=== PATIENT | male | born 1935 | race Caucasian/White ===

== ENCOUNTER → 2023-04-15 | Outpatient (CLI) | payer MEDICARE, SELFPAY ==
--- NOTE | 2023-04-15 12:30 | RAD_ITS ---
INDICATION: Other intervertebral disc degeneration, lumbar region EXAMINATION/TECHNIQUE: X-RAY - XR Spine Lumbar 2 or 3 Views COMPARISON: None. FINDINGS: Vertebral body heights are maintained. No acute fracture or subluxation. Grade 1 retrolisthesis of L2 and L3 and L3 on L4. Grade 1 anterolisthesis of L4 and L5. Grade 1 retrolisthesis of L5 on S1. No traumatic malalignment. Mild to moderate multilevel degenerative disc disease with endplate osteophytic spurring and disc space narrowing most prominent at the L2-L3 and L5-S1 level. Moderate to severe facet arthropathy most prominent at the L5-S1 level. Cholecystectomy clips noted in the right upper quadrant. No acute findings in the visualized abdomen or soft tissues. RAD/Lumbar Spine 2 or 3 Views IMPRESSION: 1. No acute findings. 2. [id number] multilevel degenerative disc disease was prominent at the L2-L3 and L5-S1 level. 3. Moderate to severe facet arthropathy most prominent at the L5-S1 level. Electronically Signed: Neo Coles MD at 13:00 EDT ,
== END | disposition home or self-care (01) ==
PROVIDERS: PCP Family Medicine; Referring Provider Anesthesiology Pain Medicine; Visit Provider Anesthesiology Pain Medicine
DX: M51.36 Other intervertebral disc degeneration, lumbar region (principal)
CPT/HCPCS: 72100

== ENCOUNTER → 2024-07-08 | Outpatient (CLI) | payer MEDICARE, SELFPAY ==
--- NOTE | 2024-07-08 16:20 | RAD_ITS ---
STUDY: X-RAY - RIGHT KNEE REASON FOR EXAM: Male, 89 years old. PAIN TECHNIQUE: 4 view(s) of the knee. COMPARISON: None. FINDINGS: There is demineralization of the visualized distal femur. There is demineralization of the tibia and fibula. Normal proximal tibiofibular articulation. There is no demonstrated fracture. There is moderate degenerative arthrosis of the medial femorotibial compartment with moderate joint space narrowing. Normal lateral femorotibial compartment. There is mild degenerative arthrosis of the patellofemoral articulation. There are atherosclerotic calcifications. RAD/Knee 4 or More Views IMPRESSION: Degenerative arthrosis. Electronically Signed: Peter Mandel MD at 9:01 EDT ,
== END | disposition home or self-care (01) ==
LOC: RAD 16:19
PROVIDERS: PCP Family Medicine; Referring Provider Anesthesiology Pain Medicine; Visit Provider Anesthesiology Pain Medicine
DX: M25.561 Pain in right knee (principal)
CPT/HCPCS: 73564

== ENCOUNTER → 2025-04-05 | Outpatient (CLI) | payer MEDICARE, SELFPAY ==
--- NOTE | 2025-04-05 07:51 | MRI_ITS ---
PROCEDURE: LOWER EXT JOINT ONLY (ROUTINE) 04/05/2025 REASON FOR EXAM: RT KNEE OA TECHNIQUE: MRI of the right lower Extremity. T1, T2, PD multiplanar and multisequence images were obtained without IV contrast administration. COMPARISON: COMPARISON : None FINDINGS: Bone Marrow: There is a 0.9 x 1.3 cm developing osteochondral defect in the central portion of the lateral femoral condyle with no free fragment. 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 Subcortical cyst formation is noted in the medial tibial plateau. A fissure is noted in the central portion of the lateral patellar facet. Effusion: There is a moderate joint effusion. 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 There is a 0.4 and 0.3 cm corticated osteochondral fragment within a moderately distended popliteus tendon sheath. Menisci: There is a bucket-handle tear of the medial meniscus with a component interposed in the intercondylar region anterior to the PCL, with radial component 1 cm from the root, and extrusion of the anterior body. There is a radial tear in the posterior horn of the lateral meniscus, 0.7 cm from the root, coronal image 24/34. There is extrusion of the body of the lateral meniscus. Collateral ligaments. The lateral collateral ligament complex appears intact. The medial collateral ligament appears intact. Cruciate ligaments: There is a edema and attenuation throughout the anterior cruciate ligament with lax components, grade 2-3 sprain. The posterior cruciate appears intact. Extensor mechanism: There is mild distal quadriceps tendinopathy with longitudinal increased T2 signal. The patellar tendon appears intact. MRI/Lower Ext Joint Only (Routine) IMPRESSION: There is a 0.9 x 1.3 cm developing osteochondral defect in the central portion of the lateral femoral condyle with no free fragment. 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 Subcortical cyst formation is noted in the medial tibial plateau. A fissure is noted in the central portion of the lateral patellar facet. There is a moderate joint effusion. 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 There is a 0.4 and 0.3 cm corticated osteochondral fragment within a moderately distended popliteus tendon sheath. There is a bucket-handle tear of the medial meniscus with a component interpose d in the intercondylar region anterior to the PCL, with radial component 1 cm from the root, and extrusion of the anterior body. There is a radial tear in the posterior horn of the lateral meniscus, 0.7 cm fr om the root, coronal image 34. There is extrusion of the body of the lateral meniscus. There is a edema and attenuation throughout the anterior cruciate ligament with lax components, grade 2-3 sprain. There is mild distal quadriceps tendinopathy with longitudinal increased T2 sig nal. Reading Location: [facility]
== END | disposition home or self-care (01) ==
PROVIDERS: PCP Family Medicine; Referring Provider Anesthesiology Pain Medicine; Visit Provider Anesthesiology Pain Medicine
DX: M17.11 Unilateral primary osteoarthritis, right knee (principal)
CPT/HCPCS: 73721

== ENCOUNTER 2025-07-31 12:26 | Emergency (ER) | payer MEDICARE, SELFPAY ==
[2025-07-31 12:27] VITALS: BP 160/82; PULSE 81; RESP 16; TEMP 36.7; O2SAT 99; BMI 22.1
--- NOTE | 2025-07-31 12:48 | RAD_ITS ---
EXAM: XR Right Ankle Complete, 3 or More Views CLINICAL INDICATION: PAIN, INJURY TECHNIQUE: Frontal, lateral and oblique views of the right ankle. COMPARISON: No relevant prior studies available. FINDINGS: BONES/JOINTS: See below. SOFT TISSUES: Soft tissue swelling without acute fracture. VASCULATURE: Vascular calcification. RAD/Ankle min 3 Views IMPRESSION: 1. Soft tissue swelling without acute fracture. 2. If symptoms persist, further evaluation with CT is recommended. Reading Location: [id number]
--- NOTE | 2025-07-31 13:00 | RAD_ITS ---
EXAM: XR Right Foot Complete, 3 or More Views CLINICAL INDICATION: PAIN INJURY KICKED MOWER TECHNIQUE: Frontal, lateral and oblique views of the right foot. COMPARISON: No relevant prior studies available. FINDINGS: BONES/JOINTS: Severe degenerative change of the 1st metatarsophalangeal joint. No acute fracture. No dislocation. SOFT TISSUES: Soft tissue swelling. RAD/Foot min 3 Views IMPRESSION: 1. Soft tissue swelling. 2. 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 Reading Location: [id number]
--- OUTSIDE RECORDS SUMMARY | 2025-07-31 13:23 | XMS RPT_ITS | CCD ---
Author Organization [facility] Care Team Providers Care Poultry Hatchery Man Name Role Phone Jennifer Hauser Unavailable Mickey Fortune Unavailable Unavailable Mickey Fortune Unavailable Unavailable Jennifer Hauser Primary Care Provider [phone] Dante Gayle Primary Care Provider Dante Gayle CNP Primary Care Provider [phone] Unavailable Unavailable Dante Gayle CNP Primary Care Provider Dante Gayle CNP Primary Care Provider Jennifer Hauser Primary Care Unavailable Norris Ortiz Referring Unavailable Norris Ortiz Attending Unavailable Norris Ortiz Attending Unavailable Jennifer Hauser Primary Care Unavailable Norris Ortiz Referring Unavailable Dante Gayle CNP Primary Care Provider Dante Gayle CNP Primary Care Provider Светлана Gayle CNP Primary Care Provider Jennifer Peterson Primary Care Provider Dante Gayle CNP Primary Care Provider [phone] Jennifer Hauser DO Primary Care Provider [phone] Deuce Mendez MD Primary Care Pro vider Deuce Mendez MD Primary Care Pro vider Unavailable Primary Care Provider Unavailabl NORRIS Bright Attending Unavailable NORRIS ORTIZ Referring Unavailable JENNIFER HAUSER Primary Care Unavailable NORRIS ORTIZ Attending Unavailable JENNIFER HAUSER Primary Care Unavailable NORRIS ORTIZ Attending Unavailable ANDREA , DEUCE Primary Care Provider [phone] Tanner GILES, Dr. Bower Attending Provider Tanner GILES, Dr. Bower Referring Provider Tanner, Cheli Attending Unavailable ANDREA, DEUCE Primary Care Unavailable Basali, Cheli Referring Unavailable ANDREA, DEUCE Primary Care Unavailable Basali, Cheli Referring Unavailable Basali, Cheli Attending Unavailable ANDREA, DEUCE Primary Care Unavailable Basali, Cheli Referring Unavailable Basali, Cheli Attending Unavailable DAY, STEPHANIE CA Attending Unavailable DAY, STEPHANIE CA Referring Unavailable ANDREA, DEUCE DAKOTA MOUNIR Primary Care Ping vailable ANDREA, DEUCE DAKOTA MOUNIR Primary Care Ping vailable ROBY NORRIS Referring Unavaila ble TONG, MICKEY RAY Admitting Unavailable TONG, MICKEY RAY Attending Unavailable ANDREA, DEUCE DAKOTA MOUNIR Primary Care Ping vailable DAY, STEPHANIEKENDALL CA Referring Unavailable DAY, STEPHANIE CA Attending Unavailable ANDREA, DEUCE DAKOTA MOUNIR Primary Care Ping vailable DAY, STEPHANIE CA Attending Unavailable DAY, STEPHANIEKENDALL CA Referring Unavailable ANDREA, DEUCE DAKOTA MOUNIR Primary Care Ping vailable DAY, STEPHANIE CA Attending Unavailable DAY, STEPHANIEKENDALL CA Referring Unavailable ANDREA, DEUCE DAKOTA MOUNIR Primary Care Ping vailable SYSTEM, PROVIDER NOT IN Referring Unavaila ble SYSTEM, PROVIDER NOT IN Attending Unavaila ble ANDREA, DEUCE DAKOTA MOUNIR Primary Care Ping vailable SYSTEM, PROVIDER NOT IN Attending Unavaila ble ANDREA, DEUCE DAKOTA MOUNIR Primary Care Ping vailable SYSTEM, PROVIDER NOT IN Referring Unavaila ble SYSTEM, PROVIDER NOT IN Attending Unavaila ble ANDREA, DEUCE DAKOTA MOUNIR Primary Care Ping vailable SYSTEM, PROVIDER NOT IN Referring Unavaila ble SOHEILA DIAZ Referring Unavailable JENNIFER HAUSER Primary Care Unavailable JUSTO PETERSON Attending Unavailable SOHEILA DIAZ Referring Unavailable SOHEILA DIAZ Referring Unavailable SOHEILA DIAZ Referring Unavailable TAMAYOANILA WARD Referring Unavailable SHAHBAZ MARRERO II H Attending Unavailabl e ANDREA, DEUCE DAKOTA MOUNIR Primary Care Ping vailable HOLLAND MOLINA Attending Unavailable ANDREA, DEUCE DAKOTA MOUNIR Primary Care Ping vailable HOLLAND MOLINA Attending Unavailable HOLLAND MOLINA Referring Unavailable ANDREA, DEUCE DAKOTA MOUNIR Primary Care Ping vailable HOLLAND MOLINA Attending Unavailable ANDREA, DEUCE DAKOTA MOUNIR Primary Care Ping vailable ANILA TAMAYO K Attending Unavailable TAMAYOANILA WARD K Referring Unavailable ANDREA, DEUCE DAKOTA MOUNIR Primary Care Ping vailable ANDREA, DEUCE DAKOTA MOUNIR Attending Ping vailable ANDREA, DEUCE DAKOTA MOUNIR Primary Care Ping vailable ANDREA, DEUCE DAKOTA MOUNIR Primary Care Ping vailable ANDREA, DEUCE DAKOTA MOUNIR Referring Ping vailable ANDREA, DEUCE DAKOTA MOUNIR Admitting Ping vailable ROBY NORRIS Attending Unavaila ble ANDREA, DEUCE DAKOTA MOUNIR Attending Ping vailable ANDREA, DEUCE DAKOTA MOUNIR Primary Care Ping vailable ANDREA, DEUCE DAKOTA MOUNIR Primary Care Ping vailable ANDREA, DEUCE DAKOTA MOUNIR Attending Ping vailable ANDREA, DEUCE DAKOTA MOUNIR Attending Ping vailable ANDREA, DEUCE DAKOTA MOUNIR Primary Care Ping vailable ANDREA, DEUCE DAKOTA MOUNIR Primary Care Ping vailable ANDREA, DEUCE DAKOTA MOUNIR Attending Ping vailable ANDREA, DEUCE DAKOTA MOUNIR Primary Care Ping vailable MARY COPPOLA Attending Unavailabl e ANDREA, DEUCE DAKOTA MOUNIR Primary Care Ping vailable STEPHANIE SIMPSON Attending Unavailable ANDREA, DEUCE DAKOTA MOUNIR Attending Ping vailable ANDREA, DEUCE DAKOTA MOUNIR Primary Care Ping vailable ANDREA, DEUCE DAKOTA MOUNIR Primary Care Ping vailable ANDREA, DEUCE DAKOTA MOUNIR Attending Ping vailable ANDREA, DEUCE DAKOTA MOUNIR Primary Care Ping vailable MANUEL FORTUNEWOOD RAY Attending Unavailable DEUCE MENDEZ Primary Care Ping SOHEILA Hernandez Attending Unavailable Allergies Allergy Classification Reported Allergen(s) Allergy Type Date of Onset Reaction(s) Facility Macrolides (antibiotic) (1 source) Erythromycin Drug Allergy 10-20-2014 [facility] (20 sources) Erythromycin; Translations: [ILOSONE] Drug Allergy 10-20-2014 [facility] Medications Current Medications Medication Drug Class(es) Dates Sig (Normalized) Sig (Original) acyclovir 0.05 mg/mg topical ointment (14 sources) Herpesvirus Nucleoside Analog DNA Polymerase Inhibitor, Herpes Simplex Virus Nucleoside Analog DNA Polymerase Inhibitor, Herpes Zoster Virus Nucleoside Analog DNA Polymerase Inhibitor Start: 04-09-2025 End: 04-09-2026 acyclovir (ZOVIRAX) 5 % ointment Apply topically 5 (five) times a day . 15 g 1 04/09/2025 04/09/2026 Active amLODIPine 10 mg oral tablet (20 sources) Dihydropyridine Calcium Channel Kemal Start: 03-16-2008 End: 01-06-2025 take 1 tablet by mouth at dinner amLODIPine (NORVASC) 10 MG tablet Indications: Primary hypertension Take 1 (one) tablet (10 mg total) by mouth with evening meal . 100 tablet 3 01/06/2025 Active amLODIPine Besyl ate 10 MG Oral Tablet Quantity: 0 Refills: 0 Ordered: 10-Oct-2019 DO Active Comment on above: Take one(1) tablet d aily. aspirin 81 mg delayed release oral tablet (20 sources) Nonsteroidal Anti-inflammatory Drug Start: 03-16-2008 aspirin(HALFPRIN 81 MG TAB) Take one(1) tablet daily. 0 03/16/2008 Active Aspirin 81 MG TA BS Quantity: 0 Refills: 0 Ordered: 10-Oct-2019 DO Active Comment on above: Take one(1) tablet d aily. b complex vitamins capsule (20 sources) take 1 capsule by mouth once daily b complex vitamins capsule Take 1 (one) capsule by mouth daily . Active take 1 capsule by mouth once milla ly b complex vitamins capsule Take 1 (one) capsule by mouth daily . 0 Active Bee pollen (2 sources) take 2 capsules by m outh once daily BEE POLLEN ORAL Take 2 capsules by mouth daily . 0 Active BEE POLLEN ORAL (20 sources) take 2 capsules by m outh once daily BEE POLLEN ORAL Take 2 capsules by mouth daily . Active take 2 capsules by mouth once da christine BEE POLLEN ORAL Take 2 capsules by mouth daily . 0 Active benoxinate hydrochloride 4 mg/ml / fluorescein sodium 3 mg/ml ophthalmic solution (5 sources) Diagnostic Dye Start: 06-24-2025 End: 06-24-2025 fluorescein-benoxinate 0.3-0.4 % 1 drop (FLURESS) Start: 08-06-2024 End: 08-06-2024 fluorescein-benoxinate 0.3-0 .4 % 1 Drop (FLURESS) Start: 08-06-2024 End: 08-06-2024 1 Drop, BOTH EYES, DIRECT ED, Starting on Ting 08/06/24 at 1100, Until Ting 08/06/24 at 2259, Administer for applanation tonometry. In the event of a Fluress shortage, administer [place]-Fluor 1 drop into both eyes as directed for applanation tonometry Start: 10-16-2022 End: 10-16-2022 fluorescein-benoxinate 0.25- 0.4 % 1 Drop (FLURESS) Start: 10-11-2022 End: 10-11-2022 fluorescein-benoxinate 0.25- 0.4 % 1 Drop (FLURESS) Calcium Carbonate (20 sources) calcium carbonat e (TUMS ORAL) Take by mouth . Active cloNIDine hydrochloride 0.1 mg oral tablet (20 sources) Central alpha-2 Adrenergic Agonist End: 2 take 1 tablet by mouth twice daily in the morning cloNIDine 0.1 mg ORAL tablet Take 0.1 mg by mouth two times a day. Take one(1) tablet in morning. Active take 1 tablet by triston th twice daily at bedtime cloNIDine 0.2 mg tablet Take 0.2 mg by mouth two times a day. Take one tablet in afternoon and bedtime. Active cloNIDine HCl - 0.2 MG Oral Tablet Quantity: 0 Refills: 0 Ordered: 10-Oct-2019 DO Active take 1 tablet by triston th once daily in the evening, then take 1 tablet by mouth once daily in the morning cloNIDine HCl (CATAPRES) 0.1 MG tablet Take 0.1 mg by mouth 0.1 mg QAM 0.2 MG QPM 0.2 MG QHS 0 Active Comment on above: Take 0.1 mg by mouth twice daily. Take one(1) tablet in morning. Take 0.2 mg by mouth twice daily. Take one tablet in afternoon and bedtime. cycloSPORINE (Restasis) 0.05 % ophthalmic emulsion (3 sources) Start: 01-24-2023 cycloSPORINE (Restasis) 0.05 % ophthalmic emulsion 01/24/2023 Active Start: 01-24-2023 cycloSPORINE ( Restasis) 0.05 % ophthalmic emulsion dexamethasone 0.001 mg/mg / neomycin 0.0035 mg/mg / polymyxin b 10 unt/mg ophthalmic ointment (3 sources) Aminoglycoside Antibacterial, Polymyxin-class Antibacterial, Corticosteroid Start: 10-15-2023 neomycin-polymyxin B-dexameth (Polydex) 3.5 mg/g-10,000 unit/g-0.1 % ointment ophthalmic ointment 10/15/2023 Active docusate sodium 250 mg oral capsule (20 sources) take 1 capsule by mouth once daily docusate sodium (COLACE) 250 MG capsule Take 1 (one) capsule (250 mg total) by mouth daily . Active docusate calcium (SURFAK) 240 mg capsule Take one capsule at bedtime. Active Comment on above: Take one capsule at bedtime. DORZOLAMIDE HCL/TIMOLOL MALEAT (COSOPT OPHT) (20 sources) DORZOLAMIDE HCL/ TIMOLOL MALEAT (COSOPT OPHT) Apply to eye 2 (two) times a day Right eye . Active DORZOLAMIDE HCL/ TIMOLOL MALEAT (COSOPT OPHT) Apply to eye 2 (two) times a day Right eye 0 Active DORZOLAMIDE HCL/ TIMOLOL MALEAT (COSOPT OPHT) Apply to eye 2 (two) times a day Right eye Active famotidine 20 mg oral tablet (20 sources) Histamine-2 Receptor Antagonist Start: 12-28-2016 End: 06-07-2025 take 1 tablet by mouth twice daily famotidine (PEPCID) 20 MG tablet Take 1 (one) tablet (20 mg total) by mouth 2 (two) times a day . 180 tablet 06/07/2025 Active Pepcid 20 MG Ora l Tablet Quantity: 0 Refills: 0 Ordered: 10-Oct-2019 DO Active take 1 tablet by mouth once emre y famotidine (PEPCID) 20 MG tablet Take 20 mg by mouth daily . 0 Active ferrous sulfate 325 mg oral tablet (20 sources) take 1 tablet by triston th once daily at breakfast ferrous sulfate 325 (65 FE) MG tablet Take 1 (one) tablet (325 mg total) by mouth daily with breakfast . Active Ferrous Sulfate 325 MG CAPS Quantity: 0 Refills: 0 Ordered: 10-Oct-2019 DO Active finasteride 5 mg oral tablet (20 sources) 5-alpha Reductase Inhibitor Start: 03-16-2008 End: 05-14-2025 take 1 tablet by mouth once daily finasteride (PROSCAR) 5 mg tablet Take 1 (one) tablet (5 mg total) by mouth daily . 90 tablet 1 05/14/2025 Active Proscar 5 MG Ora l Tablet Quantity: 0 Refills: 0 Ordered: 10-Oct-2019 DO Active Comment on above: Take one(1) tablet d aily. fluconazole 200 mg oral tabl et (20 sources) Azole Antifungal Start: 05-19-2024 fluconazole (DIFLUCAN) 200 MG tablet Take 1 (one) tablet (200 mg total) by mouth once a week Takes 2 on Saturday . 05/19/2024 Active fluorouracil 50 mg/ml topica l cream (3 sources) Nucleoside Metabolic Inhibitor Start: 09-02-2023 fluorouracil (Efudex) 5 % cream 09/02/2023 Active hydroCHLOROthiazide 25 mg / losartan potassium 100 mg oral tablet (20 sources) Thiazide Diuretic, Angiotensin 2 Receptor Kemal Start: 09-28-2023 End: 11-04-2024 losartan-hydrochloroth iazide (Hyzaar) 100-12.5 mg tablet 09/28/2023 11/04/2024 Discontinued (Med List Cleanup) Start: 03-16-2008 End: 07-19-2025 take 1 tablet by mouth once daily at lunch losartan-hydrochlorothiazide (HYZAAR) 10 0-25 mg per tablet Indications: Primary hypertension Take 1 (one) tablet by mouth daily with lunch . 100 tablet 3 07/19/2025 Active Losartan Taylori um-HCTZ 100-25 MG Oral Tablet Quantity: 0 Refills: 0 Ordered: 10-Oct-2019 DO Active Comment on above: Take one(1) tablet d aily. labetalol hydrochloride 100 mg oral tablet (20 sources) beta-Adrenergic Kemal Start: End: take 1 tablet by mouth twice daily labetaloL (NORMODYNE) 100 MG tablet Indications: Primary hypertension Take 1 (one) tablet (100 mg total) by mouth 2 (two) times a day . 180 tablet 02/19/2025 07/09/2025 Discontinued Start: 10-09-2024 take 1 tablet by triston th every twelve hours labetalol (Normodyne) 100 mg tablet Take 1 tablet (100 mg) by mouth every 12 hours. 10/09/2024 Active Start: 07-02-2024 End: 10-09-2024 take 0.5 tablet by mouth twice daily labetaloL (NORMODYNE) 200 MG tablet Take 0.5 (one-half) tablet (100 mg total) by mouth 2 (two) times a day . 90 tablet 07/02/2024 10/09/2024 Discontinued End: 11-04-2024 labetalol 200 mg ORAL tablet Take one tablet morning and one in evening. Active Labetalol HCl - 100 MG Oral Tablet Quantity: 0 Refills: 0 Ordered: 12-Oct-2022 DO Active Labetalol HCl - 200 MG Oral Tablet Quantity: 0 Refills: 0 Ordered: 10-Oct-2019 DO Active labetalol (NORMO DYNE) 200 MG tablet Take 100 mg by mouth 2 (two) times a day . 0 Active Comment on above: Take one tablet morn ing and one in evening. latanoprost 0.05 mg/ml ophthalmic solution (20 sources) Prostaglandin Analog Start: take 1 drop(s) into the eye(s) once daily at bedtime latanoprost (XALATAN) 0.005 % ophthalmic solution Use 1 drop in both eyes daily at bedtime. 7.5 mL 2 07/19/2025 Active Start: 07-14-2025 End: 07-16-2025 take 1 drop(s) into the eye(s) once daily at bedtime latanoprost (XALATAN) 0.005 % ophthalmic solution Use 1 drop in both eyes daily at bedtime. 7.5 mL 2 07/14/2025 07/16/2025 Discontinued Start: 10-29-2023 End: 08-18-2025 take 1 drop(s) into the eye(s) once daily latanoprost (XALATAN) 0.005 % ophthalmic solution Administer 1 (one) drop to both eyes nightly . 10/01/2024 Active Start: 06-14-2023 latanoprost (X alatan) 0.005 % ophthalmic solution Administer 1 drop into affected eye(s). 06/14/2023 Active Start: 05-01-2023 take 1 drop(s) into the eye(s) once daily at bedtime latanoprost (XALATAN) 0.005 % ophthalmic solution Use 1 Drop in both eyes daily at bedtime. 2.5 mL 2 05/01/2023 Active Comment on above: Use 1 Drop in both e yes daily at bedtime. LORazepam 1 mg oral tablet (20 sources) Benzodiazepine Start: End: take 1 tablet by mouth once daily LORazepam (ATIVAN) 1 MG tablet Indications: Insomnia, unspecified type Take 1 (one) tablet (1 mg total) by mouth daily for 10 days . 10 tablet 07/16/2025 07/26/2025 Active Start: 01-06-2025 End: 04-09-2025 take 1 tablet by mouth once daily LORazepam (ATIVAN) 0.5 MG tablet Indications: Insomnia, unspecified type Take 1 (one) tablet (0.5 mg total) by mouth nightly for 15 days . 15 tablet 01/06/2025 04/09/2025 Discontinued Start: 07-23-2024 End: 10-21-2024 take 1 tablet by mouth every six hours as needed for anxiety LORazepam (ATIVAN) 1 MG tablet Indications: Insomnia, unspecified type Take 1 (one) tablet (1 mg total) by mouth every 6 (six) hours as needed for anxiety . 90 tablet 07/23/2024 10/09/2024 Discontinued (Reorder (Suppress CancelRx Message to Pharmacy)) Start: 06-19-2024 End: 06-29-2024 take 1 tablet by mouth every six hours as needed for anxiety LORazepam (ATIVAN) 1 MG tablet Indications: Insomnia, unspecified type Take 1 (one) tablet (1 mg total) by mouth every 6 (six) hours as needed for anxiety . 30 tablet 06/19/2024 Active Start: 04-09-2024 End: 06-08-2024 take 1 tablet by mouth once daily as needed for anxiety LORazepam (ATIVAN) 0.5 MG tablet Indications: Insomnia, unspecified type Take 1 (one) tablet (0.5 mg total) by mouth daily as needed for anxiety . 30 tablet 2 06/08/2024 Active Start: 07-02-2006 LORAZEPAM 1 MG TAB Take one-half tablet daily. 0 07/02/2006 Active Start: 07-02-2006 End: 06-11-2025 take 1 tablet by mouth once daily LORazepam (ATIVAN) 1 MG tablet Indications: Insomnia, unspecified type Take 1 (one) tablet (1 mg total) by mouth daily . 30 tablet 2 01/12/2025 06/11/2025 Discontinued (Reorder (Suppress CancelRx Message to Pharmacy)) LORazepam 1 MG O ral Tablet Quantity: 0 Refills: 0 Ordered: 10-Oct-2019 DO Active Comment on above: Take one-half tablet daily. mirtazapine 7.5 mg oral tablet (3 sources) Start: End: 4 take 1 tablet by mouth once daily mirtazapine (REMERON) 7.5 MG tablet Take 1 (one) tablet (7.5 mg total) by mouth nightly . 30 tablet 0 03/09/2024 04/09/2024 Discontinued multivitamin capsule (3 sources) multivitamin cap jude Take by mouth. Active multivitamin cap jude Take by mouth. 0 Active Multivitamin ORAL capsule (20 sources) take 2 capsules by m outh once daily Multivitamin ORAL capsule Take two 1000mg capsules daily. Active take 2 capsules by mouth once da christine Multivitamin ORAL capsule Take two 1000mg capsules daily. 0 Active Comment on above: Take two 1000mg caps ules daily. naphazoline hydrochloride 0.25 mg/ml / pheniramine maleate 3 mg/ml ophthalmic solution (12 sources) take 1 drop(s) into the eye(s) every four hours as needed naphazoline-phenirami ne eye drops (NAPHCON-A) 0.025-0.3 % ophthalmic solution Use 1 Drop in both eyes every 4 hours as needed. Active take 1 drop(s) into the eye(s) every four hours as needed naphazoline-pheniramine (Naphcon-A) 0.02 5-0.3 % ophthalmic solution Administer 1 drop into affected eye(s) every 4 hours if needed. Active naphazoline-phen iramine eye drops (NAPHCON-A) 0.025-0.3 % ophthalmic solution Use 1 Drop in both eyes every 4 hours as needed. 0 Active Comment on above: Use 1 Drop in both e yes every 4 hours as needed. olopatadine 1 mg/ml ophthalmic solution (3 sources) Histamine-1 Receptor Inhibitor Start: 2 End: 3 take 1 drop(s) into the eye(s) twice daily olopatadine (PATANOL) 0.1 % ophthalmic solution Use 1 Drop in both eyes twice daily for 90 days. 15 mL 3 09/12/2022 12/11/2022 Active Comment on above: Use 1 Drop in both e yes twice daily for 90 days. omega-3 fatty acids(FISH OIL 500 MG CAP) (20 sources) Start: 8 omega-3 fatty acids(FISH OIL 500 MG CAP) Take two capsule of 1200 mg daily. 0 03/16/2008 Active Comment on above: Take two capsule of 1200 mg daily. ondansetron 4 mg oral tablet (20 sources) Serotonin-3 Receptor Antagonist take 1 tablet by mouth every eight hours as needed for nausea ondansetron (ZOFRAN) 4 MG tablet Take 1 (one) tablet (4 mg total) by mouth every 8 (eight) hours as needed for nausea . Active phenylephrine hydrochloride 25 mg/ml ophthalmic solution (8 sources) alpha-1 Adrenergic Agonist Start: 5 End: 5 PHENYLephrine 2.5 % 1 drop (AK-DILATE, NICOLE-SYNEPHRINE) Start: 02-25-2025 End: 02-25-2025 PHENYLephrine 2.5 % 1 drop ( AK-DILATE, NICOLE-SYNEPHRINE) Start: 02-25-2025 End: 02-25-2025 1 drop, BOTH EYES, DIRECT ED, Starting on Ting 02/25/25 at 1100, Until Ting 02/25/25 at 2259, Administer for dilation PROTECT FROM LIGHT, OPHT CLINIC MED ORDERS Start: 12-24-2024 End: 12-25-2024 PHENYLephrine 2.5 % 1 Drop ( AK-DILATE, NICOLE-SYNEPHRINE) Start: 12-24-2024 End: 12-25-2024 1 Drop, BOTH EYES, DIRECT ED, Starting on Ting 12/24/24 at 1330, Until Sat12/25/24 at 0129, Administer for dilation PROTECT FROM LIGHT, OPHT CLINIC MED ORDERS Start: 11-19-2024 End: 11-19-2024 PHENYLephrine 2.5 % 1 Drop ( AK-DILATE, NICOLE-SYNEPHRINE) Start: 11-19-2024 End: 11-19-2024 1 Drop, BOTH EYES, DIRECT ED, Starting on Ting 11/19/24 at 1130, Until Ting 11/19/24 at 2329, Administer for dilation PROTECT FROM LIGHT Start: 03-19-2023 End: 03-19-2023 PHENYLephrine 2.5 % 1 Drop ( AK-DILATE, NICOLE-SYNEPHRINE) potassium chloride 10 meq extended release oral tablet (20 sources) Start: 07-02-2006 End: 05-14-2025 take 1 tablet by mouth once daily potassium chloride 10 MEQ CR tablet Take 1 (one) tablet (10 mEq total) by mouth daily . 90 tablet 1 05/14/2025 Active Comment on above: Take one(1) tablet d aily. pravastatin sodium 10 mg oral tablet (15 sources) HMG-CoA Reductase Inhibitor Start: 04-13-2025 End: 05-18-2026 take 1 tablet by mouth once daily pravastatin (PRAVACHOL) 10 MG tablet Take 1 (one) tablet (10 mg total) by mouth nightly . 90 tablet 3 05/18/2025 05/18/2026 Active proparacaine hydrochloride 5 mg/ml ophthalmic solution (9 sources) Local Anesthetic Start: 06-24-2025 End: 06-24-2025 proparacaine 0.5 % 1 drop (ALCAINE) Start: 02-25-2025 End: 02-25-2025 proparacaine 0.5 % 1 drop (A LCAINE) Start: 02-25-2025 End: 02-25-2025 1 drop, BOTH EYES, DIRECT ED, Starting on Ting 02/25/25 at 1100, Until Ting 02/25/25 at 2259, Administer for pneumo tonometry, tonopen tonometry, or pachymetry. In the event of a proparacaine shortage, administer 1 drop of tetracaine 0.5% ophthalmic drops into both eyes as directed for pneumo tonometry, tonopen tonometry, or pachymetry, OPHT CLINIC MED ORDERS Start: 12-24-2024 End: 12-25-2024 proparacaine 0.5 % 1 Drop (A LCAINE) Start: 12-24-2024 End: 12-25-2024 1 Drop, BOTH EYES, DIRECT ED, Starting on Ting 12/24/24 at 1330, Until 12/25/24 at 0129, Administer for pneumo tonometry, tonopen tonometry, or pachymetry. In the event of a proparacaine shortage, administer 1 drop of tetracaine 0.5% ophthalmic drops into both eyes as directed for pneumo tonometry, tonopen tonometry, or pachymetry, OPHT CLINIC MED ORDERS Start: 11-19-2024 End: 11-19-2024 proparacaine 0.5 % 1 Drop (A LCAINE) Start: 11-19-2024 End: 11-19-2024 1 Drop, BOTH EYES, DIRECT ED, Starting on Ting 11/19/24 at 1130, Until Ting 11/19/24 at 2329, Administer for pneumo tonometry, tonopen tonometry, or pachymetry. In the event of a proparacaine shortage, administer tetracaine 0.5% ophthalmic drops 1 drop in the left eye as directed for pneumo tonometry, tonopen tonometry, or pachymetry Start: 05-01-2023 End: 05-01-2023 proparacaine 0.5 % 1 Drop (A LCAINE) Start: 03-19-2023 End: 03-19-2023 proparacaine 0.5 % 1 Drop (A LCAINE) psyllium 3400 mg powder for oral suspension (20 sources) take 1 dose by mouth once daily as needed psyllium (METAMUCIL) 3.4 gram packet Take 1 (one) packet by mouth daily as needed . Active Comment on above: Take 1 Packet by triston th. sertraline 50 mg oral tablet (20 sources) Serotonin Reuptake Inhibitor Start: 10-09-2024 End: 01-21-2026 take 1 tablet by mouth once daily sertraline (ZOLOFT) 50 MG tablet Indications: Anxiety , Mood disorder Take 1 (one) tablet (50 mg total) by mouth daily . 15 tablet 01/21/2025 04/09/2025 Discontinued Start: 10-20-2023 End: 06-08-2025 take 1 tablet by mouth once daily sertraline (ZOLOFT) 25 MG tablet Indications: Anxiety , Mood disorder (HCC) Take 1 (one) tablet (25 mg total) by mouth daily . 30 tablet 11 06/08/2024 10/09/2024 Discontinued (Reorder (Suppress CancelRx Message to Pharmacy)) sildenafil 100 mg oral tablet (20 sources) Phosphodiesterase 5 Inhibitor Start: 01-06-2025 take 1 tablet by mouth once daily as needed sildenafiL (VIAGRA) 100 MG tablet Indications: Erectile dysfunction, unspecified erectile dysfunction type Take 1 (one) tablet (100 mg total) by mouth daily as needed for erectile dysfunction . 10 tablet 1 01/06/2025 Active Start: 10-12-2022 take 1 tablet by triston th once daily sildenafil (Viagra) 100 mg tablet Take 1 tablet (100 mg) by mouth once daily. 10/12/2022 Active End: 01-06-2025 sildenafil citrate (SILDENAF IL ORAL) Take by mouth daily as needed for erectile dysfunction . 01/06/2025 Discontinued (Reorder (Suppress CancelRx Message to Pharmacy)) sildenafil citra te (SILDENAFIL ORAL) Take by mouth daily as needed for erectile dysfunction . Active sildenafil citra te (SILDENAFIL ORAL) Take by mouth daily as needed for erectile dysfunction . 0 Active take 1 tablet by triston th once daily as needed sildenafil (VIAGRA) 100 MG tablet Take 100 mg by mouth daily as needed for erectile dysfunction. 0 Active simvastatin 20 mg oral tablet (20 sources) HMG-CoA Reductase Inhibitor Start: 10-03-2018 End: 07-19-2025 take 1 tablet by mouth once daily simvastatin (ZOCOR) 20 MG tablet Take 1 (one) tablet (20 mg total) by mouth daily . 90 tablet 1 07/19/2025 Active Start: 02-22-2017 simvastatin (Z OCOR) 40 mg tablet 20 mg. 02/22/2017 Active End: 11-04-2024 simvastatin 80 mg ORAL table t Take by mouth. Active Simvastatin 40 M G Oral Tablet Quantity: 0 Refills: 0 Ordered: 10-Oct-2019 DO Active take 1 tablet by [facility] once daily simvastatin (ZOCOR) 40 MG tablet Take 40 mg by mouth daily 0 Active Comment on above: Take one(1) tablet d aily. 20 mg. once daily. tadalafil 20 mg oral tablet (10 sources) Phosphodiesterase 5 Inhibitor Start: 11-27-19 End: 12-27-19 take 1 tablet by mouth once daily as needed tadalafil (Cialis) 20 mg tablet Indications: Erectile dysfunction, unspecified erectile dysfunction type Take 1 tablet (20 mg) by mouth once daily as needed for erectile dysfunction. 12 tablet 3 12/17/2023 Active Start: 11-27-2023 End: 12-16-2024 take 1 tablet by mouth once daily tadalafil (Cialis) 5 mg tablet Indications: Erectile dysfunction, unspecified erectile dysfunction type Take 1 tablet (5 mg) by mouth once daily. 30 tablet 11 12/17/2023 Active tamsulosin hydrochloride 0.4 mg oral capsule (20 sources) alpha-Adrenergic Kemal Start: 07-02-2016 End: 05-14-2025 take 1 capsule by mouth once daily tamsulosin (FLOMAX) 0.4 mg capsule Take 1 (one) capsule (0.4 mg total) by mouth daily . 90 capsule 1 05/14/2025 Active Flomax 0.4 MG Or al Capsule Quantity: 0 Refills: 0 Ordered: 10-Oct-2019 DO Active Comment on above: Take 1 capsule by [facility] once daily. terbinafine 250 mg oral tablet (3 sources) Allylamine Antifungal Start: 09-02-2023 terbinafine (LamISIL) 250 mg tablet 09/02/2023 Active tropicamide 10 mg/ml ophthalmic solution (8 sources) Anticholinergic Start: 06-24-2025 End: 06-24-2025 tropicamide 1 % 1 drop (MYDRIACYL) Start: 02-25-2025 End: 02-25-2025 tropicamide 1 % 1 drop (MYDR IACYL) Start: 02-25-2025 End: 02-25-2025 1 drop, BOTH EYES, DIRECT ED, Starting on Sat02/25/25 at 1100, Until Ting 02/25/25 at 2259, Administer for dilation, [facility] MED ORDERS Start: 12-24-2024 End: 12-25-2024 tropicamide 1 % 1 Drop (MYDR IACYL) Start: 12-24-2024 End: 12-25-2024 1 Drop, BOTH EYES, DIRECT ED, Starting on Ting 12/24/24 at 1330, Until 12/25/24 at 0129, Administer for dilation, [facility] CLINIC MED ORDERS Start: 11-19-2024 End: 11-19-2024 tropicamide 1 % 1 Drop (MYDR IACYL) Start: 11-19-2024 End: 11-19-2024 1 Drop, BOTH EYES, DIRECT ED, Starting on Ting 11/19/24 at 1130, Until Ting 11/19/24 at 2329, Administer for dilation Start: 03-19-2023 End: 03-19-2023 tropicamide 1 % 1 Drop (MYDR IACYL) vardenafil 20 mg oral tablet (20 sources) Phosphodiesterase 5 Inhibitor End: 03-03-2019 Vardenafil HCl 20 mg tablet as necessary Active Comment on above: as necessary Completed/Discontinued Medications Medication Drug Class(es) Dates Sig (Normalized) Sig (Original) cholecalciferol 0.05 mg oral capsule (20 sources) Vitamin D Start: 01-02-2021 Vitamin D3 50 MCG (1999 UT) Oral Capsule Quantity: 180 Refills: 0 Ordered: 02-Jan-2021 DO Start : 02-Jan-2021 Active take 1 tablet by mouth once emre y cholecalciferol, vitamin D3, 5,000 unit Tab tablet Take 1 (one) tablet (5,000 Units total) by mouth daily . Active cycloSPORINE 0.5 mg/ml ophthalmic suspension (8 sources) Calcineurin Inhibitor Immunosuppressant Start: 01-17-2023 End: 05-01-2023 take 1 drop(s) into the eye(s) twice daily cycloSPORINE (RESTASIS) 0.05 % ophthalmic emulsion Use 1 Drop in both eyes twice daily. 180 Each 3 01/24/2023 05/01/2023 Discontinued (Course of therapy completed) Comment on above: Use 1 Drop in both e yes twice daily. DOCOSAHEXANOIC ACID/EPA (FISH OIL ORAL) (5 sources) End: 03-03-2019 take 1200 mg by mouth once daily DOCOSAHEXANOIC ACID/EPA (FISH OIL ORAL) Take 1,200 mg by mouth daily 0 03/03/2019 Discontinued take 1200 mg by mouth once daily DOCOSAHEXANOIC ACID/EPA (FISH OIL ORAL) Take 1,200 mg by mouth daily Active lifitegrast 50 mg/ml ophthalmic solution (3 sources) Lymphocyte Function-Associated Antigen-1 Antagonist Start: 01-15-2023 End: 04-15-2023 take 1 drop(s) into the eye(s) twice daily lifitegrast (XIIDRA) 5 % ophthalmic drops Use 1 Drop in both eyes twice daily. 60 Each 11 01/15/2023 01/17/2023 Discontinued (Cost of medication) Comment on above: Use 1 Drop in both e yes twice daily. Multi Vitamin/Minerals Oral Tablet (3 sources) Multi Vitamin/Minerals Oral Tablet Quantity: 0 Refills: 0 Ordered: 10-Oct-2019 DO Active omeprazole 20 mg delayed release oral capsule (2 sources) Proton Pump Inhibitor Omeprazole 20 MG Oral Capsule Delayed Release Quantity: 0 Refills: 0 Ordered: 10-Oct-2019 DO Active 1 ml triamcinolone acetonide 40 mg/ml injection (1 source) Corticosteroid Start: 06-05-2022 End: 06-05-2022 triamcinolone acetonide (KENALOG-40) injection 40 mg Problems Active Problems Problem Classification Problem Date Documented Da te Episodic/Chronic Acute and unspecified renal failure (20 sources) Chronic renal failure; Translations: [Chronic kidney disease, unspecified] Onset: 06-12-2016 06-12-2016 Chronic Anxiety disorders (20 sources) Anxiety; Translations: [Anxiety disorder, unspecified] Onset: 06-08-2024 03-09-2024 Chronic Cataract (20 sources) After-cataract with vision obscured following extraction of cataract; Translations: [Other secondary cataract, unspecified eye] Onset: 07-28-2014 Resolved: 03-13-2016 07-28-2014 Chronic Chronic kidney disease (2 sources) Chronic kidney disease; Translations: [Chronic kidney disease, stage 3 unspecified] Onset: 01-06-2025 Coronary atherosclerosis and other heart disease (20 sources) Coronary arteriosclerosis; Translations: [Coronary atherosclerosis] Onset: 11-03-2015 06-12-2016 Chronic Coronary atherosclerosis and other heart disease (3 sources) H/O cardiac surgery; Translations: [Aortocoronary bypass status] Episodic Diabetes mellitus without complication (20 sources) Prediabetes; Translations: [Prediabetes] Onset: 10-27-2015 10-27-2015 Episodic Disorders of lipid metabolism (20 sources) Hyperlipidemia; Translations: [Hyperlipidemia, unspecified] Onset: 11-03-2015 06-12-2016 Chronic Esophageal disorders (20 sources) Sharma's esophagus; 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] Onset: 04-06-2021 Chronic Essential hypertension (20 sources) Hypertensive disorder; Translations: [Essential hypertension] Onset: 11-03-2015 06-12-2016 Chronic Glaucoma (20 sources) Primary open angle glaucoma; Translations: [Primary open-angle glaucoma, bilateral, mild stage] Onset: 07-28-2014 Resolved: 03-13-2016 03-21-2017 Chronic Hyperplasia of prostate (20 sources) Benign prostatic hyperplasia; Translations: [Benign prostatic hyperplasia without lower urinary tract symptoms] Onset: 11-26-2023 08-30-2017 Chronic Mood disorders (20 sources) Mood disorder; Translations: [Unspecified mood [affective] disorder] Onset: 06-08-2024 06-08-2024 Chronic Nutritional deficiencies (1 source) Vitamin D deficiency; Translations: [Vitamin D deficiency, unspecified] 03-16-2024 Chronic Occlusion or stenosis of precerebral arteries (1 source) Right carotid artery stenosis; Translations: [Occlusion and stenosis of right carotid artery] Chronic Osteoarthritis (20 sources) Arthritis; Translations: [Unspecified osteoarthritis, unspecified site] 10-27-2015 Chronic Osteoarthritis (7 sources) Unilateral primary osteoarthritis, right knee; Translations: [Osteoarthritis of right knee joint] Onset: 02-05-2025 05-16-2025 Chronic Other aftercare (20 sources) Patient encounter status; Translations: [Encounter for therapeutic drug level monitoring] Onset: 05-07-2025 03-09-2024 Episodic Other aftercare (1 source) Encounter for therapeutic drug level monitoring; Translations: [Encounter for therapeutic drug level monitoring] Onset: 07-09-2025 Episodic Other circulatory disease (1 source) Disorder of carotid artery; Translations: [Disorder of arteries and arterioles, unspecified] Chronic Other circulatory disease (3 sources) H/O: hypertension; Translations: [Personal history of other diseases of circulatory system] Episodic Other ear and sense organ disorders (1 source) Impacted cerumen of bilateral ears; Translations: [Impacted cerumen, bilateral] 10-19-2024 Episodic Other eye disorders (20 sources) Bilateral vitreous floaters; Translations: [Other vitreous opacities, bilateral] Onset: 09-19-2016 09-19-2016 Chronic Other eye disorders (20 sources) Optic atrophy of right eye; Translations: [Unspecified optic atrophy] Onset: 04-19-2021 04-19-2021 Chronic Other eye disorders (13 sources) Optic cupping; Translations: [Glaucomatous optic atrophy, bilateral] Onset: 05-01-2023 Chronic Other eye disorders (2 sources) Constricted pupil; Translations: [Miosis] 05-06-2024 Chronic Other eye disorders (6 sources) Glaucomatous optic atrophy, bilateral; Translations: [Glaucomatous atrophy [cupping] of optic disc] Onset: 09-27-2014 03-10-2018 Chronic Other eye disorders (2 sources) Bilateral epiphora of eyes due to excessive tear production; Translations: [Epiphora due to excess lacrimation, bilateral lacrimal glands] Episodic Other eye disorders (1 source) Acquired nasolacrimal duct obstruction; Translations: [Acquired stenosis of bilateral nasolacrimal duct] Episodic Other gastrointestinal disorders (1 source) Dysphagia Episodic Other gastrointestinal disorders (2 sources) Burping; Translations: [Belching] Episodic Other inflammatory condition of skin (20 sources) Psoriasis; Translations: [Other psoriasis] Onset: 10-16-2010 10-16-2010 Chronic Other injuries and conditions due to external causes (4 sources) At moderate risk for fall; Translations: [History of falling] 10-09-2024 Episodic Other injuries and conditions due to external causes (1 source) At high risk for fall; Translations: [History of falling] 04-09-2025 Episodic Other male genital disorders (15 sources) Male erectile dysfunction, unspecified; Translations: [Erectile dysfunction] Onset: 11-26-2023 11-26-2023 Chronic Other nervous system disorders (1 source) Peripheral sensory neuropathy; 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] 03-13-2023 Chronic Other nervous system disorders (3 sources) Chronic pain; Translations: [Other chronic pain] Onset: 10-09-2024 10-15-2024 Chronic Other nervous system disorders (4 sources) Polyneuropathy, unspecified; Translations: [Polyneuropathy, unspecified] Onset: 08-19-2024 Chronic Other nervous system disorders (2 sources) Other chronic pain; Translations: [Other chronic pain] Onset: 10-09-2024 Chronic Other non-traumatic joint disorders (2 sources) Pain of left wrist; Translations: [Pain in left wrist] Episodic Other screening for suspected conditions (not mental disorders or infectious disease) (13 sources) Blood chemistry abnormal; Translations: [Abnormal finding of blood chemistry, unspecified] Onset: 10-09-2024 03-09-2024 Episodic Residual codes; unclassified (1 source) Never smoked tobacco; Translations: [Other specified conditions influencing health status] Episodic Residual codes; unclassified (2 sources) Insomnia, unspecified; Translations: [Insomnia, unspecified] Onset: 06-08-2024 Episodic Retinal detachments; defects; vascular occlusion; and retinopathy (20 sources) Nonexudative age-related macular degeneration; Translations: [Nonexudative age-related macular degeneration, bilateral, early dry stage] Onset: 09-27-2014 04-19-2021 Chronic Spondylosis; intervertebral disc disorders; other back problems (3 sources) Degeneration of lumbar intervertebral disc; Translations: [Degeneration of intervertebral disc of lumbar region, unspecified whether pain present] 05-16-2025 Chronic Substance-related disorders (3 sources) Sedative dependence; Translations: [Sedative, hypnotic or anxiolytic dependence, uncomplicated] Onset: 01-06-2025 01-06-2025 Chronic Unclassified (5 sources) Prediabetes; Translations: [Borderline diabetes] 10-27-2015 Unclassified (2 sources) Chronic pain of right knee 10-09-2024 Unclassified (2 sources) [facility] DOCUMENTATION Onset: 10-20-2024 Past or Other Problems Problem Classification Problem Date Documented Date Episodic/Chronic Allergic reactions (20 sources) Solar degeneration; Translations: [Other skin changes due to chronic exposure to nonionizing radiation] Onset: 08-20-2006 Resolved: 09-21-2012 09-21-2012 Episodic Blindness and vision defects (20 sources) Regular astigmatism; Translations: [Regular astigmatism, unspecified eye] Onset: 10-20-2014 10-20-2014 Episodic Esophageal disorders (20 sources) Gastroesophageal reflux disease with hiatal hernia; Translations: [Diaphragmatic hernia without obstruction or gangrene] Onset: 04-06-2021 Episodic Genitourinary symptoms and ill-defined conditions (20 sources) Blood in urine; Translations: [Hematuria, unspecified] Onset: 11-26-2023 11-26-2023 Episodic Inflammation; infection of eye (except that caused by tuberculosis or sexually transmitteddisease) (20 sources) Acute infectious conjunctivitis; Translations: [Unspecified acute conjunctivitis, right eye] Onset: 07-02-2019 07-02-2019 Episodic Mood disorders (20 sources) Mood disorders Onset: 01-06-2025 Resolved: 04-09-2025 01-06-2025 Other and unspecified benign neoplasm (20 sources) Senile angioma; Translations: [Hemangioma of skin and subcutaneous tissue] Onset: 09-21-2012 09-21-2012 Episodic Other circulatory disease (20 sources) Telangiectasia disorder; Translations: [Nevus, non-neoplastic] Onset: 09-23-2011 09-23-2011 Episodic Other circulatory disease (8 sources) Non-neoplastic nevus; Translations: [Nevus, non-neoplastic] Onset: 10-26-2008 Resolved: 09-21-2012 09-21-2012 Episodic Other connective tissue disease (20 sources) Other symptoms and signs involving the musculoskeletal system; Translations: [Other musculoskeletal symptoms referable to limbs] Onset: 06-08-2024 06-08-2024 Episodic Other diseases of kidney and ureters (2 sources) Other obstructive and reflux uropathy; Translations: [Other obstructive and reflux uropathy] Onset: 11-26-2023 Episodic Other ear and sense organ disorders (2 sources) Impacted cerumen, bilateral; Translations: [Impacted cerumen, bilateral] Onset: 10-19-2024 Episodic Other eye disorders (20 sources) Glaucomatous atrophy of optic disc; Translations: [Glaucomatous optic atrophy, bilateral] Onset: 09-27-2014 Resolved: 03-13-2016 03-10-2018 Chronic Other eye disorders (8 sources) Vitreous floaters; Translations: [Other vitreous opacities, unspecified eye] Onset: 09-14-2015 Resolved: 09-19-2016 09-19-2016 Chronic Other eye disorders (20 sources) Bilateral epiphora of eyes due to tear drainage disorder; Translations: [Epiphora due to insufficient drainage, bilateral] Onset: 08-22-2022 08-22-2022 Episodic Other inflammatory condition of skin (20 sources) Seborrheic dermatitis; Translations: [Other seborrheic dermatitis] Onset: 10-16-2010 10-16-2010 Episodic Other injuries and conditions due to external causes (2 sources) History of falling; Translations: [History of falling] Onset: 10-09-2024 Episodic Other non-traumatic joint disorders (20 sources) Pain in right knee; Translations: [Pain in joint, lower leg] Onset: 07-25-2024 10-09-2024 Episodic Other skin disorders (20 sources) Actinic keratosis; Translations: [Actinic keratosis] Onset: 08-20-2006 10-16-2010 Episodic Other skin disorders (20 sources) Asteatosis cutis; Translations: [Xerosis cutis] Onset: 04-01-2011 Resolved: 09-21-2012 09-23-2011 Episodic Other skin disorders (20 sources) Inflamed seborrheic keratosis; Translations: [Inflamed seborrheic keratosis] Onset: 08-12-2007 Resolved: 09-21-2012 09-21-2012 Episodic Other skin disorders (20 sources) Seborrheic keratosis; Translations: [Other seborrheic keratosis] Onset: 08-20-2006 Resolved: 09-21-2012 09-21-2012 Episodic Other skin disorders (20 sources) Solar lentigo; Translations: [Other melanin hyperpigmentation] Onset: 09-21-2012 09-21-2012 Episodic Other skin disorders (8 sources) Disorder of skin pigmentation; Translations: [Disorder of pigmentation, unspecified] Onset: 08-20-2006 Resolved: 09-21-2012 09-21-2012 Episodic Other skin disorders (8 sources) Sebaceous cyst of skin; Translations: [Sebaceous cyst] Onset: 08-20-2006 Resolved: 09-21-2012 09-21-2012 Episodic Other skin disorders (8 sources) Disorder of sebaceous gland; Translations: [Follicular disorder, unspecified] Onset: 08-20-2006 Resolved: 09-21-2012 09-21-2012 Episodic Residual codes; unclassified (20 sources) Insomnia; Translations: [Insomnia, unspecified] Onset: 06-08-2024 04-09-2024 Episodic Retinal detachments; defects; vascular occlusion; and retinopathy (20 sources) Multiple defects of retina without detachment; Translations: [Multiple defects of retina without detachment, unspecified eye] Onset: 10-20-2014 10-20-2014 Episodic Unclassified (1 source) Gaseous regurgitation Unclassified (18 sources) Onset: 11-27-2023 Resolved: 04-05-2025 11-27-2023 Viral infection (8 sources) Verruca vulgaris; Translations: [Viral wart, unspecified] Onset: 08-20-2006 Resolved: 09-21-2012 09-21-2012 Episodic Results Test Name Value Interpretation Reference Range Facility ECG 12 Leadon 07-09-[address] [facility] Sinus Bradycardia -Nonspecific QRS widening and anterior fascicular block. 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 ABNORMAL [facility] ECG 12-LEADon 07-09-2025 ECG 12-LEAD Sinus Bradycardia -Nonspecific QRS widening and anterior fascicular block. -Old anteroseptal infarct. ABNORMAL Normal [facility] OCT ANGIOGRAPHY OU (BOTH EYE S)on 06-24-2025 [facility] Radiology Study observation (narrative) [facility] OCT MACULA CIRRUS OU (BOTH E YES)on 06-24-2025 [facility] Radiology Study observation (narrative) [facility] Magnetic resonance imaging r eportOrdered By: Sean Araujo on 04-06-2025 Study report [facility] Imaging Services [address], [place] [address] Lower Ext Joint Only (Routine) MR#: [id number] Acct: [id number] Name: YUDITH MORIN Ronnell Rep #: [id number] : [id number] M [id number] From: Michael Araujo MD PCP: DEUCE MENDEZ MD Status: REG CLI Study:Lower Ext Joint Only (Routine) Date of Exam: 04/05/25 Exam# [id number] Ordering Dr: Aman Hart MD PROCEDURE: LOWER EXT JOINT ONLY (ROUTINE) 04/05/2025 REASON FOR EXAM: RT KNEE OA TECHNIQUE: MRI of the right lower Extremity. T1, T2, PD multiplanar and multisequence images were obtained without IV contrast administration. COMPARISON: COMPARISON : None FINDINGS: Bone Marrow: There is a 0.9 x 1.3 cm developing osteochondral defect in the central portion of the lateral femoral condyle with no free fragment. 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 Subcortical cyst formation is noted in the medial tibial plateau. A fissure is noted in the central portion of the lateral patellar facet. Effusion: There is a moderate joint effusion. 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 There is a 0.4 and 0.3 cm corticated osteochondral fragment within a moderately distended popliteus tendonsheath. Menisci: There is a bucket-handle tear of the medial meniscus with a component interposed in the intercondylar region anterior to the PCL, with radial component 1 cm from the root, and extrusion of the anteriorbody. There is a radial tear in the posterior horn of the lateral meniscus, 0.7 cm from the root, coronal image 24/34. There is extrusion of the body of the lateral meniscus. Collateral ligaments. The lateral collateral ligament complex appears intact. The medial collateral ligament appears intact. Cruciate ligaments: There is a edema and attenuation throughout the anterior cruciate ligament with lax components, grade 2-3 sprain. The posterior cruciate appears intact. Extensor mechanism: There is mild distal quadriceps tendinopathy with longitudinal increased T2 signal. The patellar tendon appears intact. MRI/Lower Ext Joint Only (Routine) IMPRESSION: There is a 0.9 x 1.3 cm developing osteochondral defect in the central portion of the lateral femoral condyle with no free fragment. 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 Subcortical cyst formation is noted in the medial tibial plateau. A fissure is noted in the central portion of the lateral patellar facet. There is a moderate joint effusion. 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 There is a 0.4 and 0.3 cm corticated osteochondral fragment within a moderately distended popliteus tendon sheath. There is a bucket-handle tear of the medial meniscus with a component interposedin the intercondylar region anterior to the PCL, with radial component 1 cm from the root, and extrusion of the anterior body. There is a radial tear in the posterior horn of the lateral meniscus, 0.7 cm from the root, coronal image . There is extrusion of the body of the lateral meniscus. There is a edema and attenuation throughout the anterior cruciate ligament with lax components, grade 2-3 sprain. There is mild distal quadriceps tendinopathy with longitudinal increased T2 signal. Reading Location: [facility] CC: DEUCE MENDEZ MD; Dr. Cheli Hart MD ~ Architectural Administrative Assistant: Signed [facility] ALBUMIN, RANDOM URINE W/CREA TININEon 04-05-2025 ALBUMIN, URINE 1.7 mg/dL Normal See Note: [facility] Comment on above: Order Comment: FASTI NG:NO FASTING: NO Result Comment: Refe rence Range: Reference Range Not established Performed By: #### [id number] #### [facility] [address], [address] [place] [address] [employer] Recapping Machine Operator: Maximo Cline MD ALBUMIN/CREATININE RATIO, RANDOM URINE 8 mg/g creat Normal <30 [facility] Comment on above: Order Comment: FASTI NG:NO FASTING: NO Result Comment: The ADA defines abnormalities in albumin excretion as follows: Albuminuria Category Result (mg/g creatinine) Normal to Mildly increased <30 Moderately increased 30-299 Severely increased > OR = 300 The ADA recommends that at least two of three specimens collected within a 3-6 month period be abnormal before considering a patient to be within a diagnostic category. Performed By: #### [id number], [id number] #### [facility] [address], [address] [place] [address] [employer] Recapping Machine Operator: Maximo Cline MD Creatinine (U) [Mass/Vol] 211 mg/dL Normal 20-320 [facility] Comment on above: Order Comment: FASTI NG:NO FASTING: NO Performed By: #### [id number] #### [facility] [address], [address] [place] [address] [employer] Recapping Machine Operator: Maximo Cline MD DRUG TOX MONITORING 9 W/CONF , URINEon 04-05-2025 Alphahydroxyalprazolam Negative Normal <25 [facility] Comment on above: Result Comment: See Note 1 Performed By: #### [id number], [id number] #### [facility] [place] [address], [address] [place] [address] [employer]apping Machine Operator: Maximo Cline MD Alphahydroxymidazolam Negative Normal <[address] [facility] Comment on above: Result Comment: See Note 1 Performed By: #### [id number], [id number] #### [facility] [place] [address] , [address] [place] [address] [employer] Recapping Machine Operator: Maximo Cline MD Alphahydroxytriazolam Negative Normal <[address] [facility] Comment on above: Result Comment: See Note 1 Performed By: #### [id number], [id number] #### [facility] [place] [address] , [address] [place] [address] [employer]apping Machine Operator: Maximo Cline MD Aminoclonazepam Negative Normal <25 [facility] Comment on above: Result Comment: See Note 1 Performed By: #### [id number], [id number] #### [facility] [place] [address] , [address] [place] [address] [employer]apping Machine Operator: Maximo Cline MD Amphetamines Negative Normal <500 [facility] Comment on above: Performed By: #### [id number], [id number] #### [facility] [place] [address] , [address] [place] [address] [employer]apping Machine Operator: Maximo Cline MD Barbiturates Negative Normal <300 [facility] Comment on above: Performed By: #### [id number], [id number] #### [facility] of [place] [address] [address] , [address] [place] [address] [employer]ire Recapping Machine Operator: Maximo Cline MD Benzodiazepines Positive Abnormal <100 [facility] Comment on above: Performed By: #### 9 256, 42 #### [facility] of [place] [address] [address] , [address] [place] [address] [employer] Recapping Machine Operator: Maximo Cline MD Buprenorphine Negative Normal <5 [facility] Comment on above: Performed By: #### 9 844, 6517 #### [facility] of [address], [address] [place] [address] [employer] Recapping Machine Operator: Maximo Cline MD Cocaine Metabolite Negative Normal <150 [facility] Comment on above: Performed By: #### 9 830, 6517 #### [facility] of [address], [address] [place] [address] [employer] Recapping Machine Operator: Maximo Cline MD COMMENT Normal [facility] Comment on above: Result Comment: See Note 2 Note 1 This test was developed and its analytical performance characteristics have been determined by [facility]. It has not been cleared or approved by the FDA. This assay has been validated pursuant to the CLIA regulations and is used for clinical purposes. Note 2 This drug testing is for medical treatment only. Analysis was performed as non-forensic testing and these results should be used only by healthcare providers to render diagnosis or treatment, or to monitor progress of medical conditions. For assistance with interpreting these drug results, please contact a [facility] Toxicology Specialist: [phone] ( ), M-F, 8am-6pm EST. Performed By: #### 9 132, 6517 #### [facility] of [address], [address] [place] [address] [employer] Recapping Machine Operator: Maximo Cline MD Heroin Metabolite Negative Normal <10 [facility] Comment on above: Performed By: #### 9 187, 6517 #### [facility] of [address], [address] [place] [address] [employer] Recapping Machine Operator: Maximo Cline MD Hydroxyethylflurazepam Negative Normal <50 [facility] Comment on above: Result Comment: See Note 1 Performed By: #### 9 985, 6517 #### [facility] of [place] [address] [employer] Recapping Machine Operator: Maximo Cline MD Lorazepam 1480 ng/mL High <50 [facility] Comment on above: Result Comment: See Note 1 Performed By: #### 9 178, 6517 #### [facility] of [address] [place] [address] [employer] Recapping Machine Operator: Maximo Cline MD Marijuana Metabolite 20 Negative Normal <20 [facility] Comment on above: Performed By: #### 9 907, 6517 #### [facility] of [address], [address] [place] [address] [employer] Recapping Machine Operator: Maximo Cline MD MDMA/MDA Negative Normal <500 [facility] Comment on above: Performed By: #### 9 222, 6517 #### [facility] of [address], [address] [place] [address] [employer] Recapping Machine Operator: Maximo Cline MD Methadone Metabolite Negative Normal <100 [facility] Comment on above: Performed By: #### 9 827, 3617 #### [facility] of [place] [address] [employer] Operator: Maximo Cline MD Nordiazepam Negative Normal <50 [facility] Comment on above: Result Comment: See Note 1 Performed By: #### 9 973, 6517 #### [facility] of [place] [address] [employer] Operator: Maximo Cline MD Opiates Negative Normal <100 [facility] Comment on above: Performed By: #### 9 213, 6517 #### [facility] of [place] [address] [employer] Operator: Maximo Cline MD Oxazepam Negative Normal <50 [facility] Comment on above: Result Comment: See Note 1 Performed By: #### 9 616, 6517 #### [facility] of [address] , [address] [place] [address] [employer] Recapping Machine Operator: Maximo Cline MD Oxycodone Negative Normal <100 [facility] Comment on above: Performed By: #### 9 7193, 5517 #### [facility] of [place] [address] [address] , [address] [place] [address] [employer] Recapping Machine Operator: Maximo Cline MD Phencyclidine Negative Normal <25 [facility] Comment on above: Performed By: #### 9 6929, 6517 #### [facility] [address], [address] [place] [address] [employer] Recapping Machine Operator: Maximo Cline MD Temazepam Negative Normal <50 [facility] Comment on above: Result Comment: See Note 1 Performed By: #### 9 1489, 6517 #### [facility] [address], [address] [place] [address] [employer] Machine Operator: Maximo Cline MD Lower Ext Joint Only (Routin e)on 04-05-2025 Lower Ext Joint Only (Routine) [facility] [address] [place] [address] Lower Ext Joint Only (Routine) MR#: [id number] Acct: [id number] Name: YUDITH MORIN Rep #: [id number] : 1935 M 89 From: Sean Araujo MD PCP: DEUCE MENDEZ MD Status: REG CLI Study: Lower Ext Joint Only (Routine) Date of Exam: 0 04/05/25 Exam# [id number] Ordering Dr: Cheli Hart MD PROCEDURE: LOWER EXT JOINT ONLY (ROUTINE) 04/05/2025 REASON FOR EXAM: RT KNEE OA TECHNIQUE: MRI of the right lower Extremity. T1, T2, PD multiplanar and multisequence images were obtained without IV contrast administration. COMPARISON: COMPARISON : None FINDINGS: Bone Marrow: There is a 0.9 x 1.3 cm developing osteochondral defect in the central portion of the lateral femoral condyle with no free fragment. 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 Subcortical cyst formation is noted in the medial tibial plateau. A fissure is noted in the central portion of the lateral patellar facet. Effusion: There is a moderate joint effusion. 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 There is a 0.4 and 0.3 cm corticated osteochondral fragment within a moderately distended popliteus tendon sheath. Menisci: There is a bucket-handle tear of the medial meniscus with a component interposed in the intercondylar region anterior to the PCL, with radial component 1 cm from the root, and extrusion of the anterior body. There is a radial tear in the posterior horn of the lateral meniscus, 0.7 cm from the root, coronal image 24/34. There is extrusion of the body of the lateral meniscus. Collateral ligaments. The lateral collateral ligament complex appears intact. The medial collateral ligament appears intact. Cruciate ligaments: There is a edema and attenuation throughout the anterior cruciate ligament with lax components, grade 2-3 sprain. The posterior cruciate appears intact. Extensor mechanism: There is mild distal quadriceps tendinopathy with longitudinal increased T2 signal. The patellar tendon appears intact. MRI/Lower Ext Joint Only (Routine) IMPRESSION: There is a 0.9 x 1.3 cm developing osteochondral defect in the central portion of the lateral femoral condyle with no free fragment. 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 Subcortical cyst formation is noted in the medial tibial plateau. A fissure is noted in the central portion of the lateral patellar facet. There is a moderate joint effusion. 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 There is a 0.4 and 0.3 cm corticated osteochondral fragment within a moderately distended popliteus tendon sheath. There is a bucket-handle tear of the medial meniscus with a component interposed in the intercondylar region anterior to the PCL, with radial component 1 cm from the root, and extrusion of the anterior body. There is a radial tear in the posterior horn of the lateral meniscus, 0.7 cm from the root, coronal image 24/34. There is extrusion of the body of the lateral meniscus. There is a edema and attenuation throughout the anterior cruciate ligament with lax components, grade 2-3 sprain. There is mild distal quadriceps tendinopathy with longitudinal increased T2 signal. Reading Location: [facility] CC: DEUCE MENDEZ MD; Dr. Cheli Hart MD Architectural Administrative Assistant: Signed Normal [facility] COMPREHENSIVE METABOLIC PANE L W/ANION GAPon 04-03-2025 Albumin [Mass/Vol] 4.0 g/dL Normal 3.6-5.1 [facility] Comment on above: Performed By: #### 7 757, 91040, 496, 76362, 6399, 5616, 7065 #### [facility] of [place] [address] [employer] Operator: Maximo Cline MD ALP [Catalytic activity/Vol] 73 U/L Normal 35-144 [facility] Comment on above: Performed By: #### 7 600, 41956, 496, 09432, 6399, 5616, 7065 #### [facility] of [place] [address] [employer] Operator: Maximo Cline MD ALT [Catalytic activity/Vol] 17 U/L Normal 9-46 [facility] Comment on above: Performed By: #### 7 600, 52354, 496, 15516, 6399, 5616, 7065 #### [facility] of [place] [address] [employer] Operator: Maximo Cline MD AST [Catalytic activity/Vol] 20 U/L Normal 10-35 [facility] Comment on above: Performed By: #### 7 600, 70860, 496, 55798, 6399, 5616, 7065 #### [facility] of [place] [address] [employer] Operator: Maximo Cline MD Bilirubin [Mass/Vol] 1.1 mg/dL Normal 0.2-1.2 [facility] Comment on above: Performed By: #### 7 600, 31657, 496, 55441, 6399, 5616, 7065 #### [facility] of [place] [address] [employer] Operator: Maximo Cline MD Calcium [Mass/Vol] 8.6 mg/dL Normal 8.6-10.3 [facility] Comment on above: Performed By: #### 7 600, 88572, 496, 19149, 6399, 5616, 7065 #### [facility] of [place] [address] [employer] Operator: Maximo Cline MD Chloride [Moles/Vol] 106 mmol/L Normal 98-110 [facility] Comment on above: Performed By: #### 7 600, 44795, 496, 26150, 6399, 5616, 7065 #### [facility] [place] [address] [employer] Operator: Maximo Cline MD CO2 [Moles/Vol] 25 mmol/L Normal 20-32 [facility] Comment on above: Performed By: #### 7 600, 96129, 496, 82283, 6399, 5616, 7065 #### [facility] [place] [address] [employer] Operator: Maximo Cline MD Creatinine [Mass/Vol] 1.30 mg/dL High 0.70-1.[address] [facility] Comment on above: Performed By: #### 7 600, 86642, 496, 90328, 6399, 5616, 7065 #### [facility] [place] [address] [employer] Operator: Maximo Cline MD ELECTROLYTE BALANCE 12 mmol/L (calc) Normal 7-17 [facility] Comment on above: Performed By: #### 7 600, 61291, 496, 37962, 6399, 5616, 7065 #### [facility] [place] [address] [employer] Operator: Maximo Cline MD GFR/1.73 sq M.predicted among non-blacks MDRD (S/P/Bld) [Vol rate/Area] 53 mL/min/{1.73_m2} Low > OR = 60 [facility] Comment on above: Performed By: #### 7 600, 78734, 496, 66425, 6399, 5616, 7065 #### [facility] [place] [address] [employer] Operator: Maximo Cline MD Glucose [Mass/Vol] 111 mg/dL Normal 65-139 [facility] Comment on above: Result Comment: Non-fasting reference interval For someone without known diabetes, a glucose value between 100 and 125 mg/dL is consistent with prediabetes and should be confirmed with a follow-up test. Performed By: #### 7 600, 05234, 496, 68124, 6399, 5616, 7065 #### [facility] [place] [address] [employer] Operator: Maximo Cline MD Potassium [Moles/Vol] 3.9 mmol/L Normal 3.5-5.[address] [facility] [address] [facility] Comment on above: Performed By: #### 7 600, 83352, 496, 62672, 6399, 5616, 7065 #### [facility] [place] [address] [employer] Operator: Maximo Cline MD Protein [Mass/Vol] 5.7 g/dL Low 6.1-8.1 [facility] Comment on above: Performed By: #### 7 600, 00191, 496, 55298, 6399, 5616, 7065 #### [facility] [place] [address] [employer] Operator: Maximo Cline MD Sodium [Moles/Vol] 143 mmol/L Normal 135-146 [facility] Comment on above: Performed By: #### 7 600, 12699, 496, 41389, 6399, 5616, 7065 #### [facility] [place] [address] [employer] Operator: Maximo Cline MD Urea nitrogen [Mass/Vol] 27 mg/dL High 7-25 [facility] Comment on above: Performed By: #### 7 600, 52141, 496, 27740, 6399, 5616, 7065 #### [facility] [place] [address] [employer] Operator: Maximo Cline MD HEMOGLOBIN A1con 04-03-2025 HbA1c (Bld) [Mass fraction] 5.5 % Normal <5.7 [facility] Comment on above: Result Comment: For the purpose of screening for the presence of diabetes: <5.7% Consistent with the absence of diabetes 5.7-6.4% Consistent with increased risk for diabetes (prediabetes) > or =6.5% Consistent with diabetes This assay result is consistent with a decreased risk of diabetes. Currently, no consensus exists regarding use of hemoglobin A1c for diagnosis of diabetes in children. According to [place] Diabetes [employer] (ADA) guidelines, hemoglobin A1c <7.0% represents optimal control in non- diabetic patients. Different metrics may apply to specific patient populations. Standards of Medical Care in Diabetes(ADA). Performed By: #### 7 600, 99537, 496, 57576, 6399, 5616, 7065 #### [facility] [address], [address] [place] [address] [employer] Machine Operator: Maximo Cline MD LIPID PANEL WITH REFLEX TO Marcos MCMAHON LDLon 04-03-2025 Cholesterol [Mass/Vol] 145 mg/dL Normal <200 [facility] Comment on above: Order Comment: FASTI NG:NOFASTING: NO Performed By: #### 7 600, 86913, 496, 59250, 6399, 5616, 7065 #### [facility] [address], [address] [place] [address] [employer] Recapping Machine Operator: Maximo Cline MD Cholesterol in HDL [Mass/Vol] 50 mg/dL Normal > OR = 40 [facility] Comment on above: Order Comment: FASTI NG:NOFASTING: NO Performed By: #### 7 600, 41308, 496, 92626, 6399, 5616, 7065 #### [facility] [address], [address] [place] [address] [employer] Recapping Machine Operator: Maximo Cline MD Cholesterol in LDL [Mass/Vol] 81 mg/dL Normal [facility] Comment on above: Order Comment: FASTI NG:NOFASTING: NO Result Comment: Refe rence range: <100 Desirable range <100 mg/dL for primary prevention; <70 mg/dL for patients with CHD or diabetic patients with > or = 2 CHD risk factors. LDL-C is now calculated using the Zohra calculation, which is a validated novel method providing better accuracy than the Friedewald equation in the estimation of LDL-C. Tong SS et al. KEVIN. 2013;310(19): 0672-3844 (http://education.[employer].EnergySavvy.com/faq/WPD970) Performed By: #### 7 600, 75446, 496, 83158, 6399, 5616, 7065 #### [facility] [place] [address] [employer] Operator: Maximo Cline MD Cholesterol.total/Cholest marlena in HDL [Mass ratio] 2.9 {ratio} Normal <5.0 [facility] Comment on above: Order Comment: FASTI NG:NOFASTING: NO Performed By: #### 7 600, 24118, 496, 11152, 6399, 5616, 7065 #### [facility] [place] [address] [employer] Machine Operator: Maximo Cline MD NON HDL CHOLESTEROL 95 mg/dL (calc) Normal <130 [facility] Comment on above: Order Comment: FASTI NG:NOFASTING: NO Result Comment: For patients with diabetes plus 1 major ASCVD risk factor, treating to a non-HDL-C goal of <100 mg/dL (LDL-C of <70 mg/dL) is considered a therapeutic option. Performed By: #### 7 600, 74880, 496, 41992, 6399, 5616, 7065 #### [facility] [place] [address] [employer] Operator: Maximo Cline MD Triglyceride [Mass/Vol] 62 mg/dL Normal <150 [facility] Comment on above: Order Comment: FASTI NG:NOFASTING: NO Performed By: #### 7 600, 24589, 496, 80877, 6399, 5616, 7065 #### [facility] [place] [address] [employer] Machine Operator: Maximo Cline MD TSH W/REFLEX TO FT4on 2024 TSH W/REFLEX TO FT4 1.17 mIU/L Normal 0.40-4.50 [facility] Comment on above: Performed By: #### 7 600, 57719, 496, 57705, 6399, 5616, 7065 #### [facility] [address], [address] [place] [address] T[employer] Recapping Machine Operator: Maximo Cline MD OCT ANGIOGRAPHY OU (BOTH EYE S)on 02-25-2025 [facility] Radiology Study observation (narrative) [facility] OCT MACULA CIRRUS OU (BOTH E YES)on 02-25-2025 [facility] Radiology Study observation (narrative) [facility] OCT MACULA CIRRUS OU (BOTH E YES)on 12-24-2024 [facility] Radiology Study observation (narrative) [facility] OCT MACULA CIRRUS OU (BOTH E YES)on 11-19-2024 [facility] Radiology Study observation (narrative) [facility] OCT OPTIC NERVE CIRRUS OU (B OTH EYES)on 11-19-2024 [facility] Radiology Study observation (narrative) [facility] VISUAL FIELD 24-2 OU (BOTH E YES)on 11-19-2024 [facility] Radiology Study observation (narrative) [facility] NM MYOCARDIAL PERFUSION MULT I SPECTon 11-05-2024 NM MYOCARDIAL PERFUSION MULTI SPECT Patient Info Name: YUDITH MORIN Age: 89 years : 1935 Gender: Male Ht: 185 cm Wt: 78 kg BSA: 2.00 m2 HR: 62 bpm BP: 167 / 89 mmHg Heart Rhythm: Sinus Rhythm Exam Date: 11/05/2024 9:00 AM Patient Status: Outpatient Insurance Sales Specialist: Jess Beauchamp, RT(N), TRADE CLERK, JOHN, Delvis Beauchamp RT(N), NCT Exam Type: NM MYOCARDIAL PERFUSION MULTI SPECT Study Info Indications - CAD monitoring, CABG > 5yrs or PCI > 2 yrs Nuclear Physician: Nissa Servin MD Referring Physician: ANDREA; [id number] Primary Nurse: Pauly Tran RN Supervising Stress Physician: Nissa Servin MD BMI: 22.80 kg/m2 Summary 1. Normal pharmacologic stress SPECT myocardial perfusion imaging study. 2. No inducible ischemia identified. 3. No ischemic EKG changes with regadenoson stress. 4. Normal left ventricular size. The stress/rest left ventricular cavity ratio (Transient Ischemic Dilatation ratio) = 1.01 . SPECT images demonstrate homogeneous tracer distribution throughout the myocardium. 5. Normal LV size and systolic function. Resting LVEF 63%, poststress LVEF 62%. Normal postoperative septal wall motion otherwise normal wall thickening. 6. Overall low-risk study based on SCAI criteria (<1% predicted annual cardiac mortality). History/Risk Factors Hypertension: Yes Dyslipidemia: Yes Renal Disease: Yes Coronary Artery Disease (CAD) Yes Diabetes Mellitus: No COPD: No Tobacco Use: Never Family History: Coronary Artery Disease History/Risk Factors Patient off home medications prior to study. Asthma: NO Caffeine in Last 24 Hours: No Seizure Disorder: No Prior Interventions CABG: Yes Date of CAB11/25/2010 Radiopharmaceutical : Tc-99m Tetrofosmin Administration Site: IV - right antecubital Administered By: Jess Beauchamp RT(N), TRADE CLERK, RCS Camera Used: [employer] D-SPECT Radiopharmaceutical : Tc-99m Tetrofosmin Administration Site: IV - right antecubital Administered By: Delvis Beauchamp RT(N), NCT Camera Used: [employer] D-SPECT Image Protocol Protocol: Stress/Rest 1 Day Rest Radiopharmaceutical Dose: 15.2 mCi Imaging Date AND Time: 11/05/2024 11:45 AM Patient Position: supine Stress Radiopharmaceutical Dose: 5.4 mCi Imaging Date AND Time: 11/05/2024 10:00 AM Patient Position: upright and supine Total Radiation Dose: 4.6 mSv Injection Date AND Time: 11/05/2024 11:15 AM Injection Date AND Time: 11/05/2024 9:00 AM Procedure(s): Gated SPECT images acquired upright and supine post Tetrofosmin injection at peak stress. Gated SPECT images acquired supine post Tetrofosmin injection at rest. [facility] [employer]/QPS application was utilized for processing and interpretation. SPECT Results Perfusion Findings Normal left ventricular size. The stress/rest left ventricular cavity ratio (Transient Ischemic Dilatation ratio) = 1.01 . SPECT images demonstrate homogeneous tracer distribution throughout the myocardium. Summed Difference Score: 0 Summed Stress Score: 0 Summed Rest Score: 0 Functional Results Name Value Normal Stress Stress LV Ejection Fraction 62 % 55-70 Stress LV End Diastolic Volume Index 47.70 ml/m2 Stress LV End Systolic Volume Index 19.90 ml/m2 Nuclear Stress Myocardial Mass 129.00 g Stress LV End Diastolic Volume 99.00 ml Stress LV End Systolic Volume 38.00 ml Transient Ischemic Dilatation 1.01 Functional Results Name Value Normal Rest Resting LV Ejection Fraction 63 % 55-70 Resting LV End Diastolic Volume Index 46.70 ml/m2 Resting LV End Systolic Volume Index 18.40 ml/m2 Resting LV End Diastolic Volume 95.00 ml Resting LV End Systolic Volume 35.00 ml Nuclear Rest Myocardial Mass 126.00 g Functional Findings Normal LV size and systolic function. Resting LVEF 63%, poststress LVEF 62%. Normal postoperative septal wall motion otherwise normal wall thickening. Stress ECG Details Protocol: LEXISCAN Rest HR: 62 bpm Peak HR: 77 bpm Rest Sys BP: 167 mmHg Peak Sys BP: 167 mmHg Max Pred HR: 132 bpm % Max Pred HR: 58 % Target HR: 112 bpm Max RPP: 12,859 bpm*mmHg BP Response: Normal blood pressure response Termination Reason: PER PROTOCOL Cardiac Symptoms: None Total Time: 5 min : 0 sec Rest Diallo BP: 89 mmHg Peak Diallo BP: 89 mmHg Total Dose: 0.4 mg Resting ECG Normal sinus rhythm, nonspecific ST-T abnormalities at rest. Stress ECG No ischemic EKG changes with regadenoson (more content not included)... Normal [facility] Comment on above: Order Comment: Injur y/Trauma or Illness?:Illness/Other How long have you had these symptoms (acute/chronic)?:Unknown Reason for exam?:CAD Type of Exam?:Unknown Additional signs and symptoms?:CAD Prostate specific Agon 10-26 Prostate specific Ag [Mass/Vol] 1.13 ng/mL Normal <=4.00 [facility] Comment on above: Order Comment: The F DA requires that the method used for PSA assay be reported to the physician. Values obtained with different assay methods must not be used interchangeably. This test was performed at [facility] using the Omate PSA assay is a two-site immunoenzymatic sandwich assay. The assay is approved for measurement of prostate-specific antigen (PSA)in serum and may be used in conjunction with a digital rectal examination in men 50 years and older as an aid in detection of prostate cancer. 6-Kdjzn-avbgfxzvz inhibitors (e.g. Proscar, Finasteride, Avodart, Dutasteride and Yu) for the treatment of BPH have been shown to lower PSA levels by an average of 50% after 6 months of treatment. Performed By: #### 2 857-1 #### AMES RAKAN ([id number]) [facility] ([facility] [address] ALBUMIN, RANDOM URINE W/CREA Gabriela 10-11-2024 ALBUMIN, URINE 8.5 mg/dL Normal See Note: [facility] Comment on above: Order Comment: FASTI NG:YES FASTING: YES Result Comment: Refe soniya Range: Reference Range Not established Performed By: #### 6 517 #### [facility] [place] [address] [employer] Recapping Machine Operator: Maximo Cline MD ALBUMIN/CREATININE RATIO, RANDOM URINE 53 mg/g creat High <30 [facility] Comment on above: Order Comment: FASTI NG:YES FASTING: YES Result Comment: The ADA defines abnormalities in albumin excretion as follows: Albuminuria Category Result (mg/g creatinine) Normal to Mildly increased <30 Moderately increased 30-299 Severely increased > OR = 300 The ADA recommends that at least two of three specimens collected within a 3-6 month period be abnormal before considering a patient to be within a diagnostic category. Performed By: #### 6 517 #### [facility] [place] [address] [employer] Recapping Machine Operator: Maximo Cline MD Creatinine (U) [Mass/Vol] 159 mg/dL Normal 20-320 [facility] Comment on above: Order Comment: FASTI NG:YES FASTING: YES Performed By: #### 6 517 #### [facility] [place] [address] [employer] Recapping Machine Operator: Maximo Cline MD CBC (INCLUDES DIFF/PLT)on Basophils (Bld) [#/Vol] 0.023 10*3/uL Normal 0-200 [facility] Comment on above: Performed By: #### 7 600, 04282, 496, 58005, 6399, 5616, 7065 #### [facility] [place] [address] [employer] Recapping Machine Operator: Maximo Cline MD Basophils/100 WBC (Bld) 0.3 % Normal [facility] Comment on above: Performed By: #### 7 600, 29798, 496, 25859, 6399, 5616, 7065 #### [facility] of [place] [place] [address] [employer] Operator: Maximo Cline MD Eosinophils (Bld) [#/Vol] 0.14 10*3/uL Normal 15-500 [facility] Comment on above: Performed By: #### 7 600, 71256, 496, 76721, 6399, 5616, 7065 #### [facility] of [place] [address] [employer] Operator: Maximo Cline MD Eosinophils/100 WBC (Bld) 1.8 % Normal [facility] Comment on above: Performed By: #### 7 600, 80762, 496, 13580, 6399, 5616, 7065 #### [facility] of [place] [address] [employer] Operator: Maximo Cline MD Erythrocyte distribution width (RBC) [Ratio] 12.1 % Normal 11.0-15.0 [facility] Comment on above: Performed By: #### 7 600, 77048, 496, 08193, 6399, 5616, 7065 #### [facility] [place] [address] [employer] Operator: Maximo Cline MD Hematocrit (Bld) [Volume fraction] 42.1 % Normal 38.5-50.0 [facility] Comment on above: Performed By: #### 7 600, 28887, 496, 39347, 6399, 5616, 7065 #### [facility] [place] [address] [employer] Operator: Maximo Cline MD Hemoglobin (Bld) [Mass/Vol] 14.2 g/dL Normal 13.2-17.1 [facility] Comment on above: Performed By: #### 7 600, 22150, 496, 56296, 6399, 5616, 7065 #### [facility] [place] [address] [employer] Operator: Maximo Cline MD Lymphocytes (Bld) [#/Vol] 0.452 10*3/uL Low 850-390 0 [facility] Comment on above: Performed By: #### 7 600, 79688, 496, 59965, 6399, 5616, 7065 #### [facility] of [address], [address] [place] [address] [employer] Operator: Maximo Cline MD Lymphocytes/100 WBC (Bld) 5.8 % Normal [facility] Comment on above: Performed By: #### 7 600, 88215, 496, 96060, 6399, 5616, 7065 #### [facility] of [address], [address] [place] [address] [employer] Operator: Maximo Cline MD MCH (RBC) [Entitic mass] 33.7 pg High 27.0-33.0 [facility] Comment on above: Performed By: #### 7 600, 20220, 496, 01169, 6399, 5616, 7065 #### [facility] of [address], [address] [place] [address] [employer] Operator: Maximo Cline MD MCHC (RBC) [Mass/Vol] 33.7 g/dL Normal 32.0-36.[address] [facility] Comment on above: Result Comment: For adults, a slight decrease in the calculated MCHC value (in the range of 30 to 32 g/dL) is most likely not clinically significant; however, it should be interpreted with caution in correlation with other red cell parameters and the patient's clinical condition. Performed By: #### 7 600, 75275, 496, 11644, 6399, 5616, 7065 #### [facility] [address], [address] [place] [address] [employer] Operator: Maximo Cline MD MCV (RBC) [Entitic vol] 100.0 fL Normal 80.0-100.0 [facility] Comment on above: Performed By: #### 7 600, 52183, 496, 74372, 6399, 5616, 7065 #### [facility] of [address], [address] [place] [address] [employer] Operator: Maximo Cline MD Monocytes (Bld) [#/Vol] 0.515 10*3/uL Normal 200-950 [facility] Comment on above: Performed By: #### 7 600, 87168, 496, 35292, 6399, 5616, 7065 #### [facility] [place] [address] [employer]: Maximo Cline MD Monocytes/100 WBC (Bld) 6.6 % Normal [facility] Comment on above: Performed By: #### 7 600, 98168, 496, 23726, 6399, 5616, 7065 #### [facility] [place] [address] [employer] Operator: Maximo Cline MD Neutrophils (Bld) [#/Vol] 6.669 10*3/uL Normal 1500-78 00 [facility] Comment on above: Performed By: #### 7 600, 75020, 496, 97785, 6399, 5616, 7065 #### [facility] [place] [address] [employer] Operator: Maximo Cline MD Neutrophils/100 WBC (Bld) 85.5 % Normal [facility] Comment on above: Performed By: #### 7 600, 18926, 496, 77549, 6399, 5616, 7065 #### [facility] [place] [address] [employer] Operator: Maximo Cline MD Platelet mean volume (Bld) [Entitic vol] 11.4 fL Normal 7.5-12.5 [facility] Comment on above: Performed By: #### 7 600, 54584, 496, 25805, 6399, 5616, 7065 #### [facility] [place] [address] [employer] Operator: Maximo Cline MD Platelets (Bld) [#/Vol] 208 10*3/uL Normal 140-400 [facility] Comment on above: Performed By: #### 7 600, 86100, 496, 90905, 6399, 5616, 7065 #### [facility] [place] [address] [employer] Operator: Maximo Cline MD RBC (Bld) [#/Vol] 4.21 10*6/uL Normal 4.20-5.80 [facility] Comment on above: Performed By: #### 7 600, 60565, 496, 38406, 6399, 5616, 7065 #### [facility] [place] [address] [employer] Operator: Maximo Cline MD WBC (Bld) [#/Vol] 7.8 10*3/uL Normal 3.8-10.8 [facility] Comment on above: Performed By: #### 7 600, 50780, 496, 86887, 6399, 5616, 7065 #### [facility] [place] [address] [employer] Operator: Maximo Cline MD [facility] 10-10-2024 Albumin [Mass/Vol] 4.4 g/dL Normal 3.6-5.1 [facility] Comment on above: Performed By: #### 7 600, 98125, 496, 04010, 6399, 5616, 7065 #### [facility] [place] [address] [employer] Operator: Maximo Cline MD Albumin/Globulin [Mass ratio] 2.6 {ratio} High 1.0-2.5 [facility] Comment on above: Performed By: #### 7 600, 58258, 496, 79370, 6399, 5616, 7065 #### [facility] [place] [address] [employer] Operator: Maximo Cline MD ALP [Catalytic activity/Vol] 66 U/L Normal 35-144 [facility] Comment on above: Performed By: #### 7 600, 26684, 496, 33669, 6399, 5616, 7065 #### [facility] [place] [address] [employer] Operator: Maximo Cline MD ALT [Catalytic activity/Vol] 16 U/L Normal 9-46 [facility] Comment on above: Performed By: #### 7 600, 04253, 496, 63863, 6399, 5616, 7065 #### [facility] [place] [address] [employer] Operator: Maximo Cline MD AST [Catalytic activity/Vol] 15 U/L Normal 10-35 [facility] Comment on above: Performed By: #### 7 600, 69702, 496, 04979, 6399, 5616, 7065 #### [facility] [place] [address] [employer] Operator: Maximo Cline MD Bilirubin [Mass/Vol] 1.4 mg/dL High 0.2-1.2 [facility] Comment on above: Performed By: #### 7 600, 54668, 496, 41570, 6399, 5616, 7065 #### [facility] [place] [address] [employer] Operator: Maximo Cline MD Calcium [Mass/Vol] 9.1 mg/dL Normal 8.6-10.3 [facility] Comment on above: Performed By: #### 7 600, 39458, 496, 92438, 6399, 5616, 7065 #### [facility] [place] [address] [employer] Operator: Maximo Cline MD Chloride [Moles/Vol] 106 mmol/L Normal 98-110 [facility] Comment on above: Performed By: #### 7 600, 30436, 496, 96989, 6399, 5616, 7065 #### [facility] [place] [address] [employer]: Maximo Cline MD CO2 [Moles/Vol] 28 mmol/L Normal 20-32 [facility] Comment on above: Performed By: #### 7 600, 97831, 496, 10490, 6399, 5616, 7065 #### [facility] [place] [address] [employer]: Maximo Cline MD Creatinine [Mass/Vol] 1.30 mg/dL High 0.70-1.[address] [facility] Comment on above: Performed By: #### 7 600, 97758, 496, 03730, 6399, 5616, 7065 #### [facility] [address], [address] [place] [address] [employer] Operator: Maximo Cline MD GFR/1.73 sq M.predicted among non-blacks MDRD (S/P/Bld) [Vol rate/Area] 53 mL/min/{1.73_m2} Low > OR = 60 [facility] Comment on above: Performed By: #### 7 600, 05501, 496, 62512, 6399, 5616, 7065 #### [facility] [place] [address] [employer] Operator: Maximo Cline MD Globulin (S) [Mass/Vol] 1.7 g/dL Low 1.9-3.7 [facility] Comment on above: Performed By: #### 7 600, 39249, 496, 24760, 6399, 5616, 7065 #### [facility] [place] [address] [employer] Operator: Maximo Cline MD Glucose [Mass/Vol] 121 mg/dL High 65-99 [facility] Comment on above: Result Comment: Fasting reference interval For someone without known diabetes, a glucose value between 100 and 125 mg/dL is consistent with prediabetes and should be confirmed with a follow-up test. Performed By: #### 7 600, 43870, 496, 29731, 6399, 5616, 7065 #### [facility] [place] [address] [employer] Operator: Maximo Cline MD Potassium [Moles/Vol] 3.9 mmol/L Normal 3.5-5.[address] [facility] Comment on above: Performed By: #### 7 600, 55144, 496, 16097, 6399, 5616, 7065 #### [facility] [place] [address] [employer] Operator: Maximo Cline MD Protein [Mass/Vol] 6.1 g/dL Normal 6.1-8.1 [facility] Comment on above: Performed By: #### 7 600, 87155, 496, 60562, 6399, 5616, 7065 #### [facility] [place] [address] [employer] Operator: Maximo Cline MD Sodium [Moles/Vol] 144 mmol/L Normal 135-146 [facility] Comment on above: Performed By: #### 7 600, 00807, 496, 60867, 6399, 5616, 7065 #### [facility] [place] [address] [employer] Operator: Maximo Cline MD Urea nitrogen [Mass/Vol] 26 mg/dL High 7-25 [facility] Comment on above: Performed By: #### 7 600, 19995, 496, 18077, 6399, 5616, 7065 #### [facility] [place] [address] [employer] Operator: Maximo Cline MD Urea nitrogen/Creatinine [Mass ratio] 20 mg/mg Normal 6-22 [facility] Comment on above: Performed By: #### 7 600, 48476, 496, 44938, 6399, 5616, 7065 #### [facility] [place] [address] [employer] Operator: Maximo Cline MD HEMOGLOBIN A1con 10-10-2024 HEMOGLOBIN A1c 5.8 % of total Hgb High <5.7 [facility] Comment on above: Result Comment: For someone without known diabetes, a hemoglobin A1c value between 5.7% and 6.4% is consistent with prediabetes and should be confirmed with a follow-up test. For someone with known diabetes, a value <7% indicates that their diabetes is well controlled. A1c targets should be individualized based on duration of diabetes, age, comorbid conditions, and other considerations. This assay result is consistent with an increased risk of diabetes. Currently, no consensus exists regarding use of hemoglobin A1c for diagnosis of diabetes for children. Performed By: #### 7 600, 58915, 496, 53726, 6399, 5616, 7065 #### [facility] [place] [address] [employer] Operator: Maximo Cline MD [facility]ON[facility]-10-2024 % SATURATION 46 % (calc) Normal 20-48 [facility] Comment on above: Order Comment: FASTI NG:YES FASTING: YES Performed By: #### 7 600, 47950, 496, 06516, 6399, 5616, 7065 #### [facility] [place] [address] [employer] Operator: Maximo Cline MD Ferritin [Mass/Vol] 332 ng/mL Normal 24-380 [facility] Comment on above: Order Comment: FASTI NG:YES FASTING: YES Performed By: #### 7 600, 00770, 496, 68789, 6399, 5616, 7065 #### [facility] [place] [address] [employer] Operator: Maximo Cline MD IRON BINDING CAPACITY 255 mcg/dL (calc) Normal 250-425 [facility] Comment on above: Order Comment: FASTI NG:YES FASTING: YES Performed By: #### 7 600, 56687, 496, 39222, 6399, 5616, 7065 #### [facility] [place] [address] [employer] Operator: Maximo Cline MD IRON, TOTAL 117 mcg/dL Normal 50-180 [facility] Comment on above: Order Comment: FASTI NG:YES FASTING: YES Performed By: #### 7 600, 70519, 496, 51809, 6399, 5616, 7065 #### [facility] [address], [address] [place] [address] [employer] Operator: Maximo Cline MD LIPID PANEL, [facility] 11- Cholesterol [Mass/Vol] 191 mg/dL Normal <200 [facility] Comment on above: Performed By: #### 7 600, 96382, 496, 85135, 6399, 5616, 7065 #### [facility] [address], [address] [place] [address] [employer] Operator: Maximo Cline MD Cholesterol in HDL [Mass/Vol] 58 mg/dL Normal > OR = 40 [facility] Comment on above: Performed By: #### 7 600, 20298, 496, 73897, 6399, 5616, 7065 #### [facility] of [address], [address] [place] [address] [employer] Operator: Maximo Cline MD Cholesterol in LDL [Mass/Vol] 111 mg/dL High [facility] Comment on above: Result Comment: Refe rence range: <100 Desirable range <100 mg/dL for primary prevention; <70 mg/dL for patients with CHD or diabetic patients with > or = 2 CHD risk factors. LDL-C is now calculated using the Tong-Tulio calculation, which is a validated novel method providing better accuracy than the Friedewald equation in the estimation of LDL-C. Tong PRETTY et al. KEVIN. 2013;310(19): 7057-6114 (http://education.[employer].EnergySavvy.com/faq/GRP795) Performed By: #### 7 600, 10527, 496, 88540, 6399, 5616, 7065 #### [facility] [address], [address] [place] [address] [employer] Operator: Maximo Cline MD Cholesterol.total/Cholest marlena in HDL [Mass ratio] 3.3 {ratio} Normal <5.0 [facility] Comment on above: Performed By: #### 7 600, 30556, 496, 32235, 6399, 5616, 7065 #### [facility] [address], [address] [place], [place] [address] [employer] Operator: Maximo Cline MD NON HDL CHOLESTEROL 133 mg/dL (calc) High <130 [facility] Comment on above: Result Comment: For patients with diabetes plus 1 major ASCVD risk factor, treating to a non-HDL-C goal of <100 mg/dL (LDL-C of <70 mg/dL) is considered a therapeutic option. Performed By: #### 7 600, 39790, 496, 49446, 6399, 5616, 7065 #### [facility] [place] [address] [employer] Operator: Maximo Cline MD Triglyceride [Mass/Vol] 111 mg/dL Normal <150 [facility] Comment on above: Performed By: #### 7 600, 02033, 496, 07762, 6399, 5616, 7065 #### [facility] [place] [address] [employer] Operator: Maximo Cline MD TSH W/REFLEX TO FT4on 2023 TSH W/REFLEX TO FT4 1.81 mIU/L Normal 0.40-4.50 [facility] Comment on above: Performed By: #### 7 600, 53103, 496, 56835, 6399, 5616, 7065 #### [facility] [place] [address] [employer] Operator: Maximo Cline MD VITAMIN B12/FOL[facility] Cobalamin (Vitamin B12) [Mass/Vol] 1676 pg/mL High 200-1100 [facility] Comment on above: Performed By: #### 7 600, 13156, 496, 00308, 6399, 5616, 7065 #### [facility] [place] [address] [employer] Operator: Maximo Cline MD Folate [Mass/Vol] ng/mL Normal [facility] Comment on above: Result Comment: Refe rence Range Low: <3.4 Borderline: 3.4-5.4 Normal: >5.4 Performed By: #### 7 600, 88159, 496, 64249, 6326, 5616, 7006 #### [facility] [address], [address] [place] [address] [employer] Operator: Maximo Cline MD FOLATEon 08-19-2024 FOLATE > High 3.1-17.5 [facility] Comment on above: Result Comment: Defi cient <2.2 Borderline 2.2 - 3.0 Excessive >17.5 Performed By: #### 4 5658 #### [facility] [address] [place], [place] [address] John Mojica M.D. [id number] IMMUNOFIXATION, SERUMon 07-27 IMMUNOFIXATION, SERUM Normal Normal Normal [facility] Comment on above: Performed By: #### 4 6015 #### [facility] [address] [place], [place] [address] Michael Crespo M.D. [id number] SIFIX INTERPRETATION No paraproteins detected. A negative serum immunofixation and/or serum protein electrophoresis is insufficient to rule out a monoclonal protein. Recommend serum free light chains if clinically indicated. Reviewed by Pathologist: Edgar Srivastava MD. Normal [facility] Comment on above: Performed By: #### 4 6015 #### [facility] [address] [place], [place] [address] Michael Crespo M.D. [id number] PROTEIN ELECTROPHORESIS, BLO ODon 08-19-2024 Albumin [Mass/Vol] 3.5 g/dL Normal 3.1-5.5 [facility] Comment on above: Performed By: #### 4 6379 #### [facility] [address] [place], [place] [address] Michael Crespo M.D. [id number] ALPHA 1 0.3 g/dL Normal 0.2-0.5 [facility] Comment on above: Performed By: #### 4 6379 #### [facility] [address] [place], [place] [address] Michael Crespo M.D. [id number] ALPHA 2 0.7 g/dL Normal 0.4-1.1 [facility] Comment on above: Performed By: #### 4 6379 #### [facility] [address] [place] [address] Michael Crespo M.D. [id number] BETA GLOBULIN 0.8 g/dL Normal 0.6-1.3 [facility] Comment on above: Performed By: #### 4 6379 #### [facility] [address] [place] [address] Michael Crespo M.D. [id number] GAMMA GLOBULIN 0.6 g/dL Normal 0.6-1.8 [facility] Comment on above: Performed By: #### 4 6379 #### [facility] [address] [place] [address] Michael Crespo M.D. [id number] Protein [Mass/Vol] 5.9 g/dL Low 6.0-8.0 [facility] Comment on above: Performed By: #### 4 6379 #### [facility] [address] [place], [place] [address] Michael Crespo M.D. [id number] REVIEWED BY Reviewed by Pathologist: Xiomara Crespo M.D. [facility] Comment on above: Performed By: #### 4 6352 #### [facility] [address] [place] [address] Michael Crespo M.D. [id number] SPEP INTERPRETATION Hypoproteinemia.Ser um protein electrophoresis is insufficient to rule out a monoclonal protein. Recommend serum immunofixation and serum free light chains if clinically indicated. [facility] Comment on above: Performed By: #### 4 3290 #### [facility] [address] [place] [address] Michael Crespo M.D. [id number] PROTEIN ELECTROPHORESIS, URI NE, RANDOMon 08-19-2024 INTERPRETATION, URINE, RANDOM Predominantly albumin. Normal [facility] Comment on above: Order Comment: Revie wed by Pathologist: Edgar Srivastava MD Performed By: #### 4 7990 #### [facility] [address] [place] [address] Michael Crespo M.D. [id number] Protein (U) [Mass/Vol] 19.2 mg/dL Normal [facility] Comment on above: Order Comment: Revie wed by Pathologist: Edgar Srivastava MD Performed By: #### 4 7990 #### [facility] [address] [place] [address] Michael Crespo M.D. [id number] UPEP COMMENTS Normal [facility] Comment on above: Order Comment: Revie wed by Pathologist: Edgar Srivastava MD Performed By: #### 4 7990 #### [facility] [address] [place], [place] [address] Michael Crespo M.D. [id number] VITAMIN B1, WHOLE BLOODon TILLY - THIAMIN (VITAMIN B1), WB - [id number] 132 nmol/L Normal 70-180 [facility] Comment on above: Result Comment: ADDITIONAL INFORMATION This test was developed and its performance characteristics determined by [facility] in a manner consistent with CLIA requirements. This test has not been cleared or approved by the U.S. Food and Drug Administration. Test Performed by: [facility] [address] [place] [address] Printing Agent: Felix Luque Ph.D.; CLIA# [id number] Performed By: #### 4 6669 #### [facility] [address] [place] [id number] TILLY VITAMIN B12on 08-19-2024 Cobalamin (Vitamin B12) [Mass/Vol] 353 pg/mL Normal 232-1245 [facility] Comment on above: Performed By: #### 4 6670 #### [place] [address] [place], [place] [address] John Mojica M.D. [id number] OCT MACULA CIRRUS OU (BOTH E YES)on 08-06-2024 [facility] Radiology Study observation (narrative) Smith rodríguez [facility] Knee 4 or More Viewson 07-08 Knee 4 or More Views [facility] Imaging Services [address] [place] [address] Knee 4 or More Views MR#: [id number] Acct: [id number] Name: YUDITH MORIN Rep #: [id number] : 1935 M 89 From: Peter Mandel MD PCP: DEUCE MENDEZ MD Status: REG CLI Study: Knee 4 or More Views Date of Exam: 07/08/24 Exam# [id number] Ordering Dr: Cheli Hart MD [id number] STUDY: X-RAY - RIGHT KNEE REASON FOR EXAM: Male, 89 years old. PAIN TECHNIQUE: 4 view(s) of the knee. COMPARISON: None. FINDINGS: There is demineralization of the visualized distal femur. There is demineralization of the tibia and fibula. Normal proximal tibiofibular articulation. There is no demonstrated fracture. There is moderate degenerative arthrosis of the medial femorotibial compartment with moderate joint space narrowing. Normal lateral femorotibial compartment. There is mild degenerative arthrosis of the patellofemoral articulation. There are atherosclerotic calcifications. RAD/Knee 4 or More Views IMPRESSION: Degenerative arthrosis. Electronically Signed: Peter Mandel MD at 9:01 EDT , CC: DEUCE MENDEZ MD; Dr. Cheli Hart MD Architectural Administrative Assistant: Signed Normal [facility] FUNDUS PHOTOS OU (BOTH EYES) on 05-06-2024 [facility] Radiology Study observation (narrative) [facility] VISUAL FIELD 24-2 OU (BOTH E YES)on 05-06-2024 [facility] Radiology Study observation (narrative) [facility] Vitamin D, Total, 25-OHon 25-hydroxyvitamin D [Mass/Vol] 51 ng/mL 20 - 100 ng/mL [facility] Interpretation and review of laboratory results Normal [facility] Vitamin D Expected Values Deficiency: 0-10 Insufficiency: 10-20 Sufficient: 20-100 Toxicity: >100 [facility] POCT UA Automated manually r esultedon 11-27-2023 Appearance (U) Clear Clear [facility] Work Phone: [phone] Glucose Test strip (U) [Mass/Vol] Negative NEGATIVE mg/dl [facility] Work Phone: [phone] Hemoglobin Ql (U) Negative NEGATIVE [facility] Work Phone: [phone] Interpretation and review of laboratory results Abnormal [facility] Work Phone: [phone] Leukocyte esterase Test strip Ql (U) Negative NEGATIVE [facility] Work Phone: [phone] Nitrite Ql (U) Negative NEGATIVE [facility] Work Phone: [phone] pH (U) 6.0 [pH] No Reference Range Established [facility] Work Phone: [phone] POC Bilirubin, Urine SMALL (1+) Abnormal NEGATIVE [facility] Work Phone: [phone] POC Color, Urine Yellow Straw, Yellow, Light-Yellow [facility] Work Phone: [phone] POC Ketones, Urine TRACE Abnormal NEGATIVE mg/dl [facility] Work Phone: [phone] POC Protein, Urine 30 (1+) NEGATIVE, 30 (1+) mg/dl [facility] Work Phone: [phone] POC Specific [place], Urine 1.025 1.005 - 1.035 [facility] Work Phone: [phone] POC Urobilinogen, Urine 2.0 Abnormal 0.2, 1.0 EU/DL [facility] Work Phone: [facility] Work Phone: IO UA (automated w/o microsc opy)on 10-12-2022 Protein (U) [Mass/Vol] Negative [facility] Work Phone: [phone] IO UA (automated w/o microscopy) Negative [facility] [facility] Work Phone: [phone] IO UA (automated w/o microscopy) Normal (0.2-1.0 mg/dl) [facility] [facility] Work Phone: [phone] IO UA (automated w/o microscopy) 6.0 1 [facility] [facility] Work Phone: [phone] IO UA (automated w/o microscopy) 1.020 1 [facility] Work Phone: IO UA (automated w/o microscopy) Clear [facility] Work Phone: [phone] IO UA (automated w/o microscopy) Yellow [facility] Work Phone: Office Visit (Urology)on Follow-up visit Diagnoses/Problems Assessed 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 (600.21) (N40.1,N13.8) Erectile dysfunction (607.84) (N52.9) Nocturia (788.43) (R35.1) Never smoked tobacco (V49.89) (Z78.9) Orders SocHx: Never smoked tobacco Tobacco Use Screening; Status:Complete; Done: 12Oct2022 Perform:Not Applicable;Ordered; For:SocHx: Never smoked tobacco; Ordered By:Rhoda Graham; Unlinked Stop: cloNIDine HCl - 0.2 MG Oral Tablet Dispense: 0 Days ; #: Sufficient; Refill: 0; FRANNIE = N; Record; Last Updated By: Rhoda Graham; 10/12/2022 9:12:24 AM Stop: Omeprazole 20 MG Oral Capsule Delayed Release Dispense: 0 Days ; #: Sufficient; Refill: 0; FRANNIE = N; Record; Last Updated By: Rhoda Graham; 10/12/2022 9:12:24 AM Patient Discussion/Summary All available PSA values reviewed, Options discussed. Questions answered. Diet changes for prostate health discussed and educational information given. Pros/Cons of prostate health supplements discussed. Treatment options for LUTS reviewed Discussed timed voiding. Discussed fluid and caffeine intake Proscar and Flomax Rx refilled Treatment options for ED reviewed. Sildenafil Rx given Lifestyle change to help prevent UTIs discussed. Encouraged fluid intake. F/U 1 year with PSA Chief Complaint Yearly w/ PSA History of Present IllnessPatient is here for yearly f/u. Most recent PSA was 1.34 on 10/16. Prior PSA was 0.82 on 09/2021. Prior PSA was 0.78 on 09/2020. Prior PSA was 0.87 on 09/2019. Chronic BPH sx are mild and stable. Denies urgency and frequency. Denies dysuria. Denies hematuria. Nocturia x1. He is taking Proscar and Flomax. Doesn't really know if they work. Patient has chronic hx of microhematuria. Negative workup in the past. 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 Sildenafil PRN. Review of Systems Constitutional: No fever, No chills. Eye: GLASSES . Ear/Nose/Mouth/Thro at: Negative. Respiratory: No shortness of breath, No cough. Cardiovascular: No chest pain, No peripheral edema. Gastrointestinal: No nausea, Genitourinary: Negative except as documented in history of present illness. Hematology/Lymphati cs: Patient denies being on blood thinners.. Endocrine: Negative. Immunologic: Not immunocompromised. Musculoskeletal: Negative Integumentary: Negative. Neurologic: Alert and oriented X4. Psychiatric: Negative. 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 (600.21) (N40.1,N13.8) Blood in the urine (599.70) (R31.9) Erectile dysfunction (607.84) (N52.9) Nocturia (788.43) (R35.1) Past Medical History Problems History of H/O heart bypass surgery (V45.81) (Z95.1) History of hypertension (V12.59) (Z86.79) History of renal disease (V13.09) (Z87.448) Surgical History Problems History of Cholecystectomy History of Colonoscopy History of Endoscopy History of Tonsillectomy Family History Mother Family history of malignant neoplasm of breast (V16.3) (Z80.3) Father Family history of acute myocardial infarction (V17.3) (Z82.49) Family history of hypertension (V17.49) (Z82.49) Social History Problems Never a smoker Never smoked tobacco (V49.89) (Z78.9) Allergies Medication No Known Drug Allergies Recorded By: Ping Wilkinson; 09/28/2019 6:32:21 AM Current Meds Medication NameInstruction amLODIPine Besylate 10 MG Oral Tablet Aspirin 81 MG TABS cloNIDine HCl - 0.2 MG Oral Tablet Ferrous Sulfate 325 MG CAPS Flomax 0.4 MG Oral Capsule Labetalol HCl - 100 MG Oral Tablet LORazepam 1 MG Oral Tablet Losartan Potassium-HCTZ 100-25 MG Oral Tablet Multi Vitamin/Minerals Oral Tablet Omeprazole 20 MG Oral Capsule Delayed Release Pepcid 20 MG Oral Tablet Proscar 5 MG Oral Tablet Simvastatin 40 MG Oral Tablet Vitamin D3 50 MCG (1999) Oral Capsule Vitals Vital Signs Recorded: 12Oct2022 09:06AM Heart Rate66 Wvdorttb592 Syrezcvfg53 Height6 ft Ltqwag428 lb BMI Mcjuevhdkx24.6 kg/m2 BSA Calculated2.01 Tobacco Useb) No PHQ-2 #1. Over the last 2 weeks have you felt down, depressed or hopeless? (If yes, answer PHQ-9 below)No PHQ-2 #2. Over the last 2 weeks have you felt little interest or pleasure in doing things? (If yes, answer PHQ-9 below)No Falls Screening (Age 18+)b) One or more falls in the last year Physical Exam A/O x 3 in No apparent distress Constitutional: General appearance normal Respiratory: Respiratory effort is normal Gastrointestinal:Ab domen is not tender Genitourinary: Kidneys: Not palpable Bilaterally Bladder: Not palpable or tender Scrotum: No mass. No Hydrocele Epididymis: No spermatocele. Not tender Testicles: no mass. WNL Urethra: No Discharge Penis: WNL...No lesions. CIrcumcised Prostate: Symmetric. No Nodules. SMooth Seminal Vesicles: No mass Sphincter Tone: normal Signatures Electronically signed by : Norris Ortiz II, MD; Nov (more content not included)... Normal APSX Tobacco Screening.on 022 Adult depression screening assessment No [facility] [place] Work Phone: Fall risk assessment b) One or more falls in the last year ZM[facility]Wzkkrhy[facility] Work Phone: Tobacco use status CPHS b) No M Z-Fnfruva[facility] [facility] Work Phone: PROSTATE SPECIFIC AGon 10-05 Prostate specific Ag [Mass/Vol] 1.34 ng/mL Normal 0.00 - 4.00 [facility] Comment on above: Result Comment: The FDA requires that the method used for PSA assay be reported to the physician. Values obtained with different assay methods must not be used interchangeably. This test was performed at [facility] using the Access Hybritech PSA assay is a two-site immunoenzymatic sandwich assay. The assay is approved for measurement of prostate-specific antigen (PSA)in serum and may be used in conjunction with a digital rectal examination in men 50 years and older as an aid in detection of prostate cancer. 9-Hzwap-cavwafxyd inhibitors (e.g. Proscar, Finasteride, Avodart, Dutasteride and Yu) for the treatment of BPH have been shown to lower PSA levels by an average of 50% after 6 months of treatment. Performed By: #### P SA #### [address] [address] Prostate Specific Antigenon 10-05-2022 Prostate specific Ag [Mass/Vol] 1.34 ng/mL See Below [facility]gasfhs[facility] Work Phone: Comment on above: Reference Range: 0.0 0 - 4.00The FDA requires that the method used for PSA assay be reported to the physician. Values obtained with different assay methods must not be used interchangeably. This testwas performed at [facility] using the Access Hybritech PSA assay is a two-site immunoenzymatic sandwich assay. The assay is approved for measurement of prostate-specific antigen (PSA)in serum and may be used in conjunction with a digital rectal examination in men 50 years and older as an aid in detection of prostate cancer.3-Gwsrh-jokocspsm inhibitors (e.g. Proscar, Finasteride, Avodart, Dutasteride and Yu) for the treatment of BPH have been shown to lower PSA levels by an average of 50% after 6 months of treatment. MD Mccain Injection/Arthrocentes is: Jannie radiocarpalon 06-05-2022 Soheila Diaz CNP 06/05/2022 5:03 PM MD Mccain Injection/Arthrocen tesis: Jannie radiocarpal Date/Time: 06/05/2022 5:02 PM Performed by: Soheila Diaz CNP Authorized by: Soheila Diaz CNP CPT 82431 - Medium Joint Arthrocentesis: Consent given by: Patient Time out: Immediately prior to the procedure a time out was called Physician or proceduralist has discussed critical or nonroutine steps, procedure duration and anticipated blood loss: Yes Supporting Documentation: Indications: Pain and diagnostic evaluation Procedure Details: Location: Wrist Site: L radiocarpal Prep: patient was prepped and draped in usual sterile fashion Needle size: 22 G Approach: Dorsal Medications: 40 mg triamcinolone acetonide 40 mg/mL Anesthetic used:: Lidocaine 1% Anesthetic amount (mL): 1 Patient tolerance: Patient tolerated the procedure well with no immediate complications [facility] IO UA (automated w/o microsc opy)on 10-23-2021 Protein (U) [Mass/Vol] 30 mg/dL [facility] Work Phone: IO UA (automated w/o microscopy) Negative IH[facility]Lunedcl[facility] Work Phone: IO UA (automated w/o microscopy) Normal (0.2-1.0 mg/dl) MG[facility]Ykfesle[facility] Work Phone: IO UA (automated w/o microscopy) 6.0 1 CN-Xekwtvk-[place] Work Phone: IO UA (automated w/o microscopy) 1.025 1 MM-Enmeaxj[facility] Work Phone: IO UA (automated w/o microscopy) Trace XJ-Rbatkno-[place] Work Phone: IO UA (automated w/o microscopy) Clear BB-Vhiiiow-[place] Work Phone: IO UA (automated w/o microscopy) Yellow JF-Tmshyun[facility] Work Phone: Office Visit (Urology)on Follow-up visit Diagnoses/Problems Assessed 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 Questions answered. Diet changes for prostate health discussed and educational information given. Pros/Cons of prostate health supplements discussed. Treatment options for LUTS reviewed Discussed timed voiding. Discussed fluid and caffeine intake D/C Proscar Flomax Rx refilled Treatment options for ED reviewed. Sildenafil PRN Lifestyle change to help prevent UTIs discussed. Encouraged fluid intake. F/U 1 year with PSA Chief Complaint Yearly W/ PSA History of Present IllnessPatient is here for yearly f/u. Most recent PSA was 0.82 on 09/2021. Prior PSA was 0.78 on 09/2020. Prior PSA was 0.87 on 09/2019. Chronic BPH sx are mild and stable. Denies urgency and frequency. Denies dysuria. Denies hematuria. Nocturia x1. He is taking Proscar and Flomax. Patient has chronic hx of microhematuria. Negative workup in the past. 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 Sildenafil PRN. Review of Systems Constitutional: No fever, No chills Eye:glasses Respiratory: No shortness of breath, No cough. Cardiovascular: No chest pain Gastrointestinal: No nausea Genitourinary: Negative except as documented in history of present illness. Hematology/Lymphati cs: Patient denies being on blood thinners.. Endocrine: Negative. Immunologic: Not immunocompromised. Musculoskeletal: negative Integumentary: Negative. Neurologic: Alert and oriented X4. Psychiatric: Negative. 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) (Z95.1) History of hypertension (V12.59) (Z86.79) History of renal disease (V13.09) (Z87.448) Surgical History Problems History of Cholecystectomy History of Colonoscopy History of Endoscopy History of Tonsillectomy Family History Mother Family history of malignant neoplasm of breast (V16.3) (Z80.3) Father Family history of acute myocardial infarction (V17.3) (Z82.49) Family history of hypertension (V17.49) (Z82.49) Social History Problems Never a smoker Allergies Medication No Known Drug Allergies Recorded By: Ping Wilkinson; 09/28/2019 6:32:21 AM Current Meds Medication NameInstruction amLODIPine Besylate 10 MG Oral Tablet Aspirin 81 MG TABS cloNIDine HCl - 0.2 MG Oral Tablet Ferrous Sulfate 325 MG CAPS Flomax 0.4 MG Oral Capsule Labetalol HCl - 200 MG Oral Tablet LORazepam 1 MG Oral Tablet Losartan Potassium-HCTZ 100-25 MG Oral Tablet Multi Vitamin/Minerals Oral Tablet Omeprazole 20 MG Oral Capsule Delayed Release Pepcid 20 MG Oral Tablet Proscar 5 MG Oral Tablet Simvastatin 40 MG Oral Tablet Vitamin D3 50 MCG (1999) Oral Capsule Vitals Vital Signs Recorded: 23Oct2021 02:37PM Heart Rate73 Mralhufg042 Hxzuvpelf98 Height6 ft Bjpilq834 lb 4 oz BMI Kqqpupvakk73.36 kg/m2 BSA Calculated2 Tobacco Useb) No Fall Screeninga) No falls within the last year Physical Exam A/O x 3 in No apparent distress Constitutional: General appearance normal Respiratory: Respiratory effort is normal Gastrointestinal:Ab domen is not tender Genitourinary: Kidneys: Not palpable Bilaterally Bladder: Not palpable or tender Scrotum: No mass. No Hydrocele Epididymis: No spermatocele. Not tender Testicles: no mass. Symmetric Urethra: No Discharge Penis: WNL...No lesions. no phimosis Prostate: Symmetric. No Nodules. Smooth Seminal Vesicles: No mass Sphincter Tone: normal Signatures Electronically signed by : Norris Ortiz II, MD; Oct 23 2021 2:47PM EST (Author) Normal [facility]works Tobacco Screening.on 021 Fall risk assessment a) No falls within the last year [place]uhzdz[facility] Work Phone: Tobacco use status CPHS b) No M Q-Efwhgxe-[place] Work Phone: Prostate Specific Antigenon 10-16-2021 Prostate specific Ag [Mass/Vol] 0.82 ng/mL Normal 0.00 - 4.00 FC-Krmgzih[facility] Work Phone: Comment on above: Reference Range: 0.0 0 - 4.00The FDA requires that the method used for PSA assay be reported to the physician. Values obtained with different assay methods must not be used interchangeably. This testwas performed at [facility] using the Access Hybritech PSA assay is a two-site immunoenzymatic sandwich assay. The assay is approved for measurement of prostate-specific antigen (PSA)in serum and may be used in conjunction with a digital rectal examination in men 50 years and older as an aid in detection of prostate cancer.9-Ddnkr-wfdxdgesm inhibitors (e.g. Proscar, Finasteride, Avodart, Dutasteride and Yu) for the treatment of BPH have been shown to lower PSA levels by an average of 50% after 6 months of treatment. Result Comment: The FDA requires that the method used for PSA assay be reported to the physician. Values obtained with different assay methods must not be used interchangeably. This test was performed at [facility] using the Access Hybritech PSA assay is a two-site immunoenzymatic sandwich assay. The assay is approved for measurement of prostate-specific antigen (PSA)in serum and may be used in conjunction with a digital rectal examination in men 50 years and older as an aid in detection of prostate cancer. 0-Galoi-dvdbbiosx inhibitors (e.g. Proscar, Finasteride, Avodart, Dutasteride and Yu) for the treatment of BPH have been shown to lower PSA levels by an average of 50% after 6 months of treatment. Performed By: #### P SA #### [address] [place] [address] PROSTATE SPEC.AG,SCREENon PROSTATE SPEC.AG,SCREEN 0.78 ng/mL Normal 0.00 - 4.00 [facility] Comment on above: Result Comment: The FDA requires that the method used for PSA assay be reported to the physician. Values obtained with different assay methods must not be used interchangeably. This test was performed at [facility] using the Access Secure Fortressbritech PSA assay is a two-site immunoenzymatic sandwich assay. The assay is approved for measurement of prostate-specific antigen (PSA)in serum and may be used in conjunction with a digital rectal examination in men 50 years and older as an aid in detection of prostate cancer. 8-Wbpds-qudorcrbe inhibitors (e.g. Proscar, Finasteride, Avodart, Dutasteride and Yu) for the treatment of BPH have been shown to lower PSA levels by an average of 50% after 6 months of treatment. Performed By: #### P SASC #### [address] [address] CBC AND DIFFERENTIALon 03-30 DIFFERENTIAL SEE MANUAL DIFF Normal [facility] Comment on above: Performed By: #### C BCDF #### [address] [address] Erythrocyte distribution width (RBC) [Ratio] 13.5 % Normal 11.5 - 14.5 [facility] Comment on above: Performed By: #### C BCDF #### [address] [address] Hematocrit (Bld) [Volume fraction] 37.2 % Low 41.0 - 52.0 [facility] Comment on above: Performed By: #### C BCDF #### [address] [address] Hemoglobin (Bld) [Mass/Vol] 13.1 g/dL Low 13.5 - 17.5 [facility] Comment on above: Performed By: #### C BCDF #### [address] [address] MCHC (RBC) [Mass/Vol] 35.2 g/dL Normal 32.0 - 36.0 [facility] Comment on above: Performed By: #### C BCDF #### [address] [address] MCV (RBC) [Entitic vol] 97 fL Normal 80 - 100 [facility] Comment on above: Performed By: #### C BCDF #### [address] [address] Nucleated RBC/100 WBC (Bld) [Ratio] 0.1 /100 WBC Normal [facility] Comment on above: Performed By: #### C BCDF #### [address] [address] Platelets (Bld) [#/Vol] 169 10*3/uL Normal 150 - 450 [facility] Comment on above: Performed By: #### C BCDF #### [address] [address] RBC (Bld) [#/Vol] 3.82 x10E12/L Low 4.50 - 5.90 [facility] Comment on above: Performed By: #### C BCDF #### [address] [address] WBC (Bld) [#/Vol] 4.9 10*3/uL Normal 4.4 - 11.3 [facility] Comment on above: Performed By: #### C BCDF #### [address] [address] COMPREHENSIVE PANELon 2019 Albumin [Mass/Vol] 3.9 g/dL Normal 3.4 - 5.0 [facility] Comment on above: Performed By: #### C MP #### [address] [address] ALP [Catalytic activity/Vol] 59 U/L Normal 33 - 136 [facility] Comment on above: Performed By: #### C MP #### [address] [address] ALT [Catalytic activity/Vol] 17 U/L Normal 10 - 52 [facility] Comment on above: Result Comment: Berenice ents treated with Sulfasalazine may generate falsely decreased results for ALT. Performed By: #### C MP #### [address] [address] Anion gap [Moles/Vol] 9 mmol/L Low 10 - 20 [facility] Comment on above: Performed By: #### C MP #### [address] [address] AST [Catalytic activity/Vol] 18 U/L Normal 9 - 39 [facility] Comment on above: Performed By: #### C MP #### [address] [address] Bilirubin [Mass/Vol] 1.8 mg/dL High 0.0 - 1.2 [facility] Comment on above: Performed By: #### C MP #### [address] [address] Calcium [Mass/Vol] 8.6 mg/dL Normal 8.6 - 10.3 [facility] Comment on above: Performed By: #### C MP #### [place] [id number] Chloride [Moles/Vol] 106 mmol/L Normal 98 - 107 [facility] Comment on above: Performed By: #### C MP #### [address] [address] Creatinine [Mass/Vol] 1.30 mg/dL Normal 0.50 - 1.30 [facility] Comment on above: Performed By: #### C MP #### [address] [address] GFR- AM. 64 mL/min/1.73m2 Normal >60 [facility] Comment on above: Result Comment: CALC ULATIONS OF ESTIMATED GFR ARE PERFORMED USING THE MDRD STUDY EQUATION FOR THE IDMS-TRACEABLE CREATININE METHODS. CLIN CHEM 2007;53:766-72 Performed By: #### C MP #### [address] [address] GFR-NON AM. 53 mL/min/1.73m2 Abnormal >60 [facility] Comment on above: Performed By: #### C MP #### [address] [address] Glucose [Mass/Vol] 126 mg/dL High 74 - 99 [facility] Comment on above: Performed By: #### C MP #### [address] [address] HCO3 (Bld) [Moles/Vol] 30 mmol/L Normal 21 - 32 [facility] Comment on above: Performed By: #### C MP #### [address] [address] Potassium [Moles/Vol] 3.7 mmol/L Normal 3.5 - 5.3 [facility] Comment on above: Performed By: #### C MP #### [address] [address] Protein [Mass/Vol] 5.8 g/dL Low 6.4 - 8.2 [facility] Comment on above: Performed By: #### C MP #### [address] [address] Sodium [Moles/Vol] 141 mmol/L Normal 136 - 145 [facility] Comment on above: Performed By: #### C MP #### [address] [address] Urea nitrogen [Mass/Vol] 21 mg/dL Normal 6 - 23 [facility] Comment on above: Performed By: #### C MP #### [address] [address] HEMOGLOBIN A1Con 03-30-2020 HbA1c (Bld) [Mass fraction] 108 MG/DL Normal [facility] Comment on above: Performed By: #### H BA1E #### [address] [address] HbA1c (Bld) [Mass fraction] 5.4 % Normal [facility] Comment on above: Result Comment: Diag nosis of Diabetes-Adults Non-Diabetic: < or = 5.6% Increased risk for developing diabetes: 5.7-6.4% Diagnostic of diabetes: > or = 6.5% . Monitoring of Diabetes Age (y) Therapeutic Goal (%) Adults: >18 <7.0 Pediatrics: 13-18 <7.5 7-12 <8.0 0- 6 7.5-8.5 [place] [employer]. Diabetes Care 33(S1), Nov 2009. Performed By: #### H BA1E #### [address] [address] IRONon 03-30-2020 Iron [Mass/Vol] 95 ug/dL Normal 35 - 150 [facility] Comment on above: Performed By: #### I DURAN #### [address] [address] LIPID PANEL (CORONARY RISK 2 )on 03-30-2020 Cholesterol [Mass/Vol] 144 mg/dL Normal 0 - 199 [facility] Comment on above: Result Comment: . AGE DESIRABLE BORDERLINE HIGH HIGH 0-19 Y 0 - 169 170 - 199 >/= 200 20-24 Y 0 - 189 190 - 224 >/= 225 >24 Y 0 - 199 200 - 239 >/= 240 All ranges are based on fasting samples. Specific therapeutic targets will vary based on patient-specific cardiac risk. . Pediatric guidelines reference:Pediatrics 2011, 128(S5). Adult guidelines reference: NCEP ATPIII Guidelines, KEVIN 2001, 258:9626-97 . Venipuncture immediately after or during the administration of Metamizole may lead to falsely low results. Testing should be performed immediately prior to Metamizole dosing. Performed By: #### L IPID #### [address] [address] Cholesterol in HDL [Mass/Vol] 49.0 mg/dL Normal [facility] Comment on above: Result Comment: . AGE VERY LOW LOW NORMAL HIGH 0-19 Y < 35 < 40 40-45 ---- 20-24 Y ---- < 40 >45 ---- >24 Y ---- < 40 40-60 >60 . Performed By: #### L IPID #### [address] [address] Cholesterol in LDL [Mass/Vol] 78 mg/dL Normal 0 - 99 [facility] Comment on above: Result Comment: . NEAR BORD AGE DESIRABLE OPTIMAL HIGH HIGH VERY HIGH 0-19 Y 0 - 109 --- 110-129 >/= 130 ---- 20-24 Y 0 - 119 --- 120-159 >/= 160 ---- >24 Y 0 - 99 100-129 130-159 160-189 >/=190 . Performed By: #### L IPID #### [address] [address] Cholesterol in VLDL [Mass/Vol] 17 mg/dL Normal 0 - 40 [facility] Comment on above: Performed By: #### L IPID #### [address] [address] Cholesterol.total/Cholest marlena in HDL [Mass ratio] 2.9 {ratio} Normal [facility] Comment on above: Result Comment: REF VALUES DESIRABLE < 3.4 HIGH RISK > 5.0 Performed By: #### L IPID #### [address] [address] Triglyceride [Mass/Vol] 83 mg/dL Normal 0 - 149 [facility] Comment on above: Result Comment: . AGE DESIRABLE BORDERLINE HIGH HIGH VERY HIGH 0 D-90 D 19 - 174 ---- ---- ---- 91 D- 9 Y 0 - 74 75 - 99 >/= 100 ---- 10-19 Y 0 - 89 90 - 129 >/= 130 ---- 20-24 Y 0 - 114 115 - 149 >/= 150 ---- >24 Y 0 - 149 150 - 199 200- 499 >/= 500 . Venipuncture immediately after or during the administration of Metamizole may lead to falsely low results. Testing should be performed immediately prior to Metamizole dosing. Performed By: #### L IPID #### [address] [address] MANUAL DIFFERENTIALon 2019 % EOSINOPHIL 6.0 % Normal 0.0 - 6.0 [facility] Comment on above: Performed By: #### M DIFF #### [address] [address] % LYMPH-ATYPICAL 1.0 % Normal 0.0 - 2.0 [facility] Comment on above: Performed By: #### M DIFF #### [address] [address] % SEG NEUTROPHIL 87.0 % Normal 40.0 - 80.0 [facility] Comment on above: Result Comment: Perc ent differential counts (%) should be interpreted in the context of the absolute cell counts (cells/L). Performed By: #### M DIFF #### [address] [address] ANC 4.26 x10E9/L Normal 1.60 - 5.50 [facility] Comment on above: Performed By: #### M DIFF #### [address] [address] BASOPHIL 0.00 x10E9/L Normal 0.00 - 0.10 [facility] Comment on above: Performed By: #### M DIFF #### [address] [address] Basophils/100 WBC (Bld) 0.0 % Normal 0.0 - 2.0 [facility] Comment on above: Performed By: #### M DIFF #### [address] [address] EOSINOPHIL 0.29 x10E9/L Normal 0.00 - 0.40 [facility] Comment on above: Performed By: #### M DIFF #### [address] [address] LYMPH-ATYPICAL 0.05 x10E9/L Normal 0.00 - 0.30 [facility] Comment on above: Performed By: #### M DIFF #### [address] [address] LYMPHOCYTE 0.15 x10E9/L Low 0.80 - 3.00 [facility] Comment on above: Performed By: #### M DIFF #### [address] [address] Lymphocytes/100 WBC (Bld) 3.0 % Normal 13.0 - 44. 0 [facility] Comment on above: Performed By: #### M DIFF #### [address] [address] MONOCYTE 0.15 x10E9/L Normal 0.05 - 0.80 [facility] Comment on above: Performed By: #### M DIFF #### [address] [address] Monocytes/100 WBC (Bld) 3.0 % Normal 2.0 - 10.0 [facility] Comment on above: Performed By: #### M DIFF #### [address] [address] SEG NEUTROPHIL 4.26 x10E9/L Normal 1.60 - 5.00 [facility] Comment on above: Performed By: #### M DIFF #### [address] [address] RED CELL MORPHOLOGYon 2019 RBC morphology finding Nom (Bld) NORMAL Normal [facility] Comment on above: Performed By: #### M ORP2 #### [address] [address] TSHon 03-30-2020 TSH Qn 1.76 m[IU]/L Normal 0.44 - 3.98 [facility] Comment on above: Result Comment: Note new pediatric reference range as of 01/28/2020. TSH testing is performed using different testing methodology at [facility] than at other [facility] [place] [facility]. Direct result comparisons should only be made within the same method. Performed By: #### T SH2 #### [address] [address] PROSTATE SPEC.AG,SCREENon PROSTATE SPEC.AG,SCREEN 0.87 ng/mL Normal 0.00 - 4.00 [facility] Comment on above: Result Comment: The FDA requires that the method used for PSA assay be reported to the physician. Values obtained with different assay methods must not be used interchangeably. This test was performed at [facility] using the Omate PSA assay is a two-site immunoenzymatic sandwich assay. The assay is approved for measurement of prostate-specific antigen (PSA)in serum and may be used in conjunction with a digital rectal examination in men 50 years and older as an aid in detection of prostate cancer. 8-Inxxc-hotvolgxa inhibitors (e.g. Proscar, Finasteride, Avodart, Dutasteride and Yu) for the treatment of BPH have been shown to lower PSA levels by an average of 50% after 6 months of treatment. Performed By: #### P SASC #### [address] [address] XR Chest 2 Viewson 9 XR Chest 2 Views Exam Date/Time: 05/14/2019 11:46 EDT Reason for Exam: cough Report STUDY: XR Chest 2 Views; 05/14/2019 11:46 am INDICATION: cough. COMPARISON: 06/22/2015 ACCESSION NUMBER(S): [id number] ORDERING CLINICIAN: Jennifer Peterson FINDINGS: PA and lateral views of the chest were obtained. Sternal wires and mediastinal surgical clips are present. No focal infiltrate, pleural effusion or pneumothorax is identified. A dense rounded nodule is seen in the lateral left lung base, consistent with remote granulomatous disease. The cardiac silhouette is within normal limits for size. Mild discogenic degenerative changes are seen in the mid thoracic spine. IMPRESSION: No focal infiltrate or pneumothorax. FINAL REPORT Dictated: 05/14/2019 11:50 am Amandeep Martin MD Signed (Electronic Signature): 05/14/2019 11:50 am Signed by: Amandeep Martin MD Technologist: CINDY Normal [facility] PSA Totalon 09-29-2018 PSA Total 0.85 ng/mL Normal [facility] Comment on above: Result Comment: AGE- SPECIFIC REFERENCE RANGES FOR SERUM PSA REFERENCE RANGE NG/ML AGE ASIANS BLACKS WHITE 40-49 0-2 0-2 0-2.5 50-59 0-3 0-4 0-3.5 60-69 0-4 0-4.5 0-4.5 70-79 0-5 0-5.5 0-6.5 PSA INCREASES WITH AGE, RACE, AND EJACULATION WITHIN 48 HRS. [facility] VOL24,NO.2, , PG.339 Performed By: #### 1 [id number] #### [employer] [address] [place] [address] SURGon 08-19-2018 SURG Name: YUDITH MORIN A. Stomach/gastric, Gastric antrum B. 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 1. 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 No evidence of dysplasia. 2. No morphologic evidence of Helicobacter pylori. B. 1. Gastric oxyntic mucosa with no significant pathologic changes. 2. No evidence of Helicobacter pylori, intestinal metaplasia, or dysplasia. Gross Description A. The specimen received in formalin is a mendoza fragment measuring 0.5 x 0.2 x 0.2 cm. Totally submitted in one cassette. B. The specimen received in formalin is a mendoza fragment measuring 0.4 x 0.3 x 0.2 cm. Totally submitted in one cassette. LM/arj (ICT/arj) Electronically Signed By [place] Gloria GILES , Pathologist (Case signed 08/20/2018) [facility] No Panel Information [facility] Vital Signs Date Time Vital Sign Value Performing Clinician Facility 07-09-2025 07:55-0400 Body height 185.4 cm Deuce Mendez MD Work Phone: [facility] 07-09-2025 07:55-0400 Body mass index (BMI) [Ratio] 22.16 kg/m2 Deuce Mendez MD Work Phone: [facility] 07-09-2025 07:55-0400 Body temperature 98.29 [degF] Deuce Mendez MD Work Phone: [facility] 07-09-2025 07:55-0400 Body weight 76.2 kg Deuce Mendez MD Work Phone: [facility] 07-09-2025 07:55-0400 Diastolic blood pressure 75 mm[Hg] Deuce Mendez MD Work Phone: [facility] 07-09-2025 07:55-0400 Heart rate 65 /min Deuce Mendez MD Work Phone: [facility] 07-09-2025 07:55-0400 Respiratory rate 16 /min Deuce Mendez MD Work Phone: [facility] 07-09-2025 07:55-0400 SaO2% (BldA) [Mass fraction] 94 % Deuce Mendez MD Work Phone: [facility] 07-09-2025 07:55-0400 Systolic blood pressure 137 mm[Hg] Deuce Mendez MD Work Phone: [facility] 05-11-2025 08:58-0400 Body height 185.4 cm Soheila Diaz CNP Work Phone: [facility] 05-11-2025 08:58-0400 Body mass index (BMI) [Ratio] 22.43 kg/m2 Soheila Diaz CNP Work Phone: [facility] 05-11-2025 08:58-0400 Body weight 77.11 kg Soheila Diaz CNP Work Phone: [facility] 05-07-2025 11:04-0400 Body height 185.4 cm Mickey Fortune MD Work Phone: [facility] 05-07-2025 11:04-0400 Body mass index (BMI) [Ratio] 21.95 kg/m2 Mickey Fortune MD Work Phone: [facility] 05-07-2025 11:04-0400 Body weight 75.48 kg Mickey Fortune MD Work Phone: [facility] 05-07-2025 11:04-0400 Diastolic blood pressure 72 mm[Hg] Mickey Fortune MD Work Phone: [facility] 05-07-2025 11:04-0400 Heart rate 60 /min Mickey Fortune MD Work Phone: [facility] 05-07-2025 11:04-0400 SaO2% (BldA) [Mass fraction] 97 % Mickey Fortune MD Work Phone: [facility] 05-07-2025 11:04-0400 Systolic blood pressure 125 mm[Hg] Mickey Fortune MD Work Phone: [facility] 04-09-2025 08:02-0400 Body height 185.4 cm Deuce Mendez MD Work Phone: [facility] 04-09-2025 08:02-0400 Body mass index (BMI) [Ratio] 22.69 kg/m2 Deuce Mendez MD Work Phone: [facility] 04-09-2025 08:02-0400 Body temperature 98.01 [degF] Deuce Mendez MD Work Phone: [facility] 04-09-2025 08:02-0400 Body weight 78.02 kg Deuce Mendez MD Work Phone: [facility] 04-09-2025 08:02-0400 Diastolic blood pressure 70 mm[Hg] Deuce Mendez MD Work Phone: [facility] 04-09-2025 08:02-0400 Heart rate 67 /min Deuce Mendez MD Work Phone: [facility] 04-09-2025 08:02-0400 Respiratory rate 16 /min Deuce Mendez MD Work Phone: [facility] 04-09-2025 08:02-0400 SaO2% (BldA) [Mass fraction] 96 % Deuce Mendez MD Work Phone: [facility] 04-09-2025 08:02-0400 Systolic blood pressure 121 mm[Hg] Deuce Mendez MD Work Phone: [facility] 01-06-2025 07:49-0500 Body height 185.4 cm Deuce Mendez MD Work Phone: [facility] 01-06-2025 07:49-0500 Body mass index (BMI) [Ratio] 23.22 kg/m2 Deuce Mendez MD Work Phone: [facility] 01-06-2025 07:49-0500 Body weight 79.83 kg Deuce Mendez MD Work Phone: [facility] 01-06-2025 07:49-0500 Diastolic blood pressure 61 mm[Hg] Deuce Mendez MD Work Phone: [facility] 01-06-2025 07:49-0500 Heart rate 67 /min Deuce Mendez MD Work Phone: [facility] 01-06-2025 07:49-0500 Respiratory rate 16 /min Deuce Mendez MD Work Phone: [facility] 01-06-2025 07:49-0500 SaO2% (BldA) [Mass fraction] 94 % Deuce Mendez MD Work Phone: [facility] 01-06-2025 07:49-0500 Systolic blood pressure 122 mm[Hg] Deuce Mendez MD Work Phone: [facility] 11-04-2024 10:27-0500 Body mass index (BMI) [Ratio] 23.6 kg/m2 Norris Ortiz MD Work Phone: [facility] 11-04-2024 10:27-0500 Body weight 78.93 kg Norris Ortiz MD Work Phone: [facility] 11-04-2024 10:27-0500 Diastolic blood pressure 75 mm[Hg] Norris Ortiz MD Work Phone: [facility] 11-04-2024 10:27-0500 Heart rate 64 /min Norris Ortiz MD Work Phone: [facility] 11-04-2024 10:27-0500 Systolic blood pressure 117 mm[Hg] Norris Ortiz MD Work Phone: [facility] 10-29-2024 09:01-0500 Body height 185.4 cm Stephanie Simpson MD Work Phone: [facility] 10-29-2024 09:01-0500 Body mass index (BMI) [Ratio] 22.69 kg/m2 Stephanie Simpson MD Work Phone: [facility] 10-29-2024 09:01-0500 Body weight 78.02 kg Stephanie Simpson MD Work Phone: [facility] 10-29-2024 09:01-0500 Diastolic blood pressure 69 mm[Hg] Stephanie Simpson MD Work Phone: [facility] 10-29-2024 09:01-0500 Heart rate 71 /min Stephanie Simpson MD Work Phone: [facility] 10-29-2024 09:01-0500 SaO2% (BldA) [Mass fraction] 97 % Stephanie Simpson MD Work Phone: [facility] 10-29-2024 09:01-0500 Systolic blood pressure 112 mm[Hg] Stephanie Simpson MD Work Phone: [facility] 10-19-2024 08:56-0500 Diastolic blood pressure 67 mm[Hg] Mary Shank [employer]PERATOR Work Phone: [facility] 10-19-2024 08:56-0500 Systolic blood pressure 111 mm[Hg] Mary Shank [employer] C[employer]TING PR[employer] OPERATOR Work Phone: [facility] 10-19-2024 08:53-0500 Body height 185.4 cm Mary Shank [employer] OPERATOR Work Phone: [facility] 10-19-2024 08:53-0500 Body mass index (BMI) [Ratio] 22.52 kg/m2 Mary Shank [employer] OPERATOR Work Phone: [facility] 10-19-2024 08:53-0500 Body temperature 97.11 [degF] Mary Shank [employer]TING [employer] OPERATOR Work Phone: [facility] 10-19-2024 08:53-0500 Body weight 77.43 kg Mary Shank [employer]TING [employer] OPERATOR Work Phone: [facility] 10-19-2024 08:53-0500 Heart rate 75 /min Mary Shank [employer] C[employer]TING PR[employer] OPERATOR Work Phone: [facility] 10-19-2024 08:53-0500 Respiratory rate 16 /min Mary Shank [employer] C[employer]TING PR[employer] OPERATOR Work Phone: [facility] 10-19-2024 08:53-0500 SaO2% (BldA) [Mass fraction] 94 % Mary Shank [employer] OPERATOR Work Phone: [facility] 10-09-2024 07:54-0500 Body height 185.4 cm Deuce Mendez MD Work Phone: [facility] 10-09-2024 07:54-0500 Body mass index (BMI) [Ratio] 22.56 kg/m2 Deuce Mendez MD Work Phone: [facility] 10-09-2024 07:54-0500 Body temperature 98.01 [degF] Deuce Mendez MD Work Phone: [facility] 10-09-2024 07:54-0500 Body weight 77.56 kg Deuce Mendez MD Work Phone: [facility] 10-09-2024 07:54-0500 Diastolic blood pressure 78 mm[Hg] Deuce Mendez MD Work Phone: [facility] 10-09-2024 07:54-0500 Heart rate 59 /min Deuce Mendez MD Work Phone: [facility] 10-09-2024 07:54-0500 Respiratory rate 16 /min Deuce Mendez MD Work Phone: [facility] 10-09-2024 07:54-0500 SaO2% (BldA) [Mass fraction] 97 % Deuce Mendez MD Work Phone: [facility] 10-09-2024 07:54-0500 Systolic blood pressure 120 mm[Hg] Deuce Mendez MD Work Phone: [facility] 06-08-2024 07:16-0400 Body height 185.4 cm Deuce Mendez MD Work Phone: [facility] 06-08-2024 07:16-0400 Body mass index (BMI) [Ratio] 22.96 kg/m2 Deuce Mendez MD Work Phone: [facility] 06-08-2024 07:16-0400 Body temperature 98.01 [degF] Deuce Mendez MD Work Phone: [facility] 06-08-2024 07:16-0400 Body weight 78.93 kg Deuce Mendez MD Work Phone: [facility] 06-08-2024 07:16-0400 Diastolic blood pressure 76 mm[Hg] Deuce Mendez MD Work Phone: [facility] 06-08-2024 07:16-0400 Heart rate 71 /min Deuce Mendez MD Work Phone: [facility] 06-08-2024 07:16-0400 Respiratory rate 16 /min Deuce Mendez MD Work Phone: [facility] 06-08-2024 07:16-0400 SaO2% (BldA) [Mass fraction] 95 % Deuce Mendez MD Work Phone: [facility] 06-08-2024 07:16-0400 Systolic blood pressure 120 mm[Hg] Deuce Mendez MD Work Phone: [facility] 05-06-2024 11:49-0400 Body height 185.4 cm Mickey Fortune MD Work Phone: [facility] 05-06-2024 11:49-0400 Body mass index (BMI) [Ratio] 23.62 kg/m2 Mickey Fortune MD Work Phone: [facility] 05-06-2024 11:49-0400 Body weight 81.19 kg Mickey Fortune MD Work Phone: [facility] 05-06-2024 11:49-0400 Diastolic blood pressure 74 mm[Hg] Mickey Fortune MD Work Phone: [facility] 05-06-2024 11:49-0400 Heart rate 62 /min Mickey Fortune MD Work Phone: [facility] 05-06-2024 11:49-0400 SaO2% (BldA) [Mass fraction] 97 % Mickey Fortune MD Work Phone: [facility] 05-06-2024 11:49-0400 Systolic blood pressure 139 mm[Hg] Mickey Fortune MD Work Phone: [facility] 03-09-2024 14:06-0400 Body height 185.4 cm Deuce Mendez MD Work Phone: [facility] 03-09-2024 14:06-0400 Body mass index (BMI) [Ratio] 23.22 kg/m2 Deuce Mendez MD Work Phone: [facility] 03-09-2024 14:06-0400 Body temperature 98.4 [degF] Deuce Mendez MD Work Phone: [facility] 03-09-2024 14:06-0400 Body weight 79.83 kg Deuce Mendez MD Work Phone: [facility] 03-09-2024 14:06-0400 Diastolic blood pressure 75 mm[Hg] Deuce Mendez MD Work Phone: [facility] 03-09-2024 14:06-0400 Heart rate 67 /min Deuce Mendez MD Work Phone: [facility] 03-09-2024 14:06-0400 Respiratory rate 16 /min Deuce Mendez MD Work Phone: [facility] 03-09-2024 14:06-0400 SaO2% (BldA) [Mass fraction] 96 % Deuce Mendez MD Work Phone: [facility] 03-09-2024 14:06-0400 Systolic blood pressure 117 mm[Hg] Deuce Mendez MD Work Phone: [facility] 02-20-2024 13:19-0400 Body height 185.4 cm Mickey Fortune MD Work Phone: [facility] 02-20-2024 13:19-0400 Body mass index (BMI) [Ratio] 22.96 kg/m2 Mickey Fortune MD Work Phone: [facility] 02-20-2024 13:19-0400 Body weight 78.93 kg Mickey Fortune MD Work Phone: [facility] 02-20-2024 13:19-0400 Diastolic blood pressure 81 mm[Hg] Mickey Fortune MD Work Phone: [facility] 02-20-2024 13:19-0400 Heart rate 59 /min Mickey Fortune MD Work Phone: [facility] 02-20-2024 13:19-0400 SaO2% (BldA) [Mass fraction] 98 % Mickey Fortune MD Work Phone: [facility] 02-20-2024 13:19-0400 Systolic blood pressure 131 mm[Hg] Mickey Fortune MD Work Phone: [facility] 11-27-2023 10:16-0500 Body mass index (BMI) [Ratio] 23.06 kg/m2 Norris Ortiz MD Work Phone: [facility] 11-27-2023 10:16-0500 Body weight 77.11 kg Norris Ortiz MD Work Phone: [facility] 11-27-2023 10:16-0500 Respiratory rate 16 /min Norris Ortiz MD Work Phone: [facility] 10-29-2023 10:37-0500 Body height 185.4 cm Stephanie Simpson MD Work Phone: [facility] 10-29-2023 10:37-0500 Body mass index (BMI) [Ratio] 22.11 kg/m2 Stephanie Simpson MD Work Phone: [facility] 10-29-2023 10:37-0500 Body weight 76.02 kg Stephanie Simpson MD Work Phone: [facility] 10-29-2023 10:37-0500 Diastolic blood pressure 74 mm[Hg] Stephanie Simpson MD Work Phone: [facility] 10-29-2023 10:37-0500 Heart rate 63 /min Stephanie Simpson MD Work Phone: [facility] 10-29-2023 10:37-0500 SaO2% (BldA) [Mass fraction] 94 % Stephanie Simpson MD Work Phone: [facility] 10-29-2023 10:37-0500 Systolic blood pressure 125 mm[Hg] Stephanie Simpson MD Work Phone: [facility] 02-07-2023 10:03-0400 Body height 185.4 cm Mickey Fortune MD Work Phone: [facility] 02-07-2023 10:03-0400 Body mass index (BMI) [Ratio] 23.08 kg/m2 Mickey Fortune MD Work Phone: [facility] 02-07-2023 10:03-0400 Body weight 79.33 kg Mickey Fortune MD Work Phone: [facility] 02-07-2023 10:03-0400 Diastolic blood pressure 71 mm[Hg] Mickey Fortune MD Work Phone: [facility] 02-07-2023 10:03-0400 Heart rate 70 /min Mickey Fortune MD Work Phone: [facility] 02-07-2023 10:03-0400 SaO2% (BldA) [Mass fraction] 96 % Mickey Fortune MD Work Phone: [facility] 02-07-2023 10:03-0400 Systolic blood pressure 112 mm[Hg] Mickey Fortune MD Work Phone: [facility] 10-22-2022 10:17-0500 Body height 185.4 cm Cam Suarez MD Work Phone: [facility] 10-22-2022 10:17-0500 Body mass index (BMI) [Ratio] 22.72 kg/m2 Cam Suarez MD Work Phone: [facility] 10-22-2022 10:17-0500 Body weight 78.11 kg Cam Suarez MD Work Phone: [facility] 10-22-2022 10:17-0500 Diastolic blood pressure 68 mm[Hg] Cam Suarez MD Work Phone: [facility] 10-22-2022 10:17-0500 Heart rate 70 /min Cam Suarez MD Work Phone: [facility] 10-22-2022 10:17-0500 SaO2% (BldA) [Mass fraction] 97 % Cam Suarez MD Work Phone: [facility] 10-22-2022 10:17-0500 Systolic blood pressure 107 mm[Hg] Cam Suarez MD Work Phone: [facility] 10-12-2022 09:06-0500 Body height 182.88 cm Norirs Ortiz II, MD Work Phone: HB-Yicnyon-Ecxkdjr Work Phone: 10-12-2022 09:06-0500 Body mass index (BMI) [Ratio] 23.6 kg/m2 Norris Ortiz II, MD Work Phone: VC-Yjagtsw-Wcwonpg Work Phone: 10-12-2022 09:06-0500 Body surface area Derived from formula 2.01 m2 Norris Ortiz II, MD Work Phone: DC-Ztyqvvr-Khokfqd Work Phone: 10-12-2022 09:06-0500 Body weight 78.93 kg Norris Ortiz II, MD Work Phone: JH-Zaqcsww-Vvbvwfo Work Phone: 10-12-2022 09:06-0500 Diastolic blood pressure 68 mm[Hg] Norris Ortiz II, MD Work Phone: FM-Yiozmoy-Syszsxd Work Phone: 10-12-2022 09:06-0500 Heart rate 66 /min Norris Ortiz II, MD Work Phone: CR-Ihaqcvs-Xuzpern Work Phone: 10-12-2022 09:06-0500 Systolic blood pressure 115 mm[Hg] Norris Ortiz II, MD Work Phone: XE-Axzzlag-Ussvmyu Work Phone: 06-15-2022 09:18-0400 Body height 185.4 cm Cam Suarez MD Work Phone: [facility] 06-15-2022 09:18-0400 Body mass index (BMI) [Ratio] 22.94 kg/m2 Cam Suarez MD Work Phone: [facility] 06-15-2022 09:18-0400 Body weight 78.88 kg Cam Suarez MD Work Phone: [facility] 06-15-2022 09:18-0400 Diastolic blood pressure 61 mm[Hg] Cam Suarez MD Work Phone: [facility] 06-15-2022 09:18-0400 Heart rate 67 /min Cam Suarez MD Work Phone: [facility] 06-15-2022 09:18-0400 SaO2% (BldA) [Mass fraction] 97 % Cam Suarez MD Work Phone: [facility] 06-15-2022 09:18-0400 Systolic blood pressure 96 mm[Hg] Cam Suarez MD Work Phone: [facility] 05-16-2022 10:01-0400 Body height 185.4 cm Soheila Diaz CNP Work Phone: [facility] 05-16-2022 10:01-0400 Body mass index (BMI) [Ratio] 23.09 kg/m2 Soheila Diaz CNP Work Phone: [facility] 05-16-2022 10:01-0400 Body weight 79.38 kg Soheila Diaz CNP Work Phone: [facility] 10-23-2021 14:37-0500 Body height 182.88 cm Norris Ortiz II, MD Work Phone: JL-Whikicd-Uuyhlhk Work Phone: 10-23-2021 14:37-0500 Body mass index (BMI) [Ratio] 23.36 kg/m2 Norris Ortiz II, MD Work Phone: AH-Azmhtzi-Tkdljub Work Phone: 10-23-2021 14:37-0500 Body surface area Derived from formula 2 m2 Norris Ortiz II, MD Work Phone: UV-Txdpccw-Yqzdjlm Work Phone: 10-23-2021 14:37-0500 Body weight 78.13 kg Norris Ortiz II, MD Work Phone: VM-Wicgyvy-Pwzgecq Work Phone: 10-23-2021 14:37-0500 Diastolic blood pressure 70 mm[Hg] Norris Ortiz II, MD Work Phone: TB-Shatsqd-Wuxlgol Work Phone: 10-23-2021 14:37-0500 Heart rate 73 /min Norris Ortiz II, MD Work Phone: TS-Flrfwot-Vbkikoz Work Phone: 10-23-2021 14:37-0500 Systolic blood pressure 119 mm[Hg] Norris Ortiz II, MD Work Phone: KN-Fjwxwdx-Lyanije Work Phone: 10-04-2021 10:15-0500 Diastolic blood pressure 56 mm[Hg] Cam Suarez MD Work Phone: [facility] 10-04-2021 10:15-0500 Systolic blood pressure 92 mm[Hg] Cam Suarez MD Work Phone: [facility] 10-04-2021 10:08-0500 Body height 185.4 cm Cam Suarez MD Work Phone: [facility] 10-04-2021 10:08-0500 Body mass index (BMI) [Ratio] 22.16 kg/m2 Cam Suarez MD Work Phone: [facility] 10-04-2021 10:08-0500 Body weight 76.2 kg Cam Suarez MD Work Phone: [facility] 10-04-2021 10:08-0500 Heart rate 64 /min Cam Suarez MD Work Phone: [facility] 10-04-2021 10:08-0500 SaO2% (BldA) [Mass fraction] 94 % Cam Suarez MD Work Phone: [facility] 04-06-2021 09:00-0400 Body height 185.4 cm Mickey Fortune MD Work Phone: [facility] 04-06-2021 09:00-0400 Body mass index (BMI) [Ratio] 22.07 kg/m2 Mickey Fortune MD Work Phone: [facility] 04-06-2021 09:00-0400 Body weight 75.89 kg Mickey Fortune MD Work Phone: [facility] 04-06-2021 09:00-0400 Diastolic blood pressure 70 mm[Hg] Mickey Fortune MD Work Phone: [facility] 04-06-2021 09:00-0400 Heart rate 62 /min Mickey Fortune MD Work Phone: [facility] 04-06-2021 09:00-0400 SaO2% (BldA) [Mass fraction] 98 % Mickey Fortune MD Work Phone: [facility] 04-06-2021 09:00-0400 Systolic blood pressure 114 mm[Hg] Mickey Fortune MD Work Phone: [facility] 10-18-2020 08:22-0500 BMI (Body Mass Index) 22.16 kg/m2 Jarek Agarwal [facility] 10-18-2020 08:22-0500 Body weight 76.2 kg Jarek Krishnamurthyhmy [facility] 10-18-2020 08:22-0500 BP Diastolic 62 mm[Hg] Jarek Stefano [facility] 10-18-2020 08:22-0500 BP Systolic 110 mm[Hg] Jarek Krishnamurthyhmy [facility] 10-18-2020 08:22-0500 Height 185.4 cm Jarek Krishnamurthyhmy [facility] 10-18-2020 08:22-0500 Pulse (Heart Rate) 60 /min Jarek Krishnamurthyhmy [facility] 10-18-2020 08:22-0500 Pulse Oximetry 98 % Jarek Agarwal [facility] 04-07-2020 09:10-0400 BMI (Body Mass Index) 23.05 kg/m2 [facility] 04-07-2020 09:10-0400 Body weight 79.24 kg [facility] 04-07-2020 09:10-0400 BP Diastolic 73 mm[Hg] [facility] 04-07-2020 09:10-0400 BP Systolic 132 mm[Hg] [facility] 04-07-2020 09:10-0400 Height 185.4 cm [facility] 04-07-2020 09:10-0400 Pulse (Heart Rate) 64 /min [facility] 04-07-2020 09:10-0400 Pulse Oximetry 97 % [place] [facility] 10-27-2019 10:06-0500 BMI (Body Mass Index) 22.28 kg/m2 Jarek Agarwal [facility] 12-03-2019 10:06-0500 Body weight 76.61 kg Jarek Agarwal [facility] 10-27-2019 10:06-0500 BP Diastolic 52 mm[Hg] Jarek Agarwal [facility] 10-27-2019 10:06-0500 BP Systolic 93 mm[Hg] Jarek Agarwal [facility] 10-27-2019 10:06-0500 Height 185.4 cm Jarek Agarwal [facility] 10-27-2019 10:06-0500 Pulse (Heart Rate) 54 /min Jarek Agarwal [facility] 10-27-2019 10:06-0500 Pulse Oximetry 97 % Jarek Agarwal [facility] 03-03-2019 09:44-0400 BMI (Body Mass Index) 22.43 kg/m2 Jarek Agarwal [facility] 03-03-2019 09:44-0400 BP Diastolic 65 mm[Hg] Jarek Agarwal [facility] 03-03-2019 09:44-0400 BP Systolic 124 mm[Hg] Jarek Agarwal [facility] 03-03-2019 09:44-0400 Height 185.4 cm Jarek Agarwal [facility] 03-03-2019 09:44-0400 Pulse (Heart Rate) 62 /min Jarek Agarwal [facility] 03-03-2019 09:44-0400 Pulse Oximetry 97 % Jarek Agarwal [facility] 03-03-2019 09:44-0400 Weight 77.11 kg Jarek Agarwal [facility] 09-03-2018 13:33-0400 BMI (Body Mass Index) 22.6 kg/m2 [facility] 09-03-2018 13:33-0400 Body Temperature 97.5 [degF] [facility] 09-03-2018 13:33-0400 BP Diastolic 67 mm[Hg] [facility] 09-03-2018 13:33-0400 BP Systolic 117 mm[Hg] [facility] 09-03-2018 13:33-0400 Height 185.4 cm [facility] 09-03-2018 13:33-0400 Pulse (Heart Rate) 58 /min [facility] 09-03-2018 13:33-0400 Pulse Oximetry 98 % [facility] 09-03-2018 13:33-0400 Weight 77.7 kg [facility] 08-06-2018 12:02-0400 BMI (Body Mass Index) 22.52 kg/m2 [facility] 08-06-2018 12:02-0400 Body Temperature 98.4 [degF] [facility] 08-06-2018 12:02-0400 BP Diastolic 62 mm[Hg] [facility] 08-06-2018 12:02-0400 BP Systolic 104 mm[Hg] [facility] 08-06-2018 12:02-0400 Height 185.4 cm [facility] 08-06-2018 12:02-0400 Pulse (Heart Rate) 56 /min [facility] 08-06-2018 12:02-0400 Pulse Oximetry 98 % [facility] 08-06-2018 12:02-0400 Weight 77.43 kg [facility] 02-28-2018 14:27-0400 BMI (Body Mass Index) 22.69 kg/m2 Jarek Krishnamurthyhmy [facility] 02-28-2018 14:27-0400 BP Diastolic 92 mm[Hg] Jarek Agarwal [facility] 02-28-2018 14:27-0400 BP Systolic 188 mm[Hg] Jarek Krishnamurthyhmy [facility] 02-28-2018 14:27-0400 Height 185.4 cm Jarek Stefano [facility] 02-28-2018 14:27-0400 Pulse (Heart Rate) 68 /min Jarek Krishnamurthyhmy [facility] 02-28-2018 14:27-0400 Pulse Oximetry 98 % Jarek Krishnamurthyhmy [facility] 02-28-2018 14:27-0400 Weight 78.02 kg Jarek Krishnamurthyhmy [facility] 11-05-2017 14:19-0500 BMI (Body Mass Index) 22.96 kg/m2 Jarek Agarwal [facility] Work Phone: 11-05-2017 14:19-0500 BP Diastolic 77 mm[Hg] Jarek Agarwal [facility] Work Phone: 11-05-2017 14:19-0500 BP Systolic 148 mm[Hg] Jarek Agarwal [facility] Work Phone: 11-05-2017 14:190500 Height 185.4 cm Jarek Agarwal [facility] Work Phone: 11-05-2017 14:0500 Pulse (Heart Rate) 62 /min Jarek Agarwal [facility] Work Phone: 11-05-2017 14:0500 Pulse Oximetry 99 % Jarek Agarwal [facility] Work Phone: 11-05-2017 14:-0500 Weight 78.93 kg Jarek Agarwal [facility] Work Phone: Encounters Encounter Date Encounter Type Care Provider Facility Start: 07-19-2025 End: 07-19-2025 Refill Deuce Mendez MD Work Phone: [facility] Comment on above: Primary hypertension Start: 07-16-2025 End: 07-19-2025 Refill Deuce Mendez MD Work Phone: [facility] Comment on above: Insomnia, unspecifie d type Refill Request Start: 07-12-2025 End: 07-14-2025 Refill Anila Tamayo MD Work Phone: Optometry Comment on above: Refill Request Start: 07-09-2025 End: 07-09-2025 Office outpatient visit 25 minutes Deuce Mendez MD Work Phone: 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 Comment on above: Insomnia, unspecifie d type Start: 06-11-2025 End: 06-14-2025 Refill Deuce Mendez MD Work Phone: [facility] Comment on above: Insomnia, unspecifie d type Start: 06-07-2025 End: 06-07-2025 Refill Deuce Mendez MD Work Phone: [facility] Start: 06-04-2025 End: 06-04-2025 ambulatory SOHEILA [facility] Start: 05-31-2025 End: 05-31-2025 ambulatory SOHEILA [facility] Start: 05-19-2025 End: 05-19-2025 Orders Only Leslye Mtz LPN 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 Start: 05-14-2025 End: 05-14-2025 Refill Deuce Mendez MD Work Phone: [facility] Start: 05-11-2025 End: 05-11-2025 ambulatory PROVIDER NOT IN SYSTEM [facility] Start: 05-11-2025 End: 05-11-2025 Office outpatient visit 15 minutes Soheila Diaz CNP Work Phone: 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 Start: 05-07-2025 End: 05-07-2025 Office outpatient visit 25 minutes Mickey Fortune MD Work Phone: [facility] Comment on above: Encounter for screen ing colonoscopy (Primary Dx) Start: 05-07-2025 End: 05-07-2025 ambulatory DEUCE MCCARTHY [facility] Ambulatory Start: 05-07-2025 ambulatory MICKEY FORTUNE [facility] Start: 04-09-2025 End: 04-09-2025 Patient encounter procedure Deuce Mendez MD Work Phone: [facility] Comment on above: At high risk for fal ls (Primary Dx); Insomnia, unspecified type; Leg weakness, bilateral; Medicare annual wellness visit, initial; Primary hypertension; Coronary 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 [place] heart without angina pectoris Start: 04-09-2025 End: 04-09-2025 ambulatory DEUCE MCCARTHY [facility] Ambulatory Start: 04-09-2025 End: 04-09-2025 Encounter for general adult medical examination without abnormal findings DEUCE MCCARTHY [facility] Ambulatory Start: 04-05-2025 End: 04-05-2025 Documentation procedure Deuce Mendez MD Work Phone: [facility] Comment on above: MWV OUTREACH (APPT O N 04/09/2025) Start: 04-05-2025 End: 04-05-2025 ambulatory DEUCE MENDEZ MD Work Phone: [facility] Work Phone: Start: 04-05-2025 End: 04-05-[address] Cheli Hart [facility] Work Phone: Start: 04-05-2025 End: 04-05-2025 ambulatory Cheli Hart Facility:[facility] Start: 03-08-2025 ambulatory DEUCE MENDEZ Facility: [facility] Start: 02-25-2025 End: 02-25-2025 ambulatory HOLLAND MOLINA Facility:[facility] Start: 02-25-2025 End: 02-25-2025 Office outpatient visit 25 minutes Holland Molina MD, PhD Work Phone: Ophthalmology Comment on above: Primary open angle g laucoma (POAG) of both eyes, mild stage (Primary Dx); Exudative age-related macular degeneration of left eye with active choroidal neovascularization (HCC); Nonexudative age-related macular degeneration, right eye, intermediate dry stage Start: 02-19-2025 End: 02-19-2025 Refill Deuce Mendez MD Work Phone: [facility] Comment on above: Primary hypertension Start: 02-12-2025 ambulatory DEUCE GREEN [facility] Ambulatory Start: 01-21-2025 End: 01-21-2025 Refill Deuce Mendez MD Work Phone: [facility] Comment on above: Anxiety; Mood disorder Start: 01-06-2025 End: 01-06-2025 Office outpatient visit 40 minutes Deuce Mendez MD Work Phone: [facility] Comment on above: Chronic pain of righ t knee (Primary Dx); Insomnia, unspecified type; Primary hypertension; Sedative dependence (HCC); Stage 3 chronic kidney disease, unspecified whether stage 3a or 3b CKD (HCC); Coronary 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 [place] heart without angina pectoris; Abnormal finding of blood chemistry, unspecified; Erectile dysfunction, unspecified erectile dysfunction type; Encounter for therapeutic drug level monitoring; Anxiety Start: 01-06-2025 End: 01-06-2025 ambulatory DEUCE MCCARTHY [facility] Ambulatory Start: 01-01-2025 End: 01-01-2025 Refill Deuce Mendez MD Work Phone: 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 Start: 11-06-2024 End: 11-06-2024 ambulatory [facility] Start: 11-05-2024 End: 11-05-2024 ambulatory [facility] Start: 11-04-2024 End: 11-04-2024 Office outpatient visit 25 minutes Norris Ortiz MD Work Phone: [facility] Comment on above: Erectile dysfunction , unspecified erectile dysfunction type; Nocturia; 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 Start: 11-04-2024 End: 11-04-2024 ambulatory [facility] Ambulatory Start: 11-02-2024 End: 11-02-2024 ambulatory [facility] Start: 10-30-2024 End: 10-30-2024 ambulatory [facility] Start: 10-29-2024 End: 10-29-2024 Office outpatient visit 25 minutes Stephanie Simpson MD Work Phone: [facility] Comment on above: Coronary artery dise ase involving [place] coronary artery of [place] heart without angina pectoris (Primary Dx); Primary hypertension Start: 10-29-2024 End: 10-29-2024 [facility] Start: 10-26-2024 End: 10-26-2024 ambulatory [facility] Start: 10-26-2024 ambulatory [facility] Start: 10-21-2024 End: 10-21-2024 ambulatory [facility] Start: 10-19-2024 End: 10-19-2024 Office outpatient visit 10 minutes Mary Coppola CNP Work Phone: [facility] Comment on above: Bilateral impacted c erumen (Primary Dx); Primary hypertension Start: 10-19-2024 End: 10-19-2024 [facility]ulatory [facility] Start: 10-15-2024 End: 10-15-2024 ambulatory JENNIFER Valderrama [facility] Start: 10-09-2024 End: 10-09-2024 Office outpatient visit 40 minutes Deuce Mendez MD Work Phone: [facility] Comment on above: Primary hypertension (Primary Dx); Insomnia, unspecified type; Anxiety; Mood disorder (HCC); Chronic pain of right knee; At moderate risk for fall; Abnormal finding of blood chemistry, unspecified Start: 10-09-2024 End: 10-09-2024 ambulatory DEUCE MCCARTHY [facility] Ambulatory Start: 10-02-2024 End: 10-02-2024 Refill Deuce Mendez MD Work Phone: [facility] Comment on above: Primary hypertension Start: 08-19-2024 End: 08-23-2024 ambulatory DEUCE MCCARTHY [facility] Start: 08-19-2024 End: 08-19-2024 ambulatory DEUCE MCCARTHY [facility] Start: 08-11-2024 End: 08-11-2024 Refill Deuce Mendez MD Work Phone: 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 Start: 06-19-2024 End: 06-19-2024 Refill Deuce Mendez MD Work Phone: [facility] Start: 06-08-2024 End: 06-08-2024 Office outpatient visit 40 minutes Deuce Mendez MD Work Phone: [facility] Comment on above: Anxiety (Primary Dx) ; Insomnia, unspecified type; Primary hypertension; Mood disorder (HCC); Leg weakness, bilateral Start: 05-25-2024 End: 05-25-2024 Refill Deuce Mendez MD Work Phone: [facility] Start: 05-11-2024 Refill Deuce Mendez MD Work Phone: [facility] Start: 05-06-2024 End: 05-06-2024 Patient encounter procedure Anila Tamayo MD Work Phone: Ophthalmology Comment on above: Primary open angle g laucoma (POAG) of both eyes, mild stage (Primary Dx); Optic cupping of both eyes; Nonexudative age-related macular degeneration, bilateral, intermediate dry stage; Pupillary miosis; Pseudophakia of both eyes; Essential hypertension Start: 05-06-2024 End: 05-06-2024 Office outpatient visit 15 minutes Mickey Fortune MD Work Phone: 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 Comment on above: Primary hypertension (Primary Dx) Start: 04-09-2024 End: 04-09-2024 Phys/qhp telephone evaluation 11-20 min Deuce Mendez MD Work Phone: [facility] Comment on above: Insomnia, unspecifie d type (Primary Dx) Start: 03-16-2024 Orders Only Deuce Mendez MD Work Phone: [facility] Comment on above: Vitamin D deficiency (Primary Dx) Start: 03-09-2024 End: 03-09-2024 Office outpatient new 45 minutes Deuce Mendez MD Work Phone: 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 Comment on above: Benign prostatic hyp erplasia with urinary obstruction and other lower urinary tract symptoms; Nocturia; Erectile dysfunction, unspecified erectile dysfunction type Start: 02-05-2024 End: 02-05-2024 ambulatory [facility] Ambulatory Start: 11-27-2023 End: 11-27-2023 Office outpatient visit 25 minutes Norris Ortiz MD Work Phone: [facility] Comment on above: Benign prostatic hyp erplasia with urinary obstruction and other lower urinary tract symptoms; Nocturia; Erectile dysfunction, unspecified erectile dysfunction type Start: 11-27-2023 End: 11-27-2023 ambulatory [facility] Amb[facility] Start: 10-29-2023 End: 10-29-2023 Office outpatient visit 25 minutes Stephanie Simpson MD Work Phone: [facility] Comment on above: Coronary artery dise ase involving [place] coronary artery of [place] heart without angina pectoris (Primary Dx); Primary hypertension; Dyslipidemia Start: 10-23-2023 End: 10-23-2023 Erroneous Encounter Norris Ortiz MD Work Phone: 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, bilateral (Primary Dx); Primary open angle glaucoma (POAG) of both eyes, mild stage; Optic cupping of both eyes; Nonexudative age-related macular degeneration, bilateral, intermediate dry stage; Essential hypertension Start: 04-15-2023 End: 04-15-2023 ambulatory [facility] Work Phone: Start: 04-15-2023 End: 04-15-2023 Patient encounter procedure [facility] Start: 03-19-2023 End: 03-19-2023 Patient encounter procedure Anila Tamayo MD Work Phone: Ophthalmology Comment on above: Primary open angle g laucoma (POAG) of right eye, mild stage (Primary Dx); Optic cupping of both eyes; Ocular hypertension of left eye; Nonexudative age-related macular degeneration, bilateral, intermediate dry stage; 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 Comment on above: Peripheral sensory n europathy (Primary Dx) Start: 02-07-2023 End: 02-07-2023 Office outpatient visit 15 minutes Mickey Fortune MD Work Phone: 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 Start: 01-24-2023 Orders Only Souleymane Smith APRN.SPRUE CUTTING PRESS OPERATOR Work Phone: Ophthalmology Start: 01-23-2023 Telephone encounter Souleymane Long mmad TANK CLEANING SUPERVISOR.SPRUE CUTTING PRESS OPERATOR Work Phone: Ophthalmology Comment on above: Medication Follow-up Start: 01-21-2023 Telephone encounter Souleymane Long mmad TANK CLEANING SUPERVISOR.SPRUE CUTTING PRESS OPERATOR Work Phone: Ophthalmology Comment on above: Medication Update (R estasis) Start: 01-17-2023 Telephone encounter Souleymane Long mmad TANK CLEANING SUPERVISOR.SPRUE CUTTING PRESS OPERATOR Work Phone: Ophthalmology Comment on above: Patient Question Start: 01-15-2023 End: 01-15-2023 Patient encounter procedure Souleymane Rebolledoluann MARROQUINSPRUE CUTTING PRESS OPERATOR Work Phone: Ophthalmology Comment on above: 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 Comment on above: Coronary artery dise ase involving [place] coronary artery of [place] heart without angina pectoris (Primary Dx); Primary hypertension Start: 10-16-2022 End: 10-16-2022 Patient encounter procedure Shahbaz Marrero OD Work Phone: Optometry Comment on above: Ocular hypertension, bilateral (Primary Dx); Epiphora due to excess lacrimation of both sides Start: 10-12-2022 Office outpatient vi sit 25 minutes Norris Ortiz II, MD Work Phone: [id number] Work Phone: Start: 10-12-2022 ambulatory Norris Ortiz Facility:[id number] Start: 10-11-2022 End: 10-11-2022 Patient encounter procedure Shahbaz Marrero OD Work Phone: Optometry Comment on above: Primary open angle g laucoma of both eyes, mild stage (Primary Dx); Epiphora due to excess lacrimation of both sides Start: 10-09-2022 Chart Update Norris Rodríguez Work Phone: [id number] Work Phone: Start: 09-17-2022 Telephone encounter Zeina Mcpherson MD Work Phone: Ophthalmology Comment on above: Patient Question Start: 08-27-2022 Telephone encounter Shahbaz wu OD Work Phone: Optometry Comment on above: Patient Question Start: 06-15-2022 End: 06-15-2022 Office outpatient visit 25 minutes Cam Suarez MD Work Phone: [facility] Comment on above: Coronary artery dise ase involving koyuk coronary artery of koyuk heart without angina pectoris (Primary Dx); Carotid artery disease, unspecified laterality, unspecified type (HCC); Stenosis of right carotid artery Start: 06-04-2022 End: 06-04-2022 Office outpatient visit 15 minutes Soheila Diaz CNP Work Phone: [facility] Comment on above: Left wrist pain (Bess wellington Dx) Start: 05-16-2022 End: 05-16-2022 Office outpatient new 30 minutes Soheila Diaz CNP Work Phone: [facility] Comment on above: Left wrist pain (Bess wellington Dx) Start: 10-23-2021 ambulatory Jennifer Abhishek [facility] [id number] Start: 10-23-2021 Chart Update Norris Rodríguez Work Phone: [id number] Work Phone: Start: 10-04-2021 End: 10-04-2021 Office outpatient visit 25 minutes Cam Suarez MD Work Phone: [facility] Comment on above: Primary hypertension (Primary Dx); Coronary 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 koy[place] heart without angina pectoris Start: 04-06-2021 End: 04-06-2021 Office outpatient visit 25 minutes Mickey Fortune MD Work Phone: 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 Start: 10-18-2020 End: 10-18-2020 Office outpatient visit 25 minutes Jarek Agarwal Work Phone: 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 Comment on above: Hyperlipidemia, unsp ecified hyperlipidemia type; Essential hypertension; Coronary artery disease due to lipid rich plaque Start: 03-03-2019 End: 03-03-2019 Office outpatient visit 25 minutes Jarek Agarwal Work Phone: 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 Start: 11-05-2017 Office outpatient vi sit 40 minutes Jarek Agarwal Work Phone: [facility] Procedures Date Procedure Procedure Detail Performing Clinician Start: 07-09-2025 Ecg routine ecg w/le ast 12 lds w/i&r Deuce Dakota Mounir Andrea MD Work Phone: Start: 06-24-2025 OCT ANGIOGRAPHY OU ( BOTH EYES) Holland Molina MD, PhD Work Phone: Start: 06-24-2025 Computerized ophthal kvng imaging retina Holland Molina MD, PhD Work Phone: Start: 04-05-2025 MRI Deuce Lynn shanel Mendez MD Work Phone: Start: 04-05-2025 MRI of joint of lowe r extremity DEUCE MENDEZ MD Work Phone: Start: 02-25-2025 Computerized ophthal kvng imaging retina Holland Molina MD, PhD Work Phone: Start: 02-25-2025 OCT ANGIOGRAPHY OU ( BOTH EYES) Holland Molina MD, PhD Work Phone: Start: 12-24-2024 Computerized ophthal kvng imaging retina Holland Molina MD, PhD Work Phone: Start: 11-19-2024 End: 11-19-2024 Visual field xm uni/bi w/interp extended exam Anila Tamayo MD Work Phone: Start: 08-06-2024 Computerized ophthal kvng imaging retina Shahbaz Marrero OD Work Phone: Start: 05-06-2024 End: 05-06-2024 Visual field xm uni/bi w/interp extended exam Anila Tamayo MD Work Phone: Start: 03-16-2024 Microalbumin [Mass/v olume] in Urine by Test strip Deuce Mendez MD Work Phone: Start: 11-27-2023 Urnls dip stick/tabl et rgnt auto w/o microscopy [place] Ortiz MD Work Phone: Start: 11-27-2023 POCT UA AUTOMATED MA NUALLY RESULTED NORRIS ORTIZ Start: 05-01-2023 Computerized ophthal kvng imaging optic nerve Anila Tamayo MD Work Phone: Start: 04-15-2023 X-ray of lumbar spin e, two or three views Start: 03-19-2023 Fundus photography w/interpretation & report Anila Tamayo MD Work Phone: Start: 03-19-2023 End: 03-19-2023 Visual field xm uni/bi w/interp extended exam Anila Tamayo MD Work Phone: Start: 01-15-2023 Probe lacrimal canal iculi w/wo irrigation Moriahekmarcelo Smith TANK CLEANING SUPERVISOR.SPRUE CUTTING PRESS OPERATOR Work Phone: Start: 06-05-2022 Arthrocentesis aspir &/inj interm jt/burs w/o us Soheila Kelsie Emily SPRUE CUTTING PRESS OPERATOR Work Phone: Start: 03-30-2020 Lipid 1996 panel - S lukasz or Plasma Norris Ortiz MD Work Phone: Cholecystectomy [place] Ortiz II, MD Work Phone: Colonoscopy [place] Ortiz II, MD Work Phone: Endoscopy [place] Ortiz II, MD Work Phone: Tonsillectomy Norris Ortiz II M D Work Phone: Plan of Treatment Date Care Activity Detail Author Start: 12-23-2034 Tetanus vaccination Tetanus: Every [address] [facility] Start: 12-23-2034 Urine microalbumin profile DTaP,Tdap,Td Vaccine (4 - T d or Tdap) [facility] Start: 10-31-2031 Urine microalbumin profile DTaP,Tdap,Td Vaccine (3 - T d or Tdap) [facility] Start: 04-02-2028 Diabetes Screening Diabetes Screening [facility] Start: 10-09-2027 Diabetes Screening Diabetes Screening [facility] Start: 03-16-2027 Diabetes Screening Diabetes Screening [facility] Start: 07-09-2026 End: 12-16-2026 OCT ANGIOGRAPHY OU (BOTH EYES) OCT ANGIOGRAPHY OU (BOTH EYES) [facility] Imaging Routine Exudative age-related macular degeneration of left eye with active choroidal neovascularization (HCC) Nonexudative age-related macular degeneration, right eye, intermediate dry stage Primary open angle glaucoma (POAG) of both eyes, mild stage Pseudophakia of both eyes Expected: 07/09/2026, Expires: 12/16/2026 [facility] Comment on above: Expected: 07/09/2026, Expires: Start: 07-09-2026 End: 12-16-2026 OCT MACULA CIRRUS OU (BOTH EYES) OCT MACULA CIRRUS OU (BOTH EYES) [facility] Imaging Routine Exudative age-related macular degeneration of left eye with active choroidal neovascularization (HCC) Nonexudative age-related macular degeneration, right eye, intermediate dry stage Primary open angle glaucoma (POAG) of both eyes, mild stage Pseudophakia of both eyes Expected: 07/09/2026, Expires: 12/16/2026 [facility] Work Phone: Comment on above: Expected: 07/09/2026, Expires: Start: 04-09-2026 Depression screening using PHQ-9 (Patient Health Questionnaire 9) score Depression Screening/Follow-Up (PHQ-2/9) [facility] Start: 04-09-2026 Medicare Wellness Visit Medicare Wellness Visit [facility] Start: 04-05-2026 Fall risk assessment Falls Risk Assessment [facility] Start: 04-02-2026 eGFR - Kidney Disease eGFR - Kidney Disease [facility] Start: 04-02-2026 Urine screening for protein [facility] Start: 03-12-2026 End: 08-19-2026 OCT ANGIOGRAPHY OU (BOTH EYES) OCT ANGIOGRAPHY OU (BOTH EYES) [facility] Imaging Routine Exudative age-related macular degeneration of left eye with active choroidal neovascularization (HCC) Nonexudative age-related macular degeneration, right eye, intermediate dry stage Expected: 03/12/2026, Expires: 08/19/2026 [facility] Comment on above: Expected: 03/12/2026, Expires: Start: 03-12-2026 End: 08-19-2026 OCT MACULA CIRRUS OU (BOTH EYES) OCT MACULA CIRRUS OU (BOTH EYES) [facility] Imaging Routine Exudative age-related macular degeneration of left eye with active choroidal neovascularization (HCC) Nonexudative age-related macular degeneration, right eye, intermediate dry stage Expected: 03/12/2026, Expires: 08/19/2026 [facility] Work Phone: Comment on above: Expected: 03/12/2026, Expires: Start: 01-08-2026 End: 06-17-2026 OCT ANGIOGRAPHY OU (BOTH EYES) OCT ANGIOGRAPHY OU (BOTH EYES) [facility] Imaging Routine Exudative age-related macular degeneration of left eye with active choroidal neovascularization (HCC) Nonexudative age-related macular degeneration, right eye, intermediate dry stage Expected: 01/08/2026, Expires: 06/17/2026 [facility] Comment on above: Expected: 01/08/2026, Expires: Start: 01-08-2026 End: 06-17-2026 OCT MACULA CIRRUS OU (BOTH EYES) OCT MACULA CIRRUS OU (BOTH EYES) [facility] Imaging Routine Exudative age-related macular degeneration of left eye with active choroidal neovascularization (HCC) Nonexudative age-related macular degeneration, right eye, intermediate dry stage Expected: 01/08/2026, Expires: 06/17/2026 [facility] Work Phone: Comment on above: Expected: 01/08/2026, Expires: Start: 01-06-2026 Depression screening using PHQ-9 (Patient Health Questionnaire 9) score Depression Screening/Follow-Up (PHQ-2/9) [facility] Start: 12-31-2025 End: 12-31-2025 Patient encounter procedure 12/31/2025 8:00 AM EST Off ice Visit [facility] [address] [place] [address] Deuce Mendez MD [address] [facility] Start: 12-09-2025 End: 12-09-2025 Patient encounter procedure 12/09/2025 9:45 AM EST Off ice Visit [facility] [address] [place] [address] Holland Molina MD, PhD [address] [place] [address] [facility] [address] [address] *5 M, DFE/ OCT/OCTa both eyes- full exam. Ophthalmology Comment on above: *5 M, DFE/ OCT/OCTa both eyes- full exam . Start: 11-03-2025 End: 11-03-2025 Patient encounter procedure 11/03/2025 10:30 AM EST Office Visit [facility] [address] [facility] [address] [place] [address] Norris Ortiz MD [address] [place] [address] [facility] Start: 10-12-2025 End: 10-12-2025 Patient encounter procedure 10/12/2025 11:40 AM EST Office Visit [facility] [address] [place] [address] [place] [address] [place], [place] [id number] [facility] Start: 10-09-2025 Hemoglobin A1c measurement Diabetes: Hemoglobin A1C [facility] Start: 10-09-2025 Urine screening for protein [facility] Start: 10-01-2025 End: 10-01-2025 Patient encounter procedure 10/01/2025 8:40 AM EST Off ice Visit [facility] [address] [place] [address] Deuce Mendez MD [address] [facility] Start: 08-19-2025 Depression screening using PHQ-9 (Patient Health Questionnaire 9) score Depression Screening/Follow-Up (PHQ-2/9) [facility] Start: 07-26-2025 Influenza vaccination Influenza Vaccine (#1) [facility] Start: 07-09-2025 End: 07-09-2025 Patient encounter procedure 07/09/2025 8:00 AM EDT Off ice Visit [facility] [address] [place] [address] Deuce Mendez MD [address] [facility] Start: 06-22-2025 End: 06-22-2025 Admission to same day surgery center 06/22/2025 7:20 AM EDT - 06/22/2025 7:50 AM EDT Surgery [facility] [address] [place] [address] Mickey Fortune MD [address] [address] COLONOSCOPY AND POSSIBLE TERMINAL ILEOSCOPY WITH POSSIBLE AND/OR POLYPECTOMY AND/OR OTHER COAGULATION TREATMENT AND/OR BANDING OF HEMORRHOIDS WITH OR WITHOUT PICTURES [facility] Comment on above: COLONOSCOPY AND POSSIBLE TERMINAL ILEOSC OPY WITH POSSIBLE AND/OR POLYPECTOMY AND/OR OTHER COAGULATION TREATMENT AND/OR BANDING OF HEMORRHOIDS WITH OR WITHOUT PICTURES Start: 06-22-2025 End: 06-22-2025 Colonoscopy flx dx w/collj spec when pfrmd COLONOSCOPY Encounter for screening colonoscopy 06/22/2025 7:20 AM EDT [facility] Start: 06-22-2025 Subsequent hospital visit by physician [facility] Start: 05-13-2025 End: 05-13-2025 Patient encounter procedure 05/13/2025 8:00 AM EDT Off ice Visit [facility] [address] [place] [address] Holland Molina MD, PhD [address] [place] [address] *DFE/ OCT/OCTa both eyes- full exam. Ophthalmology Comment on above: *DFE/ OCT/OCTa both eyes- full exam. Start: 05-11-2025 End: 05-11-2025 Patient encounter procedure 05/11/2025 9:00 AM EDT Off ice Visit [facility] [address] [place] [address] Soheila Diaz, SPRUE CUTTING PRESS OPERATOR [address] [place] [address] [facility] Start: 04-09-2025 End: 04-09-2025 Patient encounter procedure 04/09/2025 8:00 AM EDT Off ice Visit [facility] [address] [place] [address] Deuce Mendez MD [address] [facility] Start: 03-30-2025 Lipid panel Lipid Panel [facility] Start: 03-17-2025 End: 03-17-2025 Patient encounter procedure 03/17/2025 2:30 PM EDT Off ice Visit [facility] [address] [place] [address] Shahbaz Marrero II, OD [address] [place] [address] [facility] Comment on above: [facility] Start: 03-16-2025 Urine screening for protein [facility] Start: 02-25-2025 End: 02-25-2025 Patient encounter procedure 02/25/2025 11:00 AM EDT Office Visit [facility] [address] [place] [address] Holland Molina MD, PhD [address] [place] [address] *9 W, DFE/OCT/OCT-A Ophthalmology Comment on above: *9 W, DFE/OCT/OCT-A Start: 02-23-2025 COVID-19 Vaccine () COVID-19 Vaccine () [facility] Start: 02-23-2025 Covid-19 Vaccine ( season) Covid-19 Vaccine () [facility] Start: 01-08-2025 End: 01-08-2025 Patient encounter procedure 01/08/2025 8:00 AM EST Off ice Visit [facility] [address] [place] [address] Deuce Mendez MD [address] [facility] Start: 01-06-2025 End: 01-06-2025 Patient encounter procedure 01/06/2025 8:00 AM EST Off ice Visit [facility] [address] [place] [address] Deuce Mendez MD [address] [facility] Start: 12-24-2024 End: 12-24-2024 Patient encounter procedure 12/24/2024 1:15 PM EST Off ice Visit [facility] [address] [place] [address] Holland Molina MD, PhD [address] [place] [address] Nonexudative age-related macular degeneration [facility] Ophthalmology Comment on above: Nonexudative age-related macular degener ation LE Start: 11-25-2024 Advance Directive Discussion Advance Directive Discussion [facility] Start: 11-25-2024 Medicare Advantage Annual Wellness Visit Medicare Advantage Annual Wellness Visit [facility] Start: 11-16-2024 End: 11-16-2024 ambulatory 11/16/2024 8:45 AM EST Treatment [facility] [address] [address] Justo Peterson, PT [address] [facility] [place] [address] [facility] Start: 11-13-2024 End: 11-13-2024 ambulatory 11/13/2024 10:45 AM EST Treatment [facility] [address] [facility] [address] [place] [address] Jodi Hernandez, CHIMNEY REPAIRER [address] [facility] [place] [address] [facility] Start: 11-09-2024 End: 11-09-2024 ambulatory 11/09/2024 10:45 AM EST Treatment [facility] [address] [facility] [address] [place] [address] Adelia Chapa, CHIMNEY REPAIRER [address] [facility] [place] [id number] [facility] Start: 11-06-2024 End: 11-06-2024 ambulatory 11/06/2024 10:45 AM EST Treatment [facility] [address] [facility] [address] [place] [phone] Adelia Chapa, CHIMNEY REPAIRER [address] [facility] [place] [id number] [facility] Start: 11-05-2024 End: 11-05-2024 Patient encounter procedure [facility] Start: 11-04-2024 End: 11-04-2024 Patient encounter procedure [facility] Comment on above: 6mths poag Start: 10-29-2024 End: 10-29-2024 Patient encounter procedure 10/29/2024 9:20 AM EST Off ice Visit [facility] [address], 3rd [place] [address] Stephanie Simpson MD [address] [place] [address] [facility] Start: 10-09-2024 End: 10-09-2024 Patient encounter procedure 10/09/2024 8:00 AM EST Off ice Visit [facility] [address] [place] [address] Deuce Mendez MD [address] [place] [address] [facility] Start: 10-05-2024 End: 10-05-2024 Patient encounter procedure 10/05/2024 9:20 AM EST Off ice Visit [facility] [address] [place] [address] Stephanie Simpson MD [address] [place] [address] [facility] Start: 09-07-2024 End: 09-07-2024 Patient encounter procedure 09/07/2024 11:00 AM EDT Office Visit [facility] [address] [place] [address] Deuce Mendez MD [address] [place] [address] [facility] Start: 08-19-2024 End: 08-19-2024 Patient encounter procedure 08/19/2024 11:00 AM EDT Office Visit [facility] [address] [facility] Office [facility], [address] [place] [address] Deuce Mendez MD [address] [place] [address] Roby [place] MD [address] [facility] Start: 08-06-2024 End: 08-06-2024 Patient encounter procedure 08/06/2024 10:00 AM EDT Office Visit [facility] [address] [place] [address] Shahbaz Marrero II, OD [address] [place] [address] IOP 3 months Optometry Comment on above: IOP 3 months Start: 07-26-2024 COVID-19 Vaccine ( season) COVID-19 Vaccine ( season) [facility] Start: 07-26-2024 COVID-19 Vaccine ( season) COVID-19 Vaccine ( season) [facility] Start: 07-26-2024 Covid-19 Vaccine ( season) Covid-19 Vaccine ( season) [facility] Start: 07-26-2024 Influenza vaccination Influenza Vaccine (#1) [facility] Start: 06-08-2024 End: 06-08-2024 Patient encounter procedure 06/08/2024 7:20 AM EDT Off ice Visit [facility] [address] [place] [address] Deuce Mendez MD [address] [facility] Start: 05-07-2024 End: 02-04-2025 Prostate specific Ag [Mass/volume] in Serum or Plasma Prostate Specific Antigen Lab Routine Nocturia Expected: 05/07/2024 (Approximate), Expires: 02/04/2025 [facility] Service Area Work Phone: Comment on above: Expected: 05/07/2024 (Approximate), Expi res: 02/04/2025 Start: 04-29-2024 End: 04-29-2024 Patient encounter procedure 04/29/2024 9:00 AM EDT Off ice Visit [facility] [address] Medical Office Building, 5th [place] [id number] Mickey Fortune MD [address] [facility] Start: 04-14-2024 End: 04-14-2024 Admission to same day surgery center [facility] Comment on above: ESOPHAGOGASTRODUODENOSCOPY WITH BIOPSY Start: 04-14-2024 End: 04-14-2024 Esophagogastroduodenoscopy transoral diagnostic [facility] Start: 04-14-2024 Subsequent hospital visit by physician [facility] Start: 04-09-2024 End: 04-09-2024 Telemedicine consultation with patient 04/09/2024 9:00 AM EDT Telemedicine Telephone [facility] [address] [place] [address] Deuce Mendez MD [address] [facility] Start: 03-09-2024 End: 03-09-2024 Patient encounter procedure 03/09/2024 2:40 PM EDT Off ice Visit [facility] [address] [place] [address] Deuce Mendez MD [address] [facility] Start: 03-08-2024 COVID-19 Vaccine () COVID-19 Vaccine () [facility] Start: 03-08-2024 Covid-19 Vaccine () Covid-19 Vaccine () [facility] Start: 02-26-2024 End: 11-27-2024 Prostate specific Ag [Mass/volume] in Serum or Plasma Prostate Specific Antigen Lab Routine Nocturia Expected: 02/26/2024 (Approximate), Expires: 11/27/2024 [facility] Service Area Work Phone: Comment on above: Expected: 02/26/2024 (Approximate), Expi res: 11/27/2024 Start: 02-05-2024 End: 02-05-2024 Telemedicine consultation with patient 02/05/2024 8:30 AM EDT Telemedicine [facility] [address] [facility] [address] [place] [phone] [place] Ortiz MD [facility][note 3][address] [place], [place] [id number] [facility] Start: 01-02-2024 COVID-19 Vaccine (5 - Pfizer risk series) COVID-19 Vaccine (5 - Pfizer risk series) [facility] Start: 01-02-2024 COVID-19 Vaccine () COVID-19 Vaccine () [facility] Start: 12-06-2023 Medicare Wellness Visit Medicare Wellness Visit [facility] Start: 11-25-2023 Advance Directive Discussion Advance Directive Discussion [facility] Start: 11-25-2023 Behavioral Health Screening Behavioral Health Screening [facility] Start: 07-26-2023 COVID-19 Vaccine () COVID-19 Vaccine () [facility] Start: 05-21-2023 End: 05-21-2023 Patient encounter procedure 05/21/2023 Office Visit Cardiology Cam Suarez MD [address] [facility] [place] [address] [facility] Start: 04-16-2023 End: 04-16-2023 Patient encounter procedure 04/16/2023 Office Visit Cardiology Cam Suarez MD [address] [place] [address] [facility] Start: 04-13-2023 End: 04-13-2023 Patient encounter procedure 04/13/2023 1:00 PM EDT Procedure visit [facility] [address] [place] [address] Dante Gayle, [employer] OPERATOR [address] [place] [address] Harshal Mendoza MD [address] [facility] [address] [facility] [address] [place] [address] [facility] Start: 11-25-2022 ADVANCE DIRECTIVE DISCUSSION ADVANCE DIRECTIVE DISCUSSION [facility] Start: 11-25-2022 DEPRESSION ASSESSMENT DEPRESSION ASSESSMENT [facility] Start: 10-22-2022 End: 10-22-2022 Patient encounter procedure 10/22/2022 Office Visit Cardiology Cam Suarez MD [address] [place] [address] [facility] Start: 10-15-2022 FUV, Provider: Norris Ortiz II, Status: Pen, Time: 11:00 AM FUV, Provider: Norris Ortiz II, Status: Pen, Time: 11:00 AM [id number]-[id number] nd Work Phone: Start: 10-12-2022 FUV, Provider: Norris Ortiz II, Status: Pen, Time: 9:00 AM FUV, Provider: Norris Ortiz II, Status: Pen, Time: 9:00 AM [id number] nd Work Phone: Start: 07-26-2022 Influenza vaccination [facility] Start: 06-22-2022 End: 06-22-2022 Patient encounter procedure 06/22/2022 Appointment Cardiology Cam Suarez MD [address] [place] [address] [facility] Start: 06-15-2022 End: 06-15-2022 Patient encounter procedure 06/15/2022 Office Visit Cardiology Cam Suarez MD [address] [place] [address] [facility] Start: 04-19-2022 COVID-19 VACCINE (4 - Booster for Pfizer series) COVID-19 VACCINE (4 - Booster for Pfizer series) [facility] Start: 04-19-2022 COVID-19 Vaccine (5 - Booster for Pfizer series) COVID-19 Vaccine (5 - Booster for Pfizer series) [facility] Start: 11-25-2021 ADVANCE DIRECTIVE DISCUSSION ADVANCE DIRECTIVE DISCUSSION [facility] Start: 11-25-2021 DEPRESSION ASSESSMENT DEPRESSION ASSESSMENT [facility] Start: 10-27-2021 End: 10-27-2021 Patient encounter procedure 10/27/2021 Appointment Cardiology Cam Suarez MD [address] [place] [address] [facility] Start: 10-04-2021 End: 10-04-2021 Patient encounter procedure 10/04/2021 Office Visit Cardiology Cam Suarez MD [address] [place] [address] [phone] [facility] Start: 07-26-2021 Influenza vaccination Sequential Influenza Vaccine (#1) [facility] Start: 06-21-2021 COVID-19 Vaccine (3 - Booster for Pfizer series) COVID-19 Vaccine (3 - Booster for Pfizer series) [facility] Start: 04-27-2021 End: 04-27-2021 Admission to same day surgery center 04/27/2021 Surgery Mickey Fortune MD [address] [facility] [address] [place] [address] [phone] ESOPHAGOGASTRODUODENOSCOPY WITH BIOPSY [facility] Comment on above: ESOPHAGOGASTRODUODENOSCOPY WITH BIOPSY Start: 04-27-2021 Subsequent hospital visit by physician 04/27/2021 Hospital Encounter Mickey Fortune MD [address] [facility] [place] [address] [phone] [facility] Start: 04-17-2021 DTaP/Tdap/Td Vaccines (2 - Td or Tdap) DTaP/Tdap/Td Vaccines (2 - Td or Tdap) [facility] Start: 04-17-2021 Tetanus vaccination [facility] Start: 04-11-2021 End: 04-11-2021 Patient encounter procedure 04/11/2021 Office Visit Cardiology Jarek Agarwal MD [address] [place] [address] [phone] [facility] Start: 12-28-2020 COVID-19 Vaccine (2 - Pfizer 2-dose series) COVID-19 Vaccine (2 - Pfizer 2-dose series) [facility] Start: 07-26-2020 Influenza vaccination given [facility] Start: 05-17-2020 End: 05-17-2020 Office Visit 05/17/2020 Office Visit Cardiology Jarek Agarwal MD [address] [place] [address] [phone] [facility] Start: 04-27-2020 Pneumococcal Vaccine: Age 65+ (3 - PPSV23 or PCV20) Pneumococcal Vaccine: Age 65+ (3 - PPSV23 or PCV20) [facility] Start: 07-26-2019 Influenza vaccination given SEQUENTIAL INFLUENZA VACCI NE (#1) [facility] Start: 08-19-2018 End: 08-19-2018 Ambulatory 08/19/2018 Scanned Document Heartburn Mickey Fortune MD [address] [place] [address] [phone] [facility] Start: 07-26-2018 Influenza vaccination SEQUENTIAL INFLUENZA VACCINE (#1) [facility] Start: 07-26-2018 Influenza vaccination given SEQUENTIAL INFLUENZA VACCI NE (#1) [facility] Start: 07-26-2017 Influenza vaccination SEQUENTIAL INFLUENZA VACCINE (#1) [facility] Work Phone: Start: 2011 Respiratory Syncytial Virus Immunization: Risk, 60-74 Risk, or 75+ (1 - 1-dose 75+ series) Respiratory Syncytial Virus Immunization: Risk, 60-74 Risk, or 75+ (1 - 1-dose 75+ series) [facility] Start: 10-11-2007 Pneumococcal vaccination PNEUMOCOCCAL VACCINE AGE 65+ (2 of 2 - PCV13) [facility] Start: 2001 Fall risk assessment Falls Risk Assessment [facility] Start: 2001 Pneumococcal vaccination PNEUMOCOCCAL VACCINE AGE 65+ (1 of 2 - PCV13) [facility] Work Phone: Start: 2001 PNEUMOCOCCAL: 65+ (1 - PCV) PNEUMOCOCCAL: 65+ (1 - PCV) [facility] Start: 1996 Zoster vacc, sc ZOSTER VACCINE [facility] Work Phone: Start: 1986 Administration of herpes zoster vaccine Zoster Vaccines (1 of 2) [facility] Start: 1986 SHINGRIX VACCINE (1 of 2) SHINGRIX VACCINE (1 of 2) [facility] Start: 1986 ZOSTER VACCINES (1 of 2) ZOSTER VACCINES (1 of 2) [facility] Start: 1981 DIABETES SCREEN DIABETES SCREEN [facility] Start: 1955 Urine microalbumin profile DTAP,TDAP,TD (1 - Tdap) [facility] Start: 1954 Anxiety Screening Anxiety Screening [facility] Start: 1954 Depression Screening Depression Screening [facility] Start: 1948 Adolescent depression screening assessment Depression Screening (PHQ9) [facility] Start: 1948 Depression screening using PHQ-9 (Patient Health Questionnaire 9) score [facility] Start: 1946 Microalbumin measurement, urine, quantitative Urine Microalbumin [facility] Start: 1946 Urine screening for protein Urine Microalbumin [facility] Start: 1939 History and physical examination, annual for health maintenance Wellness Visit [facility] Start: 1939 Medicare Wellness Visit Medicare Wellness Visit [facility] Start: 1936 Fall risk assessment Falls Risk Assessment [facility] Start: 1936 Medicare Annual Wellness Visit Medicare Annual Wellness Visit (AWV) [facility] Start: 1936 Tetanus vaccination TETANUS EVERY [address] [facility] Work Phone: End: 10-09-2025 B12/Folate B12/Folate Lab Routine Insomnia, unspecified type 1 Occurrences starting 10/09/2024 until 10/09/[address] [facility] Comment on above: 1 Occurrences starting 10/09/2024 until 10/09/2025 End: 07-09-2026 B12/Folate B12/Folate Lab Routine Admission for therapeutic drug monitoring 1 Occurrences starting 07/09/2025 until 07/09/[address] [facility] Comment on above: 1 Occurrences starting 07/09/2025 until 07/09/2026 End: 08-16-2023 Carotid artery doppler assessment Carotid Duplex Vascular Ultrasound Routine Coronary 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 [place] heart without angina pectoris Carotid artery disease, unspecified laterality, unspecified type (HCC) Stenosis of right carotid artery 1 Occurrences starting 06/15/2022 until 08/16/[address] [facility] Work Phone: Comment on above: 1 Occurrences starting 06/15/2022 until 08/16/2023 Colonoscopy flx dx w /collj spec when pfrmd COLONOSCOPY Encounter for screening colonoscopy [facility] End: 03-09-2025 Complete blood count with white cell differential, manual CBC and Differential Lab Routine Coronary 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 [place] heart without angina pectoris 1 Occurrences starting 03/09/2024 until 03/09/[address] [facility] Comment on above: 1 Occurrences starting 03/09/2024 until 03/09/2025 End: 10-09-2025 Complete blood count with white cell differential, manual CBC and Differential Lab Routine Insomnia, unspecified type 1 Occurrences starting 10/09/2024 until 10/09/[address] [facility] Comment on above: 1 Occurrences starting 10/09/2024 until 10/09/2025 End: 03-09-2025 Comprehensive metabolic 2000 panel - Serum or Plasma Comprehensive Metabolic Panel Lab Routine Primary hypertension 1 Occurrences starting 03/09/2024 until 03/09/[address] [facility] Comment on above: 1 Occurrences starting 03/09/2024 until 03/09/2025 End: 10-09-2025 Comprehensive metabolic 2000 panel - Serum or Plasma Comprehensive Metabolic Panel Lab Routine Primary hypertension 1 Occurrences starting 10/09/2024 until 10/09/[address] [facility] Comment on above: 1 Occurrences starting 10/09/2024 until 10/09/2025 End: 01-06-2026 Comprehensive metabolic 2000 panel - Serum or Plasma Comprehensive Metabolic Panel Lab Routine Primary hypertension Stage 3 chronic kidney disease, unspecified whether stage 3a or 3b CKD (HCC) 1 Occurrences starting 01/06/2025 until 01/06/[address] [facility] Comment on above: 1 Occurrences starting 01/06/2025 until 01/06/2026 End: 07-09-2026 Comprehensive metabolic 2000 panel - Serum or Plasma Comprehensive Metabolic Panel Lab Routine Primary hypertension 1 Occurrences starting 07/09/2025 until 07/09/[address] [facility] Comment on above: 1 Occurrences starting 07/09/2025 until 07/09/2026 Drugs of abuse urine screening test Drugs of Abuse Screen, Urine Lab Routine Anxiety Encounter for therapeutic drug level monitoring Ordered: 03/09/[address] [facility] Comment on above: Ordered: 03/09/2024 End: 01-06-2026 Drugs of abuse urine screening test Drugs of Abuse Screen, Urine Lab Routine Erectile dysfunction, unspecified erectile dysfunction type Encounter for therapeutic drug level monitoring 1 Occurrences starting 01/06/2025 until 01/06/[address] [facility] Comment on above: 1 Occurrences starting 01/06/2025 until 01/06/2026 End: 12-04-2022 Echocardiography Echocardiogram complete Echocardiography Routine Coronary 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 [place] heart without angina pectoris 1 Occurrences starting 10/04/2021 until 12/04/[address] 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 End: 03-09-2025 Hemoglobin A1c/Hemoglobin.total in Blood Hemoglobin A1c Lab Routine Primary hypertension Borderline diabetes 1 Occurrences starting 03/09/2024 until 03/09/[address] [facility] Comment on above: 1 Occurrences starting 03/09/2024 until 03/09/2025 End: 10-09-2025 Hemoglobin A1c/Hemoglobin.total in Blood Hemoglobin A1c Lab Routine Primary hypertension Abnormal finding of blood chemistry, unspecified 1 Occurrences starting 10/09/2024 until 10/09/[address] [facility] Comment on above: 1 Occurrences starting 10/09/2024 until 10/09/2025 End: 01-06-2026 Hemoglobin A1c/Hemoglobin.total in Blood Hemoglobin A1c Lab Routine Primary hypertension Abnormal finding of blood chemistry, unspecified 1 Occurrences starting 01/06/2025 until 01/06/[address] [facility] Comment on above: 1 Occurrences starting 01/06/2025 until 01/06/2026 End: 07-09-2026 Hemoglobin A1c/Hemoglobin.total in Blood Hemoglobin A1c Lab Routine Borderline diabetes 1 Occurrences starting 07/09/2025 until 07/09/[address] [facility] Comment on above: 1 Occurrences starting 07/09/2025 until 07/09/2026 End: 03-09-2025 Iron measurement Iron Study with Ferritin Lab Routine Coronary 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 [place] heart without angina pectoris Abnormal finding of blood chemistry, unspecified 1 Occurrences starting 03/09/2024 until 03/09/[address] [facility] Comment on above: 1 Occurrences starting 03/09/2024 until 03/09/2025 End: 10-09-2025 Iron measurement Iron Study with Ferritin Lab Routine Insomnia, unspecified type Abnormal finding of blood chemistry, unspecified 1 Occurrences starting 10/09/2024 until 10/09/[address] [facility] Comment on above: 1 Occurrences starting 10/09/2024 until 10/09/2025 End: 03-09-2025 Lipid 1996 panel - Serum or Plasma Lipid Panel Lab Routine Primary hypertension 1 Occurrences starting 03/09/2024 until 03/09/[address] [facility] Comment on above: 1 Occurrences starting 03/09/2024 until 03/09/2025 End: 10-09-2025 Lipid 1996 panel - Serum or Plasma Lipid Panel Lab Routine Primary hypertension 1 Occurrences starting 10/09/2024 until 10/09/[address] [facility] Comment on above: 1 Occurrences starting 10/09/2024 until 10/09/2025 End: 01-06-2026 Lipid 1996 panel - Serum or Plasma Lipid Panel Lab Routine Primary hypertension 1 Occurrences starting 01/06/2025 until 01/06/[address] [facility] Comment on above: 1 Occurrences starting 01/06/2025 until 01/06/2026 End: 07-09-2026 Lipid 1996 panel - Serum or Plasma Lipid Panel Lab Routine Primary hypertension 1 Occurrences starting 07/09/2025 until 07/09/[address] [facility] Comment on above: 1 Occurrences starting 07/09/2025 until 07/09/2026 End: 03-09-2025 Microalbumin measurement, urine, quantitative Microalbumin/Creatinine Ratio, UR Random Lab Routine Primary hypertension 1 Occurrences starting 03/09/2024 until 03/09/[address] [facility] Comment on above: 1 Occurrences starting 03/09/2024 until 03/09/2025 End: 10-09-2025 Microalbumin measurement, urine, quantitative Microalbumin/Creatinine Ratio, UR Random Lab Routine Primary hypertension 1 Occurrences starting 10/09/2024 until 10/09/[address] [facility] Comment on above: 1 Occurrences starting 10/09/2024 until 10/09/2025 End: 01-06-2026 Microalbumin measurement, urine, quantitative Microalbumin/Creatinine Ratio, UR Random Lab Routine Primary hypertension 1 Occurrences starting 01/06/2025 until 01/06/[address] [facility] Comment on above: 1 Occurrences starting 01/06/2025 until 01/06/2026 End: 07-09-2026 Microalbumin measurement, urine, quantitative Microalbumin/Creatinine Ratio, UR Random Lab Routine Primary hypertension 1 Occurrences starting 07/09/2025 until 07/09/[address] [facility] Comment on above: 1 Occurrences starting 07/09/2025 until 07/09/2026 End: 03-09-2025 Prostate specific Ag [Mass/volume] in Serum or Plasma PSA, Screen Lab Routine Prostate cancer screening 1 Occurrences starting 03/09/2024 until 03/09/[address] [facility] Comment on above: 1 Occurrences starting 03/09/2024 until 03/09/2025 End: 10-29-2025 SPECT Heart perfusion NM Myocardial Perfusion Multiple SPECT Imaging Routine Coronary 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 [place] heart without angina pectoris 1 Occurrences starting 10/29/2024 until 10/29/[address] [facility] Work Phone: Comment on above: 1 Occurrences starting 10/29/2024 until 10/29/2025 End: 01-06-2026 Testosterone measurement, total Testosterone, Total Lab Routine Erectile dysfunction, unspecified erectile dysfunction type 1 Occurrences starting 01/06/2025 until 01/06/[address] [facility] Comment on above: 1 Occurrences starting 01/06/2025 until 01/06/2026 End: 03-09-2025 Thyrotropin [Units/volume] in Serum or Plasma TSH with Reflex Free T4 Lab Routine Primary hypertension 1 Occurrences starting 03/09/2024 until 03/09/2025 [facility] Work Phone: Comment on above: 1 Occurrences starting 03/09/2024 until 03/09/2025 End: 10-09-2025 Thyrotropin [Units/volume] in Serum or Plasma TSH with Reflex Free T4 Lab Routine Primary hypertension 1 Occurrences starting 10/09/2024 until 10/09/2025 [employer] Work Phone: Comment on above: 1 Occurrences starting 10/09/2024 until 10/09/2025 End: 01-06-2026 Thyrotropin [Units/volume] in Serum or Plasma TSH with Reflex Free T4 Lab Routine Primary hypertension 1 Occurrences starting 01/06/2025 until 01/06/[address] [facility] Work Phone: Comment on above: 1 Occurrences starting 01/06/2025 until 01/06/2026 End: 07-09-2026 Thyrotropin [Units/volume] in Serum or Plasma TSH with Reflex Free T4 Lab Routine Primary hypertension 1 Occurrences starting 07/09/2025 until 07/09/[address] [facility] Comment on above: 1 Occurrences starting 07/09/2025 until 07/09/2026 End: 06-08-2025 XR Lumbar spine 2 or 3 Views XR Lumbar Spine 2-3 Views (Standard) Imaging Routine Leg weakness, bilateral 1 Occurrences starting 06/08/2024 until 06/08/[address] [facility] Work Phone: Comment on above: 1 Occurrences starting 06/08/2024 until 06/08/2025 End: 07-09-2026 XR Lumbar spine 2 or 3 Views XR Lumbar Spine 2-3 Views (Standard) Imaging Routine Leg weakness, bilateral 1 Occurrences starting 07/09/2025 until 07/09/[address] [facility] Work Phone: Comment on above: 1 Occurrences starting 07/09/2025 until 07/09/2026 End: 06-08-2025 XR Pelvis and Hip - bilateral Views XR Hips Bilateral With Pelvis 5+ Views Imaging Routine Leg weakness, bilateral 1 Occurrences starting 06/08/2024 until 06/08/[address] [facility] Comment on above: 1 Occurrences starting 06/08/2024 until 06/08/2025 [facility] [place] [facility] Immunizations Immunization Date Immunization Notes Care Provider Fa carolina 12-23-2024 tetanus toxoid, redu jerardo diphtheria toxoid, and acellular pertussis vaccine, adsorbed Deuce Mendez MD Work Phone: [facility] 08-25-2024 Seasonal trivalent i nfluenza vaccine, adjuvanted, preservative free Deuce Mendez MD Work Phone: [facility] 08-25-2024 influenza virus vacc ine, unspecified formulation Deuce Mendez MD Work Phone: [facility] 10-16-2023 Respiratory Syncytia l Virus Vaccine (Abrysvo/RSV) Deuce Mendez MD Work Phone: [facility] 09-11-2023 influenza virus vacc ine, unspecified formulation Deuce Mendez MD Work Phone: [facility] 12-22-2020 Pfizer SARS-CoV-2 Vaccination Mickey Fortune MD Work Phone: [facility] 12-01-2020 Pfizer SARS-CoV-2 Vaccination Mickey Fortune MD Work Phone: [facility] 09-12-2020 Influenza IIV4 high dose 65 and Older Cam Suarez MD Work Phone: [facility] 09-12-2020 influenza, high dose seasonal, preservative-free Mickey Fortune MD Work Phone: [facility] 09-05-2019 zoster vaccine recombinant E david Fortune MD Work Phone: [facility] 08-26-2019 influenza, injectabl e, quadrivalent, preservative free Mickey Fortune MD Work Phone: [facility] 04-28-2019 zoster vaccine recombinant E david Fortune MD Work Phone: [facility] 04-27-2019 pneumococcal conjuga te vaccine, 13 valent Mickey Fortune MD Work Phone: [facility] 09-09-2018 influenza, injectabl e, quadrivalent, preservative free Mickey Fortune MD Work Phone: [facility] 09-10-2017 influenza, injectabl e, quadrivalent, preservative free Mickey Fortune MD Work Phone: [facility] 09-11-2016 influenza, injectabl e, quadrivalent, contains preservative Mickey Fortune MD Work Phone: [facility] 09-02-2013 influenza, seasonal, injectable Mickey Fortune MD Work Phone: [facility] 09-02-2012 influenza, seasonal, injectable Mickey Fortune MD Work Phone: [facility] 04-17-2011 tetanus toxoid, redu jerardo diphtheria toxoid, and acellular pertussis vaccine, adsorbed Mickey Fortune MD Work Phone: [facility] 11-11-2009 novel influenza-H1N1 -09, preservative-free, injectable Mickey Fortune MD Work Phone: [facility] 10-11-2006 pneumococcal polysac charide vaccine, 23 valent Mickey Fortune MD Work Phone: [facility] Payers Date Payer Category Payer Self-pay 2021 Medicare [id number] 2021 Medicare (Managed Care) [id number] 2021 Medicare PPO [employer] MED[employer] [place] (PP[place]) [id number] 2021 Private Health Insurance [facility] [id number] 2014 Medicare [id number] 2014 Medicare [id number] 2013 Medicare [id number] 2012 Unknown 1936 Unknown [id number] 2.16840.1.261316.3.579.2. 356 1936 Unknown [id number] 2.16840.1.009265.3.579.2. 356 1936 Unknown [id number] 2.840.1.293710.3.579.2. 1245 1936 Unknown [id number] 2.16840.1.899976.3.579.2. 1244 1936 Unknown [id number] 2.16840.1.046097.3.579.2. 1244 1936 Unknown [id number] 2.16840.1.238442.3.579.2. 1244 1936 Unknown [id number] 2.16840.1.079292.3.579.2. 903 1936 Unknown [id number] 2.16840.1.288277.3.579.2. 903 1936 Unknown [id number] 2.16840.1.066736.3.579.2. 903 1936 Unknown [id number] 2.16840.1.842031.3.579.2. 903 1936 Unknown [id number] 2.16840.1.132199.3.579.2. 903 1936 Unknown [id number] 2.16.840.1.489097.3.579.2. 3 1936 Unknown [id number] 2.16.840.1.321275.3.579.2. 900 1936 Unknown [id number] 2.16.840.1.864743.3.579.2. 900 1936 Unknown [id number] 2.16.840.1.974402.3.579.2. 900 1936 Unknown [id number] 2.16.840.1.576240.3.579.2. 1242 1936 Unknown [id number] 2.16.840.1.739239.3.579.2. 1242 1936 Unknown [id number] 2.16840.1.321253.3.579.2. 1242 1936 Unknown [id number] 2.16.840.1.387533.3.579.2. 1242 1936 Unknown [id number] 2.16840.1.965103.3.579.2. 1242 1936 Unknown [id number] 2.16.840.1.288307.3.579.2. 1242 1936 Unknown [id number] 2.16840.1.408213.3.579.2. 1242 1936 Unknown [id number] 2.16.840.1.264226.3.579.2. 1242 1936 Unknown [id number] 2.16.840.1.261052.3.579.2. 1242 1936 Unknown [id number] 2.16.840.1.306405.3.579.2. 1242 1936 Unknown [id number] 2.16.840.1.175822.3.579.2. 1242 1936 Unknown [id number] 2.16.840.1.998963.3.579.2. 1243 1936 Unknown [id number] 2.16.840.1.123470.3.579.2. 3 1936 Unknown [id number] 2.16.840.1.446853.3.579.2. 3 1936 Unknown [id number] 2.16.840.1.100183.3.579.2. 1936 Unknown [id number] 2.16.840.1.041183.3.579.2. 1936 Unknown [id number] 2.16.840.1.930557.3.579.2. 1936 Unknown [id number] 2.16.840.1.621846.3.579.2. 1936 Unknown [id number] 2.16.840.1.948294.3.579.2. 1936 Unknown [id number] 2.16.840.1.627030.3.579.2. 1936 Unknown [id number] 2.16.840.1.952889.3.579.2. 1936 Unknown [id number] 2.16.840.1.498340.3.579.2. 1936 Unknown [id number] 2.16.840.1.254209.3.579.2. 1936 Unknown [id number] 2.16.840.1.204870.3.579.2. 1936 Unknown [id number] 2.16.840.1.139207.3.579.2. 90 Unknown [id number] 2.16.840.1.489375.3.579.2. 462 Unknown [id number] 2.16.840.1.522877.3.579.2. 462 Unknown [id number] 2.16.840.1.365979.3.579.2. 462 Social History Date Type Detail Facility Start: 02-28-2018 End: 06-15-2022 Tobacco smoking status NHIS Never smoker [facility] Work Phone: Start: 1935 Sex Assigned At Not on file [facility] Work Phone: Start: 10-27-2019 End: 02-25-2025 Alcohol intake Current non-drinker of alcohol (finding) [facility] Start: 05-06-2022 End: 11-04-2024 Exposure to SARS-CoV-2 (event) Not sure [facility] Start: 10-18-2020 End: 06-15-2022 Tobacco use and exposure Never used [facility] Start: 11-05-2017 End: 03-19-2023 Never a smoker Never a smoker [id number] Work Phone: Start: 02-07-2023 End: 03-19-2023 Tobacco use panel [facility] Start: 09-03-2018 Gender identity Identifies as male gender (finding) [facility] Start: 09-03-2018 Sexual orientation Heterosexual (finding) [facility] Start: 1935 Sex Assigned At Male [facility] Tobacco smoking stat NHIS Tobacco smoking consumption unknown [facility] Work Phone: Start: 10-26-2012 National Score (1-100), lower number is lower risk 67 [facility] (I/We) worried whe er (my/our) food would run out before (I/we) got money to buy more. Never true [facility] Clinical Notes 09-14-2015 to 07-16-2025 Telephone Encounter - JvdeandreWellington E - 07/16/2025 1:35 PM EDTTelephone Encounter - JvdeandreWellington E - 07/16/2025 1:35 PM EDTTelephone Encounter - Lela Tolliver LPN - 07/16/2025 11:26 AM EDT Note Date & Type Note Facility 07-16-2025 Telephone encounter Note Patient contacted pharmacy and requests refills as follows: Requested Prescriptions Pending Prescriptions Disp Refills latanoprost (XALATAN) 0.005 % ophthalmic solution 7.5 mL 2 Sig: Use 1 drop in both eyes daily at bedtime. The last encounter with Anila Tamayo MD was 07/14/2025 RX INSTRUCTIONS: Patient aware RX will be sent to pharmacy. No need to notify patient. Patient has been identified by name and date of : Yes Wellington Contreras Deisy [facility] 07-16-2025 Miscellaneous Notes Patient contacted pharmacy and requests refills as follows: Requested Prescriptions Pending Prescriptions Disp Refills latanoprost (XALATAN) 0.005 % ophthalmic solution 7.5 mL 2 Sig: Use 1 drop in both eyes daily at bedtime. The last encounter with Anila Tamayo MD was 07/14/2025 RX INSTRUCTIONS: Patient aware RX will be sent to pharmacy. No need to notify patient. Patient has been identified by name and date of : Yes Wellington Olivas documented in this encounter [facility] 07-16-2025 Telephone encounter Note DURAN is requesting a refill for Requested Prescriptions Pending Prescriptions Disp Refills LORazepam (ATIVAN) 1 MG tablet 90 tablet 0 Sig: Take 1 (one) tablet (1 mg total) by mouth daily . Last refill: 07/09/2025 Last appt: 07/09/2025 Upcoming appt (when is it due or is it scheduled): 10/12/2025 OARRS/NARxCHECK Report Received and Assessed: 07/09/2025 Date controlled substance agreement signed: 01/12/2025 Date of last drug screen: 04/02/2025 Follow up: Refill pending for review without additional follow up based on information above. [facility] 07-16-2025 Miscellaneous Notes DURAN is requesting a refill for Requested Prescriptions Pending Prescriptions Disp Refills LORazepam (ATIVAN) 1 MG tablet 90 tablet 0 Sig: Take 1 (one) tablet (1 mg total) by mouth daily . Last refill: 07/09/2025 Last appt: 07/09/2025 Upcoming appt (when is it due or is it scheduled): 10/12/2025 OARRS/NARxCHECK Report Received and Assessed: 07/09/2025 Date controlled substance agreement signed: 01/12/2025 Date of last drug screen: 04/02/2025 Follow up: Refill pending for review without additional follow up based on information above. documented in this encounter [facility] 07-12-2025 Telephone encounter Note .Patient contacted pharmacy and requests refills as follows: Requested Prescriptions Pending Prescriptions Disp Refills latanoprost (XALATAN) 0.005 % ophthalmic solution 7.5 mL 2 Sig: Use 1 drop in both eyes daily at bedtime. The last encounter with Anila Tamayo MD was 11/19/2024 RX INSTRUCTIONS: Patient aware RX will be sent to pharmacy. No need to notify patient. Patient has been identified by name and date of : Yes, Provider Dr. Tamayo Date 07/12/2025 Time 10:53am EBONI Rose [facility] 07-12-2025 Miscellaneous Notes .Patient contacted pharmacy and requests refills as follows: Requested Prescriptions Pending Prescriptions Disp Refills latanoprost (XALATAN) 0.005 % ophthalmic solution 7.5 mL 2 Sig: Use 1 drop in both eyes daily at bedtime. The last encounter with Anila Tamayo MD was 11/19/2024 RX INSTRUCTIONS: Patient aware RX will be sent to pharmacy. No need to notify patient. Patient has been identified by name and date of : Yes, Provider Dr. Tamayo Date 07/12/2025 Time 10:53am EBONI Rose documented in this encounter [facility] 07-09-2025 Note Subjective Patient I D: Yudith Morin is a 89 y.o. male here for Chief Complaint Patient presents with Follow-up 3 month f/u After discussing the use of ambient listening and audio recording in generating medical documentation, the patient verbally consented to use of this technology for today's visit. History of Present Illness Yudith Morin is an 89 year old male with hypertension and leg pain who presents with concerns about blood pressure management and leg discomfort. He experiences fluctuations in blood pressure, with episodes of hypotension particularly during activities like golf in the heat. He associates these episodes with inadequate hydration and manages them by increasing water intake. He is currently taking amlodipine and losartan hydrochlorothiazide for blood pressure management. He previously took labetalol but discontinued it due to hypotensive episodes. He describes significant leg discomfort ongoing for over a year, with difficulty walking and unsteadiness, particularly on inclines. He reports that an floral specialist reviewed his MRI and x-rays and discussed the possibility that his leg issues could be related to his back and nerves. He uses a leg sleeve and performs exercises from previous physical therapy sessions. He has a history of receiving injections for pain management, which initially helped with pain radiating down his leg and back pain. However, he continues to experience leg discomfort and is scheduled to see a structural steel painter soon. He occasionally notices skipped heartbeats, which he attributes to caffeine intake. He drinks caffeinated beverages like Coke. He mentions a past abnormal EKG result from a home monitoring device but is unsure of its significance. He has a history of low B12 levels, for which he took supplements until his levels became high. He is currently taking vitamin D3 supplements. He has not had a colonoscopy since 2014 and has decided against further screening due to his age and lack of symptoms. 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 BPH (benign prostatic hypertrophy) CAD (coronary artery disease) 2 vessel cabg; neri to lad and svg to the rca Chronic kidney disease Heart disease Hemorrhoids Hiatal hernia 04/14/2024 AFS grade IV, 3 cm type-I sliding History of skin cancer Hyperlipidemia Labile hypertension Stomach ulcer Urinary bleeding Viral hepatitis Past Surgical History: Procedure Laterality Date CABG 2011 CARDIAC CATHETERIZATION 2010 2 vessel cad CARDIAC CATHETERIZATION 1998 mod stenosis of the prox lad CATARACT EXT/ECCE Bilateral CHOLECYSTECTOMY 1987 COLONOSCOPY 07/19/2015 [place] CORONARY ARTERY BYPASS GRAFT 2010 neri to lad/svg to rca EGD N/A 04/27/2021 Procedure: ESOPHAGOGASTRODUODENOSCOPY WITH BIOPSY; Surgeon: Mickey Fortune MD; Location: [facility]; Service: General Surgery ESOPHAGOGASTRODUODENOSCOPY 07/19/2015 Sharma's...Thomae in [place] ESOPHAGOGASTRODUODENOSCOPY 08/19/2018 gastritis....Dr. Fortune [place] ESOPHAGOGASTRODUODENOSCOPY TRANSORAL DIAGNOSTIC N/A 04/14/2024 Procedure: ESOPHAGOGASTRODUODENOSCOPY WITH BIOPSY (ptek); Surgeon: Mickey Fortune MD; Location: [facility]; Service: General Surgery SKIN LESION EXCISION TONSILLECTOMY 1942 Family History Problem Relation Age of Onset Heart attack Father Breast cancer Mother Social History[1] Review of Systems Vitals: 07/09/25 0755 BP: 137/75 BP Location: Right arm Patient Position: Sitting BP Cuff Size: Adult Pulse: 65 Resp: 16 Temp: 98.3 degrees F (36.8 degrees C) TempSrc: Oral SpO2: 94% Weight: 76.2 kg (168 lb) Height: 6' 1 Estimated body mass index is 22.16 kg/m as calculated from the following: Height as of this encounter: 6' 1. Weight as of this encounter: 76.2 kg (168 lb). Physical Exam Constitutional: General: He is not in acute distress. Appearance: He is not ill-appearing. HENT: Head: Normocephalic and atraumatic. Nose: Nose normal. Mouth/Throat: Mouth: Mucous membranes are moist. Pharynx: Oropharynx is clear. No oropharyngeal exudate or posterior oropharyngeal erythema. Eyes: Extraocular Movements: Extraocular movements intact. Conjunctiva/sclera: Conjunctivae normal. Pupils: Pupils are equal, round, and reactive to light. Cardiovascular: Rate and Rhythm: Normal rate and regular rhythm. Pulses: Normal pulses. Heart sounds: Normal heart sounds. No murmur heard. No gallop. Pulmonary: Effort: Pulmonary effort is normal. Breath sounds: Normal breath sounds. No wheezing, rhonchi or rales. Chest: Chest wall: No tenderness. Abdominal: General: Abdomen is flat. Bowel sounds are normal. There is no distension. Palpations: Abdomen is soft. There is no mass. Tenderness: There is no abdominal (more content not included)... [facility] 07-09-2025 History of Present illness Narrative Subjective Patient ID: Yudith Morin is a 89 y.o. male here for Chief Complaint Patient presents with Follow-up 3 month f/u After discussing the use of ambient listening and audio recording in generating medical documentation, the patient verbally consented to use of this technology for today's visit. History of Present Illness Yudith Morin is an 89 year old male with hypertension and leg pain who presents with concerns about blood pressure management and leg discomfort. He experiences fluctuations in blood pressure, with episodes of hypotension particularly during activities like golf in the heat. He associates these episodes with inadequate hydration and manages them by increasing water intake. He is currently taking amlodipine and losartan hydrochlorothiazide for blood pressure management. He previously took labetalol but discontinued it due to hypotensive episodes. He describes significant leg discomfort ongoing for over a year, with difficulty walking and unsteadiness, particularly on inclines. He reports that an floral specialist reviewed his MRI and x-rays and discussed the possibility that his leg issues could be related to his back and nerves. He uses a leg sleeve and performs exercises from previous physical therapy sessions. He has a history of receiving injections for pain management, which initially helped with pain radiating down his leg and back pain. However, he continues to experience leg discomfort and is scheduled to see a structural steel painter soon. He occasionally notices skipped heartbeats, which he attributes to caffeine intake. He drinks caffeinated beverages like Coke. He mentions a past abnormal EKG result from a home monitoring device but is unsure of its significance. He has a history of low B12 levels, for which he took supplements until his levels became high. He is currently taking vitamin D3 supplements. He has not had a colonoscopy since 2014 and has decided against further screening due to his age and lack of symptoms. 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 BPH (benign prostatic hypertrophy) CAD (coronary artery disease) 2 vessel cabg; neri to lad and svg to the rca Chronic kidney disease Heart disease Hemorrhoids Hiatal hernia 04/14/2024 AFS grade IV, 3 cm type-I sliding History of skin cancer Hyperlipidemia Labile hypertension Stomach ulcer Urinary bleeding Viral hepatitis Past Surgical History: Procedure Laterality Date CABG 2010 CARDIAC CATHETERIZATION 2010 2 vessel cad CARDIAC CATHETERIZATION 1998 mod stenosis of the prox lad CATARACT EXT/ECCE Bilateral CHOLECYSTECTOMY 1988 COLONOSCOPY 07/19/2015 [place] CORONARY ARTERY BYPASS GRAFT 2010 neri to lad/svg to rca EGD N/A 04/27/2021 Procedure: ESOPHAGOGASTRODUODENOSCOPY WITH BIOPSY; Surgeon: Mickey Fortune MD; Location: [facility]; Service: General Surgery ESOPHAGOGASTRODUODENOSCOPY 07/19/2015 Sharma's...Thomae in [place] ESOPHAGOGASTRODUODENOSCOPY 08/19/2018 gastritis....Dr. Fortune [place] ESOPHAGOGASTRODUODENOSCOPY TRANSORAL DIAGNOSTIC N/A 04/14/2024 Procedure: ESOPHAGOGASTRODUODENOSCOPY WITH BIOPSY (ptek); Surgeon: Mickey Fortune MD; Location: [facility]; Service: General Surgery SKIN LESION EXCISION TONSILLECTOMY 1942 Family History Problem Relation Age of Onset Heart attack Father Breast cancer Mother Social History[1] Review of Systems Vitals: 07/09/25 0755 BP: 137/75 BP Location: Right arm Patient Position: Sitting BP Cuff Size: Adult Pulse: 65 Resp: 16 Temp: 98.3 F (36.8 C) TempSrc: Oral SpO2: 94% Weight: 76.2 kg (168 lb) Height: 6' 1 Estimated body mass index is 22.16 kg/m as calculated from the following: Height as of this encounter: 6' 1. Weight as of this encounter: 76.2 kg (168 lb). Physical Exam Constitutional: General: He is not in acute distress. Appearance: He is not ill-appearing. HENT: Head: Normocephalic and atraumatic. Nose: Nose normal. Mouth/Throat: Mouth: Mucous membranes are moist. Pharynx: Oropharynx is clear. No oropharyngeal exudate or posterior oropharyngeal erythema. Eyes: Extraocular Movements: Extraocular movements intact. Conjunctiva/sclera: Conjunctivae normal. Pupils: Pupils are equal, round, and reactive to light. Cardiovascular: Rate and Rhythm: Normal rate and regular rhythm. Pulses: Normal pulses. Heart sounds: Normal heart sounds. No murmur heard. No gallop. Pulmonary: Effort: Pulmonary effort is normal. Breath sounds: Normal breath sounds. No wheezing, rhonchi or rales. Chest: Chest wall: No tenderness. Abdominal: General: Abdomen is flat. Bowel sounds are normal. There is no distension. Palpations: Abdomen is soft. There is no mass. Tenderness: There is no abdominal tenderness. There is no right CVA tenderness, left CVA tenderness, guarding or rebound. Musculoskeletal: General: Tenderness (mild rigidity over the right lumbar paraspinal ms) present. Normal range of motion. Cervical back: Normal range of motion and neck supple. No rigidity. No muscular tenderness. Right lower leg: No edema. Left lower leg: No edema. Lymphadenopathy: Cervical: No cervical adenopathy. Skin: General: Skin is warm. Findings: No erythema or rash. Neurological: General: No focal deficit present. Mental Status: He is alert and oriented to person, place, and time. Sensory: No sensory deficit. Motor: No weakness. Gait: Gait normal. Psychiatric: Mood and Affect: Mood normal. Behavior: Behavior normal. Thought Content: Thought content normal. Judgment: Judgment normal. OARRS/NARxCHECK Report Received and Assessed: Deuce Mendez MD on 07/09/2025 8:10 AM Date controlled substance agreement signed: 03/12/2024 Date of last drug screen: 04/05/2025 PHQ9: FRANC-7 Tobacco Counseling: Counseling given: Not Answered Reviewed by Provider: Patient's Medications New Prescriptions No medications on file Previous Medications ACYCLOVIR (ZOVIRAX) 5 % OINTMENT Apply topically 5 (five) times a day . AMLODIPINE (NORVASC) 10 MG TABLET Take 1 (one) tablet (10 mg total) by mouth with evening meal . ASPIRIN 81 MG EC TABLET Take 1 (one) tablet (81 mg total) by mouth daily . B COMPLEX VITAMINS CAPSULE Take 1 (one) capsule by mouth daily . BEE POLLEN ORAL Take 2 capsules by mouth daily . CALCIUM CARBONATE (TUMS ORAL) Take by mouth . CHOLECALCIFEROL, VITAMIN D3, 5,000 UNIT TAB TABLET Take 1 (one) tablet (5,000 Units total) by mouth daily . DOCUSATE SODIUM (COLACE) 250 MG CAPSULE Take 1 (one) capsule (250 mg total) by mouth daily . DORZOLAMIDE HCL/TIMOLOL MALEAT (COSOPT OPHT) Apply to eye 2 (two) times a day Right eye . FAMOTIDINE (PEPCID) 20 MG TABLET Take 1 (one) tablet (20 mg total) by mouth 2 (two) times a day . FERROUS SULFATE 325 (65 FE) MG TABLET Take 1 (one) tablet (325 mg total) by mouth daily with breakfast . FINASTERIDE (PROSCAR) 5 MG TABLET Take 1 (one) tablet (5 mg total) by mouth daily . FLUCONAZOLE (DIFLUCAN) 200 MG TABLET Take 1 (one) tablet (200 mg total) by mouth once a week Takes 2 on Saturday . LATANOPROST (XALATAN) 0.005 % OPHTHALMIC SOLUTION Administer 1 (one) drop to both eyes nightly . LOSARTAN-HYDROCHLOROTHIAZIDE (HYZAAR) 100-25 MG PER TABLET Take 1 (one) tablet by mouth daily with lunch . ONDANSETRON (ZOFRAN) 4 MG TABLET Take 1 (one) tablet (4 mg total) by mouth every 8 (eight) hours as needed for nausea . POTASSIUM CHLORIDE 10 MEQ CR TABLET Take 1 (one) tablet (10 mEq total) by mouth daily . PRAVASTATIN (PRAVACHOL) 10 MG TABLET Take 1 (one) tablet (10 mg total) by mouth nightly . PSYLLIUM (METAMUCIL) 3.4 GRAM PACKET Take 1 (one) packet by mouth daily as needed . SILDENAFIL (VIAGRA) 100 MG TABLET Take 1 (one) tablet (100 mg total) by mouth daily as needed for erectile dysfunction . SIMVASTATIN (ZOCOR) 20 MG TABLET Take 1 (one) tablet (20 mg total) by mouth daily . TAMSULOSIN (FLOMAX) 0.4 MG CAPSULE Take 1 (one) capsule (0.4 mg total) by mouth daily . Modified Medications Modified Medication Previous Medication LORAZEPAM (ATIVAN) 1 MG TABLET LORazepam (ATIVAN) 1 MG tablet Take 1 (one) tablet (1 mg total) by mouth daily . Take 1 (one) tablet (1 mg total) by mouth daily . Discontinued Medications LABETALOL (NORMODYNE) 100 MG TABLET Take 1 (one) tablet (100 mg total) by mouth 2 (two) times a day . Health Maintenance Due Topic Date Due COVID-19 Vaccine ( season) 2025 Assessment & Plan Problem List Items Addressed This Visit Cardiovascular and Mediastinum Hypertension Relevant Orders TSH with Reflex Free T4 Microalbumin/Creatinine Ratio, UR Random Lipid Panel Comprehensive Metabolic Panel Other Borderline diabetes Relevant Orders Hemoglobin A1c Anxiety - Primary Insomnia Relevant Medications LORazepam (ATIVAN) 1 MG tablet Mood disorder Relevant Medications LORazepam (ATIVAN) 1 MG tablet Leg weakness, bilateral Relevant Orders XR Lumbar Spine 2-3 Views (Standard) Other Visit Diagnoses EKG, abnormal Relevant Orders ECG 12 Lead (Completed) Admission for therapeutic drug monitoring Relevant Orders B12/Folate Assessment & Plan Assessment & Plan Hypertension with medication adjustment Blood pressure drops causing malaise and leg discomfort, exacerbated by heat and dehydration. Labetalol may contribute to hypotensive symptoms. - Discontinue labetalol. - Monitor blood pressure closely. - Contact provider if blood pressure becomes concerningly high. 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 Previous imaging suggests nerve issue in legs originating from back. Physical therapy exercises provided some benefit. - Order x-ray of the back. - Continue physical therapy exercises. - Consider massage or TENS unit for muscle stiffness. Erectile dysfunction Erectile dysfunction may be influenced by Zoloft and antihypertensives. Zoloft may reduce sexual desire and performance. - Discontinue Zoloft to assess impact on erectile dysfunction. - Monitor for changes in erectile function. Follow up with urology Anxiety and insomnia Anxiety and insomnia managed with lorazepam. Previous attempts to reduce lorazepam dosage were unsuccessful. Zoloft was ineffective in reducing lorazepam use. Patient failed other methods to help with insomnia and anxiety as lexapro and mirtazapine. - Continue lorazepam as prescribed. - Refill lorazepam prescription for 90 days through mail order. Abnormal electrocardiogram (EKG) Recent EKG considered abnormal, likely due to artifact. Occasional skipped beats possibly related to caffeine intake. - Perform EKG in office for reassurance. Reviewed with no concerns for arrhythmia - Reduce caffeine intake, particularly from soda. No follow-ups on file. After discussing the use of ambient listening and audio recording in generating medical documentation, the patient verbally consented to use of this technology for today's visit. My ongoing relationship with Yudith B Morin requires continued responsibility and cognitive effort of being the focal point for all services related to chronic condition(s). DEUCE MENDEZ MD [facility] [address] [facility] [address] [facility] [address] Dept: [phone] [1] Social History Tobacco Use Smoking status: Never Smokeless tobacco: Never Vaping Use Vaping status: Never Used Substance Use Topics Alcohol use: No Drug use: No documented in this encounter [facility] 06-24-2025 Note Date of Procedure 06/24/2025. Flap Maker Information Tomb Maker Helper: ss. Interpretation Right Eye Findings include Negative for CNV. Left Eye Findings include Negative for CNV. [facility] 06-24-2025 Note Date of Procedure 06/24/2025. Flap Maker Information Tomb Maker Helper: ss. OCT Macula Interpretation Right Eye Abnormal foveal contour. Findings include Drusen, IS/OS junction, Atrophy; Negative for Intraretinal fluid, Subretinal fluid. Left Eye Abnormal foveal contour. Findings include Drusen, IS/OS junction, Atrophy; Negative for Intraretinal fluid, Subretinal fluid. [facility] 06-24-2025 Note HNO ID: [id number] Author: HOLLAND MOLINA MD, PhD Service: ? Author Type: Physician Type: Progress Notes Filed: 06/24/2025 11:48 Note Text: Referred by Dr. Tamayo for Age related macular degeneration eval 1. Vitelliform lesion vs Exudative Age related macular degeneration left eye -patient started noticing symptoms - no symptoms/changes with vision in interim -given very little progression, recommend close observation -trace IRF which resolved 2. 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 Tamayo 4. 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 [facility] is without [facility] Very trace IRF over atrophy right eye which improved, no SRF left eye - resolved Keep taking latanoprost qhs Extend to 5mo I have confirmed and edited as necessary the relevant HPI, ophthalmic history, ROS, and the neuro exam findings as obtained by others. I have seen and examined Yudith Morin. I have discussed the case and the management of this patient's care with the Resident/Fellow, if applicable. I also have reviewed and agree with the assessment and plan as stated above and agree with all of its relevant components. Holland Molina MD [facility] 06-24-2025 History of Present illness Narrative Referred by Dr. Tamayo for Age related macular degeneration eval 1. Vitelliform lesion vs Exudative Age related macular degeneration left eye -patient started noticing symptoms - no symptoms/changes with vision in interim -given very little progression, recommend close observation -trace IRF which resolved 2. 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 Tamayo 4. 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 [facility] want to [facility] today is without CNV Very trace IRF over atrophy right eye which improved, no SRF left eye - resolved Keep taking latanoprost qhs Extend to 5mo I have confirmed and edited as necessary the relevant HPI, ophthalmic history, ROS, and the neuro exam findings as obtained by others. I have seen and examined Yudith Morin. I have discussed the case and the management of this patient's care with the Resident/Fellow, if applicable. I also have reviewed and agree with the assessment and plan as stated above and agree with all of its relevant components. Holland Molina MD documented in this encounter [facility] 06-14-2025 Telephone encounter Note DURAN is requesting a refill for Requested Prescriptions Pending Prescriptions Disp Refills LORazepam (ATIVAN) 1 MG tablet 30 tablet 2 Sig: Take 1 (one) tablet (1 mg total) by mouth daily . Last refill: Last appt: 04/09/2025 Upcoming appt (when is it due or is it scheduled): 07/09/2025 ARMANDO/Tanner Report Received and Assessed: 01/06/2025 Date controlled substance agreement signed: 01/12/2025 Date of last drug screen: 04/02/2025 Follow up: Refill pending for review without additional follow up based on information above. [facility] 06-14-2025 Miscellaneous Notes DURAN is requesting a refill for Requested Prescriptions Pending Prescriptions Disp Refills LORazepam (ATIVAN) 1 MG tablet 30 tablet 2 Sig: Take 1 (one) tablet (1 mg total) by mouth daily . Last refill: Last appt: 04/09/2025 Upcoming appt (when is it due or is it scheduled): 07/09/2025 Joie Report Received and Assessed: 01/06/2025 Date controlled substance agreement signed: 01/12/2025 Date of last drug screen: 04/02/2025 Follow up: Refill pending for review without additional follow up based on information above. documented in this encounter [facility] 06-11-2025 Telephone encounter Note DURAN is requesting a refill for Requested Prescriptions Pending Prescriptions Disp Refills LORazepam (ATIVAN) 1 MG tablet 30 tablet 2 Sig: Take 1 (one) tablet (1 mg total) by mouth daily . Last refill: 01/12/25 Last appt: 01/06/25 Upcoming appt (when is it due or is it scheduled): 07/09/25, 10/01/25, 12/31/24 JAYCES/Tanner Report Received and Assessed: 01/06/25 Date controlled substance agreement signed: 03/12/24 Date of last drug screen: 04/02/25 Follow up: Refill pending for review without additional follow up based on information above. [facility] 06-11-2025 Miscellaneous Notes DURAN is requesting a refill for Requested Prescriptions Pending Prescriptions Disp Refills LORazepam (ATIVAN) 1 MG tablet 30 tablet 2 Sig: Take 1 (one) tablet (1 mg total) by mouth daily . Last refill: 01/12/25 Last appt: 01/06/25 Upcoming appt (when is it due or is it scheduled): 07/09/25, 10/01/25, 12/31/24 OARRS/NARxCHECK Report Received and Assessed: 01/06/25 Date controlled substance agreement signed: 03/12/24 Date of last drug screen: 04/02/25 Follow up: Refill pending for review without additional follow up based on information above. documented in this encounter [facility] 06-07-2025 Telephone encounter Note DURAN is requesting a refill for Requested Prescriptions Pending Prescriptions Disp Refills famotidine (PEPCID) 20 MG tablet 180 tablet 0 Sig: Take 1 (one) tablet (20 mg total) by mouth 2 (two) times a day . Last refill: 12/11/24 Last appt: 04/09/25 Upcoming appt (when is it due or is it scheduled): 07/09/25 Follow up: Refill pending for review without additional follow up based on information above. [facility] 06-07-2025 Miscellaneous Notes DURAN is requesting a refill for Requested Prescriptions Pending Prescriptions Disp Refills famotidine (PEPCID) 20 MG tablet 180 tablet 0 Sig: Take 1 (one) tablet (20 mg total) by mouth 2 (two) times a day . Last refill: 12/11/24 Last appt: 04/09/25 Upcoming appt (when is it due or is it scheduled): 07/09/25 Follow up: Refill pending for review without additional follow up based on information above. documented in this encounter [facility] 05-18-2025 Telephone encounter Note DURAN is requesting a refill for Requested Prescriptions Pending Prescriptions Disp Refills pravastatin (PRAVACHOL) 10 MG tablet 90 tablet 3 Sig: Take 1 (one) tablet (10 mg total) by mouth nightly . Last refill: 05/10/2025 Last appt: 04/09/2025 Upcoming appt (when is it due or is it scheduled): 07/09/2025 Follow up: Refill pending for review without additional follow up based on information above. [facility] 05-18-2025 Miscellaneous Notes DURAN is requesting a refill for Requested Prescriptions Pending Prescriptions Disp Refills pravastatin (PRAVACHOL) 10 MG tablet 90 tablet 3 Sig: Take 1 (one) tablet (10 mg total) by mouth nightly . Last refill: 05/10/2025 Last appt: 04/09/2025 Upcoming appt (when is it due or is it scheduled): 07/09/2025 Follow up: Refill pending for review without additional follow up based on information above. documented in this encounter [facility] 05-14-2025 Telephone encounter Note DURAN is requesting a refill for Requested Prescriptions Pending Prescriptions Disp Refills potassium chloride 10 MEQ CR tablet 90 tablet 1 Sig: Take 1 (one) tablet (10 mEq total) by mouth daily . tamsulosin (FLOMAX) 0.4 mg capsule 90 capsule 1 Sig: Take 1 (one) capsule (0.4 mg total) by mouth daily . finasteride (PROSCAR) 5 mg tablet 90 tablet 1 Sig: Take 1 (one) tablet (5 mg total) by mouth daily . Last refill: 11/09/24 Last appt: 04/09/25 Upcoming appt (when is it due or is it scheduled): 07/09/25 Follow up: Refill pending for review without additional follow up based on information above. [facility] 05-14-2025 Miscellaneous Notes DURAN is requesting a refill for Requested Prescriptions Pending Prescriptions Disp Refills potassium chloride 10 MEQ CR tablet 90 tablet 1 Sig: Take 1 (one) tablet (10 mEq total) by mouth daily . tamsulosin (FLOMAX) 0.4 mg capsule 90 capsule 1 Sig: Take 1 (one) capsule (0.4 mg total) by mouth daily . finasteride (PROSCAR) 5 mg tablet 90 tablet 1 Sig: Take 1 (one) tablet (5 mg total) by mouth daily . Last refill: 11/09/24 Last appt: 04/09/25 Upcoming appt (when is it due or is it scheduled): 07/09/25 Follow up: Refill pending for review without additional follow up based on information above. documented in this encounter [facility] 05-12-2025 Note [facility] [address] [facility] [address] [facility] [id number] Chief Complaint Patient presents with Right Knee - Pain Yudith Morin returns to the office today for right knee pain. He states that last August the knee gave out on him. He had an injection and did some physical therapy for the right knee. He reports improvement with pain but now he is complaining of the knee giving way on him. He has had it happen often when he is golfing. Just getting out of a golf cart, he can take a step and it can give out. He will occasionally have some pain accompanied with this. Today there isn't pain. He did have a MRI on the knee. He also has known lumbar spine degeneration. The patient's past medical history, surgical history, social history, family history, medications and allergies were reviewed with the patient today and are available in the chart for further review. 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 BPH (benign prostatic hypertrophy) CAD (coronary artery disease) 2 vessel cabg; neri to lad and svg to the rca Chronic kidney disease Heart disease Hemorrhoids Hiatal hernia 04/14/2024 AFS grade IV, 3 cm type-I sliding History of skin cancer Hyperlipidemia Labile hypertension Stomach ulcer Urinary bleeding Viral hepatitis Past Surgical History: Procedure Laterality Date CABG 2010 CARDIAC CATHETERIZATION 2010 2 vessel cad CARDIAC CATHETERIZATION 1998 mod stenosis of the prox lad CATARACT EXT/ECCE Bilateral CHOLECYSTECTOMY 1987 COLONOSCOPY 07/19/2015 [place] CORONARY ARTERY BYPASS GRAFT 2010 neri to lad/svg to rca EGD N/A 04/27/2021 Procedure: ESOPHAGOGASTRODUODENOSCOPY WITH BIOPSY; Surgeon: Mickey Fortune MD; Location: [facility]; Service: General Surgery ESOPHAGOGASTRODUODENOSCOPY 07/19/2015 Sharma's...Thomae in [place] ESOPHAGOGASTRODUODENOSCOPY 08/19/2018 gastritis....Dr. Fortune [place] ESOPHAGOGASTRODUODENOSCOPY TRANSORAL DIAGNOSTIC N/A 04/14/2024 Procedure: ESOPHAGOGASTRODUODENOSCOPY WITH BIOPSY (ptek); Surgeon: Mickey Fortune MD; Location: [facility]; Service: General Surgery SKIN LESION EXCISION TONSILLECTOMY 1942 Social History[3] ROS: Review of Systems Musculoskeletal: Positive for arthralgias and myalgias. Negative for joint swelling. Neurological: Positive for weakness. PE: Physical Exam Musculoskeletal: Right knee: Instability Tests: Medial Buck test negative and lateral Buck test negative. ORTHO: Right Knee Exam Muscle Strength The patient has normal right knee strength. Tenderness The patient is experiencing tenderness in the MCL and patellar tendon. Range of Motion Extension: normal Flexion: 140 Tests Buck: Medial - negative Lateral - negative Varus: negative Valgus: negative Ricky: Anterior - trace Drawer: Anterior - negative Posterior - negative Other Erythema: absent Scars: absent Sensation: normal Pulse: present Imaging: Lumbar: No acute fracture or dislocation. Multi-level lumbar degenerative changes throughout the lumbar spine. 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 MRI R Knee: No acute fracture or dislocation. Medial and lateral meniscal tearing. Severe chondrosis throughout the knee. ACL sprain, MCL, LCL and PCL within normal limits. R Knee: No acute fracture or dislocation. Moderate tri-compartmental degeneration. Assessment/Plan: After examination and reviewing of the patient x-ray and MRI images, we discussed continued treatment options. I do believe a lot of his symptoms are coming from the degeneration in his lumbar spine. The knee, surgically speaking would a total replacement and at 89, he doesn't want to go through any surgery unless necessary. I would like to see him back in some physical therapy for the lumbar spine. I also suggested a simple pull on compression sleeve for the knee especially for golfing. I will see him back as needed. [1] No Known Allergies [2] Current Outpatient Medications: acyclovir (ZOVIRAX) 5 % ointment, Apply topically 5 (five) times a day ., Disp: 15 g, Rfl: 1 amLODIPine (NORVASC) 10 MG tablet, Take 1 (one) tablet (10 mg total) by mouth with evening meal ., Disp: 100 tablet, Rfl: 3 aspirin 81 MG EC tablet, Take 1 (one) tablet (81 mg total) by mouth daily ., Disp: , Rfl: BEE POLLEN ORAL, Take 2 capsules by mouth daily ., Disp: , Rfl: calcium carbonate (TUMS ORAL), Take by mouth ., Disp: , Rfl: cholecalciferol, vitamin D3, 5,000 unit Tab tablet, Take 1 (one) tablet (5,000 Units total) by mouth daily ., Disp: , Rfl: DORZOLAMIDE HCL/TIMOLOL MALEAT (COSOPT OPHT), Apply to eye 2 (two) times a day Right eye ., Disp: , Rfl: famotidine (PEPCID) 20 MG tablet, Take 1 (one) tablet (20 mg total) by mouth 2 (two) times a day . (more content not included)... [facility] 05-12-2025 History of Present illness Narrative [facility] [address] [facility] [address] [facility] [id number] Chief Complaint Patient presents with Right Knee - Pain Yudith Morin returns to the office today for right knee pain. He states that last August the knee gave out on him. He had an injection and did some physical therapy for the right knee. He reports improvement with pain but now he is complaining of the knee giving way on him. He has had it happen often when he is golfing. Just getting out of a golf cart, he can take a step and it can give out. He will occasionally have some pain accompanied with this. Today there isn't pain. He did have a MRI on the knee. He also has known lumbar spine degeneration. The patient's past medical history, surgical history, social history, family history, medications and allergies were reviewed with the patient today and are available in the chart for further review. 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 BPH (benign prostatic hypertrophy) CAD (coronary artery disease) 2 vessel cabg; neri to lad and svg to the rca Chronic kidney disease Heart disease Hemorrhoids Hiatal hernia 04/14/2024 AFS grade IV, 3 cm type-I sliding History of skin cancer Hyperlipidemia Labile hypertension Stomach ulcer Urinary bleeding Viral hepatitis Past Surgical History: Procedure Laterality Date CABG 2010 CARDIAC CATHETERIZATION 2010 2 vessel cad CARDIAC CATHETERIZATION 1998 mod stenosis of the prox lad CATARACT EXT/ECCE Bilateral CHOLECYSTECTOMY 1987 COLONOSCOPY 07/19/2015 [place] CORONARY ARTERY BYPASS GRAFT 2010 neri to lad/svg to rca EGD N/A 04/27/2021 Procedure: ESOPHAGOGASTRODUODENOSCOPY WITH BIOPSY; Surgeon: Mickey Fortune MD; Location: [facility]; Service: General Surgery ESOPHAGOGASTRODUODENOSCOPY 07/19/2015 Sharma's...Thomae in [place] ESOPHAGOGASTRODUODENOSCOPY 08/19/2018 gastritis....Dr. Fortune [place] ESOPHAGOGASTRODUODENOSCOPY TRANSORAL DIAGNOSTIC N/A 04/14/2024 Procedure: ESOPHAGOGASTRODUODENOSCOPY WITH BIOPSY (ptek); Surgeon: Mickey Fortune MD; Location: [facility]; Service: General Surgery SKIN LESION EXCISION TONSILLECTOMY 1942 Social History[3] ROS: Review of Systems Musculoskeletal: Positive for arthralgias and myalgias. Negative for joint swelling. Neurological: Positive for weakness. PE: Physical Exam Musculoskeletal: Right knee: Instability Tests: Medial Buck test negative and lateral Buck test negative. ORTHO: Right Knee Exam Muscle Strength The patient has normal right knee strength. Tenderness The patient is experiencing tenderness in the MCL and patellar tendon. Range of Motion Extension: normal Flexion: 140 Tests Buck: Medial - negative Lateral - negative Varus: negative Valgus: negative Ricky: Anterior - trace Drawer: Anterior - negative Posterior - negative Other Erythema: absent Scars: absent Sensation: normal Pulse: present Imaging: Lumbar: No acute fracture or dislocation. Multi-level lumbar degenerative changes throughout the lumbar spine. 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 MRI R Knee: No acute fracture or dislocation. Medial and lateral meniscal tearing. Severe chondrosis throughout the knee. ACL sprain, MCL, LCL and PCL within normal limits. R Knee: No acute fracture or dislocation. Moderate tri-compartmental degeneration. Assessment/Plan: After examination and reviewing of the patient x-ray and MRI images, we discussed continued treatment options. I do believe a lot of his symptoms are coming from the degeneration in his lumbar spine. The knee, surgically speaking would a total replacement and at 89, he doesn't want to go through any surgery unless necessary. I would like to see him back in some physical therapy for the lumbar spine. I also suggested a simple pull on compression sleeve for the knee especially for golfing. I will see him back as needed. [1] No Known Allergies [2] Current Outpatient Medications: acyclovir (ZOVIRAX) 5 % ointment, Apply topically 5 (five) times a day ., Disp: 15 g, Rfl: 1 amLODIPine (NORVASC) 10 MG tablet, Take 1 (one) tablet (10 mg total) by mouth with evening meal ., Disp: 100 tablet, Rfl: 3 aspirin 81 MG EC tablet, Take 1 (one) tablet (81 mg total) by mouth daily ., Disp: , Rfl: BEE POLLEN ORAL, Take 2 capsules by mouth daily ., Disp: , Rfl: calcium carbonate (TUMS ORAL), Take by mouth ., Disp: , Rfl: cholecalciferol, vitamin D3, 5,000 unit Tab tablet, Take 1 (one) tablet (5,000 Units total) by mouth daily ., Disp: , Rfl: DORZOLAMIDE HCL/TIMOLOL MALEAT (COSOPT OPHT), Apply to eye 2 (two) times a day Right eye ., Disp: , Rfl: famotidine (PEPCID) 20 MG tablet, Take 1 (one) tablet (20 mg total) by mouth 2 (two) times a day ., Disp: 180 tablet, Rfl: 1 ferrous sulfate 325 (65 FE) MG tablet, Take 1 (one) tablet (325 mg total) by mouth daily with breakfast ., Disp: , Rfl: finasteride (PROSCAR) 5 mg tablet, Take 1 (one) tablet (5 mg total) by mouth daily ., Disp: 90 tablet, Rfl: 1 fluconazole (DIFLUCAN) 200 MG tablet, Take 1 (one) tablet (200 mg total) by mouth once a week Takes 2 on Saturday ., Disp: , Rfl: labetaloL (NORMODYNE) 100 MG tablet, Take 1 (one) tablet (100 mg total) by mouth 2 (two) times a day ., Disp: 180 tablet, Rfl: 0 latanoprost (XALATAN) 0.005 % ophthalmic solution, Administer 1 (one) drop to both eyes nightly ., Disp: , Rfl: LORazepam (ATIVAN) 1 MG tablet, Take 1 (one) tablet (1 mg total) by mouth daily ., Disp: 30 tablet, Rfl: 2 losartan-hydrochlorothiazide (HYZAAR) 100-25 mg per tablet, Take 1 (one) tablet by mouth daily with lunch ., Disp: 100 tablet, Rfl: 3 ondansetron (ZOFRAN) 4 MG tablet, Take 1 (one) tablet (4 mg total) by mouth every 8 (eight) hours as needed for nausea ., Disp: , Rfl: psyllium (METAMUCIL) 3.4 gram packet, Take 1 (one) packet by mouth daily as needed ., Disp: , Rfl: sildenafiL (VIAGRA) 100 MG tablet, Take 1 (one) tablet (100 mg total) by mouth daily as needed for erectile dysfunction ., Disp: 10 tablet, Rfl: 1 tamsulosin (FLOMAX) 0.4 mg capsule, Take 1 (one) capsule (0.4 mg total) by mouth daily ., Disp: 90 capsule, Rfl: 1 b complex vitamins capsule, Take 1 (one) capsule by mouth daily . (Patient not taking: Reported on 05/11/2025 .), Disp: , Rfl: docusate sodium (COLACE) 250 MG capsule, Take 1 (one) capsule (250 mg total) by mouth daily . (Patient not taking: Reported on 05/11/2025 .), Disp: , Rfl: potassium chloride 10 MEQ CR tablet, Take 1 (one) tablet (10 mEq total) by mouth daily . (Patient not taking: Reported on 05/11/2025 .), Disp: 90 tablet, Rfl: 1 pravastatin (PRAVACHOL) 10 MG tablet, Take 1 (one) tablet (10 mg total) by mouth nightly . (Patient not taking: Reported on 05/11/2025 .), Disp: 100 tablet, Rfl: 3 simvastatin (ZOCOR) 20 MG tablet, Take 1 (one) tablet (20 mg total) by mouth daily . (Patient not taking: Reported on 05/07/2025 .), Disp: 90 tablet, Rfl: 1 [3] Social History Socioeconomic History Marital status: Tobacco Use Smoking status: Never Smokeless tobacco: Never Vaping Use Vaping status: Never Used Substance and Sexual Activity Alcohol use: No Drug use: No Social Drivers of Health Financial Resource Strain: Low Risk (04/09/2025) Overall Financial Resource Strain (CARDIA) Difficulty of Paying Living Expenses: Not hard at all Food Insecurity: No Food Insecurity (04/09/2025) Hunger Vital Sign Worried About Running Out of Food in the Last Year: Never true Ran Out of Food in the Last Year: Never true Transportation Needs: No Transportation Needs (04/09/2025) PRAPARE - Transportation Lack of Transportation (Medical): No Lack of Transportation (Non-Medical): No Social Connections: Unknown (04/09/2025) Social Connection and Isolation Panel [NHANES] Frequency of Social Gatherings with Friends and Family: Three times a week documented in this encounter [facility] 05-10-2025 Telephone encounter Note DURAN is requesting a refill for Requested Prescriptions Pending Prescriptions Disp Refills pravastatin (PRAVACHOL) 10 MG tablet 100 tablet 3 Sig: Take 1 (one) tablet (10 mg total) by mouth nightly . Last refill: 04/13/25 Patient would like [facility] more cost effective. Last appt: 04/09/25 Upcoming appt (when is it due or is it scheduled): 07/09/25 Follow up: Refill pending for review without additional follow up based on information above. [facility] 05-10-2025 Miscellaneous Notes DURAN is requesting a refill for Requested Prescriptions Pending Prescriptions Disp Refills pravastatin (PRAVACHOL) 10 MG tablet 100 tablet 3 Sig: Take 1 (one) tablet (10 mg total) by mouth nightly . Last refill: 04/13/25 Patient would like [facility]. Last appt: 04/09/25 Upcoming appt (when is it due or is it scheduled): 07/09/25 Follow up: Refill pending for review without additional follow up based on information above. documented in this encounter [facility] 05-07-2025 Note [facility] [address] [facility] [address] [facility] [phone] Yudith Morin is a 89 y.o. male being seen on 05/07/25 for Chief Complaint Patient presents with Colonoscopy HPI: The patient presents today to discuss screening colonoscopy. His last colonoscopy was 10 years ago. He denies abdominal pain, nausea, vomiting, diarrhea, or constipation. He denies black or bloody bowel movements. His weight is stable. The patient is about to turn 89 years old, however, he looks at least a decade younger than his chronologic age. He is still very active on a daily basis. He denies a family history of colon cancer. 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 BPH (benign prostatic hypertrophy) CAD (coronary artery disease) 2 vessel cabg; neri to lad and svg to the rca Chronic kidney disease Heart disease Hemorrhoids Hiatal hernia 04/14/2024 AFS grade IV, 3 cm type-I sliding History of skin cancer Hyperlipidemia Labile hypertension Stomach ulcer Urinary bleeding Viral hepatitis Past Surgical History: Procedure Laterality Date CABG 2010 CARDIAC CATHETERIZATION 2010 2 vessel cad CARDIAC CATHETERIZATION 1998 mod stenosis of the prox lad CATARACT EXT/ECCE Bilateral CHOLECYSTECTOMY 1987 COLONOSCOPY 07/19/2015 [place] CORONARY ARTERY BYPASS GRAFT 2011 neri to lad/svg to rca EGD N/A 04/27/2021 Procedure: ESOPHAGOGASTRODUODENOSCOPY WITH BIOPSY; Surgeon: Mickey Fortune MD; Location: [facility]; Service: General Surgery ESOPHAGOGASTRODUODENOSCOPY 07/19/2015 Sharma's...Thomae in [place] ESOPHAGOGASTRODUODENOSCOPY 08/19/2018 gastritis....Dr. Fortune [place] ESOPHAGOGASTRODUODENOSCOPY TRANSORAL DIAGNOSTIC N/A 04/14/2024 Procedure: ESOPHAGOGASTRODUODENOSCOPY WITH BIOPSY (ptek); Surgeon: Mickey Fortune MD; Location: [facility]; Service: General Surgery SKIN LESION EXCISION TONSILLECTOMY 1942 Allergies[1] Current Medications[2] Social History[3] Family History Problem Relation Age of Onset Heart attack Father Breast cancer Mother REVIEW OF SYSTEMS Pertinent positives are listed in HPI, PMSH, SH, ALL, otherwise all systems reviewed below are negative. The following systems were reviewed: [x] Const (fevers, chills, wt. loss, fatigue) [x] CV (HTN, CP, PERSAUD, edema, DVT) [x] Resp (SOB, pleurisy, asthma, apnea) [x] GI (N, V, D, C, M, abd pain, appetite) [x] Musc (back pain, joint stiffness, gout) [x] Neuro (seizures, syncope, paralysis) [x] Psych (depression, anxiety) [x] Endo (hot/cold intol, polyuria[DM]) [x] Hem/Lymph (Anemia, LA, bleeding) [x] Allerg/Immun (seasonal, immuniz) [x] Eyes (diplopia, cataracts) [x] ENT/mouth (dysphagia, epistaxis) [x] (dysuria, hematuria) [x] Skin/Breast (moles, rash, lumps, nipple changes) Pertinent Positives: See HPI Pertinent Negatives: See HPI Physical Exam: BP 125/72 Pulse 60 Ht 6' 1 Wt 75.5 kg (166 lb 6.4 oz) SpO2 97% BMI 21.95 kg/m Body mass index is 21.95 kg/m . Constitutional: Well nourished, well developed person in no acute distress. Ambulates without difficulty. Head: Atraumatic and normocephalic. Face: Within normal limits. Eyes: Pupils equal, round, reactive to light. Sclera white. Mouth: Moist mucous membranes, normal dentation. Neck: supple, trachea midline,no masses, no incisions. Lymphatic: No cervical or inguinal lymphadenopathy. Heart: Regular rate and rhythm. Lungs: Clear to auscultation. Abdomen: Soft, non-distended, non-tender, no heptasplenomegaly, no umbilica, incisional, femoral, or inguinal hernias. Pelvis: Stable, non-tender. Skin: Warm, moist, normal skin turgor. Peripheral Vascular: Palapable carotid, radial, and femoral pulses, no peripheral edema. Neuropsych: Alert and oriented, judgement and insight intact. Normal Gait. Assessment: 1. Encounter for screening colonoscopy No orders of the defined types were placed in this encounter. Plan: I had a long conversation with the patient regarding the pros and cons of screening colonoscopy at his age. He is still very active and looks significantly younger than his stated age. He indicate to me that he would like to proceed with colonoscopy. A colonoscopy will be scheduled. Mickey Fortune MD [1] No Known Allergies [2] Current Outpatient Medications Medication Sig Dispense Refill acyclovir (ZOVIRAX) 5 % ointment Apply topically 5 (five) times a day . 15 g 1 amLODIPine (NORVASC) 10 MG tablet Take 1 (one) tablet (10 mg total) by mouth with evening meal . 100 tablet 3 aspirin 81 MG EC tablet Take 1 (one) tablet (81 mg total) by mouth daily . b complex vitamins capsule Take 1 (one) capsule by mouth daily . BEE POLLEN ORAL Take 2 capsules by mouth daily . calcium carbonate (TUMS ORAL) Take by mouth . cholecalciferol, vitamin D3, 5,000 unit Tab tablet (more content not included)... [facility] 05-07-2025 History of Present illness Narrative [facility] [address] (11) [facility] [address] [facility] [id number] Yudith Morin is a 89 y.o. male being seen on 05/07/25 for Chief Complaint Patient presents with Colonoscopy HPI: The patient presents today to discuss screening colonoscopy. His last colonoscopy was 10 years ago. He denies abdominal pain, nausea, vomiting, diarrhea, or constipation. He denies black or bloody bowel movements. His weight is stable. The patient is about to turn 89 years old, however, he looks at least a decade younger than his chronologic age. He is still very active on a daily basis. He denies a family history of colon cancer. 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 BPH (benign prostatic hypertrophy) CAD (coronary artery disease) 2 vessel cabg; neri to lad and svg to the rca Chronic kidney disease Heart disease Hemorrhoids Hiatal hernia 04/14/2024 AFS grade IV, 3 cm type-I sliding History of skin cancer Hyperlipidemia Labile hypertension Stomach ulcer Urinary bleeding Viral hepatitis Past Surgical History: Procedure Laterality Date CABG 2010 CARDIAC CATHETERIZATION 2010 2 vessel cad CARDIAC CATHETERIZATION 1998 mod stenosis of the prox lad CATARACT EXT/ECCE Bilateral CHOLECYSTECTOMY 1987 COLONOSCOPY 07/19/2015 [facility] CORONARY ARTERY BYPASS GRAFT 2010 neri to lad/svg to rca EGD N/A 04/27/2021 Procedure: ESOPHAGOGASTRODUODENOSCOPY WITH BIOPSY; Surgeon: Mickey Fortune MD; Location: [facility]; Service: General Surgery ESOPHAGOGASTRODUODENOSCOPY 07/19/2015 Sharma's...Thom[place] in [place] ESOPHAGOGASTRODUODENOSCOPY 08/19/2018 gastritis....Dr. Fortune [place] ESOPHAGOGASTRODUODENOSCOPY TRANSORAL DIAGNOSTIC N/A 04/14/2024 Procedure: ESOPHAGOGASTRODUODENOSCOPY WITH BIOPSY (ptek); Surgeon: Mickey Fortune MD; Location: [facility]; Service: General Surgery SKIN LESION EXCISION TONSILLECTOMY 1942 Allergies[1] Current Medications[2] Social History[3] Family History Problem Relation Age of Onset Heart attack Father Breast cancer Mother REVIEW OF SYSTEMS Pertinent positives are listed in HPI, PMSH, SH, ALL, otherwise all systems reviewed below are negative. The following systems were reviewed: [x] Const (fevers, chills, wt. loss, fatigue) [x] CV (HTN, CP, PERSAUD, edema, DVT) [x] Resp (SOB, pleurisy, asthma, apnea) [x] GI (N, V, D, C, M, abd pain, appetite) [x] Musc (back pain, joint stiffness, gout) [x] Neuro (seizures, syncope, paralysis) [x] Psych (depression, anxiety) [x] Endo (hot/cold intol, polyuria[DM]) [x] Hem/Lymph (Anemia, LA, bleeding) [x] Allerg/Immun (seasonal, immuniz) [x] Eyes (diplopia, cataracts) [x] ENT/mouth (dysphagia, epistaxis) [x] (dysuria, hematuria) [x] Skin/Breast (moles, rash, lumps, nipple changes) Pertinent Positives: See HPI Pertinent Negatives: See HPI Physical Exam: BP 125/72 Pulse 60 Ht 6' 1 Wt 75.5 kg (166 lb 6.4 oz) SpO2 97% BMI 21.95 kg/m Body mass index is 21.95 kg/m . Constitutional: Well nourished, well developed person in no acute distress. Ambulates without difficulty. Head: Atraumatic and normocephalic. Face: Within normal limits. Eyes: Pupils equal, round, reactive to light. Sclera white. Mouth: Moist mucous membranes, normal dentation. Neck: supple, trachea midline,no masses, no incisions. Lymphatic: No cervical or inguinal lymphadenopathy. Heart: Regular rate and rhythm. Lungs: Clear to auscultation. Abdomen: Soft, non-distended, non-tender, no heptasplenomegaly, no umbilica, incisional, femoral, or inguinal hernias. Pelvis: Stable, non-tender. Skin: Warm, moist, normal skin turgor. Peripheral Vascular: Palapable carotid, radial, and femoral pulses, no peripheral edema. Neuropsych: Alert and oriented, judgement and insight intact. Normal Gait. Assessment: 1. Encounter for screening colonoscopy No orders of the defined types were placed in this encounter. Plan: I had a long conversation with the patient regarding the pros and cons of screening colonoscopy at his age. He is still very active and looks significantly younger than his stated age. He indicate to me that he would like to proceed with colonoscopy. A colonoscopy will be scheduled. Mickey Fortune MD [1] No Known Allergies [2] Current Outpatient Medications Medication Sig Dispense Refill acyclovir (ZOVIRAX) 5 % ointment Apply topically 5 (five) times a day . 15 g 1 amLODIPine (NORVASC) 10 MG tablet Take 1 (one) tablet (10 mg total) by mouth with evening meal . 100 tablet 3 aspirin 81 MG EC tablet Take 1 (one) tablet (81 mg total) by mouth daily . b complex vitamins capsule Take 1 (one) capsule by mouth daily . BEE POLLEN ORAL Take 2 capsules by mouth daily . calcium carbonate (TUMS ORAL) Take by mouth . cholecalciferol, vitamin D3, 5,000 unit Tab tablet Take 1 (one) tablet (5,000 Units total) by mouth daily . docusate sodium (COLACE) 250 MG capsule Take 1 (one) capsule (250 mg total) by mouth daily . DORZOLAMIDE HCL/TIMOLOL MALEAT (COSOPT OPHT) Apply to eye 2 (two) times a day Right eye . famotidine (PEPCID) 20 MG tablet Take 1 (one) tablet (20 mg total) by mouth 2 (two) times a day . 180 tablet 1 ferrous sulfate 325 (65 FE) MG tablet Take 1 (one) tablet (325 mg total) by mouth daily with breakfast . finasteride (PROSCAR) 5 mg tablet Take 1 (one) tablet (5 mg total) by mouth daily . 90 tablet 1 fluconazole (DIFLUCAN) 200 MG tablet Take 1 (one) tablet (200 mg total) by mouth once a week Takes 2 on Saturday . labetaloL (NORMODYNE) 100 MG tablet Take 1 (one) tablet (100 mg total) by mouth 2 (two) times a day . 180 tablet 0 latanoprost (XALATAN) 0.005 % ophthalmic solution Administer 1 (one) drop to both eyes nightly . LORazepam (ATIVAN) 1 MG tablet Take 1 (one) tablet (1 mg total) by mouth daily . 30 tablet 2 losartan-hydrochlorothiazide (HYZAAR) 100-25 mg per tablet Take 1 (one) tablet by mouth daily with lunch . 100 tablet 3 ondansetron (ZOFRAN) 4 MG tablet Take 1 (one) tablet (4 mg total) by mouth every 8 (eight) hours as needed for nausea . potassium chloride 10 MEQ CR tablet Take 1 (one) tablet (10 mEq total) by mouth daily . 90 tablet 1 pravastatin (PRAVACHOL) 10 MG tablet Take 1 (one) tablet (10 mg total) by mouth nightly . 30 tablet 11 psyllium (METAMUCIL) 3.4 gram packet Take 1 (one) packet by mouth daily as needed . sildenafiL (VIAGRA) 100 MG tablet Take 1 (one) tablet (100 mg total) by mouth daily as needed for erectile dysfunction . 10 tablet 1 tamsulosin (FLOMAX) 0.4 mg capsule Take 1 (one) capsule (0.4 mg total) by mouth daily . 90 capsule 1 simvastatin (ZOCOR) 20 MG tablet Take 1 (one) tablet (20 mg total) by mouth daily . (Patient not taking: Reported on 05/07/2025 .) 90 tablet 1 No current facility-administered medications for this visit. [3] Social History Tobacco Use Smoking status: Never Smokeless tobacco: Never Vaping Use Vaping status: Never Used Substance Use Topics Alcohol use: No Drug use: No documented in this encounter [facility] 04-09-2025 Evaluation + Plan note Associated Problem(s): Medicare annual wellness visit, initial Able to do all ADLs and iADL High concern for falls, follow up with ortho and pain medicine for his knee Finished PT unsure of benefit Will discuss advanced directives in the next visit [facility] 04-09-2025 Miscellaneous Notes Associated Problem(s): Medicare annual wellness visit, initial Able to do all ADLs and iADL High concern for falls, follow up with ortho and pain medicine for his knee Finished PT unsure of benefit Will discuss advanced directives in the next visit documented in this encounter [facility] 04-09-2025 History of Present illness Narrative Subjective: Yudith Morin is a 89 y.o. male here for a Medicare Annual Wellness Visit. HPI History of Present Illness Yudith Morin is an 89 year old male who presents with erectile dysfunction and concerns about blood pressure management. He has been experiencing erectile dysfunction, characterized by difficulty in achieving and maintaining erections, and absence of morning erections, which he previously had regularly. He has used Viagra with variable success. He has not had his testosterone levels checked before and wonders if it might be related to his symptoms. He is currently taking Labetalol at night for blood pressure management and has brought blood pressure readings for review. His blood pressure sometimes drops significantly, with a reading as low as 86/51, but he does not experience symptoms with these low readings. He checks his blood pressure in the morning and after physical therapy exercises, which seem to lower his blood pressure further. He is also taking hydrochlorothiazide as part of his blood pressure regimen. He mentions discomfort in his legs from the knee down to the toes, which sometimes feel cold despite being warm to the touch. He recalls a previous evaluation by a neurologist, which included an EMG, but he was not informed of the results. He has a history of prediabetes, which he acknowledges could contribute to neuropathy. He is taking Zoloft for anxiety, which was added to help reduce his use of lorazepam. He questions its effectiveness and notes it might be affecting his libido. He is also on simvastatin for cholesterol management and has been on it for years without issues. He requests a prescription for Aciclovir ointment for cold sores, which he has used effectively in the past. Review of Systems Reviewed by Provider: Tobacco Allergies Meds Problems Med Hx Surg Hx Fam Hx Care Team Patient Care Team: Deuce Mendez MD as PCP - General (Family Medicine) Pharmacy / Equipment Co. (DME) [facility] - YURIDIA Villanueva - [facility] AT Portal to Registered [facility] [place] [id number] Medicare Risk Assessment Do you have an Advanced Directive (Living Will and/or Durable Power of Bad Cloth Checker for Health Care)? If not, would you like more information about Advanced Directives?: Yes (WILL BRING COPY INTO APPT.) What is your exercise level?: Moderate (like brisk walking) What is your diet?: Regular Can you prepare your own meals?: Yes Do you have trouble with finding transportation?: No Because of any health problems, do you need the help of another person with your personal care needs? (For example, eating, bathing, dressing, or getting around the house.): No Does your home have any of the following?: (!) Slippery Bathtub/Shower Does your home have grab bars in bathrooms or handrails on stairs and steps?: Both grab bars in the bathroom and Handrails on the stairs During the past four weeks, how would you rate your health in general?: Very Good Whether or not you use a hearing aid, do you think you have a hearing problem or do others think you have a hearing problem?: (!) Yes Whether or not you use glasses or contacts, do you have difficulty driving, watching television, reading, or doing any of your daily activities because of your eyesight?: No In the past six months, have you had an unexplained weight loss of 10 pounds or more?: No Do you take your medications as prescribed?: I do not miss doses of my medications During the past four weeks, how much have you been bothered by emotional problems such as feeling anxious, depressed, irritable, sad, or downhearted and blue?: Not at all During the past four weeks, has your physical and emotional health limited your social activites with family, friends, neighbors, or groups? : Not at all Provider/Supplier Name and Specialty: PCP: Dr. Mendez; Plaster Machine Tender:Dr. Roy ;Manager Sports: Dr. Sanchez ;Urologist:Dr. Ortiz;Professor Of Social Work: Dr. Tamayo; Pain Mgmt: ;Neurologist: Dr. Norris Falls Risk Assessment Is Patient Ambulatory?: Y Fell in past year: 2 (Yes) How many falls in the past year?: 4 Did any of these falls result in an injury?: No Unsteady when walks: 1 (Yes) Worried about fallin (Yes) Advised to use cane/walker?: 0 (No) Type of assistive device: N/A Holds onto furniture/abdul: 0 (No) Uses hands to stand up from a chair: 1 (Yes) Trouble stepping onto curb: 0 (No) Rushes to toilet: 1 (Yes) Lost feeling in feet: 1 (Yes) Medicine makes me light-headed: 0 (No) Medicine for sleep or mood: 1 (Yes) Often feel sad/depressed: 0 (No) Patient Self Risk Assessment Score: 8 Medicare Mini Cog Step 1: Three Word Registration Version Used: Version 6: [facility] Step 2: Clock Drawing Step 2 score: Normal clock - 2 points Clock has all numbers placed in the correct sequence & position (e.g., 12, 3, 6 and 9 are in anchor positions) with no missing or duplicate numbers. Hands are pointing to the 11 & 2 (11:10). Hand length is not scored. Step 3: Three Word Recall Record patient's answers to the right: Shani hernandez Step 3: Three Word Recall Score: 3 Words Recalled Total score = Word Recall score + Clock Draw score A cut point of <3 on the Mini-Cog has been validated for dementia screening, but many individuals with clinically meaningful cognitive impairment will score higher. A cut point of <4 may indicate a need for further evaluation of cognitive status.: 5 5-Year Plan: Health Maintenance Topic Date Due COVID-19 Vaccine () 02/23/2025 eGFR - Kidney Disease 04/02/2026 Urine (micro)albumin/creatinine ratio - Kidney Disease 04/02/2026 Falls Risk Assessment 04/05/2026 Depression Screening/Follow-Up (PHQ-2/9) 04/09/2026 Medicare Wellness Visit 04/09/2026 Tetanus: Every 10yrs 12/23/2034 Respiratory Syncytial Virus Immunization: Risk, 60-74 Risk, or 75+ Completed Pneumococcal Vaccine: Age 50+ Completed Zoster Vaccines Completed Influenza Vaccine Completed Immunization History Administered Date(s) Administered H1N1 Inj Preservative Free 11/11/2009 INFLUENZA IIV3 65+YO FLUAD 33228 08/25/2024 Influenza IIV4 high dose 65 and Older 09/12/2020 Influenza, Injectable, Quadrivalent 09/11/2016 Influenza, Injectable, Quadrivalent, Preservative Free 09/10/2017, 09/09/2018, 08/26/2019 Influenza, Seasonal, Injectable 09/02/2012, 09/02/2013 Pfizer 12+ Years soy-sucrose COVID-19 vaccine 02/22/2022 Pfizer SARS-CoV-2 Vaccination 12/01/2020, 12/22/2020, 09/14/2021 Pneumococcal Conjugate 13-Valent (Prevnar 13) 04/27/2019 Pneumococcal Polysaccharide (Pneumovax 23) 10/11/2006 Respiratory Syncytial Virus Vaccine (Abrysvo/RSV) 10/16/2023 Tdap 04/17/2011, 12/23/2024 Zoster (Shingrix) 04/28/2019, 09/05/2019 Objective: BP 121/70 (BP Location: Right arm, Patient Position: Sitting, BP Cuff Size: Adult) Pulse 67 Temp 98 F (36.7 C) (Oral) Resp 16 Ht 6' 1 Wt 78 kg (172 lb) SpO2 96% BMI 22.69 kg/m Hearing/Vision Screen No results found. Physical Exam Constitutional: General: He is not in acute distress. Appearance: He is not ill-appearing. HENT: Head: Normocephalic and atraumatic. Nose: Nose normal. Mouth/Throat: Mouth: Mucous membranes are moist. Pharynx: Oropharynx is clear. No oropharyngeal exudate or posterior oropharyngeal erythema. Eyes: Extraocular Movements: Extraocular movements intact. Conjunctiva/sclera: Conjunctivae normal. Pupils: Pupils are equal, round, and reactive to light. Cardiovascular: Rate and Rhythm: Normal rate and regular rhythm. Pulses: Normal pulses. Heart sounds: Normal heart sounds. No murmur heard. No gallop. Pulmonary: Effort: Pulmonary effort is normal. Breath sounds: Normal breath sounds. No wheezing, rhonchi or rales. Chest: Chest wall: No tenderness. Abdominal: General: Abdomen is flat. Bowel sounds are normal. There is no distension. Palpations: Abdomen is soft. There is no mass. Tenderness: There is no abdominal tenderness. There is no right CVA tenderness, left CVA tenderness, guarding or rebound. Musculoskeletal: General: No tenderness. Normal range of motion. Cervical back: Normal range of motion and neck supple. No rigidity. No muscular tenderness. Right lower leg: No edema. Left lower leg: No edema. Lymphadenopathy: Cervical: No cervical adenopathy. Skin: General: Skin is warm. Findings: No erythema or rash. Neurological: General: No focal deficit present. Mental Status: He is alert and oriented to person, place, and time. Sensory: No sensory deficit. Motor: No weakness. Gait: Gait normal. Psychiatric: Mood and Affect: Mood normal. Behavior: Behavior normal. Thought Content: Thought content normal. Judgment: Judgment normal. Assessment/Plan: Problem List Items Addressed This Visit Cardiovascular and Mediastinum CAD (coronary artery disease) Hypertension Other Insomnia Leg weakness, bilateral Medicare annual wellness visit, initial Able to do all ADLs and iADL High concern for falls, follow up with ortho and pain medicine for his knee Finished PT unsure of benefit Will discuss advanced directives in the next visit Other Visit Diagnoses At high risk for falls - Primary Assessment & Plan Hypertension Blood pressure well-controlled but low reading of 86/51 noted. Labetalol may be redundant with lorazepam. Discussed switching from losartan-hydrochlorothiazide to olmesartan due to potential erectile dysfunction from hydrochlorothiazide. - Monitor blood pressure regularly, especially before labetalol. - Consider discontinuing labetalol if blood pressure stable. - Consult urology regarding medication changes for erectile dysfunction. - Consider switching to olmesartan if erectile dysfunction persists. Erectile Dysfunction Difficulty with erections, Viagra not always effective. Hydrochlorothiazide and Zoloft may contribute. Testosterone replacement not advised due to cardiovascular risks. - Check testosterone levels. - Consider discontinuing Zoloft to assess impact on erectile function. - Consult urology for further management. Anxiety Managed with lorazepam and Zoloft. Zoloft may decrease libido and contribute to erectile dysfunction. Efficacy in reducing lorazepam dosage is questionable. - Discontinue Zoloft to assess impact on anxiety and erectile function. - Continue lorazepam as needed. Right Knee Pain MRI shows moderate cartilage damage and small meniscal tear. Physical therapy beneficial, further intervention may be needed. - Continue physical therapy. - Consider knee brace during activities. - Consult orthopedic surgeon for surgical options if pain persists. Diffuse predominantly axonal sensory polyneuropathy Symptoms include cold sensation in toes. 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 Prediabetes and insulin resistance potential causes. Statins unlikely cause, trial off simvastatin suggested. - Trial discontinuation of simvastatin for 2-4 days to assess impact on neuropathy symptoms. - Monitor symptoms and consider alternative statin if symptoms improve. After discussing the use of ambient listening and audio recording in generating medical documentation, the patient verbally consented to use of this technology for today's visit. My ongoing relationship with Yudith Morin requires continued responsibility and cognitive effort of being the focal point for all services related to chronic condition(s). Vaccinations today per orders. Vaccination counseling provided including which vaccinations are to be administered today, their indication(s), and potential side effects. All questions answered. CDC vaccine information sheet provided for each vaccine administered. Discussed elevated Body Mass Index (BMI): Advised regular exercise. Discussed elevated Body Mass Index (BMI): Advised healthy and appropriate diet. Rationale: Overweight (Findings) BMI No follow-ups on file. Patient Instructions (the written plan) and additional handouts provided to the patient with their After Visit Summary. 04/09/2025 8:06 AM PHQ-9 Review Little interest or pleasure in doing things 0 Feeling down, depressed, or hopeless 0 PHQ-2 Total Score 0 Trouble falling or staying asleep, or sleeping too much 0 Feeling tired or having little energy 0 Poor appetite or overeating 0 Feeling bad about yourself - or that you are a failure or have let yourself or your family down 0 Trouble concentrating on things, such as reading the newspaper or watching television 0 Moving or speaking so slowly that other people could have noticed. Or the opposite - being so fidgety or restless that you have been moving around a lot more than usual 0 Thoughts that you would be better off , or of hurting yourself in some way 0 PHQ-9 Total Score 0 If you checked off any problems, how difficult have these problems made it for you to do your work, take care of things at home, or get along with other people? Not difficult at all documented in this encounter [facility] 04-09-2025 Instructions Deuce Mendez MD - 04/09/2025 8:15 AM EDT STEADI High Risk Patient Instructions Your Falls Screening today shows that you are at high risk for falls. To prevent future falls we recommend: Read through the brochure, What You Can Do to Prevent Falls (from CDC). Go through the brochure, Check for Safety: A Home Fall Prevention Checklist for Older Adults (from CDC). We recommend having a Home Safety Evaluation to see what areas might increase your risk of falling. We have referred you to physical therapy. You can either go to outpatient physical therapy or have a therapist come to your home. You may benefit from using an assistive device to help you walk (such as a cane or walker). Your physical therapist will help determine the right device and fit. Once you have completed your physical therapy, please join a community falls prevention program: Stepping On, a 7-week evidence based program that teaches balance exercises and fall prevention strategies Sigifredo Chi for older adults, group exercise that teaches Sigifredo Chi forms that reduce fall risk (weight shifting, postural alignment and control, and coordinated movements of the arms, legs, head, and trunk) Matter of Balance, an evidence based program designed to reduce the fear of falling and increase activity levels of older adults OR an exercise class for strength and balance. Take your Vitamin D with or without Calcium, as determined by your healthcare provider. We have reviewed your medications to determine if they may contribute to your risk for falls and made recommendations for changes. Get your vision and hearing checked annually. Wear shoes that fit well and don t slip. If you have medical conditions that affect your feet (like their shape or how well you can feel), discuss this with your provider so they can refer you to a correspondence section supervisor. Falls At Home Each year, thousands of older Americans fall at home. Many of them are seriously injured, and some are disabled. In 2011, nearly 23,000 people over age 65 and 2.4 million were treated in emergency departments because of falls. Falls are often due to hazards that are easy to overlook but easy to fix. This checklist will help you find and fix those hazards in your home. The checklist asks about hazards found in each room of your home. For each hazard, the checklist tells you how to fix the problem. At the end of the checklist, you ll find other tips for preventing falls. FLOORS: Look at the floor in each room. Q: When you walk through a room, do you have to walk around furniture? A. Ask someone to move the furniture so your path is clear Q: Do you have throw rugs on the floor? A. Remove the rugs or use double-sided tape or a non-slip backing so the rugs won t slip. Q: Are there papers, books, towels, shoes, magazines, boxes, blankets, or other objects on the floor? A.brine supervisor things that are on the floor. Always keep objects off the floor. Q: Do you have to walk over or around wires or cords (like lamp, telephone, or extension cords)? A. Coil or tape cords and wires next to the wall so you can t trip over them. If needed, have an electricians top helper put in another outlet. STAIRS AND STEPS: Look at the stairs you use both inside and outside your home. Q: Are there papers, shoes, books, or other objects on the stairs? A. brine supervisor things on the stairs. Always keep objects off stairs. Q: Are some steps broken or uneven? A. Fix loose or uneven steps. Q: Are you missing a light over the stairway? A. Have an electricians top helper put in an overhead light at the top and bottom of the stairs. Q: Do you have only one light switch for your stairs (only at the top or at the bottom of the stairs)? A. Have an electricians top helper put in a light switch at the top and bottom of the stairs. You can get light switches that glow. Q: Has the stairway light bulb burned out? A. Have a friend or family member change the light bulb. Q: Is the carpet on the steps loose or torn? A. Make sure the carpet is firmly attached to every step, or remove the carpet and attach non-slip rubber treads to the stairs. Q: Are the handrails loose or broken? Is there a handrail on only one side of the stairs? A. Fix loose handrails or put in new ones. Make sure handrails are on both sides of the stairs and are as long as the stairs. KITCHEN: Look at your kitchen and eating area. Q: Are the things you use often on high shelves? A. Move items in your cabinets. Keep things you use often on the lower shelves (about waist level). Q: Is your step stool unsteady? A. If you must use a step stool, get one with a bar to hold on to. Never use a chair as a step stool. BATHROOMS: Look at all your bathrooms. Q: Is the tub or shower floor slippery? A. Put a non-slip rubber mat or self-stick strips on the floor of the tub or shower. Q: Do you need some support when you get in and out of the tub or up from the toilet? A. Have grab bars put in next to and inside the tub and next to the toilet. BEDROOMS: Look at all your bedrooms. Q: Is the light near the bed hard to reach? A. Place a lamp close to the bed where it s easy to reach. Q: Is the path from your bed to the bathroom dark? A. Put in a night-light so you can see where you re walking. Some night-lights go on by themselves after dark. Other Things You Can Do to Prevent Falls Do exercises that improve your balance and make your legs stronger. Exercise also helps you feel better and more confident. Have your doctor or pharmacist look at all the medicines you take, even [id number] medicines. Some medicines can make you sleepy or dizzy. Have your eyes checked by an eye doctor at least once a year and update your glasses. Get up slowly after you sit or lie down. Wear shoes both inside and outside the house. Avoid going barefoot or wearing slippers. Improve the lighting in your home. Put in brighter light bulbs. Florescent bulbs are bright and cost less to use. It s safest to have uniform lighting in a room. Add lighting to dark areas. Hang lightweight curtains or shades to reduce glare. [place] a contrasting color on the top edge of all steps so you can see the stairs better. For example, use a light color paint on dark wood. To access this brochure online, please visit the CDC website at http://www.cdc.gov/steadi/pdf/check_fo r_safety_brochure-a.pdf Chair Rise Exercise What it does: Strengthens the muscles in your thighs & buttocks. Goal: To do this exercise without using your hands as you become stronger. How to do it: 1. Sit toward the front of a sturdy chair with your knees bent & feet flat on the floor shoulder-width apart 2. Rest your hands lightly on the seat on either side of you, keeping your back & neck straight & and chest slightly forward. 3. Breathe in slowly. Lean forward & feel your weight on the front of your feet. 4. Breathe out and slowly stand up, using your hands as little as possible. 5. Pause for a full breath in & out. 6. Breathe in as you slowly sit down. Do not let yourself collapse back down into the chair. Rather, control your lowering as much as possible. 7. Breathe out. Repeat 10-15 times. If this number is too hard for you when you first start practicing this exercise, begin with fewer and work up to this number. Rest for a minute & then do a final set of 10-15. For detailed instructions, please visit the CDC website at http://www.cdc.gov/steadi/pdf/chair_ri se_exercise-a.pdf Stepping On is an evidence based program proven to reduce falls in older adults. It is a workshop offered once a week for seven weeks. In a small-group setting, you will learn balance exercises and develop specific knowledge and skills to prevent falls. Older adults who should attend are those who: are at risk of falling who have fallen one or more times lives at home are able to walk without the help of another person Local guest experts provide information on exercise, safety, vision, and medications. Classes are offered at [facility]. To find out specifics about a class, please call [phone]. Sigifredo chi: Moving for Better Balance involves low impact exercise. The 12-week class is offered for three hours per week and is led by a trained program instructor. It is intended for people aged 60 and older. Participants learn and perform a program of eight forms that progress from easy to more difficult. The program can accommodate persons with various physical conditions. Health Benefits of Sigifredo Chi: Moving for Better Balance: Improved social and mental well-being, Improved balance and physical functioning, Improved confidence in conducting daily activities, Reduced risk of falling and sustaining associated injuries, and Maintained independence and improved quality of life. To find a Sigifredo Chi program in your area or additional resources about fall prevention please contact: [facility] Violence and Injury Prevention Program at [phone] or [email or web address] A Matter of Balance: Managing Concerns about Falls is an evidence based program designed to reduce the fear of falling and increase activity levels of older adults. A trained booker leads 8 two-hour sessions for small groups of older adults. The class is intended for people 60 and older who are at risk of falling have a fear of falling or restrict activities who have fallen in the past are interested in improving flexibility, balance, and strength. Participants will learn to view falls as controllable, set goals to increase activity levels, and reduce fall risks at home. Classes are offered in all [address] [place] [address] in [place]. For more information about specific classes near you, please visit http://aging.[place].gov/steadyu/resource s/matterofbalance.aspx. documented in this encounter [facility] 04-05-2025 History of Present illness Narrative Spoke to patient at this time, agreeable to completion of wellness visit at next scheduled appointment. [facility] outreach flowsheets completed with patient and filed. Health Maintenance Due Name Date Due Outreach Comments Covid Booster Not interested. Pt does want to discuss labs that he did not have drawn but states he will discuss that day of his appt. Do you have an Advanced Directive (Living Will and/or Durable Power of Bad Cloth Checker for Health Care)? If not, would you like more information about Advanced Directives?: Yes (WILL BRING COPY INTO APPT.) What is your exercise level?: Moderate (like brisk walking) What is your diet?: Regular Can you prepare your own meals?: Yes Do you have trouble with finding transportation?: No Because of any health problems, do you need the help of another person with your personal care needs? (For example, eating, bathing, dressing, or getting around the house.): No Does your home have any of the following?: (!) Slippery Bathtub/Shower Does your home have grab bars in bathrooms or handrails on stairs and steps?: Both grab bars in the bathroom and Handrails on the stairs During the past four weeks, how would you rate your health in general?: Very Good Whether or not you use a hearing aid, do you think you have a hearing problem or do others think you have a hearing problem?: (!) Yes Whether or not you use glasses or contacts, do you have difficulty driving, watching television, reading, or doing any of your daily activities because of your eyesight?: No In the past six months, have you had an unexplained weight loss of 10 pounds or more?: No Do you take your medications as prescribed?: I do not miss doses of my medications During the past four weeks, how much have you been bothered by emotional problems such as feeling anxious, depressed, irritable, sad, or downhearted and blue?: Not at all During the past four weeks, has your physical and emotional health limited your social activites with family, friends, neighbors, or groups? : Not at all Provider/Supplier Name and Specialty: PCP: Dr. Mendez; Plaster Machine Tender:Dr. Roy ;Manager Sports: Dr. Sanchez ;Urologist:Dr. Ortiz;Professor Of Social Work: Dr. Tamayo; Pain Mgmt: ;Neurologist: Dr. Norris Is Patient Ambulatory?: Y Fell in past year: 2 (Yes) How many falls in the past year?: 4 Did any of these falls result in an injury?: No Unsteady when walks: 1 (Yes) Worried about fallin (Yes) Advised to use cane/walker?: 0 (No) Type of assistive device: N/A Holds onto furniture/abdul: 0 (No) Uses hands to stand up from a chair: 1 (Yes) Trouble stepping onto curb: 0 (No) Rushes to toilet: 1 (Yes) Lost feeling in feet: 1 (Yes) Medicine makes me light-headed: 0 (No) Medicine for sleep or mood: 1 (Yes) Often feel sad/depressed: 0 (No) Patient Self Risk Assessment Score: 8 Yessica Cevallos documented in this encounter [facility] 02-25-2025 Note Date of Procedure 02/25/2025. OCT Macula Interpretation Right Eye Normal foveal contour. Findings include Intraretinal fluid, Drusen, IS/OS junction, Atrophy. Left Eye Normal foveal contour. Findings include Subretinal fluid, PED, Drusen, IS/OS junction, Vitelliform lesion. [facility] 02-25-2025 Note Date of Procedure 02/25/2025. Interpretation Right Eye Findings include Negative for CNV, Enlarged LYLA. Left Eye Findings include CNV; Negative for Enlarged LYLA. [facility] 02-25-2025 Note HNO ID: [id number] Author: HOLLAND MOLINA MD, PhD Service: ? Author Type: Physician Type: Progress Notes Filed: 02/25/2025 13:36 Note Text: Referred by Dr. Tamayo for Age related macular degeneration eval 1. Vitelliform lesion vs Exudative Age related macular degeneration left eye -patient started noticing symptoms - no symptoms -given very little progression, recommend close observation -trace SRF 2. 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 Tamayo 4. 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 Does not want to travel to 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 I have seen and examined Yudith Morin. I have discussed the case and the management of this patient's care with the Resident/Fellow, if applicable. I also have reviewed and agree with the assessment and plan as stated above and agree with all of its relevant components. Holland Molina MD [facility] 02-25-2025 History of Present illness Narrative Referred by Dr. Tamayo for Age related macular degeneration eval 1. Vitelliform lesion vs Exudative Age related macular degeneration left eye -patient started noticing symptoms - no symptoms -given very little progression, recommend close observation -trace SRF 2. 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 Tamayo 4. 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 Does not want to travel to 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 I have seen and examined Yudith Morin. I have discussed the case and the management of this patient's care with the Resident/Fellow, if applicable. I also have reviewed and agree with the assessment and plan as stated above and agree with all of its relevant components. Holland Molina MD documented in this encounter [facility] 02-19-2025 Telephone encounter Note Yudith is requesting a refill for Requested Prescriptions Pending Prescriptions Disp Refills labetaloL (NORMODYNE) 100 MG tablet 180 tablet 0 Sig: Take 1 (one) tablet (100 mg total) by mouth 2 (two) times a day . Last refill: 10/09/2024 labetaloL (NORMODYNE) 100 MG tablet, 180 tablets, 0 refill Last appt: 01/06/2025 Upcoming appt (when is it due or is it scheduled): 04/09/2025 Follow up: Refill pending for review without additional follow up based on information above. [facility] 02-19-2025 Miscellaneous Notes Yudith is requesting a refill for Requested Prescriptions Pending Prescriptions Disp Refills labetaloL (NORMODYNE) 100 MG tablet 180 tablet 0 Sig: Take 1 (one) tablet (100 mg total) by mouth 2 (two) times a day . Last refill: 10/09/2024 labetaloL (NORMODYNE) 100 MG tablet, 180 tablets, 0 refill Last appt: 01/06/2025 Upcoming appt (when is it due or is it scheduled): 04/09/2025 Follow up: Refill pending for review without additional follow up based on information above. documented in this encounter [facility] 01-21-2025 Telephone encounter Note Yudith is requesting a refill for Requested Prescriptions Pending Prescriptions Disp Refills sertraline (ZOLOFT) 50 MG tablet 90 tablet 3 Sig: Take 1 (one) tablet (50 mg total) by mouth daily . Last refill: 01/13/25 shipped by [facility] and lost in the mall Last appt: 01/16/25 Upcoming appt (when is it due or is it scheduled): 04/09/25 Follow up: Refill pending for review without additional follow up based on information above. [facility] 01-21-2025 Miscellaneous Notes Yudith is requesting a refill for Requested Prescriptions Pending Prescriptions Disp Refills sertraline (ZOLOFT) 50 MG tablet 90 tablet 3 Sig: Take 1 (one) tablet (50 mg total) by mouth daily . Last refill: 01/13/25 shipped by [facility] and lost in the mall Last appt: 01/16/25 Upcoming appt (when is it due or is it scheduled): 04/09/25 Follow up: Refill pending for review without additional follow up based on information above. documented in this encounter [facility] 01-06-2025 History of Present illness Narrative [facility] MAILED OUT TO PATIENT TO SIGN & RETURN. THANK YOU Subjective Patient ID: Yudith Morin is a 89 y.o. male here for Chief Complaint Patient presents with Follow-up 3 month f/u After discussing the use of ambient listening and audio recording in generating medical documentation, the patient verbally consented to use of this technology for today's visit. History of Present Illness CAD: The patient underwent coronary artery bypass surgery in t NERI to LAD, SVG to RCA 2010. He typically experiences swelling during the day due to a vein being removed. He is currently on statins. Following up with cardiology. Right knee pain: He experiences intermittent severe pain in his right knee, which is not currently present. The pain does not interfere with his walking but is more noticeable when golfing on an incline or downhill. He has experienced his knee giving out three times. He has been seeing Dr. Hart for pain management, who previously treated him for back pain with an injection. However, an injection in his knee did not provide relief. An x-ray of his knee revealed arthritis. He has an upcoming appointment with Dr. Bella and is considering a referral to an orthopedic doctor. He recalls an incident two weeks ago where his leg gave out while golfing, causing him to fall. 01/06/25: He reports no recent episodes of knee instability, although he has experienced 4 such episodes in the past. He has also undergone physical therapy and performs home exercises, which have reportedly improved his strength. He does not report any issues with his calf muscles or lower legs. He is considering acupuncture as a potential treatment option for his knee pain. He has received several injections in the knee, which have provided some relief. HTN: His current antihypertensive regimen includes losartan-hydrochlorothiazide and amlodipine, both administered at suppertime. He also takes labetalol 100 mg twice daily, once in the morning and once before bedtime. He was previously on metoprolol 200 mg twice daily. Stable with no concerns Insomnia and anxiety: He has been on a long-term regimen of lorazepam and Zoloft, which were increased during his last visit to help with anxiety. He reports no adverse effects from the increased Zoloft dosage to 50 mg. He has not attempted to reduce his lorazepam dosage since starting Zoloft. He recalls that he was able to sleep well when taking 1 mg of lorazepam without the increased Zoloft dosage. He experiences awakenings at night to use the bathroom but is able to return to sleep without difficulty. He recalls that he was able to sleep well when taking 1 mg of lorazepam without the increased Zoloft dosage. He has been prescribed a 30-day supply of lorazepam, which he finds insufficient. He is requesting a short-term refill of lorazepam and losartan, as his current supply will run out on Saturday. He reports difficulty walking in a straight line and is unable to stand on one leg without support. He is unsure if this is a side effect of his medications. ED: He has never had his testosterone levels checked. He reports difficulty achieving erections and no longer experiences morning erections. He is questioning whether this could be due to aging or his medications. He has tried Cialis and Viagra, but found Viagra to be more effective. He did not experience any dizziness with Viagra, but is concerned about potential hypotension. He does not take his blood pressure medication when he takes Viagra. MEDICATIONS Current: losartan-hydrochlorothiazide, amlodipine, lorazepam, simvastatin, Zoloft, labetalol Past: metoprolol IMMUNIZATIONS He is up to date on all vaccinations, including tetanus and RSV. 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 BPH (benign prostatic hypertrophy) CAD (coronary artery disease) 2 vessel cabg; neri to lad and svg to the rca Chronic kidney disease Heart disease Hemorrhoids Hiatal hernia 04/14/2024 AFS grade IV, 3 cm type-I sliding History of skin cancer Hyperlipidemia Labile hypertension Stomach ulcer Urinary bleeding Viral hepatitis Past Surgical History: Procedure Laterality Date CABG 2010 CARDIAC CATHETERIZATION 2010 2 vessel cad CARDIAC CATHETERIZATION 1998 mod stenosis of the prox lad CATARACT EXT/ECCE Bilateral CHOLECYSTECTOMY 1987 COLONOSCOPY 07/19/2015 [place] CORONARY ARTERY BYPASS GRAFT 2010 neri to lad/svg to rca EGD N/A 04/27/2021 Procedure: ESOPHAGOGASTRODUODENOSCOPY WITH BIOPSY; Surgeon: Mickey Fortune MD; Location: [facility]; Service: General Surgery ESOPHAGOGASTRODUODENOSCOPY 07/19/2015 Sharma's...Thomae in [place] ESOPHAGOGASTRODUODENOSCOPY 08/19/2018 gastritis....Dr. Fortune [place] ESOPHAGOGASTRODUODENOSCOPY TRANSORAL DIAGNOSTIC N/A 04/14/2024 Procedure: ESOPHAGOGASTRODUODENOSCOPY WITH BIOPSY (ptek); Surgeon: Mickey Fortune MD; Location: [facility]; Service: General Surgery SKIN LESION EXCISION TONSILLECTOMY 1942 Family History Problem Relation Age of Onset Heart attack Father Breast cancer Mother Social History Tobacco Use Smoking status: Never Smokeless tobacco: Never Vaping Use Vaping status: Never Used Substance Use Topics Alcohol use: No Drug use: No Review of Systems Vitals: 01/06/25 0749 BP: 122/61 BP Location: Right arm Patient Position: Sitting BP Cuff Size: Adult Pulse: 67 Resp: 16 SpO2: 94% Weight: 79.8 kg (176 lb) Height: 6' 1 Estimated body mass index is 23.22 kg/m as calculated from the following: Height as of this encounter: 6' 1. Weight as of this encounter: 79.8 kg (176 lb). Physical Exam Constitutional: General: He is not in acute distress. Appearance: He is not ill-appearing. HENT: Head: Normocephalic and atraumatic. Nose: Nose normal. Mouth/Throat: Mouth: Mucous membranes are moist. Pharynx: Oropharynx is clear. No oropharyngeal exudate or posterior oropharyngeal erythema. Eyes: Extraocular Movements: Extraocular movements intact. Conjunctiva/sclera: Conjunctivae normal. Pupils: Pupils are equal, round, and reactive to light. Cardiovascular: Rate and Rhythm: Normal rate and regular rhythm. Pulses: Normal pulses. Heart sounds: Normal heart sounds. No murmur heard. No gallop. Pulmonary: Effort: Pulmonary effort is normal. Breath sounds: Normal breath sounds. No wheezing, rhonchi or rales. Chest: Chest wall: No tenderness. Abdominal: General: Abdomen is flat. Bowel sounds are normal. There is no distension. Palpations: Abdomen is soft. There is no mass. Tenderness: There is no abdominal tenderness. There is no right CVA tenderness, left CVA tenderness, guarding or rebound. Musculoskeletal: General: No tenderness. Normal range of motion. Cervical back: Normal range of motion and neck supple. No rigidity. No muscular tenderness. Right lower leg: No edema. Left lower leg: No edema. Lymphadenopathy: Cervical: No cervical adenopathy. Skin: General: Skin is warm. Findings: No erythema or rash. Neurological: General: No focal deficit present. Mental Status: He is alert and oriented to person, place, and time. Sensory: No sensory deficit. Motor: No weakness. Gait: Gait abnormal (mild shuffling gait). Psychiatric: Mood and Affect: Mood normal. Behavior: Behavior normal. Thought Content: Thought content normal. Judgment: Judgment normal. OARRS/NARxCHECK Report Received and Assessed: Deuce Mendez MD on 01/06/2025 8:04 AM Date controlled substance agreement signed: 03/12/2024 Date of last drug screen: 03/16/2024 PHQ9: Over the last 2 weeks, how often have you been bothered by any of the following problems? Little interest or pleasure in doing things: Not at all Feeling down, depressed, or hopeless: Not at all PHQ-2 Total Score: 0 FRANC-7 Over the last 2 weeks, how often have you been bothered by the following problems? Feeling nervous, anxious or on edge: Not at all Not being able to stop or control worrying: Not at all Worrying too much about different things: Not at all Trouble relaxing: Not at all Being so restless that it is hard to sit still: Not at all Becoming easily annoyed or irritable: Not at all Feeling afraid as if something awful might happen: Not at all FRANC-7 Score: 0 Tobacco Counseling: Counseling given: Not Answered Reviewed by Provider: Patient's Medications New Prescriptions LORAZEPAM (ATIVAN) 0.5 MG TABLET Take 1 (one) tablet (0.5 mg total) by mouth nightly for 15 days . LOSARTAN-HYDROCHLOROTHIAZIDE (HYZAAR) 100-25 MG PER TABLET Take 1 (one) tablet by mouth daily for 15 days . Previous Medications ASPIRIN 81 MG EC TABLET Take 1 (one) tablet (81 mg total) by mouth daily . B COMPLEX VITAMINS CAPSULE Take 1 (one) capsule by mouth daily . BEE POLLEN ORAL Take 2 capsules by mouth daily . CALCIUM CARBONATE (TUMS ORAL) Take by mouth . CHOLECALCIFEROL, VITAMIN D3, 5,000 UNIT TAB TABLET Take 1 (one) tablet (5,000 Units total) by mouth daily . DOCUSATE SODIUM (COLACE) 250 MG CAPSULE Take 1 (one) capsule (250 mg total) by mouth daily . DORZOLAMIDE HCL/TIMOLOL MALEAT (COSOPT OPHT) Apply to eye 2 (two) times a day Right eye . FAMOTIDINE (PEPCID) 20 MG TABLET Take 1 (one) tablet (20 mg total) by mouth 2 (two) times a day . FERROUS SULFATE 325 (65 FE) MG TABLET Take 1 (one) tablet (325 mg total) by mouth daily with breakfast . FINASTERIDE (PROSCAR) 5 MG TABLET Take 1 (one) tablet (5 mg total) by mouth daily . FLUCONAZOLE (DIFLUCAN) 200 MG TABLET Take 1 (one) tablet (200 mg total) by mouth once a week Takes 2 on Saturday . LABETALOL (NORMODYNE) 100 MG TABLET Take 1 (one) tablet (100 mg total) by mouth 2 (two) times a day . LATANOPROST (XALATAN) 0.005 % OPHTHALMIC SOLUTION Administer 1 (one) drop to both eyes nightly . ONDANSETRON (ZOFRAN) 4 MG TABLET Take 1 (one) tablet (4 mg total) by mouth every 8 (eight) hours as needed for nausea . POTASSIUM CHLORIDE 10 MEQ CR TABLET Take 1 (one) tablet (10 mEq total) by mouth daily . PSYLLIUM (METAMUCIL) 3.4 GRAM PACKET Take 1 (one) packet by mouth daily as needed . SERTRALINE (ZOLOFT) 50 MG TABLET Take 1 (one) tablet (50 mg total) by mouth daily . SIMVASTATIN (ZOCOR) 20 MG TABLET Take 1 (one) tablet (20 mg total) by mouth daily . TAMSULOSIN (FLOMAX) 0.4 MG CAPSULE Take 1 (one) capsule (0.4 mg total) by mouth daily . Modified Medications Modified Medication Previous Medication AMLODIPINE (NORVASC) 10 MG TABLET amLODIPine (NORVASC) 10 MG tablet Take 1 (one) tablet (10 mg total) by mouth with evening meal . Take 1 (one) tablet (10 mg total) by mouth with evening meal . LORAZEPAM (ATIVAN) 1 MG TABLET LORazepam (ATIVAN) 1 MG tablet Take 1 (one) tablet (1 mg total) by mouth daily . Take 1 (one) tablet (1 mg total) by mouth daily . LOSARTAN-HYDROCHLOROTHIAZIDE (HYZAAR) 100-25 MG PER TABLET losartan-hydrochlorothiazide (HYZAAR) 100-25 mg per tablet Take 1 (one) tablet by mouth daily with lunch . Take 1 (one) tablet by mouth daily with lunch . SILDENAFIL (VIAGRA) 100 MG TABLET sildenafil citrate (SILDENAFIL ORAL) Take 1 (one) tablet (100 mg total) by mouth daily as needed for erectile dysfunction . Take by mouth daily as needed for erectile dysfunction . Discontinued Medications No medications on file Health Maintenance Due Topic Date Due Medicare Wellness Visit Never done Falls Risk Assessment Never done Assessment & Plan Problem List Items Addressed This Visit Cardiovascular and Mediastinum CAD (coronary artery disease) Relevant Medications losartan-hydrochlorothiazide (HYZAAR) 100-25 mg per tablet amLODIPine (NORVASC) 10 MG tablet losartan-hydrochlorothiazide (HYZAAR) 100-25 mg per tablet Hypertension Relevant Medications losartan-hydrochlorothiazide (HYZAAR) 100-25 mg per tablet amLODIPine (NORVASC) 10 MG tablet losartan-hydrochlorothiazide (HYZAAR) 100-25 mg per tablet Other Relevant Orders TSH with Reflex Free T4 Microalbumin/Creatinine Ratio, UR Random Hemoglobin A1c Lipid Panel Comprehensive Metabolic Panel Other Anxiety Insomnia Relevant Medications LORazepam (ATIVAN) 1 MG tablet LORazepam (ATIVAN) 0.5 MG tablet Right knee pain - Primary Other Visit Diagnoses Sedative dependence (HCC) Stage 3 chronic kidney disease, unspecified whether stage 3a or 3b CKD (HCC) Relevant Orders Comprehensive Metabolic Panel Abnormal finding of blood chemistry, unspecified Relevant Orders Hemoglobin A1c Erectile dysfunction, unspecified erectile dysfunction type Relevant Medications sildenafiL (VIAGRA) 100 MG tablet Other Relevant Orders Testosterone, Total Drugs of Abuse Screen, Urine Encounter for therapeutic drug level monitoring Relevant Orders Drugs of Abuse Screen, Urine Assessment & Plan Assessment & Plan 1. Insomnia the patient was informed about the potential risks associated with long-term use of lorazepam, including increased risk of falls and dementia. The patient has been advised to halve his lorazepam dosage 0.5 mg, discussed at length why we need to decrease lorazepam but since patient is overly anxious about decreasing the dose was agreeable to work on controlling anxiety while keeping the dose at 1 mg for lorazepam for now and he will try to cut it in half , given 15 tabs of 0.5 mg until he receives his chronic supply of 1 mg through mail pharmacy. Potentially switching to mirtazapine Continue on Zoloft 50 mg. CSA up-to-date will in February can come and sign it sooner or wait till next appointment as well as urine drug screen and OARRS reviewed with no concerns. Leg weakness. The patient's leg weakness may be attributed to neuropathy. X-rays of his back and hip will be conducted today to investigate potential arthritis. Tylenol 1000 mg every 8 hours will be taken as needed for leg pain. Formal evaluation through PT since more falls have been happening. 2. Anxiety. A 90-day prescription for lorazepam was provided. The potential side effects, including the risk of tolerance, addiction, and increased risk of falls and delirium, were discussed. The dosage of Zoloft was increased to 50 mg, and a prescription was sent to [facility]. He was advised to try taking half a milligram of lorazepam at night to see if it helps. Hypertension. Blood pressure readings have been consistently within the normal range. He reported occasional elevated readings in the 140s-150s mmHg range before taking his medication and after breakfast. After eating and exercising, his blood pressure often drops to the 120s mmHg range. He takes losartan-hydrochlorothiazide and amlodipine usually at suppertime. He also takes labetalol 100 mg twice daily, once in the morning and once before bedtime. He is advised to discontinue labetalol for a few days and monitor his blood pressure, then inform us of the results. The target blood pressure is around 140/90 mmHg or less. Knee pain. The knee pain appears to be the primary concern, which may be influenced by the simvastatin. He has been experiencing knee pain since the summer, which has been managed by Dr. Hart, a structural steel painter in [place]. Despite these interventions, he continues to experience pain during certain activities, such as bending over to wash his car. An MRI has been recommended by Dr. Hart to further investigate the cause of his symptoms. He reports no recent episodes of knee instability, although he has experienced 4 such episodes in the past. He has also undergone physical therapy and performs home exercises, which have reportedly improved his strength. He does not report any issues with his calf muscles or lower legs. He is considering acupuncture as a potential treatment option for his knee pain. Records from Dr. Howell will be obtained for further evaluation. If the knee pain persists, a change in cholesterol medication may be considered to see if it alleviates the weakness and pain. Erectile dysfunction. The erectile dysfunction may be a side effect of the Zoloft. He is advised to take sildenafil prior to intimate relations and to ensure that it does not induce dizziness. He is also advised to take all his blood pressure medications in the morning. 5. Health maintenance. He is up to date on all vaccinations, including tetanus and RSV. He has received 3 pneumonia vaccines. Blood work will be ordered to be completed 1 week prior to his next appointment. Follow-up The patient is scheduled for a follow-up visit in 03/2025. PROCEDURE The patient has received several injections in the knee, which have provided some relief. I spent 40 minutes with patient reviewing HPI and coordinating plan of care. My ongoing relationship with Yudith Morin requires continued responsibility and cognitive effort of being the focal point for all services related to chronic condition(s). After discussing the use of ambient listening and audio recording in generating medical documentation, the patient verbally consented to use of this technology for today's visit. No follow-ups on file. DEUCE MENDEZ MD [facility] [address] [facility] [address] [facility] [id number] Dept: [phone] documented in this encounter [facility] 01-06-2025 Note Subjective Patient I D: Yudith Morin is a 89 y.o. male here for Chief Complaint Patient presents with Follow-up 3 month f/u After discussing the use of ambient listening and audio recording in generating medical documentation, the patient verbally consented to use of this technology for today's visit. History of Present Illness CAD: The patient underwent coronary artery bypass surgery in [facility] to LAD, SVG to RCA 2010. He typically experiences swelling during the day due to a vein being removed. He is currently on statins. Following up with cardiology. Right knee pain: He experiences intermittent severe pain in his right knee, which is not currently present. The pain does not interfere with his walking but is more noticeable when golfing on an incline or downhill. He has experienced his knee giving out three times. He has been seeing Dr. Hart for pain management, who previously treated him for back pain with an injection. However, an injection in his knee did not provide relief. An x-ray of his knee revealed arthritis. He has an upcoming appointment with Dr. Bella and is considering a referral to an orthopedic doctor. He recalls an incident two weeks ago where his leg gave out while golfing, causing him to fall. 01/06/25: He reports no recent episodes of knee instability, although he has experienced 4 such episodes in the past. He has also undergone physical therapy and performs home exercises, which have reportedly improved his strength. He does not report any issues with his calf muscles or lower legs. He is considering acupuncture as a potential treatment option for his knee pain. He has received several injections in the knee, which have provided some relief. HTN: His current antihypertensive regimen includes losartan-hydrochlorothiazide and amlodipine, both administered at suppertime. He also takes labetalol 100 mg twice daily, once in the morning and once before bedtime. He was previously on metoprolol 200 mg twice daily. Stable with no concerns Insomnia and anxiety: He has been on a long-term regimen of lorazepam and Zoloft, which were increased during his last visit to help with anxiety. He reports no adverse effects from the increased Zoloft dosage to 50 mg. He has not attempted to reduce his lorazepam dosage since starting Zoloft. He recalls that he was able to sleep well when taking 1 mg of lorazepam without the increased Zoloft dosage. He experiences awakenings at night to use the bathroom but is able to return to sleep without difficulty. He recalls that he was able to sleep well when taking 1 mg of lorazepam without the increased Zoloft dosage. He has been prescribed a 30-day supply of lorazepam, which he finds insufficient. He is requesting a short-term refill of lorazepam and losartan, as his current supply will run out on Saturday. He reports difficulty walking in a straight line and is unable to stand on one leg without support. He is unsure if this is a side effect of his medications. ED: He has never had his testosterone levels checked. He reports difficulty achieving erections and no longer experiences morning erections. He is questioning whether this could be due to aging or his medications. He has tried Cialis and Viagra, but found Viagra to be more effective. He did not experience any dizziness with Viagra, but is concerned about potential hypotension. He does not take his blood pressure medication when he takes Viagra. MEDICATIONS Current: losartan-hydrochlorothiazide, amlodipine, lorazepam, simvastatin, Zoloft, labetalol Past: metoprolol IMMUNIZATIONS He is up to date on all vaccinations, including tetanus and RSV. 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 BPH (benign prostatic hypertrophy) CAD (coronary artery disease) 2 vessel cabg; neri to lad and svg to the rca Chronic kidney disease Heart disease Hemorrhoids Hiatal hernia 04/14/2024 AFS grade IV, 3 cm type-I sliding History of skin cancer Hyperlipidemia Labile hypertension Stomach ulcer Urinary bleeding Viral hepatitis Past Surgical History: Procedure Laterality Date CABG 2010 CARDIAC CATHETERIZATION 2010 2 vessel cad CARDIAC CATHETERIZATION 1998 mod stenosis of the prox lad CATARACT EXT/ECCE Bilateral CHOLECYSTECTOMY 1988 COLONOSCOPY 07/19/2015 [facility] CORONARY ARTERY BYPASS GRAFT 2010 neri to lad/svg to rca EGD N/A 04/27/2021 Procedure: ESOPHAGOGASTRODUODENOSCOPY WITH BIOPSY; Surgeon: Mickey Fortune MD; Location: [facility]; Service: General Surgery ESOPHAGOGASTRODUODENOSCOPY 07/19/2015 Sharma's...[facility]ae in [place] ESOPHAGOGASTRODUODENOSCOPY 08/19/2018 gastritis....Dr. Fortune [place] ESOPHAGOGASTRODUODENOSCOPY TRANSORAL DIAGNOSTIC N/A 04/14/2024 Procedure: ESOPHAGOGASTRODUODENOSCOPY WITH BIOPSY (ptek); Surgeon: Mickey Fortune MD; Location: (more content not included)... [facility] 01-01-2025 Telephone encounter Note Yudith is requesting a refill for Requested Prescriptions Pending Prescriptions Disp Refills simvastatin (ZOCOR) 20 MG tablet 90 tablet 1 Sig: Take 1 (one) tablet (20 mg total) by mouth daily . Last refill: 08/11/2024 90 day with 1 rf Last appt: 12/19/2024 Upcoming appt (when is it due or is it scheduled): 01/06/2025 Follow up: Refill pending for review without additional follow up based on information above. [facility] 01-01-2025 Miscellaneous Notes Yudith is requesting a refill for Requested Prescriptions Pending Prescriptions Disp Refills simvastatin (ZOCOR) 20 MG tablet 90 tablet 1 Sig: Take 1 (one) tablet (20 mg total) by mouth daily . Last refill: 08/11/2024 90 day with 1 rf Last appt: 12/19/2024 Upcoming appt (when is it due or is it scheduled): 01/06/2025 Follow up: Refill pending for review without additional follow up based on information above. documented in this encounter [facility] 12-24-2024 Instructions Holland Molina MD, PhD - 12/24/2024 3:46 PM EST Images from the original note were not included. EYE VITAMINS: The doctor has asked you to start taking the AREDS 2 Eye Vitamins. These are [id number] high potency antioxidant supplements with select vitamins and minerals, at levels well above those in ordinary multivitamins and generally not attainable through diet alone. You do not need a prescription. Please follow the instructions on the bottle. The AREDS 2 Formulation is made up of: 500 mg vitamin C 400 IU vitamin E 10 mg lutein 2 mg zeaxanthin 80 mg zinc 2 mg copper Why a change in the formulation between AREDS 1 and AREDS 2 vitamins? Why add lutein/zeaxanthin? Previous studies had found that dietary intake of lutein/zeaxanthin is associated with a lower risk of developing advanced AMD. Why eliminate beta-carotene? During the AREDS trial, two large trials funded by the [employer] [place] found that beta-carotene may increase lung cancer risk among people who smoke. Lutein and zeaxanthin are in the same family of nutrients as beta-carotene and are believed to have important functions in the retina. Therefore, the researchers theorized that lutein/zeaxanthin might be a safer and possibly more effective alternative than beta-carotene. Why reduce zinc? Although zinc was found to be an essential component of the AREDS formulation in the original trial, some nutritional experts recommended a lower dose. What are lutein, zeaxanthin and beta-carotene? Lutein, zeaxanthin, and beta-carotene belong to a family of nutrients known as carotenoids. Carotenoids are made by plants and are especially enriched in green leafy vegetables. They can be stored in animal tissues and are found at relatively low levels in animal food products. In the body, beta-carotene is used to make Vitamin A, which is required by the retina to detect light and convert it into electrical signals. Beta-carotene itself is not found in the eye. In contrast, lutein and zeaxanthin are found in the retina and lens, where they may act as natural antioxidants and help absorb damaging, high-energy blue and ultraviolet light. What were the effects of changing the original AREDS formulation? In the first AREDS trial, taking the original formulation reduced the risk of advanced AMD by about 25 percent over a five-year period. In the AREDS2 trial, adding DHA/EPA or lutein/zeaxanthin to the original formulation (containing beta-carotene) had no additional overall effect on the risk of advanced AMD. However, trial participants who took AREDS containing lutein/zeaxanthin and no beta-carotene had a slight reduction in risk of advanced AMD, compared with those who took AREDS with beta-carotene. Also, for participants with very low levels of lutein/zeaxanthin in their diet, adding these supplements to the AREDS formulation helped lower their risk of advanced AMD. Finally, former smokers who took AREDS with beta-carotene had a higher incidence of lung cancer. The investigators found no significant changes in the effectiveness of the formulation when they removed beta-carotene or lowered zinc. Who should consider taking a combination of antioxidants and zinc like those examined in AREDS and AREDS2? People at high risk for developing advanced AMD should consider taking the antioxidant-zinc combinations examined in AREDS and AREDS2. These people are defined as having either: Intermediate AMD in one or both eyes. Intermediate AMD can be detected by an professional soccer player, but usually involves little or no vision loss. Advanced AMD in one eye, but not the other eye. Advanced AMD involves either a breakdown of cells in the retina (called geographic atrophy or dry AMD), or the growth of abnormal blood vessels under the retina (called neovascular or wet AMD). Either of these forms of advanced AMD can cause vision loss. Will taking an AREDS formulation prevent AMD? There is no known treatment that can prevent the early stages of AMD. However, the AREDS formulations may delay progression of advanced AMD and help you keep your vision longer if you have intermediate AMD, or advanced AMD in one eye. The participants in the first AREDS trial have now been followed for 10 years, and the benefits of the AREDS formulation have persisted over this time. Can I take a daily multivitamin if I am taking one of the AREDS formulations? Yes. The AREDS formulation is not a substitute for a multivitamin. In the AREDS trial, two-thirds of the study participants took multivitamins along with the AREDS formulation. In AREDS2, almost nine of ten participants took multivitamins. Can a daily multivitamin alone provide the same vision benefits as an AREDS formulation? No. The vitamins and minerals tested in the AREDS and AREDS2 trials were provided in much higher doses than what is found in multivitamins. Also, it is important to remember that most of the trial participants took multivitamins. Taking an AREDS formulation clearly provided a benefit over and above multivitamins. Can diet alone provide the same high levels of antioxidants and zinc as the AREDS formulations? No. The high levels of vitamins and minerals are difficult to achieve from diet alone. However, previous studies have suggested that people who have diets rich in green, leafy vegetables--a good source of lutein/zeaxanthin--have a lower risk of developing AMD. In the AREDS2 trial, the people who seemed to benefit most from taking lutein/zeaxanthin were those who did not get much of these nutrients in their diet. Within this group, those who received lutein/zeaxanthin supplements had a 26 percent reduced risk of developing advanced AMD compared with those who did not receive the supplements. What is the risk of lung cancer from taking beta-carotene? In the AREDS2 trial, current smokers or those who had quit smoking less than a year before enrollment were excluded from receiving beta-carotene. Despite this precaution, lung cancers were observed in 2 percent of participants who took an AREDS formulation with beta-carotene, compared with 0.9 percent of participants who took AREDS without beta-carotene. Across both groups, about 91 percent of participants who developed lung cancer were former smokers. How does lutein/zeaxanthin compare to beta-carotene? Lutein/zeaxanthin has not been associated with increased cancer risk. Moreover, analysis from the AREDS2 trial suggests that it offers similar or better protective benefits against advanced AMD, compared with beta-carotene. In the trial, participants who took an AREDS formulation containing lutein/zeaxanthin (no beta-carotene) had an 18 percent lower risk of progressing to advanced AMD compared with those who took AREDS containing beta-carotene (no lutein/zeaxanthin). Does the high-dose vitamin E in the AREDS formulations affect the risk of prostate cancer? There have been conflicting data on the relationship between vitamin E and prostate cancer. In 1993, the Alpha-Tocopherol, Beta Carotene (ATBC) trial found a 35 percent reduced risk of prostate cancer in men taking 50 mg of vitamin E daily for a follow-up of six years. In 2008, the Physicians Health Study II (PHS II) found that 400 IU of vitamin E every other day for a follow-up of eight years had no effect on the incidence of prostate cancer. In 2011, the Selenium and Vitamin E Cancer Prevention Trial (SELECT) found a 17 percent increase in the risk of prostate cancer among men taking 400 IU of vitamin E daily for a follow-up of seven years. That risk equates to 1-2 more prostate cancers per 1000 patients who took high-dose vitamin E for one year. For reasons that are unclear, men who took both vitamin E and selenium did not have an increased rate of prostate cancer. In the AREDS trial, high-dose vitamin E had no effect on the risk of prostate cancer among male participants. The AREDS2 trial began in 2005 (before the SELECT trial was reported) and all study participants were offered an AREDS formulation containing vitamin E. A group of independent researchers monitoring the AREDS2 trial for safety noted no concerns about an increased risk prostate cancer. The final data from the study do not suggest a higher rate of prostate cancer among male participants than expected in an aging male population. If you have concerns about vitamin E and prostate cancer talk to your health care provider about the possible risks and benefits from taking vitamin E supplements. Are there any other side effects or risks from taking the AREDS formulations? Many older Americans take prescription medications, and a considerable number use cugj-rtj-xivapal drugs, dietary supplements, and herbal medicines. High-dose supplemental nutrients can sometimes interfere with medications and compete with other vital nutrients for absorption into the body. Individuals who are considering taking an AREDS formulation should discuss this with their primary care doctors and/or eye aged or disabled carer. AMSLER GRID: While wearing your reading glasses, hold the grid at a normal reading distance. With one eye covered, look at the black dot in the center of grid. Note any lines that are wavy, broken or missing. Repeat for the other eye and report any changes to Dr. Molina at [phone] documented in this encounter [facility] 12-24-2024 Note Date of Procedure 12/24/2024. Flap Maker Information Tomb Maker Helper: PETERSON. OCT Macula Interpretation Right Eye Abnormal foveal contour. Findings include Intraretinal fluid, Drusen, IS/OS junction, Atrophy. Left Eye Abnormal foveal contour. Findings include Subretinal fluid, PED, Drusen, IS/OS junction, Vitelliform lesion. [facility] 12-24-2024 History of Present illness Narrative Referred by Dr. Tamayo for Age related macular degeneration eval 1. 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 Tamayo 4. 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 Does not want to travel to [facility] observe Return 8wks Note to Dr. tamayo I have confirmed and edited as necessary the relevant HPI, ophthalmic history, ROS, and the neuro exam findings as obtained by others. I have seen and examined Yudith Morin. I have discussed the case and the management of this patient's care with the Resident/Fellow, if applicable. I also have reviewed and agree with the assessment and plan as stated above and agree with all of its relevant components. Holland Molina MD documented in this encounter [facility] 12-24-2024 Note HNO ID: [id number] Author: HOLLAND MOLINA MD, PhD Service: ? Author Type: Physician Type: Progress Notes Filed: 12/24/2024 15:47 Note Text: Referred by Dr. Tamayo for Age related macular degeneration eval 1. 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 Tamayo 4. 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 Does not want to travel to [facility] observe Return 8wks Note to Dr. tamayo I have confirmed and edited as necessary the relevant HPI, ophthalmic history, ROS, and the neuro exam findings as obtained by others. I have seen and examined Yudith Morin. I have discussed the case and the management of this patient's care with the Resident/Fellow, if applicable. I also have reviewed and agree with the assessment and plan as stated above and agree with all of its relevant components. Holland Molina MD [facility] 12-11-2024 Telephone encounter Note Yudith is requesting a refill for Requested Prescriptions Pending Prescriptions Disp Refills famotidine (PEPCID) 20 MG tablet 180 tablet 1 Sig: Take 1 (one) tablet (20 mg total) by mouth 2 (two) times a day . Last refill: 06/19/24 Last appt: 10/19/24 Upcoming appt (when is it due or is it scheduled): 01/06/25 Please send to [email or web address] Follow up: Refill pending for review without additional follow up based on information above. [facility] 12-11-2024 Miscellaneous Notes Yudith is requesting a refill for Requested Prescriptions Pending Prescriptions Disp Refills famotidine (PEPCID) 20 MG tablet 180 tablet 1 Sig: Take 1 (one) tablet (20 mg total) by mouth 2 (two) times a day . Last refill: 06/19/24 Last appt: 10/19/24 Upcoming appt (when is it due or is it scheduled): 01/06/25 Please send to [email or web address] Follow up: Refill pending for review without additional follow up based on information above. documented in this encounter [facility] 11-19-2024 Note Date of Procedure 11/19/2024. OCT Macula Interpretation Right Eye Findings include Intraretinal fluid, Drusen, RPE Irregularity. Left Eye Findings include Intraretinal fluid, Drusen, RPE Irregularity. Interval Change Right Eye Worse. Left Eye Worse. [facility] 11-19-2024 Note Date of Procedure 11/19/2024. Reliability Right Eye Good. Left Eye Good. Interpretation Right Eye Normal. Left Eye Normal. Interval Change Right Eye Stable. Left Eye Stable. [facility] 11-19-2024 Note Date of Procedure 11/19/2024. Quality Right Eye Good. Left Eye Good. NFL Interpretation Right Eye Superior loss, Inferior loss. Left Eye Normal. Ganglion Cell Layer Thickness Right Eye Other ocular pathology influencing GCL interpretation. Left Eye Other ocular pathology influencing GCL interpretation. Interval Change Right Eye Stable. Left Eye Stable. [facility] 11-19-2024 Note HNO ID: [id number] Author: ANILA TAMAYO MD Service: ? 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 Molina Please monitor each eye daily with Amsler Grid. AREDS 2 Vitamins are available over the counter at any drug store. 3. Primary open angle glaucoma (POAG) of both eyes, mild stage - ICD9: 365.11, 365.71, ICD10: H40.1131 4. 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 Treatment options and the importance of regular examinations and testing were covered in detail, as well as the consequences of non-compliance. The patient was given the opportunity to ask questions. Current Ophthalmic Meds latanoprost (XALATAN) 0.005 % ophthalmic solution Use 1 Drop in both eyes daily at bedtime. 5. Pseudophakia of both eyes - ICD9: V43.1, ICD10: Z96.1 Lens position well centered both eyes 6. 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 I have seen and examined Yudith Morin. I have discussed the case and the management of this patient's care with the Resident/Fellow, if applicable. I also have reviewed and agree with the assessment and plan as stated above and agree with all of its relevant components. 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 Molina Please monitor each eye daily with Amsler Grid. AREDS 2 Vitamins are available over the counter at any drug store. 3. Primary open angle glaucoma (POAG) of both eyes, mild stage - ICD9: 365.11, 365.71, ICD10: H40.1131 4. 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 Treatment options and the importance of regular examinations and testing were covered in detail, as well as the consequences of non-compliance. The patient was given the opportunity to ask questions. Current Ophthalmic Meds latanoprost (XALATAN) 0.005 % ophthalmic solution Use 1 Drop in both eyes daily at bedtime. 5. Pseudophakia of both eyes - ICD9: V43.1, ICD10: Z96.1 Lens position well centered both eyes 6. 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 I have seen and examined Yudith Morin. I have discussed the case and the management of this patient's care with the Resident/Fellow, if applicable. I also have reviewed and agree with the assessment and plan as stated above and agree with all of its relevant components. Anila Tamayo MD documented in this encounter [facility] 11-09-2024 Telephone encounter Note Yudith is requesting a refill for Requested Prescriptions Pending Prescriptions Disp Refills finasteride (PROSCAR) 5 mg tablet 90 tablet 1 Sig: Take 1 (one) tablet (5 mg total) by mouth daily . potassium chloride 10 MEQ CR tablet 90 tablet 1 Sig: Take 1 (one) tablet (10 mEq total) by mouth daily . tamsulosin (FLOMAX) 0.4 mg capsule 90 capsule 1 Sig: Take 1 (one) capsule (0.4 mg total) by mouth daily . Last refill: 05/25/2024 90 day with 1 rf for all med Last appt: 10/19/2024 Upcoming appt (when is it due or is it scheduled): 01/06/2025 Please send to [facility] [place] [facility] AT Portal to Registered [facility] [id number] Follow up: Refill pending for review without additional follow up based on information above. [facility] 11-09-2024 Miscellaneous Notes Yudith is requesting a refill for Requested Prescriptions Pending Prescriptions Disp Refills finasteride (PROSCAR) 5 mg tablet 90 tablet 1 Sig: Take 1 (one) tablet (5 mg total) by mouth daily . potassium chloride 10 MEQ CR tablet 90 tablet 1 Sig: Take 1 (one) tablet (10 mEq total) by mouth daily . tamsulosin (FLOMAX) 0.4 mg capsule 90 capsule 1 Sig: Take 1 (one) capsule (0.4 mg total) by mouth daily . Last refill: 05/25/2024 90 day with 1 rf for all med Last appt: 10/19/2024 Upcoming appt (when is it due or is it scheduled): 01/06/[address] [facility] AT Portal to Registered [facility] [place] [address] Follow up: Refill pending for review without additional follow up based on information above. documented in this encounter [facility] 11-04-2024 History of Present illness Narrative Subjective Patient ID: Yudith Morin is a 89 y.o. male. HPI Patient is here for 9 month follow up with PSA. Most recent PSA was 1.13 on 11/17. . Prior PSA was 0.85 on 11/16. Prior PSA was 1.34 on 10/16. Prior PSA was 0.82 on 09/2021. Prior PSA was 0.78 on 09/2020. Prior PSA was 0.87 on 09/2019. Chronic BPH sx are mild and stable. Denies urgency and frequency. Denies dysuria. Denies hematuria. Nocturia x1 He is taking Finasteride and Flomax.. Patient has chronic hx of microhematuria. Negative workup in the past. ED is chronic and this is an issue. Cialis 20mg PRN. Nocturia x1, depending on fluid intake. Review of Systems Constitutional: Negative for chills and fever. HENT: Negative. Eyes: Negative. Respiratory: Negative for cough and shortness of breath. Cardiovascular: Negative for chest pain and leg swelling. Gastrointestinal: Negative for nausea. Endocrine: Negative. Genitourinary: Negative for difficulty urinating. Negative except for documented in HPI Allergic/Immunologic: Negative. Neurological: Alert & oriented X 3 Hematological: Denies blood thinners Psychiatric/Behavioral: Negative. Objective Physical Exam Vitals and nursing note reviewed. Constitutional: General: He is not in acute distress. Appearance: Normal appearance. Pulmonary: Effort: Pulmonary effort is normal. Abdominal: Tenderness: There is no abdominal tenderness. Genitourinary: Comments: Kidneys non palpable bilaterally Bladder non palpable or tender Scrotum no mass, No hydrocele Epididymis- No spermatocele. Non Tender. Testicles: No mass. WNL Urethra: No discharge Penis within normal limits... No lesions. No phimosis Prostate - symmetric, no nodules. BENIGN Seminal Vesicals: No mass. Sphincter tone: normal Neurological: Mental Status: He is alert. Assessment/Plan Diagnoses and all orders for this visit: Erectile dysfunction, unspecified erectile dysfunction type Nocturia 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 All available PSA values reviewed, Options discussed. Questions answered. Diet changes for prostate health discussed and educational information given. Pros/Cons of prostate health supplements discussed. Treatment options for LUTS reviewed Proscar and Flomax refills authorized Discussed timed voiding. Discussed fluid and caffeine intake Treatment options for ED reviewed. Continue Cialis 20mg PRN Sildenafil Rx 100mg #30 refilled-patient alternates with C[facility] Lifestyle change to help prevent UTIs discussed. Encouraged fluid intake. BMP reviewed F/U 1 year with PSA documented in this encounter [facility] Work Phone: 10-29-2024 History of Present illness Narrative 11 General Cardiology Returning Patient Clinic Visit [facility], Heart & Vascular 10/29/2024 Stephanie Simpson MD [address], 3rd Floor Medical Office [facility] [address] [facility] Heart and Vascular Physician Group, physician's office 10/29/2024 Patient: Yudith Morin Date of : 1935 (89 y.o.) PCP: Deuce Mendez MD Chief Complaint: Follow-up (Yearly) Date of Service: 10/29/2024 Assessment and Plan: 1. 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 We did talk about increasing statin however he feels as though he tolerates current regimen well 2. Primary hypertension Blood pressures are well-controlled today and at home, no changes 3. Dyslipidemia As above It has been a pleasure caring for this patient. Please don't hesitate to reach out to my office directly with any questions or concerns. Follow-up: Return in about 1 year (around 10/29/2025). Stephanie Simpson MD, [facility] Non-Invasive Cardiology [facility] V[facility] Physician Group P:[phone] F:[phone] ---- History of Present Illness: Yudith Morin is a 89 y.o. man with a past medical history of coronary disease having had bypass grafting in 2010. He has hypertension, hyperlipidemia, chronic kidney disease, anxiety disorder. I saw him in the office this past May. Echo had been updated last October which showed an EF of 60%. He had mild mitral valve insufficiency. When I saw him in May he was doing well he was golfing regularly and feeling well. We updated carotid duplex study which showed less than 50% stenosis in the right internal carotid less than 50% stenosis in the left internal carotid. T he continues to feel well and and remain active. Not having any chest pain pressure shortness of breath taking any nitro. Does inquire as to the patency of his grafts, has not had any evaluation since 2010 Objective Review of Systems: All systems were reviewed and noted to be negative unless otherwise stated in HPI. 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 BPH (benign prostatic hypertrophy) CAD (coronary artery disease) 2 vessel cabg; neri to lad and svg to the rca Chronic kidney disease Heart disease Hemorrhoids Hiatal hernia 04/14/2024 AFS grade IV, 3 cm type-I sliding History of skin cancer Hyperlipidemia Labile hypertension Stomach ulcer Urinary bleeding Viral hepatitis Past Surgical History: Procedure Laterality Date CABG 2010 CARDIAC CATHETERIZATION 2010 2 vessel cad CARDIAC CATHETERIZATION 1998 mod stenosis of the prox lad CATARACT EXT/ECCE Bilateral CHOLECYSTECTOMY 1987 COLONOSCOPY 07/19/2015 [place] CORONARY ARTERY BYPASS GRAFT 2010 neri to lad/svg to rca EGD N/A 04/27/2021 Procedure: ESOPHAGOGASTRODUODENOSCOPY WITH BIOPSY; Surgeon: Mickey Fortune MD; Location: [facility]; Service: General Surgery ESOPHAGOGASTRODUODENOSCOPY 07/19/2015 Sharma's...[place] in [place] ESOPHAGOGASTRODUODENOSCOPY 08/19/2018 gastritis....Dr. Fortune [place] ESOPHAGOGASTRODUODENOSCOPY TRANSORAL DIAGNOSTIC N/A 04/14/2024 Procedure: ESOPHAGOGASTRODUODENOSCOPY WITH BIOPSY (ptek); Surgeon: Mickey Fortune MD; Location: [facility]; Service: General Surgery SKIN LESION EXCISION TONSILLECTOMY 1942 Family History Problem Relation Age of Onset Heart attack Father Breast cancer Mother Social History Tobacco Use Smoking Status Never Smokeless Tobacco Never Allergies: Patient has no known allergies. All of the above information has been reviewed at today's visit and modified if necessary. Home Medications: Current Outpatient Medications: amLODIPine (NORVASC) 10 MG tablet, Take 1 (one) tablet (10 mg total) by mouth with evening meal ., Disp: 90 tablet, Rfl: 0 aspirin 81 MG EC tablet, Take 1 (one) tablet (81 mg total) by mouth daily ., Disp: , Rfl: BEE POLLEN ORAL, Take 2 capsules by mouth daily ., Disp: , Rfl: calcium carbonate (TUMS ORAL), Take by mouth ., Disp: , Rfl: cholecalciferol, vitamin D3, 5,000 unit Tab tablet, Take 1 (one) tablet (5,000 Units total) by mouth daily ., Disp: , Rfl: docusate sodium (COLACE) 250 MG capsule, Take 1 (one) capsule (250 mg total) by mouth daily ., Disp: , Rfl: famotidine (PEPCID) 20 MG tablet, Take 1 (one) tablet (20 mg total) by mouth 2 (two) times a day ., Disp: 180 tablet, Rfl: 1 ferrous sulfate 325 (65 FE) MG tablet, Take 1 (one) tablet (325 mg total) by mouth daily with breakfast ., Disp: , Rfl: finasteride (PROSCAR) 5 mg tablet, Take 1 (one) tablet (5 mg total) by mouth daily ., Disp: 90 tablet, Rfl: 1 fluconazole (DIFLUCAN) 200 MG tablet, Take 1 (one) tablet (200 mg total) by mouth once a week Takes 2 on Saturday ., Disp: , Rfl: labetaloL (NORMODYNE) 100 MG tablet, Take 1 (one) tablet (100 mg total) by mouth 2 (two) times a day ., Disp: 180 tablet, Rfl: 0 latanoprost (XALATAN) 0.005 % ophthalmic solution, Administer 1 (one) drop to both eyes nightly ., Disp: , Rfl: LORazepam (ATIVAN) 1 MG tablet, Take 1 (one) tablet (1 mg total) by mouth daily ., Disp: 30 tablet, Rfl: 2 losartan-hydrochlorothiazide (HYZAAR) 100-25 mg per tablet, Take 1 (one) tablet by mouth daily with lunch ., Disp: 90 tablet, Rfl: 1 ondansetron (ZOFRAN) 4 MG tablet, Take 1 (one) tablet (4 mg total) by mouth every 8 (eight) hours as needed for nausea ., Disp: , Rfl: potassium chloride 10 MEQ CR tablet, Take 1 (one) tablet (10 mEq total) by mouth daily ., Disp: 90 tablet, Rfl: 1 psyllium (METAMUCIL) 3.4 gram packet, Take 1 (one) packet by mouth daily as needed ., Disp: , Rfl: sertraline (ZOLOFT) 50 MG tablet, Take 1 (one) tablet (50 mg total) by mouth daily ., Disp: 90 tablet, Rfl: 3 sildenafil citrate (SILDENAFIL ORAL), Take by mouth daily as needed for erectile dysfunction ., Disp: , Rfl: simvastatin (ZOCOR) 20 MG tablet, Take 1 (one) tablet (20 mg total) by mouth daily ., Disp: 90 tablet, Rfl: 1 tamsulosin (FLOMAX) 0.4 mg capsule, Take 1 (one) capsule (0.4 mg total) by mouth daily ., Disp: 90 capsule, Rfl: 1 b complex vitamins capsule, Take 1 (one) capsule by mouth daily . (Patient not taking: Reported on 10/29/2024 .), Disp: , Rfl: DORZOLAMIDE HCL/TIMOLOL MALEAT (COSOPT OPHT), Apply to eye 2 (two) times a day Right eye (Patient not taking: Reported on 10/29/2024 .), Disp: , Rfl: Physical Exam: BP 112/69 (BP Location: Left arm, Patient Position: Sitting, BP Cuff Size: Adult) Pulse 71 Ht 6' 1 Wt 78 kg (172 lb) SpO2 97% BMI 22.69 kg/m Constitutional: Well appearing male, no acute distress Head: Normocephalic and atraumatic. Eyes: Conjunctivae are normal, no scleral icterus, no corneal arcus Neck: No acanthosis nigricans, no elevated jugular venous distension, no hepatojugular reflux Cardiovascular: Regular rate and rhythm, no murmurs appreciated on today's exam, normal S1 and S2, no rubs or gallops, PMI is midline Pulses: +2 dorsalis pedis pulses bilaterally Musculoskeletal: Normal range of motion. No cyanosis. No peripheral Edema Neurological: AOx3, moving all extremities normally Skin: Skin is warm and dry, normal hair pattern Psychiatric: Normal mood and affect, appropriate conversation Cardiovascular Studies: EKG reviewed from 2022, normal sinus rhythm, poor R wave progression, no ischemia or infarction Labs: Lab Results Component Value Date GLUCOSE 105 (H) 03/16/2024 CALCIUM 9.0 03/16/2024 NA 143 03/16/2024 K 4.0 03/16/2024 CL 106 03/16/2024 BUN 20 03/16/2024 CREATININE 1.28 03/16/2024 Lab Results Component Value Date ALT 21 03/16/2024 AST 25 03/16/2024 ALKPHOS 75 03/16/2024 BILITOT 1.3 03/16/2024 Lab Results Component Value Date WBC 6.53 03/16/2024 HGB 12.7 (L) 03/16/2024 HCT 37.7 (L) 03/16/2024 MCV 98.7 03/16/2024 EXTMCV 100.0 10/09/2024 PLT 178 03/16/2024 RBC 3.82 (L) 03/16/2024 Lab Results Component Value Date CHOL 165 03/16/2024 LDLCALC 92 03/16/2024 TRIG 78 03/16/2024 HDL 57 03/16/2024 Lab Results Component Value Date HGBA1C 5.8 (H) 03/16/2024 Lab Results Component Value Date ALT 21 03/16/2024 AST 25 03/16/2024 ALKPHOS 75 03/16/2024 BILITOT 1.3 03/16/2024 The ASCVD Risk score (Naina DK, et al., 2019) failed to calculate for the following reasons: The 2019 ASCVD risk score is only valid for ages 40 to 79 documented in this encounter [facility] 10-29-2024 Note 11 General Cardiology Returning Patient Clinic Visit [facility], Heart & Vascular 10/29/2024 Stephanie Simpson MD [address] [place] [address], 3rd Floor Medical Office [facility] [phone] [facility] Heart and Vascular Physician Group, physician's office 10/29/2024 Patient: Yudith Morin Date of : 1935 (89 y.o.) PCP: Deuce Mendez MD Chief Complaint: Follow-up (Yearly) Date of Service: 10/29/2024 Assessment and Plan: 1. 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 We did talk about increasing statin however he feels as though he tolerates current regimen well 2. Primary hypertension Blood pressures are well-controlled today and at home, no changes 3. Dyslipidemia As above It has been a pleasure caring for this patient. Please don't hesitate to reach out to my office directly with any questions or concerns. Follow-up: Return in about 1 year (around 10/29/2025). Stephanie Simpson MD, [facility] Non-Invasive Cardiology [facility] P:[phone] F:[phone] ---- History of Present Illness: Yudith Morin is a 89 y.o. man with a past medical history of coronary disease having had bypass grafting in 2010. He has hypertension, hyperlipidemia, chronic kidney disease, anxiety disorder. I saw him in the office this past May. Echo had been updated last October which showed an EF of 60%. He had mild mitral valve insufficiency. When I saw him in May he was doing well he was golfing regularly and feeling well. We updated carotid duplex study which showed less than 50% stenosis in the right internal carotid less than 50% stenosis in the left internal carotid. T he continues to feel well and and remain active. Not having any chest pain pressure shortness of breath taking any nitro. Does inquire as to the patency of his grafts, has not had any evaluation since 2010 Objective Review of Systems: All systems were reviewed and noted to be negative unless otherwise stated in HPI. 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 BPH (benign prostatic hypertrophy) CAD (coronary artery disease) 2 vessel cabg; neri to lad and svg to the rca Chronic kidney disease Heart disease Hemorrhoids Hiatal hernia 04/14/2024 AFS grade IV, 3 cm type-I sliding History of skin cancer Hyperlipidemia Labile hypertension Stomach ulcer Urinary bleeding Viral hepatitis Past Surgical History: Procedure Laterality Date CABG 2010 CARDIAC CATHETERIZATION 2010 2 vessel cad CARDIAC CATHETERIZATION 1998 mod stenosis of the prox lad CATARACT EXT/ECCE Bilateral CHOLECYSTECTOMY 1987 COLONOSCOPY 07/19/2015 [facility] CORONARY ARTERY BYPASS GRAFT 2010 neri to lad/svg to rca EGD N/A 04/27/2021 Procedure: ESOPHAGOGASTRODUODENOSCOPY WITH BIOPSY; Surgeon: Mickey Fortune MD; Location: [facility]; Service: General Surgery ESOPHAGOGASTRODUODENOSCOPY 07/19/2015 Sharma's...[facility]ae in [place] ESOPHAGOGASTRODUODENOSCOPY 08/19/2018 gastritis....Dr. Fortune [place] ESOPHAGOGASTRODUODENOSCOPY TRANSORAL DIAGNOSTIC N/A 04/14/2024 Procedure: ESOPHAGOGASTRODUODENOSCOPY WITH BIOPSY (ptek); Surgeon: Mickey Fortune MD; Location: [facility]; Service: General Surgery SKIN LESION EXCISION TONSILLECTOMY 1942 Family History Problem Relation Age of Onset Heart attack Father Breast cancer Mother Social History Tobacco Use Smoking Status Never Smokeless Tobacco Never Allergies: Patient has no known allergies. All of the above information has been reviewed at today's visit and modified if necessary. Home Medications: Current Outpatient Medications: amLODIPine (NORVASC) 10 MG tablet, Take 1 (one) tablet (10 mg total) by mouth with evening meal ., Disp: 90 tablet, Rfl: 0 aspirin 81 MG EC tablet, Take 1 (one) tablet (81 mg total) by mouth daily ., Disp: , Rfl: BEE POLLEN ORAL, Take 2 capsules by mouth daily ., Disp: , Rfl: calcium carbonate (TUMS ORAL), Take by mouth ., Disp: , Rfl: cholecalciferol, vitamin D3, 5,000 unit Tab tablet, Take 1 (one) tablet (5,000 Units total) by mouth daily ., Disp: , Rfl: docusate sodium (COLACE) 250 MG capsule, Take 1 (one) capsule (250 mg total) by mouth daily ., Disp: , Rfl: famotidine (PEPCID) 20 MG tablet, Take 1 (one) tablet (20 mg total) by mouth 2 (two) times a day ., Disp: 180 tablet, Rfl: 1 ferrous sulfate 325 (65 FE) MG tablet, Take 1 (one) tablet (325 mg total) by mouth daily with breakfast ., Disp: , Rfl: finasteride (PROSCAR) 5 mg tablet, Take 1 (one) tablet (5 mg total) by mouth daily ., Disp (more content not included)... [facility] 10-29-2024 Instructions Roseline Nash RN - 10/29/2024 9:01 AM EST How to Contact your Care Team: Provider: Dr. Stephanie Simpson MD Clinic Nurse: Roseline Ríos RN Clinic MA: Aidan Todd MA REFILLS: When in need for refills please call your care team or the office at [phone]. Please include medication name, pharmacy name, and specify 30-day or 90-day supply. Please check with your pharmacy within 24 hours of request for your refill. You must follow up as directed to continue current refills. Thank you! NUCLEAR MEDICINE CARDIAC STRESS TEST THIS IS A 3-4 HOUR TEST Instructions: Appointment Time: , ____/____/____ at ____:____ Prep: DO NOT Take your morning medications. Please bring your morning medications with you. NO CAFFEINE FOR 24 HOURS prior to your test. This includes drinks labeled decaffeinated. Nothing to eat 4 hours prior to your test. A small snack will be provided (crackers, granola bar, juice), or you may bring your own snack for after your stress test. You may drink fluids leading up to your test as long as they are caffeine-free. Decaffeinated drinks still contain some caffeine, please do not drink anything containing caffeine for 24 hours. NO SMOKING the day of your test. Wear comfortable shoes and clothing for exercising. Please wear short sleeves. No metal buttons or snaps. Procedure: Check-in/Registration. Please bring photo ID, insurance cards, and any physician orders. Test explained in detail and IV started. Stress test performed, nuclear medicine will be injected through your IV during the stress test. Stress test recovery period. Heart scan performed. The doctor will review the pictures of your heart and decide if more pictures are needed before you leave. If more are needed you will get another injection of nuclear medicine and this will take an additional hour. The total time for this test is 3-4 hours. There are medications that interfere with this test. You may be instructed to hold medications. If so that will be listed here: If you have any further questions please contact your care team or [phone]. documented in this encounter [facility] 10-19-2024 Note Subjective Patient ID: Yudith Morin is a 89 y.o. male. Chief Complaint Patient presents with Ear Fullness Ear Fullness Yudith is an 89 year old male that comes to office with complaint of ear fullness and medication refill. States over past week he has been using OTC ear wax removal drops, no relief of symptoms. States he typically needs his ears cleaned out every 6 months, and last time was about a year ago. States his hearing is muffled. Denies any pain. Does note he shaved his barr yesterday, and now has pimple like area to left reyes. Patient is also requesting 3 month refill for his amlodopine 10mg. The following portions of the patient's history were reviewed and updated as appropriate: allergies, current medications, past family history, past medical history, past social history, past surgical history, and problem list. 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 BPH (benign prostatic hypertrophy) CAD (coronary artery disease) 2 vessel cabg; neri to lad and svg to the rca Chronic kidney disease Heart disease Hemorrhoids Hiatal hernia 04/14/2024 AFS grade IV, 3 cm type-I sliding History of skin cancer Hyperlipidemia Labile hypertension Stomach ulcer Urinary bleeding Viral hepatitis Past Surgical History: Procedure Laterality Date CABG 2010 CARDIAC CATHETERIZATION 2010 2 vessel cad CARDIAC CATHETERIZATION 1998 mod stenosis of the prox lad CATARACT EXT/ECCE Bilateral CHOLECYSTECTOMY 1987 COLONOSCOPY 07/19/2015 [facility] CORONARY ARTERY BYPASS GRAFT 2010 neri to lad/svg to rca EGD N/A 04/27/2021 Procedure: ESOPHAGOGASTRODUODENOSCOPY WITH BIOPSY; Surgeon: Mickey Fortune MD; Location: [facility]; Service: General Surgery ESOPHAGOGASTRODUODENOSCOPY 07/19/2015 Sharma's...[facility]ae in [place] ESOPHAGOGASTRODUODENOSCOPY 08/19/2018 gastritis....Dr. Fortune [place] ESOPHAGOGASTRODUODENOSCOPY TRANSORAL DIAGNOSTIC N/A 04/14/2024 Procedure: ESOPHAGOGASTRODUODENOSCOPY WITH BIOPSY (ptek); Surgeon: Mickey Fortune MD; Location: [facility]; Service: General Surgery SKIN LESION EXCISION TONSILLECTOMY 1942 Social History Tobacco Use Smoking status: Never Smokeless tobacco: Never Vaping Use Vaping status: Never Used Substance Use Topics Alcohol use: No Drug use: No Family History Problem Relation Age of Onset Heart attack Father Breast cancer Mother No Known Allergies Outpatient Medications as of 10/19/2024 Medication Sig aspirin 81 MG EC tablet Take 1 (one) tablet (81 mg total) by mouth daily . b complex vitamins capsule Take 1 (one) capsule by mouth daily . BEE POLLEN ORAL Take 2 capsules by mouth daily . cholecalciferol, vitamin D3, 5,000 unit Tab tablet Take 1 (one) tablet (5,000 Units total) by mouth daily . docusate sodium (COLACE) 250 MG capsule Take 1 (one) capsule (250 mg total) by mouth daily . DORZOLAMIDE HCL/TIMOLOL MALEAT (COSOPT OPHT) Apply to eye 2 (two) times a day Right eye famotidine (PEPCID) 20 MG tablet Take 1 (one) tablet (20 mg total) by mouth 2 (two) times a day . ferrous sulfate 325 (65 FE) MG tablet Take 1 (one) tablet (325 mg total) by mouth daily with breakfast . finasteride (PROSCAR) 5 mg tablet Take 1 (one) tablet (5 mg total) by mouth daily . fluconazole (DIFLUCAN) 200 MG tablet Take 1 (one) tablet (200 mg total) by mouth once a week Takes 2 on Saturday . labetaloL (NORMODYNE) 100 MG tablet Take 1 (one) tablet (100 mg total) by mouth 2 (two) times a day . latanoprost (XALATAN) 0.005 % ophthalmic solution Administer 1 (one) drop to both eyes nightly . LORazepam (ATIVAN) 1 MG tablet Take 1 (one) tablet (1 mg total) by mouth daily . losartan-hydrochlorothiazide (HYZAAR) 100-25 mg per tablet Take 1 (one) tablet by mouth daily with lunch . ondansetron (ZOFRAN) 4 MG tablet Take 1 (one) tablet (4 mg total) by mouth every 8 (eight) hours as needed for nausea . potassium chloride 10 MEQ CR tablet Take 1 (one) tablet (10 mEq total) by mouth daily . psyllium (METAMUCIL) 3.4 gram packet Take 1 (one) packet by mouth daily as needed . sertraline (ZOLOFT) 50 MG tablet Take 1 (one) tablet (50 mg total) by mouth daily . sildenafil citrate (SILDENAFIL ORAL) Take by mouth daily as needed for erectile dysfunction . simvastatin (ZOCOR) 20 MG tablet Take 1 (one) tablet (20 mg total) by mouth daily . tamsulosin (FLOMAX) 0.4 mg capsule Take 1 (one) capsule (0.4 mg total) by mouth daily . [DISCONTINUED] amLODIPine (NORVASC) 10 MG tablet Take 1 (one) tablet (10 mg total) by mouth with evening meal . (Patient taking differently: Take 1 (one) tablet (10 mg total) by mouth with evening meal Not taking on Saturday's .) Review of Systems Constitutional: Negative for chills and fever. HENT: Ear wax build up Respiratory: Negative for shortness of breath. Cardiovascular: Negative for chest pain, palpitations and l (more content not included)... [facility] 10-19-2024 History of Present illness Narrative Images from the original note were not included. Subjective Patient ID: Yudith Morin is a 89 y.o. male. Chief Complaint Patient presents with Ear Fullness Ear Fullness Yudith is an 89 year old male that comes to office with complaint of ear fullness and medication refill. States over past week he has been using OTC ear wax removal drops, no relief of symptoms. States he typically needs his ears cleaned out every 6 months, and last time was about a year ago. States his hearing is muffled. Denies any pain. Does note he shaved his barr yesterday, and now has pimple like area to left reyes. Patient is also requesting 3 month refill for his amlodopine 10mg. The following portions of the patient's history were reviewed and updated as appropriate: allergies, current medications, past family history, past medical history, past social history, past surgical history, and problem list. 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 BPH (benign prostatic hypertrophy) CAD (coronary artery disease) 2 vessel cabg; neri to lad and svg to the rca Chronic kidney disease Heart disease Hemorrhoids Hiatal hernia 04/14/2024 AFS grade IV, 3 cm type-I sliding History of skin cancer Hyperlipidemia Labile hypertension Stomach ulcer Urinary bleeding Viral hepatitis Past Surgical History: Procedure Laterality Date CABG 2010 CARDIAC CATHETERIZATION 2010 2 vessel cad CARDIAC CATHETERIZATION 1998 mod stenosis of the prox lad CATARACT EXT/ECCE Bilateral CHOLECYSTECTOMY 1987 COLONOSCOPY 07/19/2015 [facility] CORONARY ARTERY BYPASS GRAFT 2010 neri to lad/svg to rca EGD N/A 04/27/2021 Procedure: ESOPHAGOGASTRODUODENOSCOPY WITH BIOPSY; Surgeon: Mickey Fortune MD; Location: [facility]; Service: General Surgery ESOPHAGOGASTRODUODENOSCOPY 07/19/2015 Sharma's...[facility]ae in [place] ESOPHAGOGASTRODUODENOSCOPY 08/19/2018 gastritis....Dr. Fortune [place] ESOPHAGOGASTRODUODENOSCOPY TRANSORAL DIAGNOSTIC N/A 04/14/2024 Procedure: ESOPHAGOGASTRODUODENOSCOPY WITH BIOPSY (ptek); Surgeon: Mickey Fortune MD; Location: [facility]; Service: General Surgery SKIN LESION EXCISION TONSILLECTOMY 1942 Social History Tobacco Use Smoking status: Never Smokeless tobacco: Never Vaping Use Vaping status: Never Used Substance Use Topics Alcohol use: No Drug use: No Family History Problem Relation Age of Onset Heart attack Father Breast cancer Mother No Known Allergies Outpatient Medications as of 10/19/2024 Medication Sig aspirin 81 MG EC tablet Take 1 (one) tablet (81 mg total) by mouth daily . b complex vitamins capsule Take 1 (one) capsule by mouth daily . BEE POLLEN ORAL Take 2 capsules by mouth daily . cholecalciferol, vitamin D3, 5,000 unit Tab tablet Take 1 (one) tablet (5,000 Units total) by mouth daily . docusate sodium (COLACE) 250 MG capsule Take 1 (one) capsule (250 mg total) by mouth daily . DORZOLAMIDE HCL/TIMOLOL MALEAT (COSOPT OPHT) Apply to eye 2 (two) times a day Right eye famotidine (PEPCID) 20 MG tablet Take 1 (one) tablet (20 mg total) by mouth 2 (two) times a day . ferrous sulfate 325 (65 FE) MG tablet Take 1 (one) tablet (325 mg total) by mouth daily with breakfast . finasteride (PROSCAR) 5 mg tablet Take 1 (one) tablet (5 mg total) by mouth daily . fluconazole (DIFLUCAN) 200 MG tablet Take 1 (one) tablet (200 mg total) by mouth once a week Takes 2 on Saturday . labetaloL (NORMODYNE) 100 MG tablet Take 1 (one) tablet (100 mg total) by mouth 2 (two) times a day . latanoprost (XALATAN) 0.005 % ophthalmic solution Administer 1 (one) drop to both eyes nightly . LORazepam (ATIVAN) 1 MG tablet Take 1 (one) tablet (1 mg total) by mouth daily . losartan-hydrochlorothiazide (HYZAAR) 100-25 mg per tablet Take 1 (one) tablet by mouth daily with lunch . ondansetron (ZOFRAN) 4 MG tablet Take 1 (one) tablet (4 mg total) by mouth every 8 (eight) hours as needed for nausea . potassium chloride 10 MEQ CR tablet Take 1 (one) tablet (10 mEq total) by mouth daily . psyllium (METAMUCIL) 3.4 gram packet Take 1 (one) packet by mouth daily as needed . sertraline (ZOLOFT) 50 MG tablet Take 1 (one) tablet (50 mg total) by mouth daily . sildenafil citrate (SILDENAFIL ORAL) Take by mouth daily as needed for erectile dysfunction . simvastatin (ZOCOR) 20 MG tablet Take 1 (one) tablet (20 mg total) by mouth daily . tamsulosin (FLOMAX) 0.4 mg capsule Take 1 (one) capsule (0.4 mg total) by mouth daily . [DISCONTINUED] amLODIPine (NORVASC) 10 MG tablet Take 1 (one) tablet (10 mg total) by mouth with evening meal . (Patient taking differently: Take 1 (one) tablet (10 mg total) by mouth with evening meal Not taking on .) Review of Systems Constitutional: Negative for chills and fever. HENT: Ear wax build up Respiratory: Negative for shortness of breath. Cardiovascular: Negative for chest pain, palpitations and leg swelling. Objective BP 111/67 (BP Location: Left arm, Patient Position: Sitting, BP Cuff Size: Adult) Pulse 75 Temp 97.1 F (36.2 C) Resp 16 Ht 6' 1 Wt 77.4 kg (170 lb 11.2 oz) SpO2 94% BMI 22.52 kg/m Physical Exam Constitutional: General: He is not in acute distress. Appearance: He is not ill-appearing or toxic-appearing. HENT: Right Ear: External ear normal. There is impacted cerumen. Left Ear: External ear normal. There is impacted cerumen. Ears: Comments: After debridement of bilateral ears, TM was visualized and pearly chao with light reflex intact Mouth/Throat: Mouth: Mucous membranes are moist. Pharynx: Oropharynx is clear. Eyes: Extraocular Movements: Extraocular movements intact. Conjunctiva/sclera: Conjunctivae normal. Pulmonary: Effort: No respiratory distress. Skin: General: Skin is warm and dry. Comments: Pimple like lesion to under left chin, no drainage, no surrounding erythema, no warmyth Neurological: Mental Status: He is alert and oriented to person, place, and time. Psychiatric: Mood and Affect: Mood normal. Behavior: Behavior normal. Thought Content: Thought content normal. Judgment: Judgment normal. Assessment/Plan: Diagnoses and all orders for this visit: Bilateral impacted cerumen Primary hypertension - amLODIPine (NORVASC) 10 MG tablet; Take 1 (one) tablet (10 mg total) by mouth with evening meal . After bilateral ear debridement per GARCIA Baez, bilateral TM were visualized, pearly chao with light reflex intact. Patient notes improvement in hearing. Refill of amlodipine sent to pharmacy per patient request. Patient states he is doing well on amlodipine and has been taking this medication for a long time. If you experience symptoms of low blood pressure, such as dizziness or falls, he should contact the office immediately. If blood pressure readings are consistently below 100 systolic and 60 diastolic, you should inform the office as this may indicate that the medication dosage is too high. Patient verbalized understanding and in agreement with plan of care. documented in this encounter [facility] 10-09-2024 Note Subjective Patient I D: Yudith Morin is a 89 y.o. male here for Chief Complaint Patient presents with Follow-up Already got flu shot-3 month f/u After discussing the use of ambient listening and audio recording in generating medical documentation, the patient verbally consented to use of this technology for today's visit. History of Present Illness CAD: The patient underwent coronary artery bypass surgery in [facility] to LAD, SVG to RCA 2010. He typically experiences swelling during the day due to a vein being removed. He is currently on statins. Following up with cardiology. Anxiety and insomnia: The patient reports an improvement in his anxiety symptoms following the reduction in his lorazepam dosage to 0.5 mg or 0.25 mg. However, he continues to experience sleep disturbances, including occasional nocturnal awakenings and occasional difficulty returning to sleep, particularly towards the morning. He expresses concern about the potential impact of lorazepam on his sleep quality, a condition he has been on for an extended period. Has been doing well tolerating Zoloft at 25 mg with no concerns Leg weakness: The patient has been experiencing leg weakness since 02/2023, which he attributes to his low blood pressure. He was previously prescribed mirtazapine, which he took for 30 days, but discontinued its use a few months ago due to perceived weakness and instability in his legs. He also reports difficulty walking in a straight line and discomfort in his legs. He has a history of back pain, for which he saw a structural steel painter at [place]. He received an injection a year ago due to radiating pain down the inside of his leg, which provided relief. He also received another injection a month ago. He occasionally experiences pain in his belt line when he bends over and straightens up. He underwent an EMG in 03/2022, ordered by former PCP, but has not received the results. He denies experiencing claudication or cramping in the calf. Supplemental Information He has toenail fungus. His secure software assessor wanted him to try fluconazole. He takes 2 of those on Fridays for 3 months once a week. On the day he takes those, he does not take amlodipine and simvastatin. Hypertension: He reports overall good health since his last visit. He has been monitoring his blood pressure at home and notes that it tends to drop slightly when he stands up quickly. He is currently on a regimen of labetalol 100 mg twice daily, in addition to losartan hydrochlorothiazide and amlodipine in the evening. He underwent a [employer] screening in 06/2024, which included an EKG, AAA screening, peripheral artery disease screening, and carotid artery disease screening, all of which were normal. He also has a history of ear wax buildup, which he typically has cleaned every 6 months, but it has been a year since his last cleaning. He uses a softener for his ears and reports no hearing issues. Right knee pain: He experiences intermittent severe pain in his right knee, which is not currently present. The pain does not interfere with his walking but is more noticeable when golfing on an incline or downhill. He has experienced his knee giving out three times. He has been seeing Dr. Hart for pain management, who previously treated him for back pain with an injection. However, an injection in his knee did not provide relief. An x-ray of his knee revealed arthritis. He has an upcoming appointment with Dr. Bella and is considering a referral to an orthopedic doctor. He recalls an incident two weeks ago where his leg gave out while golfing, causing him to fall. He has been taking vitamin B12 and B complex supplements as recommended by Dr. Flores due to low levels of vitamin B. He is interested in having his 6-month blood work done today, including checking his vitamin D3 and B12 levels. 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 BPH (benign prostatic hypertrophy) CAD (coronary artery disease) 2 vessel cabg; neri to lad and svg to the rca Chronic kidney disease Heart disease Hemorrhoids Hiatal hernia 04/14/2024 AFS grade IV, 3 cm type-I sliding History of skin cancer Hyperlipidemia Labile hypertension Stomach ulcer Urinary bleeding Viral hepatitis Past Surgical History: Procedure Laterality Date CABG 2010 CARDIAC CATHETERIZATION 2010 2 vessel cad CARDIAC CATHETERIZATION 1998 mod stenosis of the prox lad CATARACT EXT/ECCE Bilateral CHOLECYSTECTOMY 1987 COLONOSCOPY 07/19/2015 [facility] CORONARY ARTERY BYPASS GRAFT 2010 neri to lad/svg to rca EGD N/A 04/27/2021 Procedure: ESOPHAGOGASTRODUODENOSCOPY WITH BIOPSY; Surgeon: Mickey Fortune MD; Location: [facility]; Service: General Surgery ESOPHAGOGASTRODUODENOSCOPY 07/19/2015 Sharma's...[facility]ae in [place] ESOPHAGOGASTRODUODENOSCOPY 08/19/2018 gastritis. (more content not included)... [facility] 10-09-2024 History of Present illness Narrative Subjective Patient ID: Yudith Morin is a 89 y.o. male here for Chief Complaint Patient presents with Follow-up Already got flu shot-3 month f/u After discussing the use of ambient listening and audio recording in generating medical documentation, the patient verbally consented to use of this technology for today's visit. History of Present Illness CAD: The patient underwent coronary artery bypass surgery in [place] [facility] to LAD, SVG to RCA 2010. He typically experiences swelling during the day due to a vein being removed. He is currently on statins. Following up with cardiology. Anxiety and insomnia: The patient reports an improvement in his anxiety symptoms following the reduction in his lorazepam dosage to 0.5 mg or 0.25 mg. However, he continues to experience sleep disturbances, including occasional nocturnal awakenings and occasional difficulty returning to sleep, particularly towards the morning. He expresses concern about the potential impact of lorazepam on his sleep quality, a condition he has been on for an extended period. Has been doing well tolerating Zoloft at 25 mg with no concerns Leg weakness: The patient has been experiencing leg weakness since 02/2023, which he attributes to his low blood pressure. He was previously prescribed mirtazapine, which he took for 30 days, but discontinued its use a few months ago due to perceived weakness and instability in his legs. He also reports difficulty walking in a straight line and discomfort in his legs. He has a history of back pain, for which he saw a structural steel painter at [place]. He received an injection a year ago due to radiating pain down the inside of his leg, which provided relief. He also received another injection a month ago. He occasionally experiences pain in his belt line when he bends over and straightens up. He underwent an EMG in 03/2022, ordered by former PCP, but has not received the results. He denies experiencing claudication or cramping in the calf. Supplemental Information He has toenail fungus. His secure software assessor wanted him to try fluconazole. He takes 2 of those on Fridays for 3 months once a week. On the day he takes those, he does not take amlodipine and simvastatin. Hypertension: He reports overall good health since his last visit. He has been monitoring his blood pressure at home and notes that it tends to drop slightly when he stands up quickly. He is currently on a regimen of labetalol 100 mg twice daily, in addition to losartan hydrochlorothiazide and amlodipine in the evening. He underwent a [facility] screening in 06/2024, which included an EKG, AAA screening, peripheral artery disease screening, and carotid artery disease screening, all of which were normal. He also has a history of ear wax buildup, which he typically has cleaned every 6 months, but it has been a year since his last cleaning. He uses a softener for his ears and reports no hearing issues. Right knee pain: He experiences intermittent severe pain in his right knee, which is not currently present. The pain does not interfere with his walking but is more noticeable when golfing on an incline or downhill. He has experienced his knee giving out three times. He has been seeing Dr. Hart for pain management, who previously treated him for back pain with an injection. However, an injection in his knee did not provide relief. An x-ray of his knee revealed arthritis. He has an upcoming appointment with Dr. Bella and is considering a referral to an orthopedic doctor. He recalls an incident two weeks ago where his leg gave out while golfing, causing him to fall. He has been taking vitamin B12 and B complex supplements as recommended by Dr. Flores due to low levels of vitamin B. He is interested in having his 6-month blood work done today, including checking his vitamin D3 and B12 levels. 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 BPH (benign prostatic hypertrophy) CAD (coronary artery disease) 2 vessel cabg; neri to lad and svg to the rca Chronic kidney disease Heart disease Hemorrhoids Hiatal hernia 04/14/2024 AFS grade IV, 3 cm type-I sliding History of skin cancer Hyperlipidemia Labile hypertension Stomach ulcer Urinary bleeding Viral hepatitis Past Surgical History: Procedure Laterality Date CABG 2010 CARDIAC CATHETERIZATION 2010 2 vessel cad CARDIAC CATHETERIZATION 1998 mod stenosis of the prox lad CATARACT EXT/ECCE Bilateral CHOLECYSTECTOMY 1987 COLONOSCOPY 07/19/2015 [facility] CORONARY ARTERY BYPASS GRAFT 2010 neri to lad/svg to rca EGD N/A 04/27/2021 Procedure: ESOPHAGOGASTRODUODENOSCOPY WITH BIOPSY; Surgeon: Mickey Fortune MD; Location: [facility]; Service: General Surgery ESOPHAGOGASTRODUODENOSCOPY 07/19/2015 Sharma's...[place] in [place] ESOPHAGOGASTRODUODENOSCOPY 08/19/2018 gastritis....Dr. Fortune [place] ESOPHAGOGASTRODUODENOSCOPY TRANSORAL DIAGNOSTIC N/A 04/14/2024 Procedure: ESOPHAGOGASTRODUODENOSCOPY WITH BIOPSY (ptek); Surgeon: Miceky Fortune MD; Location: [facility]; Service: General Surgery SKIN LESION EXCISION TONSILLECTOMY 1942 Family History Problem Relation Age of Onset Heart attack Father Breast cancer Mother Social History Tobacco Use Smoking status: Never Smokeless tobacco: Never Vaping Use Vaping status: Never Used Substance Use Topics Alcohol use: No Drug use: No Review of Systems Vitals: 10/09/24 0754 BP: 120/78 BP Location: Right arm Patient Position: Sitting BP Cuff Size: Adult Pulse: (!) 59 Resp: 16 Temp: 98 F (36.7 C) TempSrc: Temporal SpO2: 97% Weight: 77.6 kg (171 lb) Height: 6' 1 Estimated body mass index is 22.56 kg/m as calculated from the following: Height as of this encounter: 6' 1. Weight as of this encounter: 77.6 kg (171 lb). Physical Exam Constitutional: General: He is not in acute distress. Appearance: He is not ill-appearing. HENT: Head: Normocephalic and atraumatic. Nose: Nose normal. Mouth/Throat: Mouth: Mucous membranes are moist. Pharynx: Oropharynx is clear. No oropharyngeal exudate or posterior oropharyngeal erythema. Eyes: Extraocular Movements: Extraocular movements intact. Conjunctiva/sclera: Conjunctivae normal. Pupils: Pupils are equal, round, and reactive to light. Cardiovascular: Rate and Rhythm: Normal rate and regular rhythm. Pulses: Normal pulses. Heart sounds: Normal heart sounds. No murmur heard. No gallop. Pulmonary: Effort: Pulmonary effort is normal. Breath sounds: Normal breath sounds. No wheezing, rhonchi or rales. Chest: Chest wall: No tenderness. Abdominal: General: Abdomen is flat. Bowel sounds are normal. There is no distension. Palpations: Abdomen is soft. There is no mass. Tenderness: There is no abdominal tenderness. There is no right CVA tenderness, left CVA tenderness, guarding or rebound. Musculoskeletal: General: No tenderness (Normal ROM of the right knee, no instability or positive testing appreciated). Normal range of motion. Cervical back: Normal range of motion and neck supple. No rigidity. No muscular tenderness. Right lower leg: No edema. Left lower leg: No edema. Lymphadenopathy: Cervical: No cervical adenopathy. Skin: General: Skin is warm. Findings: No erythema or rash. Neurological: General: No focal deficit present. Mental Status: He is alert and oriented to person, place, and time. Sensory: No sensory deficit. Motor: No weakness. Gait: Gait abnormal (mild shuffling gait). Psychiatric: Mood and Affect: Mood normal. Behavior: Behavior normal. Thought Content: Thought content normal. Judgment: Judgment normal. OARRS/NARxCHECK Report Received and Assessed: Deuce Mendez MD on 10/09/2024 8:27 AM Date controlled substance agreement signed: 03/12/2024 Date of last drug screen: 03/16/2024 PHQ9: FRANC-7 Tobacco Counseling: Counseling given: Not Answered Reviewed by Provider: Patient's Medications New Prescriptions No medications on file Previous Medications AMLODIPINE (NORVASC) 10 MG TABLET Take 1 (one) tablet (10 mg total) by mouth with evening meal . ASPIRIN 81 MG EC TABLET Take 1 (one) tablet (81 mg total) by mouth daily . B COMPLEX VITAMINS CAPSULE Take 1 (one) capsule by mouth daily . BEE POLLEN ORAL Take 2 capsules by mouth daily . CHOLECALCIFEROL, VITAMIN D3, 5,000 UNIT TAB TABLET Take 1 (one) tablet (5,000 Units total) by mouth daily . DOCUSATE SODIUM (COLACE) 250 MG CAPSULE Take 1 (one) capsule (250 mg total) by mouth daily . DORZOLAMIDE HCL/TIMOLOL MALEAT (COSOPT OPHT) Apply to eye 2 (two) times a day Right eye FAMOTIDINE (PEPCID) 20 MG TABLET Take 1 (one) tablet (20 mg total) by mouth 2 (two) times a day . FERROUS SULFATE 325 (65 FE) MG TABLET Take 1 (one) tablet (325 mg total) by mouth daily with breakfast . FINASTERIDE (PROSCAR) 5 MG TABLET Take 1 (one) tablet (5 mg total) by mouth daily . FLUCONAZOLE (DIFLUCAN) 200 MG TABLET Take 1 (one) tablet (200 mg total) by mouth once a week Takes 2 on Saturday . LATANOPROST (XALATAN) 0.005 % OPHTHALMIC SOLUTION Administer 1 (one) drop to both eyes nightly . LOSARTAN-HYDROCHLOROTHIAZIDE (HYZAAR) 100-25 MG PER TABLET Take 1 (one) tablet by mouth daily with lunch . ONDANSETRON (ZOFRAN) 4 MG TABLET Take 1 (one) tablet (4 mg total) by mouth every 8 (eight) hours as needed for nausea . POTASSIUM CHLORIDE 10 MEQ CR TABLET Take 1 (one) tablet (10 mEq total) by mouth daily . PSYLLIUM (METAMUCIL) 3.4 GRAM PACKET Take 1 (one) packet by mouth daily as needed . SILDENAFIL CITRATE (SILDENAFIL ORAL) Take by mouth daily as needed for erectile dysfunction . SIMVASTATIN (ZOCOR) 20 MG TABLET Take 1 (one) tablet (20 mg total) by mouth daily . TAMSULOSIN (FLOMAX) 0.4 MG CAPSULE Take 1 (one) capsule (0.4 mg total) by mouth daily . Modified Medications Modified Medication Previous Medication LABETALOL (NORMODYNE) 100 MG TABLET labetaloL (NORMODYNE) 200 MG tablet Take 1 (one) tablet (100 mg total) by mouth 2 (two) times a day . Take 0.5 (one-half) tablet (100 mg total) by mouth 2 (two) times a day . LORAZEPAM (ATIVAN) 1 MG TABLET LORazepam (ATIVAN) 1 MG tablet Take 1 (one) tablet (1 mg total) by mouth daily . Take 1 (one) tablet (1 mg total) by mouth every 6 (six) hours as needed for anxiety . SERTRALINE (ZOLOFT) 50 MG TABLET sertraline (ZOLOFT) 25 MG tablet Take 1 (one) tablet (50 mg total) by mouth daily . Take 1 (one) tablet (25 mg total) by mouth daily . Discontinued Medications No medications on file Health Maintenance Due Topic Date Due Medicare Wellness Visit Never done Falls Risk Assessment Never done Respiratory Syncytial Virus Immunization: Risk, 60-74 Risk, or 75+ (1 - 1-dose 75+ series) Never done Tetanus: Every 10yrs 04/17/2021 Assessment & Plan Problem List Items Addressed This Visit Cardiovascular and Mediastinum Hypertension - Primary Relevant Medications labetaloL (NORMODYNE) 100 MG tablet Other Relevant Orders TSH with Reflex Free T4 Microalbumin/Creatinine Ratio, UR Random Hemoglobin A1c Lipid Panel Comprehensive Metabolic Panel Other Anxiety Relevant Medications sertraline (ZOLOFT) 50 MG tablet Insomnia Relevant Medications LORazepam (ATIVAN) 1 MG tablet Other Relevant Orders CBC and Differential Iron Study with Ferritin B12/Folate Mood disorder (HCC) Relevant Medications LORazepam (ATIVAN) 1 MG tablet sertraline (ZOLOFT) 50 MG tablet Right knee pain Relevant Orders Ambulatory Ref to Abraham/Donya (PT/OT/ST) Other Visit Diagnoses At moderate risk for fall Relevant Orders Ambulatory Ref to [facility]/Donya (PT/OT/ST) Abnormal finding of blood chemistry, unspecified Relevant Orders Hemoglobin A1c Iron Study with Ferritin Assessment & Plan Assessment & Plan 1. Insomnia the patient was informed about the potential risks associated with long-term use of lorazepam, including increased risk of falls and dementia. The patient has been advised to halve his lorazepam dosage 0.5 mg, discussed at length why we need to decrease lorazepam but since patient is overly anxious about decreasing the dose was agreeable to work on controlling anxiety while keeping the dose at 1 mg for lorazepam for now and he will try to cut it in half additionally, Zoloft will be increased to 50 mg. CSA up-to-date as well as urine drug screen and OARRS reviewed with no concerns. Leg weakness. The patient's leg weakness may be attributed to neuropathy. X-rays of his back and hip will be conducted today to investigate potential arthritis. Tylenol 1000 mg every 8 hours will be taken as needed for leg pain. Formal evaluation through PT since more falls have been happening. Hypertension. His blood pressure readings are generally within the normal range, with occasional low readings. He was advised to take losartan hydrochlorothiazide in the morning and amlodipine in the evening. A prescription for labetalol 100 mg was provided for emergency use only, not for regular use. He was instructed to monitor his blood pressure daily and maintain a log for a week. 2. Anxiety. A 90-day prescription for lorazepam was provided. The potential side effects, including the risk of tolerance, addiction, and increased risk of falls and delirium, were discussed. The dosage of Zoloft was increased to 50 mg, and a prescription was sent to [facility]. He was advised to try taking half a milligram of lorazepam at night to see if it helps. 3. Right knee pain. The pain could be due to a meniscus problem or arthritis. Physical therapy was recommended to strengthen the muscles around the knee. If physical therapy does not alleviate the pain, a consultation with a surgeon will be considered. Arrangements will be made for physical therapy in a convenient location. 4. Health maintenance. Blood work was ordered, including tests for vitamin D3 and vitamin B12 levels. Follow-up Return in 3 months for follow-up. I spent 40 minutes with patient reviewing HPI and coordinating plan of care. My ongoing relationship with Yudith Morin requires continued responsibility and cognitive effort of being the focal point for all services related to chronic condition(s). No follow-ups on file. DEUCE MENDEZ MD [facility] [employer] [facility] [employer] [facility] [id number] Dept: [phone] documented in this encounter [facility] 10-02-2024 Telephone encounter Note Yudith is requesting a refill for Requested Prescriptions Pending Prescriptions Disp Refills losartan-hydrochlorothiazide (HYZAAR) 100-25 mg per tablet 90 tablet 1 Sig: Take 1 (one) tablet by mouth daily with lunch . Last refill: 04/10/2024 losartan-hydrochlorothiazide (HYZAAR) 100-25 mg per tablet, 90 tablets, 1 refill Patient is requesting a new prescription be sent to [facility]. Thank you. Last appt: 06/08/2024 Upcoming appt (when is it due or is it scheduled): 10/09/2024 Please send to [facility] - [facility]an[facility] AT Portal to Registered [facility] [place] [address] Follow up: Refill pending for review without additional follow up based on information above. [facility] 10-02-2024 Miscellaneous Notes Yudith is requesting a refill for Requested Prescriptions Pending Prescriptions Disp Refills losartan-hydrochlorothiazide (HYZAAR) 100-25 mg per tablet 90 tablet 1 Sig: Take 1 (one) tablet by mouth daily with lunch . Last refill: 04/10/2024 losartan-hydrochlorothiazide (HYZAAR) 100-25 mg per tablet, 90 tablets, 1 refill Patient is requesting a new prescription be sent to [facility]. Thank you. Last appt: 06/08/2024 Upcoming appt (when is it due or is it scheduled): 10/09/2024 Please send to [facility] - Y[facility]IDIA [facility]an[facility] AT Portal to Registered [facility] [place] [address] Follow up: Refill pending for review without additional follow up based on information above. documented in this encounter [facility] 08-19-2024 Note New Patient Visit [facility] [address], [place] [address] (office) Date of service: 08/19/2024 ID: Yudith Morin, 89 y.o., male; : 1935 Chief Concerns and reason for consult: Yudith Morin is a 89 y.o. man who comes for consultation regarding Results (Wants EMG results reviewed with him from a year ago. Also to check on circulation to bilateral leg. Reports toes to the back of the foot, discomfort without wearing shoes. ) . History of Present Illness: Mr. Morin has a medical history significant for hypertension, dyslipidemia, prediabetes, and coronary artery disease (CAD), presents for evaluation of numbness in his lower distal extremities. He had an electromyography (EMG) study conducted in March 2023, which is detailed below. Mr. Morin denies any problems with walking. He remains active, playing golf six days a week, although he now uses a golf cart more frequently than he did in the past. For the past several years, he has experienced an uncomfortable sensation in his toes when he does not have his shoes on. He describes the sensation as feeling cold, although the toes do not feel cold to the touch. This sensation does not significantly affect his daily functioning. He mostly notices this sensation when his shoes are off and when he bends his toes. The numbness is primarily located in his toes. He denies any burning sensation. The symptoms have remained stable for several years. EMG Report (March 2023): Impression: This is an abnormal EMG. 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 The asymmetry of the tibial compound motor action potential amplitudes is nonspecific. If clinically indicated, consider imaging study of the lumbosacral area. There is no clear electrodiagnostic evidence of a bilateral lumbosacral radiculopathy or plexopathy at this time Social history: former tacher, now retired / Developmental history - complications at ?: no - gross motor milestone delay?: no Toxic exposures: -- work place: no. Works as a teacher -- h/o chemotherapy: no. Just uses a sort of chemo therapy cream in the face for skin cancers/pre cancerous lesions -- alcohol intake: Autonomic symptoms: denies. Constitutional symptoms: DENIES fever , chill , wt loss, rash Rheumatologic symptoms: Denies any joint pain . 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 Past surgical history: has a past surgical history that includes Cabg (2010); Cholecystectomy (1987); tonsillectomy (1942); Cataract Ext/Ecce (Bilateral); Cardiac catheterization (2010); Cardiac catheterization (1998); Esophagogastroduodenoscopy (07/19/2015); Colonoscopy (07/19/2015); Esophagogastroduodenoscopy (08/19/2018); Skin lesion excision; Egd (N/A, 04/27/2021); Coronary artery bypass graft (2010); and pr esophagogastroduodenoscopy transoral diagnostic (N/A, 04/14/2024). Social history: reports that he has never smoked. He has never used smokeless tobacco. He reports that he does not drink alcohol and does not use drugs. Family history:family history includes Breast cancer in his mother; Heart attack in his father. Medications: Current Outpatient Medications: amLODIPine (NORVASC) 10 MG tablet, Take 1 (one) tablet (10 mg total) by mouth with evening meal . (Patient taking differently: Take 1 (one) tablet (10 mg total) by mouth with evening meal Not taking on Saturday' .), Disp: 90 tablet, Rfl: 1 aspirin 81 MG EC tablet, Take 1 (one) tablet (81 mg total) by mouth daily ., Disp: , Rfl: BEE POLLEN ORAL, Take 2 capsules by mouth daily ., Disp: , Rfl: cholecalciferol, vitamin D3, 5,000 unit Tab tablet, Take 1 (one) tablet (5,000 Units total) by mouth daily ., Disp: , Rfl: docusate sodium (COLACE) 250 MG capsule, Take 1 (one) capsule (250 mg total) by mouth daily ., Disp: , Rfl: DORZOLAMIDE HCL/TIMOLOL MALEAT (COSOPT OPHT), Apply to eye 2 (two) times a day Right eye, Disp: , Rfl: famotidine (PEPCID) 20 MG tablet, Take 1 (one) tablet (20 mg total) by mouth 2 (two) times a day ., Disp: 180 tablet, Rfl: 1 ferrous sulfate 325 (65 FE) MG tablet, Take 1 (one) tablet (325 mg total) by mouth daily with breakfast ., Disp: , Rfl: finasteride (PROSCAR) 5 mg tablet, Take 1 (one) tablet (5 mg total) by mouth daily ., Disp: 90 tablet, Rfl: 1 labetaloL (NORMODYNE) 200 MG tablet, Take 0. (more content not included)... [facility] 08-11-2024 Telephone encounter Note Yudith is requesting a refill for Requested Prescriptions Pending Prescriptions Disp Refills simvastatin (ZOCOR) 20 MG tablet Sig: Take 1 (one) tablet (20 mg total) by mouth daily . Last refill: historical, sent in by old provider. Last appt: 06/08/2024 Upcoming appt (when is it due or is it scheduled): 10/09/2024 Please send to [address] [phone] Follow up: Refill pending for review without additional follow up based on information above. [facility] 08-11-2024 Miscellaneous Notes Yudith is requesting a refill for Requested Prescriptions Pending Prescriptions Disp Refills simvastatin (ZOCOR) 20 MG tablet Sig: Take 1 (one) tablet (20 mg total) by mouth daily . Last refill: historical, sent in by old provider. Last appt: 06/08/2024 Upcoming appt (when is it due or is it scheduled): 10/09/2024 Please send to [address] [phone] Follow up: Refill pending for review without additional follow up based on information above. documented in this encounter 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 Recommend continue use of AREDS 2 vitamins. Monitor. H40.1131 Primary open angle glaucoma (POAG) of both eyes, mild stage Comment: Intraocular pressure stable left eye but slightly elevated right eye today with current treatment. Advise patient as to the risks of blindness with glaucoma. Advise patient as to status of condition and necessity of close monitoring as directed. Continue use of Latanoprost 0.005% 1 gt both eyes qhs. Recheck glaucoma control in 3 months. Z96.1 Pseudophakia of both eyes Comment: Posterior chamber intraocular lenses are well positioned and clear. Glasses power stable. I have confirmed and edited as necessary the relevant HPI, ophthalmic history, ROS, and the neuro exam findings as obtained by others. I have seen and examined Yudith Morin. I have discussed the case and the management of this patient's care with the Resident/Fellow, if applicable. I also have reviewed and agree with the assessment and plan as stated above and agree with all of its relevant components. documented in this encounter [facility] 08-06-2024 Note HNO ID: [id number] Author: SHAHBAZ MARRERO II, OD Service: ? 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 Recommend continue use of AREDS 2 vitamins. Monitor. H40.1131 Primary open angle glaucoma (POAG) of both eyes, mild stage Comment: Intraocular pressure stable left eye but slightly elevated right eye today with current treatment. Advise patient as to the risks of blindness with glaucoma. Advise patient as to status of condition and necessity of close monitoring as directed. Continue use of Latanoprost 0.005% 1 gt both eyes qhs. Recheck glaucoma control in 3 months. Z96.1 Pseudophakia of both eyes Comment: Posterior chamber intraocular lenses are well positioned and clear. Glasses power stable. I have confirmed and edited as necessary the relevant HPI, ophthalmic history, ROS, and the neuro exam findings as obtained by others. I have seen and examined Yudith Morin. I have discussed the case and the management of this patient's care with the Resident/Fellow, if applicable. I also have reviewed and agree with the assessment and plan as stated above and agree with all of its relevant components. [facility] 08-06-2024 Note Date of Procedure 08/06/2024. Flap Maker Information Tomb Maker Helper: meño. Start time: 10:21 AM. Interpretation Right Eye Abnormal foveal contour. Findings include Cystoid macular edema, Drusen, RPE Irregularity. Left Eye Abnormal foveal contour. Findings include Drusen, RPE Irregularity. Interval Change Right Eye Stable. Left Eye Stable. Notes Monitor. 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 Recommend continue use of AREDS 2 vitamins. Monitor. H40.1131 Primary open angle glaucoma (POAG) of both eyes, mild stage Comment: Intraocular pressure stable left eye but slightly elevated right eye today with current treatment. Advise patient as to the risks of blindness with glaucoma. Advise patient as to status of condition and necessity of close monitoring as directed. Continue use of Latanoprost 0.005% 1 gt both eyes qhs. Recheck glaucoma control in 3 months. Z96.1 Pseudophakia of both eyes Comment: Posterior chamber intraocular lenses are well positioned and clear. Glasses power stable. I have confirmed and edited as necessary the relevant HPI, ophthalmic history, ROS, and the neuro exam findings as obtained by others. I have seen and examined Yudith Morin. I have discussed the case and the management of this patient's care with the Resident/Fellow, if applicable. I also have reviewed and agree with the assessment and plan as stated above and agree with all of its relevant components. documented in this encounter [facility] 07-02-2024 Note Addended by: PEPITO CARBAJAL on: 07/02/2024 01:19 PM Modules accepted: Orders [facility] 07-02-2024 Miscellaneous Notes Addended by: PEPITO WATSON on: 07/02/2024 01:19 PM Modules accepted: Orders Reviewed notes from PCP and discussion between RN and patient. Will send script for labetalol 100 mg BID as patient needed to restart due to elevated pressures. PT CALLING BACK IN. REPORTS THAT HE WAS TOLD BY DR. MENDEZ TO TRY OFF THE MEDICATION BUT THAT IF BLOOD PRESSURE WENT BACK UP, HE COULD RESTART IT. PT REPORTS THAT HIS BLOOD PRESSURES WAS UP TO 170s SO HE DID END UP RESTARTING IT. REQUESTING REFILL TO GO TO [facility]. Addended by: RENNY GOLDSTEIN on: 07/02/2024 09:41 AM Modules accepted: Orders Addended by: PEPITO WATSON on: 06/30/2024 04:52 PM Modules accepted: Orders Pt reports that this was given to him by Dr. Peterson, his previous provider. Yudith is requesting a refill for Requested Prescriptions Pending Prescriptions Disp Refills labetaloL (NORMODYNE) 200 MG tablet 90 tablet 0 Sig: Take 0.5 (one-half) tablet (100 mg total) by mouth 2 (two) times a day . Last refill: 10/27/15 Last appt: 06/08/24 Upcoming appt (when is it due or is it scheduled): 10/09/24 Please send to [facility] - YURIDIA Villanueva - [facility] AT Portal to [facility] [place] [id number] Follow up: Refill pending for review without additional follow up based on information above. documented in this encounter [facility] 07-02-2024 Telephone encounter Note Reviewed notes from PCP and discussion between RN and patient. Will send script for labetalol 100 mg BID as patient needed to restart due to elevated pressures. [facility] 07-02-2024 Telephone encounter Note PT CALLING BACK IN. REPORTS THAT HE WAS TOLD BY DR. MENDEZ TO TRY OFF THE MEDICATION BUT THAT IF BLOOD PRESSURE WENT BACK UP, HE COULD RESTART IT. PT REPORTS THAT HIS BLOOD PRESSURES WAS UP TO 170s SO HE DID END UP RESTARTING IT. REQUESTING REFILL TO GO TO [facility]. [facility] 07-02-2024 Note Addended by: RENNY GOLDSTEIN on: 07/02/2024 09:41 AM Modules accepted: Orders [facility] 07-02-2024 Note Addended by: RENNY GOLDSTEIN on: 07/02/2024 09:41 AM Modules accepted: Orders [facility] 07-02-2024 Note Addended by: RENNY GOLDSTEIN on: 07/02/2024 09:41 AM Modules accepted: Orders [facility] 07-02-2024 Miscellaneous Notes Addended by: RENNY GOLDSTEIN on: 07/02/2024 09:41 AM Modules accepted: Orders Addended by: PEPITO WATSON on: 06/30/2024 04:52 PM Modules accepted: Orders Pt reports that this was given to him by Dr. Peterson, his previous provider. Yudith is requesting a refill for Requested Prescriptions Pending Prescriptions Disp Refills labetaloL (NORMODYNE) 200 MG tablet 90 tablet 0 Sig: Take 0.5 (one-half) tablet (100 mg total) by mouth 2 (two) times a day . Last refill: 10/27/15 Last appt: 06/08/24 Upcoming appt (when is it due or is it scheduled): 10/09/[address] [facility] AT Portal to Registered [facility] [place] [id number] Follow up: Refill pending for review without additional follow up based on information above. documented in this encounter [facility] 07-02-2024 Miscellaneous Notes PT CALLING BACK IN. REPORTS THAT HE WAS TOLD BY DR. MENDEZ TO TRY OFF THE MEDICATION BUT THAT IF BLOOD PRESSURE WENT BACK UP, HE COULD RESTART IT. PT REPORTS THAT HIS BLOOD PRESSURES WAS UP TO 170s SO HE DID END UP RESTARTING IT. REQUESTING REFILL TO GO TO [facility]. Addended by: RENNY GOLDSTEIN on: 07/02/2024 09:41 AM Modules accepted: Orders Addended by: PEPITO WATSON on: 06/30/2024 04:52 PM Modules accepted: Orders Pt reports that this was given to him by Dr. Peterson, his previous provider. Yudith is requesting a refill for Requested Prescriptions Pending Prescriptions Disp Refills labetaloL (NORMODYNE) 200 MG tablet 90 tablet 0 Sig: Take 0.5 (one-half) tablet (100 mg total) by mouth 2 (two) times a day . Last refill: 10/27/15 Last appt: 06/08/24 Upcoming appt (when is it due or is it scheduled): 10/09/24 Please send to [facility] - YURIDIA Villanueva - [facility] AT Portal to Registered [facility] Sites [facility] [place] [id number] Follow up: Refill pending for review without additional follow up based on information above. documented in this encounter [facility] 06-30-2024 Note Addended by: PEPITO CARBAJAL on: 06/30/2024 04:52 PM Modules accepted: Orders [facility] Work Phone: 06-30-2024 Note Addended by: PEPITO CARBAJAL on: 06/30/2024 04:52 PM Modules accepted: Orders [facility] Work Phone: 06-30-2024 Note Addended by: PEPITO CARBAJAL on: 06/30/2024 04:52 PM Modules accepted: Orders [facility] Work Phone: 06-30-2024 Note Addended by: PEPITO CARBAJAL on: 06/30/2024 04:52 PM Modules accepted: Orders [facility] Work Phone: 06-30-2024 Note Addended by: PEPITO CARBAJAL on: 06/30/2024 04:52 PM Modules accepted: Orders [facility] 06-30-2024 Miscellaneous Notes Addended by: PEPITO WATSON on: 06/30/2024 04:52 PM Modules accepted: Orders Pt reports that this was given to him by Dr. Peterson, his previous provider. Yudith is requesting a refill for Requested Prescriptions Pending Prescriptions Disp Refills labetaloL (NORMODYNE) 200 MG tablet 90 tablet 0 Sig: Take 0.5 (one-half) tablet (100 mg total) by mouth 2 (two) times a day . Last refill: 10/27/15 Last appt: 06/08/24 Upcoming appt (when is it due or is it scheduled): 10/09/24 Please send to [facility] - YURIDIA Villanueva - [facility] AT Portal to [facility] [place] [id number] Follow up: Refill pending for review without additional follow up based on information above. documented in this encounter [facility] 06-30-2024 Telephone encounter Note Pt reports that this was given to him by Dr. Peterson, his previous provider. [facility] 06-30-2024 Miscellaneous Notes Pt reports that this was given to him by Dr. Peterson, his previous provider. Yudith is requesting a refill for Requested Prescriptions Pending Prescriptions Disp Refills labetaloL (NORMODYNE) 200 MG tablet 90 tablet 0 Sig: Take 0.5 (one-half) tablet (100 mg total) by mouth 2 (two) times a day . Last refill: 10/27/15 Last appt: 06/08/24 Upcoming appt (when is it due or is it scheduled): 10/09/24 Please send to [facility] YURIDIA Villanueva - [facility] AT Portal to [facility] [id number] Follow up: Refill pending for review without additional follow up based on information above. documented in this encounter [facility] 06-29-2024 Telephone encounter Note Yudith is requesting a refill for Requested Prescriptions Pending Prescriptions Disp Refills labetaloL (NORMODYNE) 200 MG tablet 90 tablet 0 Sig: Take 0.5 (one-half) tablet (100 mg total) by mouth 2 (two) times a day . Last refill: 10/27/15 Last appt: 06/08/24 Upcoming appt (when is it due or is it scheduled): 10/09/24 Please send to [facility] YURIDIA Villanueva - [facility] AT Portal to [facility] [id number] Follow up: Refill pending for review without additional follow up based on information above. [facility] 06-19-2024 Telephone encounter Note PT IS NEEDING A REFILL ON PEPCID. [facility] 06-19-2024 Miscellaneous Notes PT IS NEEDING A REFILL ON PEPCID. documented in this encounter [facility] 06-08-2024 History of Present illness Narrative Subjective Patient ID: Yudith Morin is a 89 y.o. male here for Chief Complaint Patient presents with Follow-up 3 month f/u After discussing the use of ambient listening and audio recording in generating medical documentation, the patient verbally consented to use of this technology for today's visit. History of Present Illness CAD: The patient underwent coronary artery bypass surgery in t HORATIO to LAD, SVG to RCA 2010. He typically experiences swelling during the day due to a vein being removed. He is currently on statins. Following up with cardiology. HTN: Chronic , stable on the current regimen with no concerns. The patient has been managing his blood pressure with labetalol 200 mg, administered twice daily. However, he has recently reduced his dosage due to concerns about low blood pressure readings, such as leg weakness when his blood pressure falls below 110. He denies experiencing dizziness, but reports occasional lightheadedness. His current medication regimen includes amlodipine and losartan/hydrochlorothiazide, the latter being taken at lunch. He has also taken clonidine, but has not taken it recently. Anxiety and insomnia: The patient reports an improvement in his anxiety symptoms following the reduction in his lorazepam dosage to 0.5 mg or 0.25 mg. However, he continues to experience sleep disturbances, including occasional nocturnal awakenings and occasional difficulty returning to sleep, particularly towards the morning. He expresses concern about the potential impact of lorazepam on his sleep quality, a condition he has been on for an extended period. He has also discontinued Zoloft and inquires about the possibility of reintroducing Zoloft into his morning regimen. Leg weakness: The patient has been experiencing leg weakness since 02/2023, which he attributes to his low blood pressure. He was previously prescribed mirtazapine, which he took for 30 days, but discontinued its use a few months ago due to perceived weakness and instability in his legs. He also reports difficulty walking in a straight line and discomfort in his legs. He has a history of back pain, for which he saw a structural steel painter at [place]. He received an injection a year ago due to radiating pain down the inside of his leg, which provided relief. He also received another injection a month ago. He occasionally experiences pain in his belt line when he bends over and straightens up. He underwent an EMG in 03/2022, ordered by former PCP, but has not received the results. He denies experiencing claudication or cramping in the calf. Supplemental Information He has toenail fungus. His secure software assessor wanted him to try fluconazole. He takes 2 of those on Fridays for 3 months once a week. On the day he takes those, he does not take amlodipine and simvastatin. 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 BPH (benign prostatic hypertrophy) CAD (coronary artery disease) 2 vessel cabg; neri to lad and svg to the rca Hemorrhoids Hiatal hernia 04/14/2024 AFS grade IV, 3 cm type-I sliding History of skin cancer Hyperlipidemia Labile hypertension Stomach ulcer Urinary bleeding Viral hepatitis Past Surgical History: Procedure Laterality Date CABG 2010 CARDIAC CATHETERIZATION 2010 2 vessel cad CARDIAC CATHETERIZATION 1998 mod stenosis of the prox lad CATARACT EXT/ECCE Bilateral CHOLECYSTECTOMY 1987 COLONOSCOPY 07/19/2015 [place] CORONARY ARTERY BYPASS GRAFT 2010 neri to lad/svg to rca EGD N/A 04/27/2021 Procedure: ESOPHAGOGASTRODUODENOSCOPY WITH BIOPSY; Surgeon: Mickey Fortune MD; Location: [facility]; Service: General Surgery ESOPHAGOGASTRODUODENOSCOPY 07/19/2015 Sharma's...Thomae in [place] ESOPHAGOGASTRODUODENOSCOPY 08/19/2018 gastritis....Dr. Fortune [place] ESOPHAGOGASTRODUODENOSCOPY TRANSORAL DIAGNOSTIC N/A 04/14/2024 Procedure: ESOPHAGOGASTRODUODENOSCOPY WITH BIOPSY (ptek); Surgeon: Mickey Fortune MD; Location: [facility]; Service: General Surgery SKIN LESION EXCISION TONSILLECTOMY 1942 Family History Problem Relation Age of Onset Heart attack Father Breast cancer Mother Social History Tobacco Use Smoking status: Never Smokeless tobacco: Never Vaping Use Vaping status: Never Used Substance Use Topics Alcohol use: No Drug use: No Review of Systems Vitals: 06/08/24 0716 BP: 120/76 BP Location: Right arm Patient Position: Sitting BP Cuff Size: Adult Pulse: 71 Resp: 16 Temp: 98 F (36.7 C) TempSrc: Temporal SpO2: 95% Weight: 78.9 kg (174 lb) Height: 6' 1 Estimated body mass index is 22.96 kg/m as calculated from the following: Height as of this encounter: 6' 1. Weight as of this encounter: 78.9 kg (174 lb). Physical Exam Constitutional: General: He is not in acute distress. Appearance: He is not ill-appearing. HENT: Head: Normocephalic and atraumatic. Nose: Nose normal. Mouth/Throat: Mouth: Mucous membranes are moist. Pharynx: Oropharynx is clear. No oropharyngeal exudate or posterior oropharyngeal erythema. Eyes: Extraocular Movements: Extraocular movements intact. Conjunctiva/sclera: Conjunctivae normal. Pupils: Pupils are equal, round, and reactive to light. Cardiovascular: Rate and Rhythm: Normal rate and regular rhythm. Pulses: Normal pulses. Heart sounds: Normal heart sounds. No murmur heard. No gallop. Pulmonary: Effort: Pulmonary effort is normal. Breath sounds: Normal breath sounds. No wheezing, rhonchi or rales. Chest: Chest wall: No tenderness. Abdominal: General: Abdomen is flat. Bowel sounds are normal. There is no distension. Palpations: Abdomen is soft. There is no mass. Tenderness: There is no abdominal tenderness. There is no right CVA tenderness, left CVA tenderness, guarding or rebound. Musculoskeletal: General: No tenderness. Normal range of motion. Cervical back: Normal range of motion and neck supple. No rigidity. No muscular tenderness. Right lower leg: No edema. Left lower leg: No edema. Lymphadenopathy: Cervical: No cervical adenopathy. Skin: General: Skin is warm. Findings: No erythema or rash. Neurological: General: No focal deficit present. Mental Status: He is alert and oriented to person, place, and time. Sensory: No sensory deficit. Motor: No weakness. Gait: Gait abnormal (mild shuffling gait). Psychiatric: Mood and Affect: Mood normal. Behavior: Behavior normal. Thought Content: Thought content normal. Judgment: Judgment normal. OARRS/NARxCHECK Report Received and Assessed: Deuce Mendez MD on 06/08/2024 7:37 AM Date controlled substance agreement signed: 03/12/2024 Date of last drug screen: 03/16/2024 PHQ9: FRANC-7 Tobacco Counseling: Counseling given: Not Answered Reviewed by Provider: Patient's Medications New Prescriptions SERTRALINE (ZOLOFT) 25 MG TABLET Take 1 (one) tablet (25 mg total) by mouth daily . Previous Medications AMLODIPINE (NORVASC) 10 MG TABLET Take 1 (one) tablet (10 mg total) by mouth with evening meal . ASPIRIN 81 MG EC TABLET Take 1 (one) tablet (81 mg total) by mouth daily . B COMPLEX VITAMINS CAPSULE Take 1 (one) capsule by mouth daily . BEE POLLEN ORAL Take 2 capsules by mouth daily . CHOLECALCIFEROL, VITAMIN D3, 5,000 UNIT TAB TABLET Take 1 (one) tablet (5,000 Units total) by mouth daily . DOCUSATE SODIUM (COLACE) 250 MG CAPSULE Take 1 (one) capsule (250 mg total) by mouth daily . DORZOLAMIDE HCL/TIMOLOL MALEAT (COSOPT OPHT) Apply to eye 2 (two) times a day Right eye FAMOTIDINE (PEPCID) 20 MG TABLET Take 1 (one) tablet (20 mg total) by mouth 2 (two) times a day . FERROUS SULFATE 325 (65 FE) MG TABLET Take 1 (one) tablet (325 mg total) by mouth daily with breakfast . FINASTERIDE (PROSCAR) 5 MG TABLET Take 1 (one) tablet (5 mg total) by mouth daily . FLUCONAZOLE (DIFLUCAN) 200 MG TABLET Take 1 (one) tablet (200 mg total) by mouth once a week Takes 2 on Saturday . LABETALOL (NORMODYNE) 200 MG TABLET Take 0.5 (one-half) tablet (100 mg total) by mouth 2 (two) times a day . LOSARTAN-HYDROCHLOROTHIAZIDE (HYZAAR) 100-25 MG PER TABLET Take 1 (one) tablet by mouth daily with lunch . ONDANSETRON (ZOFRAN) 4 MG TABLET Take 1 (one) tablet (4 mg total) by mouth every 8 (eight) hours as needed for nausea . POTASSIUM CHLORIDE 10 MEQ CR TABLET Take 1 (one) tablet (10 mEq total) by mouth daily . PSYLLIUM (METAMUCIL) 3.4 GRAM PACKET Take 1 (one) packet by mouth daily as needed . SILDENAFIL CITRATE (SILDENAFIL ORAL) Take by mouth daily as needed for erectile dysfunction . SIMVASTATIN (ZOCOR) 20 MG TABLET Take 1 (one) tablet (20 mg total) by mouth daily Not taking on Saturday's . TAMSULOSIN (FLOMAX) 0.4 MG CAPSULE Take 1 (one) capsule (0.4 mg total) by mouth daily . Modified Medications Modified Medication Previous Medication LORAZEPAM (ATIVAN) 0.5 MG TABLET LORazepam (ATIVAN) 0.5 MG tablet Take 1 (one) tablet (0.5 mg total) by mouth daily as needed for anxiety . Take 1 (one) tablet (0.5 mg total) by mouth daily as needed for anxiety . Discontinued Medications No medications on file Health Maintenance Due Topic Date Due Medicare Wellness Visit Never done Depression Screening/Follow-Up (PHQ-2/9) Never done Falls Risk Assessment Never done Tetanus: Every 10yrs 04/17/2021 COVID-19 Vaccine ( season) 2024 Assessment & Plan Problem List Items Addressed This Visit Cardiovascular and Mediastinum Hypertension Other Anxiety - Primary Relevant Medications sertraline (ZOLOFT) 25 MG tablet Insomnia Relevant Medications LORazepam (ATIVAN) 0.5 MG tablet Mood disorder (HCC) Relevant Medications LORazepam (ATIVAN) 0.5 MG tablet sertraline (ZOLOFT) 25 MG tablet Leg weakness, bilateral Relevant Orders XR Lumbar Spine 2-3 Views (Standard) Ambulatory Ref to Abraham/Donya (PT/OT/ST) Ambulatory referral to Neurology XR Hips Bilateral With Pelvis 5+ Views Assessment & Plan Assessment & Plan 1. Anxiety. The patient was informed about the potential risks associated with long-term use of lorazepam, including increased risk of falls and dementia. The patient has been advised to halve his lorazepam dosage 0.5 mg, ok to stay on same dose 0.5 mg dosage to assess if it improves his sleep quality. Additionally, Zoloft will be added to his regimen. A 90-day supply of Zoloft will be provided, with two refills of Ativan 0.5 mg. CSA up-to-date as well as urine drug screen and OARRS reviewed with no concerns. 2. Hypertension. The patient's blood pressure is well-regulated. Labetalol will be discontinued. If his blood pressure exceeds 130/80, he will continue with labetalol as needed. Losartan/hydrochlorothiazide will be taken at lunch and amlodipine at bedtime.. 3. Leg weakness. The patient's leg weakness may be attributed to neuropathy. X-rays of his back and hip will be conducted today to investigate potential arthritis. Tylenol 1000 mg every 8 hours will be taken as needed for leg pain. Formal evaluation through PT is also advised and patient agreeable to the plan, referral to neurology was made today. My ongoing relationship with Yudith Morin requires continued responsibility and cognitive effort of being the focal point for all services related to chronic condition(s). Follow-up A follow-up appointment is scheduled for 09/2024. I spent 40 minutes with patient reviewing HPI and coordinating plan of care. No follow-ups on file. DEUCE MENDEZ MD [facility] [address] [facility] [address] [facility] [address] Dept: [phone] documented in this encounter [facility] 05-25-2024 Telephone encounter Note Yudith is requesting a refill for Requested Prescriptions Pending Prescriptions Disp Refills tamsulosin (FLOMAX) 0.4 mg capsule Sig: Take 1 (one) capsule (0.4 mg total) by mouth daily . potassium chloride 10 MEQ CR tablet Sig: Take 1 (one) tablet (10 mEq total) by mouth daily . finasteride (PROSCAR) 5 mg tablet Sig: Take 1 (one) tablet (5 mg total) by mouth daily . Last refill: Historical Last appt: 03/09/24 Upcoming appt (when is it due or is it scheduled): 06/08/24 Please send to [facility] [employer] [facility] [employer] Follow up: Refill pending for review without additional follow up based on information above. [facility] 05-25-2024 Miscellaneous Notes Yudith is requesting a refill for Requested Prescriptions Pending Prescriptions Disp Refills tamsulosin (FLOMAX) 0.4 mg capsule Sig: Take 1 (one) capsule (0.4 mg total) by mouth daily . potassium chloride 10 MEQ CR tablet Sig: Take 1 (one) tablet (10 mEq total) by mouth daily . finasteride (PROSCAR) 5 mg tablet Sig: Take 1 (one) tablet (5 mg total) by mouth daily . Last refill: Historical Last appt: 03/09/24 Upcoming appt (when is it due or is it scheduled): 06/08/24 Please send to [facility] [employer] [facility] [employer] Follow up: Refill pending for review without additional follow up based on information above. documented in this encounter [facility] 05-11-2024 Telephone encounter Note Yudith is requesting a refill for Requested Prescriptions Pending Prescriptions Disp Refills amLODIPine (NORVASC) 10 MG tablet Sig: Take 1 (one) tablet (10 mg total) by mouth with evening meal . famotidine (PEPCID) 20 MG tablet 60 tablet Sig: Take 1 (one) tablet (20 mg total) by mouth 2 (two) times a day . Last refill: Historical Last appt: 04/09/24 Upcoming appt (when is it due or is it scheduled): 06/08/24 Please send to [facility] [address] [facility] [id number] [facility] - YURIDIA Villanueva - [facility] AT Portal to [facility] [place] [id number] Follow up: Refill pending for review without additional follow up based on information above. [facility] 05-11-2024 Miscellaneous Notes Yudith is requesting a refill for Requested Prescriptions Pending Prescriptions Disp Refills amLODIPine (NORVASC) 10 MG tablet Sig: Take 1 (one) tablet (10 mg total) by mouth with evening meal . famotidine (PEPCID) 20 MG tablet 60 tablet Sig: Take 1 (one) tablet (20 mg total) by mouth 2 (two) times a day . Last refill: Historical Last appt: 04/09/24 Upcoming appt (when is it due or is it scheduled): 06/08/[address] [facility] [place] [address] [facility] [phone] [facility] YURIDIA Villanueva - [facility] AT Portal to Registered [facility] Sites [facility] [place] [id number] Follow up: Refill pending for review without additional follow up based on information above. documented in this encounter [facility] 05-06-2024 Note Date of Procedure 05/06/2024. C/D Ratio Right Eye 0.5 X 0.4. Left Eye 0.45. Disc Right Eye Cupping. Left Eye Cupping. Macula Right Eye RPE mottling, Drusen. Left Eye RPE mottling, Drusen. Periphery Right Eye Normal. Left Eye Normal. [facility] 05-06-2024 Note Date of Procedure 05/06/2024. Reliability Right Eye Good. Left Eye Good. Interpretation Right Eye Negative for Normal. Left Eye Negative for Normal. Interval Change Right Eye Stable. Left Eye Stable. ZEISS 05-06-2024 History of Present illness Narrative ASSESSMENT/PLAN: 1. Primary open angle glaucoma (POAG) of both eyes, mild stage - ICD9: 365.11, 365.71, ICD10: H40.1131 (primary diagnosis) 2. 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 Treatment options and the importance of regular examinations and testing were covered in detail, as well as the consequences of non-compliance. The patient was given the opportunity to ask questions. Continue: Current Ophthalmic Meds latanoprost (XALATAN) 0.005 % ophthalmic solution Use 1 Drop in both eyes daily at bedtime. Continue: Systane Complete Artificial Tears - Use 1 Drop into both eyes three times a day. 3. Nonexudative age-related macular degeneration, bilateral, intermediate dry stage - ICD9: 362.51, ICD10: H35.3132 -Please monitor each eye daily with Amsler Grid. AREDS 2 Vitamins are available over the counter at any drug store. 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 Pseudophakia of both eyes - ICD9: V43.1, ICD10: Z96.1 -Intraocular lens in good position Both eyes 6. Essential hypertension - ICD9: 401.9, ICD10: I10 -continue care with primary care physician. Follow up with Dr. Marrero in 3 months for Intraocular pressure check 6 to 7 months for OCT nerve I have confirmed and edited as necessary the relevant ophthalmic history, review of systems, surgical history, and ophthalmological examination findings as obtained by the ophthalmic technical staff. I have seen and examined Yudith Morin. I have discussed the examination findings, diagnosis, and treatment options with Yudith Morin and/or his family. I have also reviewed and agree with the assessment and plan as stated above and agree with all its relevant components. I gave the patient the opportunity to ask questions about the findings, diagnosis, and treatment options. Anila Tamayo MD documented in this encounter [facility] 05-06-2024 History of Present illness Narrative [facility] PATIENT: Yudith Morin DATE / TIME: 05/06/24 11:59 AM POS: Office AGE: 88 y.o. : 1935 RACE: [1] SEX: male PCP: Deuce Mendez MD REFERRAL: No ref. provider found TOS: SUBJECTIVE: The patient returns for follow-up after undergoing a surveillance EGD. 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 He also has a known history of hiatal hernia and reflux disease. His hiatal hernia was stable. 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 The patient denies meaningful reflux symptoms at this time. 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 Continue current management for reflux disease 2. Recall in 3 years for surveillance EGD documented in this encounter [facility] 04-10-2024 Telephone encounter Note ----- Message from Rowan Johnson sent at 04/10/2024 8:19 AM EDT ----- Regarding: RX refill Contact: Yudith Morin [phone] MEDICATION REFILL REQUEST: PCP: Deuce Mendez MD Patient called 04/10/24 and is requesting a medication refill for losartan-hydrochlorothiazide (HYZAAR) 100-25 mg per tablet--- Sig - Route: Take 1 (one) tablet by mouth daily with lunch . - Oral This was confirmed from the current medication list found in the patients chart. Supply Requested: # of days: 90 days Method of receiving: Send to pharmacy Last set of flowsheet rows for OARRS report: OARRS/NARxCHECK Report Received and Assessed: Deuce Mendez MD on 04/09/2024 8:16 AM Date controlled substance agreement signed: No data found Date of last drug screen: 03/16/2024 Will this refill be sent to the preferred pharmacy listed below? Yes Preferred pharmacies: [facility] [id number] Pt Call Back Number Patient call back message sent to the primary care clinical pool. Rowan Johnson [facility] 04-10-2024 Miscellaneous Notes ----- Message from Rowan Johnson sent at 04/10/2024 8:19 AM EDT ----- Regarding: RX refill Contact: Yudith Morin [phone] MEDICATION REFILL REQUEST: PCP: Deuce Mendez MD Patient called 04/10/24 and is requesting a medication refill for losartan-hydrochlorothiazide (HYZAAR) 100-25 mg per tablet--- Sig - Route: Take 1 (one) tablet by mouth daily with lunch . - Oral This was confirmed from the current medication list found in the patients chart. Supply Requested: # of days: 90 days Method of receiving: Send to pharmacy Last set of flowsheet rows for OARRS report: OARRS/NARxCHECK Report Received and Assessed: Deuce Mendez MD on 04/09/2024 8:16 AM Date controlled substance agreement signed: No data found Date of last drug screen: 03/16/2024 Will this refill be sent to the preferred pharmacy listed below? Yes Preferred pharmacies: [facility] [address] Pt Call Back Number Patient call back message sent to the primary care clinical pool. Rowan Johnson documented in this encounter [facility] 04-09-2024 History of Present illness Narrative Telephone Visit Via Phone Call [facility] [address] [facility] [address] [facility] [id number] Telephone Visit [facility] 04/09/2024 Deuce Mendez MD Provider Location: [address] [place] [address] Patient Location Metaphysics Teacher: None Patient Location: Patient's Home Patient: Yudith Morin Date of : 1935 (88 y.o. male) PCP: Deuce Mendez MD I discussed risks, benefits and alternatives of a telephone visit telemedicine consultation with the patient (and any accompanying persons) including the risks that the patient's personal health details and medical records will be discussed over real-time, synchronous, interactive audio technology, the visit will not be recorded without the express consent of both the provider and the patient, and that there are inherent diagnostic limitations compared to [id number] evaluations. We elected to proceed with the telephone visit telemedicine consultation. HPI Yudith Morin (ron) is a 88 y.o. male presenting today for follow up on insomnia The patient has been on a regimen of lorazepam 1 mg at night for a significant period, prescribed by Dr. Hauser for anxiety management. Was also previously on sertraline 25 mg in 06/2023. He acknowledges the dependency on lorazepam his anxiety returned being off of it. Has tried being on Mirtazapine but didn't like its side effects Was causing bad dreams and increased his appetite for which she gained some weight. Finished his supply yesterday and states that he has been fine with 0.5 of lorazepam with no concerns. The following portions of the patient's history were reviewed and updated as appropriate: allergies, current medications, past family history, past medical history, past social history, past surgical history, and problem list. Review of Systems Patient's Medications New Prescriptions LORAZEPAM (ATIVAN) 0.5 MG TABLET Take 1 (one) tablet (0.5 mg total) by mouth daily as needed for anxiety . Previous Medications AMLODIPINE (NORVASC) 10 MG TABLET Take 1 (one) tablet (10 mg total) by mouth with evening meal . ASPIRIN 81 MG EC TABLET Take 1 (one) tablet (81 mg total) by mouth daily . B COMPLEX VITAMINS CAPSULE Take 1 (one) capsule by mouth daily . BEE POLLEN ORAL Take 2 capsules by mouth daily . CHOLECALCIFEROL, VITAMIN D3, 5,000 UNIT TAB TABLET Take 1 (one) tablet (5,000 Units total) by mouth daily . DOCUSATE SODIUM (COLACE) 250 MG CAPSULE Take 1 (one) capsule (250 mg total) by mouth daily . DORZOLAMIDE HCL/TIMOLOL MALEAT (COSOPT OPHT) Apply to eye 2 (two) times a day Right eye FAMOTIDINE (PEPCID) 20 MG TABLET Take 1 (one) tablet (20 mg total) by mouth 2 (two) times a day . FERROUS SULFATE 325 (65 FE) MG TABLET Take 1 (one) tablet (325 mg total) by mouth daily with breakfast . FINASTERIDE (PROSCAR) 5 MG TABLET Take 1 (one) tablet (5 mg total) by mouth daily . LABETALOL (NORMODYNE) 200 MG TABLET Take 0.5 (one-half) tablet (100 mg total) by mouth 2 (two) times a day . LOSARTAN-HYDROCHLOROTHIAZIDE (HYZAAR) 100-25 MG PER TABLET Take 1 (one) tablet by mouth daily with lunch . ONDANSETRON (ZOFRAN) 4 MG TABLET Take 1 (one) tablet (4 mg total) by mouth every 8 (eight) hours as needed for nausea . POTASSIUM CHLORIDE (K-DUR) 10 MEQ CR TABLET Take 1 (one) tablet (10 mEq total) by mouth daily . PSYLLIUM (METAMUCIL) 3.4 GRAM PACKET Take 1 (one) packet by mouth daily as needed . SILDENAFIL CITRATE (SILDENAFIL ORAL) Take by mouth daily as needed for erectile dysfunction . SIMVASTATIN (ZOCOR) 20 MG TABLET Take 1 (one) tablet (20 mg total) by mouth daily . TAMSULOSIN (FLOMAX) 0.4 MG CAPSULE Take 1 (one) capsule (0.4 mg total) by mouth daily . Modified Medications No medications on file Discontinued Medications LORAZEPAM (ATIVAN) 1 MG TABLET Take 1 (one) tablet (1 mg total) by mouth as needed for anxiety . MIRTAZAPINE (REMERON) 7.5 MG TABLET Take 1 (one) tablet (7.5 mg total) by mouth nightly . Assessment/Plan: Problem List Items Addressed This Visit None Visit Diagnoses Insomnia, unspecified type - Primary Relevant Medications LORazepam (ATIVAN) 0.5 MG tablet Discussed with patient the plan of going 2.5 mg and continuing that off the mirtazapine which is discontinued given side effects, will continue that for another month before he drops down to 0.25 mg of the lorazepam, prescription is sent to the pharmacy for a month and will follow-up in May on the progress. If it is hard for him to sleep on the 0.5 mg of lorazepam we might consider adding or restarting Zoloft for anxiety versus Lexapro to help with sleep. He will let me know sooner if he needs any further help. I have spent 15 minutes with the patient reviewing the HPI and Plan of Care. DEUCE MENDEZ MD Family Medicine Physician [place] [phone] documented in this encounter [facility] 03-09-2024 Evaluation + Plan note Associated Problem(s): Hypertension Intolerant to clonidine in the past Continue for goal of <130/80 Stable on the current regimen [facility] 03-09-2024 Evaluation + Plan note Associated Problem(s): CAD (coronary artery disease) Asymptomatic, continue on the current regimen 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 03-09-2024 History of Present illness Narrative Subjective Patient ID: Yudith Morin is a 88 y.o. male here for Chief Complaint Patient presents with [facility] Care No concerns After discussing the use of ambient listening and audio recording in generating medical documentation, the patient verbally consented to use of this technology for today's visit. History of Present Illness The patient presents for evaluation of multiple medical concerns. He is accompanied by his . The patient has been on a regimen of lorazepam 1 mg at night for a significant period, prescribed by Dr. Hauser for anxiety management. He acknowledges a tendency to worry. His physician, Dr. Mcwilliams, initiated him on sertraline 25 mg in 06/2023. Despite taking both medications in the morning, he experienced insomnia and stomach jerking when taking half a tablet at night for 4 to 5 nights. He acknowledges the dependency on lorazepam, having been off the medication in the past, but resumed it once his anxiety returned. He has not observed any significant changes since starting the medication. He also recalls using diazepam in the past. His sleep pattern is generally good, but he often wakes up in the middle of the night to use the bathroom and struggles to return to sleep due to worries. The patient experienced an episode of elevated blood pressure of over 200/100 in the evenings. He contacted Dr. Hauser, who expressed concern about a potential stroke or heart attack. Lorazepam typically provides relief for approximately an hour, but he has not needed to take it recently. CAD: The patient underwent coronary artery bypass surgery in t NERI to LAD, SVG to RCA 2010. He typically experiences swelling during the day due to a vein being removed. He is currently on statins. Following up with cardiology. HTN: Chronic , stable on the current regimen with no concerns. 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 BPH (benign prostatic hypertrophy) CAD (coronary artery disease) 2 vessel cabg; neri to lad and svg to the rca Hemorrhoids Hiatal hernia 08/19/2018 Hill grade III, type-I History of skin cancer Hyperlipidemia Labile hypertension Stomach ulcer Urinary bleeding Viral hepatitis Past Surgical History: Procedure Laterality Date CABG 2010 CARDIAC CATHETERIZATION 2010 2 vessel cad CARDIAC CATHETERIZATION 1998 mod stenosis of the prox lad CATARACT EXT/ECCE Bilateral CHOLECYSTECTOMY 1987 COLONOSCOPY 07/19/2015 [facility] CORONARY ARTERY BYPASS GRAFT 2010 neri to lad/svg to rca EGD N/A 04/27/2021 Procedure: ESOPHAGOGASTRODUODENOSCOPY WITH BIOPSY; Surgeon: Mickey Fortune MD; Location: [facility]; Service: General Surgery ESOPHAGOGASTRODUODENOSCOPY 07/19/2015 Sharma's...[facility] in [place] ESOPHAGOGASTRODUODENOSCOPY 08/19/2018 gastritis....Dr. Fortune SKIN LESION EXCISION TONSILLECTOMY 1942 Family History Problem Relation Age of Onset Heart attack Father Breast cancer Mother Social History Tobacco Use Smoking status: Never Smokeless tobacco: Never Vaping Use Vaping Use: Never used Substance Use Topics Alcohol use: No Drug use: No Review of Systems Vitals: 03/09/24 1406 BP: 117/75 BP Location: Right arm Patient Position: Sitting BP Cuff Size: X-large Adult Pulse: 67 Resp: 16 Temp: 98.4 F (36.9 C) TempSrc: Temporal SpO2: 96% Weight: 79.8 kg (176 lb) Height: 6' 1 Estimated body mass index is 23.22 kg/m as calculated from the following: Height as of this encounter: 6' 1. Weight as of this encounter: 79.8 kg (176 lb). Physical Exam Constitutional: General: He is not in acute distress. Appearance: He is not ill-appearing. HENT: Head: Normocephalic and atraumatic. Nose: Nose normal. Mouth/Throat: Mouth: Mucous membranes are moist. Pharynx: Oropharynx is clear. No oropharyngeal exudate or posterior oropharyngeal erythema. Eyes: Extraocular Movements: Extraocular movements intact. Conjunctiva/sclera: Conjunctivae normal. Pupils: Pupils are equal, round, and reactive to light. Cardiovascular: Rate and Rhythm: Normal rate and regular rhythm. Pulses: Normal pulses. Heart sounds: Normal heart sounds. No murmur heard. No gallop. Pulmonary: Effort: Pulmonary effort is normal. Breath sounds: Normal breath sounds. No wheezing, rhonchi or rales. Chest: Chest wall: No tenderness. Abdominal: General: Abdomen is flat. Bowel sounds are normal. There is no distension. Palpations: Abdomen is soft. There is no mass. Tenderness: There is no abdominal tenderness. There is no right CVA tenderness, left CVA tenderness, guarding or rebound. Musculoskeletal: General: No tenderness. Normal range of motion. Cervical back: Normal range of motion and neck supple. No rigidity. No muscular tenderness. Right lower leg: No edema. Left lower leg: No edema. Lymphadenopathy: Cervical: No cervical adenopathy. Skin: General: Skin is warm. Findings: No erythema or rash. Neurological: General: No focal deficit present. Mental Status: He is alert and oriented to person, place, and time. Sensory: No sensory deficit. Motor: No weakness. Gait: Gait normal. Psychiatric: Mood and Affect: Mood normal. Behavior: Behavior normal. Thought Content: Thought content normal. Judgment: Judgment normal. OARRS/NARxCHECK Report Received and Assessed: Deuce Mendez MD on 01/17/2024 3:40 PM Date controlled substance agreement signed: No data found Date of last drug screen: PHQ9: FRANC-7 Tobacco Counseling: Counseling given: Not Answered Reviewed by Provider: Patient's Medications New Prescriptions MIRTAZAPINE (REMERON) 7.5 MG TABLET Take 1 (one) tablet (7.5 mg total) by mouth nightly . Previous Medications AMLODIPINE (NORVASC) 10 MG TABLET Take 1 (one) tablet (10 mg total) by mouth with evening meal . ASPIRIN 81 MG EC TABLET Take 1 (one) tablet (81 mg total) by mouth daily . B COMPLEX VITAMINS CAPSULE Take 1 (one) capsule by mouth daily . BEE POLLEN ORAL Take 2 capsules by mouth daily . CHOLECALCIFEROL, VITAMIN D3, 5,000 UNIT TAB TABLET Take 1 (one) tablet (5,000 Units total) by mouth daily . DOCUSATE SODIUM (COLACE) 250 MG CAPSULE Take 1 (one) capsule (250 mg total) by mouth daily . DORZOLAMIDE HCL/TIMOLOL MALEAT (COSOPT OPHT) Apply to eye 2 (two) times a day Right eye FAMOTIDINE (PEPCID) 20 MG TABLET Take 1 (one) tablet (20 mg total) by mouth 2 (two) times a day . FERROUS SULFATE 325 (65 FE) MG TABLET Take 1 (one) tablet (325 mg total) by mouth daily with breakfast . FINASTERIDE (PROSCAR) 5 MG TABLET Take 1 (one) tablet (5 mg total) by mouth daily . LABETALOL (NORMODYNE) 200 MG TABLET Take 0.5 (one-half) tablet (100 mg total) by mouth 2 (two) times a day . LOSARTAN-HYDROCHLOROTHIAZIDE (HYZAAR) 100-25 MG PER TABLET Take 1 (one) tablet by mouth daily with lunch . ONDANSETRON (ZOFRAN) 4 MG TABLET Take 1 (one) tablet (4 mg total) by mouth every 8 (eight) hours as needed for nausea . POTASSIUM CHLORIDE (K-DUR) 10 MEQ CR TABLET Take 1 (one) tablet (10 mEq total) by mouth daily . PSYLLIUM (METAMUCIL) 3.4 GRAM PACKET Take 1 (one) packet by mouth daily as needed . SILDENAFIL CITRATE (SILDENAFIL ORAL) Take by mouth daily as needed for erectile dysfunction . SIMVASTATIN (ZOCOR) 20 MG TABLET Take 1 (one) tablet (20 mg total) by mouth daily . TAMSULOSIN (FLOMAX) 0.4 MG CAPSULE Take 1 (one) capsule (0.4 mg total) by mouth daily . Modified Medications Modified Medication Previous Medication LORAZEPAM (ATIVAN) 1 MG TABLET LORazepam (ATIVAN) 1 MG tablet Take 1 (one) tablet (1 mg total) by mouth as needed for anxiety . Take 1 (one) tablet (1 mg total) by mouth as needed for anxiety . Discontinued Medications SERTRALINE (ZOLOFT) 25 MG TABLET Take 1 (one) tablet (25 mg total) by mouth daily . 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 Stable followed up with in the heart burn clinic Cardiovascular and Mediastinum CAD (coronary artery disease) - Primary Asymptomatic, continue on the current regimen Relevant Orders CBC and Differential Iron Study with Ferritin Hypertension Intolerant to clonidine in the past Continue for goal of <130/80 Stable on the current regimen Relevant Orders TSH with Reflex Free T4 Microalbumin/Creatinine Ratio, UR Random Hemoglobin A1c Lipid Panel Comprehensive Metabolic Panel Other Borderline diabetes Relevant Orders Hemoglobin A1c Other Visit Diagnoses Stage 3 chronic kidney disease, unspecified whether stage 3a or 3b CKD (HCC) Anxiety Relevant Medications LORazepam (ATIVAN) 1 MG tablet Other Relevant Orders Drugs of Abuse Screen, Urine Prostate cancer screening Relevant Orders PSA, Screen Abnormal finding of blood chemistry, unspecified Relevant Orders Iron Study with Ferritin Encounter for therapeutic drug level monitoring Relevant Orders Drugs of Abuse Screen, Urine Assessment & Plan Assessment & Plan 1. Anxiety. The patient was informed about the potential risks associated with long-term use of lorazepam, including increased risk of falls and dementia. The decision was made to discontinue Zoloft and initiate mirtazapine at bedtime. A prescription for lorazepam 1 mg, with a 3-month supply was issued. With the hope to continue weaning off lorazepam as able Will start taking 0.5 mg with the mirtazapine. OARRS reviewed. Signed a CSA, urine drug screen pending. The patient signed a controlled substance agreement today. Should the patient find the mirtazapine beneficial, the dosage of mirtazapine can be increased while reducing the lorazepam dosage. If the patient's condition does not improve within a month, he is to inform us sooner. Follow-up The patient is scheduled for a follow-up visit in 1 month, or earlier if necessary. A follow-up appointment will be scheduled in 3 months for a medication check. My ongoing relationship with Yudith Morin requires continued responsibility and cognitive effort of being the focal point for all services related to chronic condition(s). Return for one month phone and then every 3 months for lorazepam check . DEUCE MENDEZ MD [facility] [address] [facility] [address] [facility] [address] Dept: [phone] documented in this encounter [facility] 02-20-2024 History of Present illness Narrative [facility] [address]) [facility] [address] [facility] [id number] Yudith Morin is a 88 y.o. male being seen on 02/20/24 for Chief Complaint Patient presents with Follow-up Sharma's esophagus HPI: The patient presents today to discuss a surveillance EGD. 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 His last EGD was on 04/27/2021 and revealed a Hill grade 4, 3 cm, type I sliding hiatal hernia. Biopsies of the esophagus were negative for Sharma's esophagus. The patient denies meaningful heartburn, regurgitation, or esophageal dysphagia at this time. He looks 10 years younger than his stated age. His weight is stable. His activity level is excellent. 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 BPH (benign prostatic hypertrophy) CAD (coronary artery disease) 2 vessel cabg; neri to lad and svg to the rca Hemorrhoids Hiatal hernia 08/19/2018 Hill grade III, type-I History of skin cancer Hyperlipidemia Labile hypertension Stomach ulcer Urinary bleeding Viral hepatitis Past Surgical History: Procedure Laterality Date CABG 2010 CARDIAC CATHETERIZATION 2010 2 vessel cad CARDIAC CATHETERIZATION 1998 mod stenosis of the prox lad CATARACT EXT/ECCE Bilateral CHOLECYSTECTOMY 1987 COLONOSCOPY 07/19/2015 [place] CORONARY ARTERY BYPASS GRAFT 2010 neri to lad/svg to rca EGD N/A 04/27/2021 Procedure: ESOPHAGOGASTRODUODENOSCOPY WITH BIOPSY; Surgeon: Mickey Fortune MD; Location: [facility]; Service: General Surgery ESOPHAGOGASTRODUODENOSCOPY 07/19/2015 Sharma's...Thomae in [place] ESOPHAGOGASTRODUODENOSCOPY 08/19/2018 gastritis....Dr. Fortune SKIN LESION EXCISION TONSILLECTOMY 1942 No Known Allergies Current Outpatient Medications Medication Sig Dispense Refill amLODIPine (NORVASC) 10 MG tablet Take 1 (one) tablet (10 mg total) by mouth with evening meal . aspirin 81 MG EC tablet Take 1 (one) tablet (81 mg total) by mouth daily . b complex vitamins capsule Take 1 (one) capsule by mouth daily . BEE POLLEN ORAL Take 2 capsules by mouth daily . cholecalciferol, vitamin D3, 5,000 unit Tab tablet Take 1 (one) tablet (5,000 Units total) by mouth daily . docusate sodium (COLACE) 250 MG capsule Take 1 (one) capsule (250 mg total) by mouth daily . DORZOLAMIDE HCL/TIMOLOL MALEAT (COSOPT OPHT) Apply to eye 2 (two) times a day Right eye famotidine (PEPCID) 20 MG tablet Take 1 (one) tablet (20 mg total) by mouth 2 (two) times a day . ferrous sulfate 325 (65 FE) MG tablet Take 1 (one) tablet (325 mg total) by mouth daily with breakfast . finasteride (PROSCAR) 5 mg tablet Take 1 (one) tablet (5 mg total) by mouth daily . labetalol (NORMODYNE) 200 MG tablet Take 0.5 (one-half) tablet (100 mg total) by mouth 2 (two) times a day . LORazepam (ATIVAN) 1 MG tablet Take 1 (one) tablet (1 mg total) by mouth as needed for anxiety . losartan-hydrochlorothiazide (HYZAAR) 100-25 mg per tablet Take 1 (one) tablet by mouth daily with lunch . ondansetron (ZOFRAN) 4 MG tablet Take 1 (one) tablet (4 mg total) by mouth every 8 (eight) hours as needed for nausea . potassium chloride (K-DUR) 10 MEQ CR tablet Take 1 (one) tablet (10 mEq total) by mouth daily . sertraline (ZOLOFT) 25 MG tablet Take 1 (one) tablet (25 mg total) by mouth daily . sildenafil citrate (SILDENAFIL ORAL) Take by mouth daily as needed for erectile dysfunction . simvastatin (ZOCOR) 20 MG tablet Take 1 (one) tablet (20 mg total) by mouth daily . tamsulosin (FLOMAX) 0.4 mg capsule Take 1 (one) capsule (0.4 mg total) by mouth daily . psyllium (METAMUCIL) 3.4 gram packet Take 1 (one) packet by mouth daily as needed . No current facility-administered medications for this visit. Social History Tobacco Use Smoking status: Never Smokeless tobacco: Never Vaping Use Vaping Use: Never used Substance Use Topics Alcohol use: No Drug use: No Family History Problem Relation Age of Onset Heart attack Father Breast cancer Mother REVIEW OF SYSTEMS Pertinent positives are listed in HPI, PMSH, SH, ALL, otherwise all systems reviewed below are negative. The following systems were reviewed: [x] Const (fevers, chills, wt. loss, fatigue) [x] CV (HTN, CP, PERSAUD, edema, DVT) [x] Resp (SOB, pleurisy, asthma, apnea) [x] GI (N, V, D, C, M, abd pain, appetite) [x] Musc (back pain, joint stiffness, gout) [x] Neuro (seizures, syncope, paralysis) [x] Psych (depression, anxiety) [x] Endo (hot/cold intol, polyuria[DM]) [x] Hem/Lymph (Anemia, LA, bleeding) [x] Allerg/Immun (seasonal, immuniz) [x] Eyes (diplopia, cataracts) [x] ENT/mouth (dysphagia, epistaxis) [x] (dysuria, hematuria) [x] Skin/Breast (moles, rash, lumps, nipple changes) Pertinent Positives: See HPI Pertinent Negatives: See HPI Physical Exam: BP 131/81 Pulse (!) 59 Ht 6' 1 Wt 78.9 kg (174 lb) SpO2 98% BMI 22.96 kg/m Body mass index is 22.96 kg/m . Constitutional: Well nourished, well developed person in no acute distress. Ambulates without difficulty. Head: Atraumatic and normocephalic. Face: Within normal limits. Eyes: Pupils equal, round, reactive to light. Sclera white. Mouth: Moist mucous membranes, normal dentation. Neck: supple, trachea midline,no masses, no incisions. Lymphatic: No cervical or inguinal lymphadenopathy. Heart: Regular rate and rhythm. Lungs: Clear to auscultation. Abdomen: Soft, non-distended, non-tender, no heptasplenomegaly, no umbilica, incisional, femoral, or inguinal hernias. Pelvis: Stable, non-tender. Skin: Warm, moist, normal skin turgor. Peripheral Vascular: Palapable carotid, radial, and femoral pulses, no peripheral edema. Neuropsych: Alert and oriented, judgement and insight intact. Normal Gait. Assessment: 1. 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 Plan: EGD with Biopsy Mickey Fortune MD documented in this encounter [facility] 02-05-2024 History of Present illness Narrative Virtual or Telephone Consent An interactive audio and video telecommunication system which permits real time communications between the patient (at the originating site) and provider (at the distant site) was utilized to provide this telehealth service. Verbal consent was requested and obtained from Yudith Morin on this date, 02/05/24 for a telehealth visit. Subjective Patient ID: Yudith Morin is a 88 y.o. male. HPI Patient is here for medication check. He was started on Daily Cialis, but stopped it due to frequency at night and restarted the Flomax. He is also taking Finasteride. Most recent PSA was 0.85 on 11/16. Prior PSA was 1.34 on 10/16. Prior PSA was 0.82 on 09/2021. Prior PSA was 0.78 on 09/2020. Prior PSA was 0.87 on 09/2019. Patient has chronic hx of microhematuria. Negative workup in the past. UA today is good. ED is chronic and this is an issue. Cialis 20mg PRN. Nocturia x1, depending on fluid intake. Review of Systems Constitutional: Negative for chills and fever. HENT: Negative. Eyes: Negative. Respiratory: Negative for cough and shortness of breath. Cardiovascular: Negative for chest pain and leg swelling. Gastrointestinal: Negative for nausea. Endocrine: Negative. Genitourinary: Negative for difficulty urinating. Negative except for documented in HPI Allergic/Immunologic: Negative. Neurological: Alert & oriented X 3 Hematological: Denies blood thinners Psychiatric/Behavioral: Negative. Objective Physical Exam No PE done given the virtual nature of visit. Assessment/Plan Diagnoses and all orders for this visit: 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 Nocturia Erectile dysfunction, unspecified erectile dysfunction type All available PSA values reviewed, Options discussed. Questions answered. Diet changes for prostate health discussed and educational information given. Pros/Cons of prostate health supplements discussed. Treatment options for LUTS reviewed Continue Flomax and Proscar discontinue Cialis 5mg Discussed timed voiding. Discussed fluid and caffeine intake Treatment options for ED reviewed. Sildenafil Refills authorized Lifestyle change to help prevent UTIs discussed. Encouraged fluid intake. F/U 11/17 with PSA documented in this encounter [facility] Work Phone: 11-27-2023 History of Present illness Narrative Subjective Patient ID: Yudith Morin is a 88 y.o. male. HPI Patient is here for yearly f/u. Most recent PSA was 0.85 on 11/16. Prior PSA was 1.34 on 10/16. Prior PSA was 0.82 on 09/2021. Prior PSA was 0.78 on 09/2020. Prior PSA was 0.87 on 09/2019. Chronic BPH sx are mild and stable. Denies urgency and frequency. Denies dysuria. Denies hematuria. Nocturia x1. He is taking Proscar and Flomax. Patient has chronic hx of microhematuria. Negative workup in the past. UA today is good. ED is chronic and this is an issue. Sildenafil PRN. Review of Systems Constitutional: Negative for chills and fever. HENT: Negative. Eyes: Negative. Respiratory: Negative for cough and shortness of breath. Cardiovascular: Negative for chest pain and leg swelling. Gastrointestinal: Negative for nausea. Endocrine: Negative. Genitourinary: Negative for difficulty urinating. Negative except for documented in HPI Allergic/Immunologic: Negative. Neurological: Alert & oriented X 3 Hematological: Denies blood thinners Psychiatric/Behavioral: Negative. Objective Physical Exam Vitals and nursing note reviewed. Constitutional: General: He is not in acute distress. Appearance: Normal appearance. Pulmonary: Effort: Pulmonary effort is normal. Abdominal: Tenderness: There is no abdominal tenderness. Genitourinary: Comments: Kidneys non palpable bilaterally Bladder non palpable or tender Scrotum no mass, No hydrocele Epididymis- No spermatocele. Non Tender. Testicles: No mass. Soft Urethra: No discharge Penis within normal limits... No lesions Prostate - symmetric, no nodules. BENIGN Seminal Vesicals: No mass. Sphincter tone: normal Neurological: Mental Status: He is alert. Assessment/Plan Diagnoses and all orders for this visit: 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 Nocturia Erectile dysfunction, unspecified erectile dysfunction type All available PSA values reviewed, Options discussed. Questions answered. Diet changes for prostate health discussed and educational information given. Pros/Cons of prostate health supplements discussed. Treatment options for LUTS reviewed Continue Proscar discontinue Flomax Start Cialis 5mg QD Discussed timed voiding. Discussed fluid and caffeine intake Treatment options for ED reviewed. Cialis 20mg Rx given PRN Lifestyle change to help prevent UTIs discussed. Encouraged fluid intake. F/U with 2 months with UA and PVR virtual documented in this encounter [facility] Work Phone: 10-29-2023 History of Present illness Narrative General Cardiology Returning Patient Clinic Visit [facility] 10/29/2023 Stephanie Simpson MD [address] [place] [phone] [facility]ician Group, physician's office 10/29/2023 Patient: Yudith Morin Date of : 1935 (88 y.o.) Referring Provider: Deuce Mendez PCP: Dante Gayle, SHERRIE Chief Complaint: Follow-up (NO cardiac symptoms ) Date of Service: 10/29/2023 Assessment and Plan: 1. Coronary 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 [place] heart without angina pectoris Status post NERI to LAD, SVG to RCA 2010 LDL is 91, acceptable, though would prefer a bit better control We can discuss an alternative statin at her next visit, unfortunately today we spent a bit too much time talking about his who does not have any cardiac issues 2. Primary hypertension Blood pressures are well-controlled today and at home, no changes 3. Dyslipidemia As above It has been a pleasure caring for this patient. Please don't hesitate to reach out to my office directly with any questions or concerns. Follow-up: Return in about 1 year (around 10/29/2024). Stephanie Simpson MD, [facility] Non-Invasive Cardiology [facility] P:[phone] F:[phone] ---- History of Present Illness: Yudith Morin is a 88 y.o. man with a past medical history of coronary disease having had bypass grafting in 2010. He has hypertension, hyperlipidemia, chronic kidney disease, anxiety disorder. I saw him in the office this past May. Echo had been updated last October which showed an EF of 60%. He had mild mitral valve insufficiency. When I saw him in May he was doing well he was golfing regularly and feeling well. We updated carotid duplex study which showed less than 50% stenosis in the right internal carotid less than 50% stenosis in the left internal carotid. T he continues to feel well and and remain active. Not having any chest pain pressure shortness of breath taking any nitro Objective Review of Systems: All systems were reviewed and noted to be negative unless otherwise stated in HPI. 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 BPH (benign prostatic hypertrophy) CAD (coronary artery disease) 2 vessel cabg; neri to lad and svg to the rca Hemorrhoids Hiatal hernia 08/19/2018 Hill grade III, type-I History of skin cancer Hyperlipidemia Labile hypertension Stomach ulcer Urinary bleeding Viral hepatitis Past Surgical History: Procedure Laterality Date CABG 2010 CARDIAC CATHETERIZATION 2010 2 vessel cad CARDIAC CATHETERIZATION 1998 mod stenosis of the prox lad CATARACT EXT/ECCE Bilateral CHOLECYSTECTOMY 1987 COLONOSCOPY 07/19/2015 [facility] CORONARY ARTERY BYPASS GRAFT 2010 neri to lad/svg to rca EGD N/A 04/27/2021 Procedure: ESOPHAGOGASTRODUODENOSCOPY WITH BIOPSY; Surgeon: Mickey Fortune MD; Location: [facility]; Service: General Surgery ESOPHAGOGASTRODUODENOSCOPY 07/19/2015 Sharma's...[place] in [place] ESOPHAGOGASTRODUODENOSCOPY 08/19/2018 gastritis....Dr. Fortune SKIN LESION EXCISION TONSILLECTOMY 1942 Family History Problem Relation Age of Onset Heart attack Father Breast cancer Mother Social History Tobacco Use Smoking Status Never Smokeless Tobacco Never Allergies: Patient has no known allergies. All of the above information has been reviewed at today's visit and modified if necessary. Home Medications: Current Outpatient Medications: amLODIPine (NORVASC) 10 MG tablet, Take 1 (one) tablet (10 mg total) by mouth with evening meal ., Disp: , Rfl: aspirin 81 MG EC tablet, Take 1 (one) tablet (81 mg total) by mouth daily ., Disp: , Rfl: BEE POLLEN ORAL, Take 2 capsules by mouth daily ., Disp: , Rfl: cholecalciferol, vitamin D3, 5,000 unit Tab tablet, Take 1 (one) tablet (5,000 Units total) by mouth daily ., Disp: , Rfl: docusate sodium (COLACE) 250 MG capsule, Take 1 (one) capsule (250 mg total) by mouth daily ., Disp: , Rfl: DORZOLAMIDE HCL/TIMOLOL MALEAT (COSOPT OPHT), Apply to eye 2 (two) times a day Right eye, Disp: , Rfl: famotidine (PEPCID) 20 MG tablet, Take 1 (one) tablet (20 mg total) by mouth 2 (two) times a day ., Disp: , Rfl: ferrous sulfate 325 (65 FE) MG tablet, Take 1 (one) tablet (325 mg total) by mouth daily with breakfast ., Disp: , Rfl: finasteride (PROSCAR) 5 mg tablet, Take 1 (one) tablet (5 mg total) by mouth daily ., Disp: , Rfl: labetalol (NORMODYNE) 200 MG tablet, Take 0.5 (one-half) tablet (100 mg total) by mouth 2 (two) times a day ., Disp: , Rfl: LORazepam (ATIVAN) 1 MG tablet, Take 1 (one) tablet (1 mg total) by mouth as needed for anxiety ., Disp: , Rfl: losartan-hydrochlorothiazide (HYZAAR) 100-25 mg per tablet, Take 1 (one) tablet by mouth daily with lunch ., Disp: , Rfl: ondansetron (ZOFRAN) 4 MG tablet, Take 1 (one) tablet (4 mg total) by mouth every 8 (eight) hours as needed for nausea ., Disp: , Rfl: potassium chloride (K-DUR) 10 MEQ CR tablet, Take 1 (one) tablet (10 mEq total) by mouth daily ., Disp: , Rfl: psyllium (METAMUCIL) 3.4 gram packet, Take 1 (one) packet by mouth daily as needed ., Disp: , Rfl: sertraline (ZOLOFT) 25 MG tablet, Take 1 (one) tablet (25 mg total) by mouth daily ., Disp: , Rfl: sildenafil citrate (SILDENAFIL ORAL), Take by mouth daily as needed for erectile dysfunction ., Disp: , Rfl: simvastatin (ZOCOR) 20 MG tablet, Take 1 (one) tablet (20 mg total) by mouth daily ., Disp: , Rfl: tamsulosin (FLOMAX) 0.4 mg capsule, Take 1 (one) capsule (0.4 mg total) by mouth daily ., Disp: , Rfl: Physical Exam: BP 125/74 (BP Location: Right arm, Patient Position: Sitting, BP Cuff Size: Adult) Pulse 63 Ht 6' 1 Wt 76 kg (167 lb 9.6 oz) SpO2 94% BMI 22.11 kg/m Constitutional: Well appearing male, no acute distress Head: Normocephalic and atraumatic. Eyes: Conjunctivae are normal, no scleral icterus, no corneal arcus Neck: No acanthosis nigricans, no elevated jugular venous distension, no hepatojugular reflux Cardiovascular: Regular rate and rhythm, no murmurs appreciated on today's exam, normal S1 and S2, no rubs or gallops, PMI is midline Pulses: +2 dorsalis pedis pulses bilaterally Musculoskeletal: Normal range of motion. No cyanosis. No peripheral Edema Neurological: AOx3, moving all extremities normally Skin: Skin is warm and dry, normal hair pattern Psychiatric: Normal mood and affect, appropriate conversation Cardiovascular Studies: Reviewed Labs: Lab Results Component Value Date GLUCOSE 109 (H) 06/09/2023 CALCIUM 8.7 06/09/2023 NA 143 06/09/2023 K 3.3 (L) 06/09/2023 CL 110 (H) 06/09/2023 BUN 22 06/09/2023 CREATININE 1.23 06/09/2023 Lab Results Component Value Date ALT 28 02/06/2023 AST 23 02/06/2023 ALKPHOS 87 02/06/2023 BILITOT 1.0 02/06/2023 Lab Results Component Value Date WBC 5.56 06/09/2023 HGB 13.1 (L) 06/09/2023 HCT 38.2 (L) 06/09/2023 MCV 97.4 06/09/2023 PLT 165 06/09/2023 RBC 3.92 (L) 06/09/2023 Lab Results Component Value Date CHOL 157 09/28/2013 TRIG 80 09/28/2013 Lab Results Component Value Date HGBA1C 5.6 09/28/2013 Lab Results Component Value Date ALT 28 02/06/2023 AST 23 02/06/2023 ALKPHOS 87 02/06/2023 BILITOT 1.0 02/06/2023 The ASCVD Risk score (Naina GRANDA, et al., 2019) failed to calculate for the following reasons: The 2019 ASCVD risk score is only valid for ages 40 to 79 documented in this encounter [facility] 10-29-2023 Instructions Stephanie Simpson MD - 10/29/2023 10:37 AM EST How to Contact your Care Team: Provider: Dr. Stephanie Simpson MD Clinic Nurse: Roseline Nash RN REFILLS: When in need for refills please call your care team or the office at [phone]. Please include medication name, pharmacy name, and specify 30-day or 90-day supply. Please check with your pharmacy within 24 hours of request for your refill. You must follow up as directed to continue current refills. Thank you! Patient Instructions So great to see you today! Please do not hesitate to call me if you have any questions! Here are the things we talked about... No changes documented in this encounter [facility] 10-23-2023 History of Present illness Narrative documented in this encounter [facility] Work Phone: 05-01-2023 History of Present illness Narrative ASSESSMENT/PLAN: 1. 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 Patient was seen by Dr. Gaines for epiphoa- patient would like a 2nd opinion, seeing Ocular-plastics Dr. Valdovinos in [place]: 2. Primary open angle glaucoma (POAG) of both eyes, mild stage - ICD9: 365.11, 365.71, ICD10: H40.1131 3. Optic cupping of both eyes - ICD9: 377.14, ICD10: H47.233 Current Ophthalmic Meds latanoprost (XALATAN) 0.005 % ophthalmic solution Use 1 Drop in both eyes daily at bedtime. 4. Nonexudative age-related macular degeneration, bilateral, intermediate dry stage - ICD9: 362.51, ICD10: H35.3132 -Stable/monitor 5. Essential hypertension - ICD9: 401.9, ICD10: I10 -Continue care with primary care physician I have confirmed and edited as necessary the relevant ophthalmic history, review of systems, surgical history, and ophthalmological examination findings as obtained by the ophthalmic technical staff. I have seen and examined Yudith Morin. I have discussed the examination findings, diagnosis, and treatment options with Yudith Morin and/or his family. I have also reviewed and agree with the assessment and plan as stated above and agree with all its relevant components. I gave the patient the opportunity to ask questions about the findings, diagnosis, and treatment options. Anila Tamayo MD documented in this encounter [facility] 05-01-2023 Instructions Anila Tamayo MD - 05/01/2023 10:48 AM EDT Continue: Naphcon-A drops four times a day Both eyes Begin: Current Ophthalmic Meds latanoprost (XALATAN) 0.005 % ophthalmic solution Use 1 Drop in both eyes daily at bedtime. Would like to see oculo-plastics specialist in [place] for epiphora Patient to see Dr. Valdovinos documented in this encounter [facility] 03-19-2023 Instructions Anila Tamayo MD - 03/19/2023 11:22 AM EDT Please monitor each eye daily with Amsler Grid. AREDS 2 Vitamins are available over the counter at any drug store. Begin: Naphcon-A 1 drop in both eyes three times daily If you have any questions please contact our office at [phone]. After office hours or on the weekend, please call Dr. Tamayo on his cell phone at [phone]. documented in this encounter [facility] 03-19-2023 History of Present illness Narrative ASSESSMENT/PLAN: 1. POAG right eye mild stage 2. Ocular hypertension left eye Cosopt was discontinued 04/19/2021 Worsening mean deviation right eye OCT nerve next visit Follow up in 6 weeks Selected laser trabeculoplasty right eye 2. Optic cupping of both eyes Monitor 3. Nonexudative age-related macular degeneration, bilateral, intermediate dry stage - ICD9: 362.51, ICD10: H35.3132 Please monitor each eye daily with Amsler Grid. AREDS 2 Vitamins are available over the counter at any drug store. 4. 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 Essential hypertension - ICD9: 401.9, ICD10: I10 Continue care with primary care physician Anila Tamayo MD I have confirmed and edited as necessary the relevant ophthalmic history, review of systems, surgical history, and ophthalmological examination findings as obtained by the ophthalmic technical staff. I have seen and examined Yudith Morin. I have discussed the examination findings, diagnosis, and treatment options with Yudith Morin and/or his family. I have also reviewed and agree with the assessment and plan as stated above and agree with all its relevant components. I gave the patient the opportunity to ask questions about the findings, diagnosis, and treatment options. documented in this encounter [facility] 02-07-2023 History of Present illness Narrative [facility] PATIENT: Yudith Morin DATE / TIME: 02/07/23 10:21 AM POS: Office AGE: 87 y.o. : 1935 RACE: [1] SEX: male PCP: Dante Gayle CNP REFERRAL: No ref. provider found TOS: SUBJECTIVE: The patient presents today to discuss a possible surveillance EGD. 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 His last EGD was on 04/27/2021 and demonstrated a Hill grade 4, 3 cm, type I sliding hiatal hernia. Biopsies of the esophagus were negative for Sharma's esophagus. The patient denies meaningful heartburn, regurgitation, or esophageal dysphagia. He does take an H2 kemal 2 times a day to help control his symptoms. At his last EGD I recommended surveillance in 3 years. 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 01-24-2023 Miscellaneous Notes Patient's request for medication is as follows: Requested Prescriptions Pending Prescriptions Disp Refills cycloSPORINE (RESTASIS) 0.05 % ophthalmic emulsion 180 Each 3 Sig: Use 1 Drop in both eyes twice daily. Please see the updated rx to reflect a 90-day supply for [facility]. Prior Auth has been sent as well. Prescription(s) as above. Please process accordingly. Peyton Erickson Patient called to request his prescription for restasis [facility] for a 90 day supply. Patient also requests prior authorization be completed. Auth phone:[id number] documented in this encounter [facility] 01-21-2023 Miscellaneous Notes Patient called and asked for a 90 day supply of Restasis instead of a 15 day supply because it is cheaper for him to do that. He understands a 90 day supply needs a prior authorization and forgot to talk to you about this at his appointment. Patient's pharmacy is [facility]. Please advise. documented in this encounter [facility] 01-17-2023 Miscellaneous Notes Called and informed patient that we can do preferred prescription Usman, Patient called in inquiring about the Xiidra drops that were prescribed. Pt would like to see if you could send in restasis eye drops instead if possible.He stated that is is more cost effective for him. documented in this encounter [facility] 01-15-2023 Instructions Souleymane Smith APRN.CNP - 01/15/2023 11:56 AM EST Discussed tearing is multifactorial and likely due to dry eyes since tear drainage system is open For dryness continue Artificial Tears 2-4 times a day (systane or refresh) - Start taking Xiidra 1 drop to both eyes 2 times a day. Xiidra may take 3 months to start working effectively. It is normal for the eye drop to burn after instillation of the drop. This will typically improve by the end of the first month. No oculoplastics intervention needed at this time. F/u Dr. Marrero for dry eye management documented in this encounter [facility] 01-15-2023 History of Present illness Narrative A/p: Tearing both sides x 04/[address] Mcpherson 09/12/22 - free flow Exam Increased tear downing both eyes Decreased tear film both eyes Trace Superficial punctate keratopathy (SPK) No papillary reaction both eyes Irrigation: right: free flow to nose Left: free flow to nose Discussed tearing is multifactorial and likely due to dry eyes since tear drainage system is open For dryness continue Artificial Tears 2-4 times a day (systane or refresh) - Start taking Xiidra 1 drop to both eyes 2 times a day. Xiidra may take 3 months to start working effectively. It is normal for the eye drop to burn after instillation of the drop. This will typically improve by the end of the first month. No oculoplastics intervention needed at this time. F/u Dr. Marrero for dry eye management I have confirmed and edited as necessary the relevant ophthalmic history, ROS, and the neuro exam findings as obtained by others. I have seen and examined this patient. I have discussed the case and the management of this patient's care with the Resident/Fellow, if applicable. I also have reviewed and agree with the assessment and plan as stated above and agree with all of its relevant components. Souleymane Smith APRN.CNP January 15, 2023 11:53 AM documented in this encounter [facility] 01-04-2023 Miscellaneous Notes Patient called and reports little improvement with his eyes since his last visit. His eyes are still watering and the drops are not working as well as he hoped, per patient. He would like to know where to go from here. Please advise. documented in this encounter [facility] 10-22-2022 Evaluation + Plan note Associated Problem(s): CAD (coronary artery disease) He is doing well without angina symptoms no exertional dyspnea. Medical therapy was reviewed and appears to be appropriate. He and his will not go to [place] this year, he is concerned with her overall health. I did encourage him to be active here in the wintertime, try to go to areas indoors where he could walk and be active. We will continue to monitor him periodically here in the clinic he knows to contact us if he had any symptomatic changes. [facility] 10-22-2022 Evaluation + Plan note Associated Problem(s): Hypertension He has some changes in his therapy since we last saw him. He was having issues related to orthostatic dizziness with lower blood pressures. He came off clonidine and his labetalol dose was decreased. He seems to be better in regards to the side effects and he did bring in a diary of blood pressures. Occasionally a number of 140 but his overall average appears to be good. I told him to continue his current regimen. I told him to only measure his blood pressure 3 times a week, I do not think he needs to do it daily as long as his averages appear to be in good range. [facility] 10-22-2022 Miscellaneous Notes Associated Problem(s): CAD (coronary artery disease) He is doing well without angina symptoms no exertional dyspnea. Medical therapy was reviewed and appears to be appropriate. He and his will not go to [place] this year, he is concerned with her overall health. I did encourage him to be active here in the wintertime, try to go to areas indoors where he could walk and be active. We will continue to monitor him periodically here in the clinic he knows to contact us if he had any symptomatic changes. Associated Problem(s): Hypertension He has some changes in his therapy since we last saw him. He was having issues related to orthostatic dizziness with lower blood pressures. He came off clonidine and his labetalol dose was decreased. He seems to be better in regards to the side effects and he did bring in a diary of blood pressures. Occasionally a number of 140 but his overall average appears to be good. I told him to continue his current regimen. I told him to only measure his blood pressure 3 times a week, I do not think he needs to do it daily as long as his averages appear to be in good range. documented in this encounter [facility] 10-22-2022 History of Present illness Narrative General Cardiology Clinic Follow-up Heart & Vascular [facility] 10/22/2022 Cam Suarez MD [address] [place] [id number] Patient: Yudith Morin Date of : 1935 (87 y.o.) PCP: Dante Gayle CNP Assessment & Plan Hypertension He has some changes in his therapy since we last saw him. He was having issues related to orthostatic dizziness with lower blood pressures. He came off clonidine and his labetalol dose was decreased. He seems to be better in regards to the side effects and he did bring in a diary of blood pressures. Occasionally a number of 140 but his overall average appears to be good. I told him to continue his current regimen. I told him to only measure his blood pressure 3 times a week, I do not think he needs to do it daily as long as his averages appear to be in good range. CAD (coronary artery disease) He is doing well without angina symptoms no exertional dyspnea. Medical therapy was reviewed and appears to be appropriate. He and his will not go to [place] this year, he is concerned with her overall health. I did encourage him to be active here in the wintertime, try to go to areas indoors where he could walk and be active. We will continue to monitor him periodically here in the clinic he knows to contact us if he had any symptomatic changes. Follow-up: Return in about 6 months (around 04/21/2023). Subjective History of Present Illness: Yudith Morin is a 87 y.o. male This is an 87-year-old gentleman. He has history of coronary disease having had bypass grafting in 2010. He has hypertension, hyperlipidemia, chronic kidney disease, anxiety disorder. I saw him in the office this past May. Echo had been updated last October which showed an EF of 60%. He had mild mitral valve insufficiency. When I saw him in May he was doing well he was golfing regularly and feeling well. We updated carotid duplex study which showed less than 50% stenosis in the right internal carotid less than 50% stenosis in the left internal carotid. This result was reviewed with him today. Objective Tobacco Use Smoking Status Never Smokeless Tobacco Never Echocardiogram complete Final Result by Wellington Belcher MD (10/27/2021 2551) HOME Medications: Patient's Medications New Prescriptions No medications on file Previous Medications AMLODIPINE (NORVASC) 10 MG TABLET Take 1 (one) tablet (10 mg total) by mouth with evening meal . ASPIRIN 81 MG EC TABLET Take 1 (one) tablet (81 mg total) by mouth daily . BEE POLLEN ORAL Take 2 capsules by mouth daily . CHOLECALCIFEROL, VITAMIN D3, (VITAMIN D3) 5,000 UNIT TAB TABLET Take 1 (one) tablet (5,000 Units total) by mouth daily . DOCUSATE SODIUM (COLACE) 250 MG CAPSULE Take 1 (one) capsule (250 mg total) by mouth daily . DORZOLAMIDE HCL/TIMOLOL MALEAT (COSOPT OPHT) Apply to eye 2 (two) times a day Right eye FAMOTIDINE (PEPCID) 20 MG TABLET Take 1 (one) tablet (20 mg total) by mouth 2 (two) times a day . FERROUS SULFATE 325 (65 FE) MG TABLET Take 1 (one) tablet (325 mg total) by mouth daily with breakfast . FINASTERIDE (PROSCAR) 5 MG TABLET Take 1 (one) tablet (5 mg total) by mouth daily . LABETALOL (NORMODYNE) 200 MG TABLET Take 0.5 (one-half) tablet (100 mg total) by mouth 2 (two) times a day . LORAZEPAM (ATIVAN) 1 MG TABLET Take 1 (one) tablet (1 mg total) by mouth as needed for anxiety . LOSARTAN-HYDROCHLOROTHIAZIDE (HYZAAR) 100-25 MG PER TABLET Take 1 (one) tablet by mouth daily with lunch . ONDANSETRON (ZOFRAN) 4 MG TABLET Take 1 (one) tablet (4 mg total) by mouth every 8 (eight) hours as needed for nausea . POTASSIUM CHLORIDE (K-DUR) 10 MEQ CR TABLET Take 1 (one) tablet (10 mEq total) by mouth daily . PSYLLIUM (METAMUCIL) 3.4 GRAM PACKET Take 1 (one) packet by mouth daily as needed . SILDENAFIL CITRATE (SILDENAFIL ORAL) Take by mouth daily as needed for erectile dysfunction . SIMVASTATIN (ZOCOR) 20 MG TABLET Take 1 (one) tablet (20 mg total) by mouth daily . TAMSULOSIN (FLOMAX) 0.4 MG CAPSULE Take 1 (one) capsule (0.4 mg total) by mouth daily . Modified Medications No medications on file Discontinued Medications CLONIDINE HCL (CATAPRES) 0.1 MG TABLET Take 0.1 mg by mouth 2 (two) times a day . Vital Signs: BP 107/68 (BP Location: Right arm, Patient Position: Sitting, BP Cuff Size: Adult) Pulse 70 Ht 6' 1 Wt 78.1 kg (172 lb 3.2 oz) SpO2 97% BMI 22.72 kg/m Physical Exam Vitals reviewed. Cardiovascular: Rate and Rhythm: Normal rate and regular rhythm. Heart sounds: Murmur heard. Scratchy systolic murmur is present with a grade of 1/6 at the upper right sternal border. Pulmonary: Breath sounds: Normal breath sounds. Abdominal: Palpations: Abdomen is soft. Skin: General: Skin is warm. Neurological: General: No focal deficit present. Mental Status: He is alert. Psychiatric: Mood and Affect: Mood normal. Labs: I personally reviewed and interpreted the labs documented below. Recent labs dated October 05 showed a total cholesterol 151, triglycerides 70, HDL 52, LDL of 85. BUN 24, creatinine 1.1. documented in this encounter [facility] 10-22-2022 Instructions Angelica Chapa MA - 10/22/2022 10:17 AM EST You can reach Dr Suarez's nurse Wellington Lee RN, at [phone]. If unable to reach us please leave a detailed voicemail message. We regularly check our messages when we are in clinic and will return your call in 24 hours. REFILLS: When in need for refills please call the above number. Please relay your name, date and phone number. We request that you include medication name, dose, pharmacy name and location of pharmacy in your message. Be sure to specify 30-day or 90-day supply requested. Please check with your pharmacy within 24-48 hours of request for your refill. You must follow up as directed to continue current refills. FOLLOW UP VISIT: Regarding your follow up office visit: The return date listed below is an approximate date of when your next office visit will be. We will call you a month before that date to schedule your office visit. If you have not heard from us by the date listed below please call the office at [phone] and ask to speak to the schedulers to make an appointment. *If you made an -appointment prior to leaving the office today disregard this message. To cancel or reschedule your office visit or testing please call [phone]. If you need to cancel it must be 24 hours prior to that appt. Thank you. ....If you were seen in the [place] office today. If any testing was ordered a senior power scheduler from [facility] group will call you to schedule your testing. If you do not hear from a senior power scheduler after a couple of days please call the office at [phone] and ask to speak to a senior power scheduler. documented in this encounter [facility] 10-16-2022 Instructions Shahbaz Marrero II, OD - 10/16/2022 9:55 AM EST Assessment and Plan H40.053 Ocular hypertension, bilateral (primary encounter diagnosis) Comment: Intraocular pressure's lower today. Continue observation. 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 To try Refresh gel 2-3 times daily x 2 weeks. If unsuccessful will try Xiidra or Brimonidine. I have confirmed and edited as necessary the relevant ophthalmic history, ROS, and the neuro exam findings as obtained by others. I have seen and examined Yudith Morin. I have discussed the case and the management of this patient's care with the Resident/Fellow, if applicable. I also have reviewed and agree with the assessment and plan as stated above and agree with all of its relevant components. Shahbaz Marrero II, CRIS documented in this encounter [facility] 10-16-2022 History of Present illness Narrative Assessment and Plan H40.053 Ocular hypertension, bilateral (primary encounter diagnosis) Comment: Intraocular pressure's lower today. Continue observation. 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 To try Refresh gel 2-3 times daily x 2 weeks. If unsuccessful will try Xiidra or Brimonidine. I have confirmed and edited as necessary the relevant ophthalmic history, ROS, and the neuro exam findings as obtained by others. I have seen and examined Yudith Morin. I have discussed the case and the management of this patient's care with the Resident/Fellow, if applicable. I also have reviewed and agree with the assessment and plan as stated above and agree with all of its relevant components. 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 Recheck in 1 week. 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 Recommend increase use of Systane Complete 1 gt both eyes four times a day and continue use of Pataday 0.1% 1 gt both eyes twice a day as prescribed by Dr. Mcpherson. Trial of Xiidra if symptoms persist. I have confirmed and edited as necessary the relevant ophthalmic history, ROS, and the neuro exam findings as obtained by others. I have seen and examined Yudith Morin. I have discussed the case and the management of this patient's care with the Resident/Fellow, if applicable. I also have reviewed and agree with the assessment and plan as stated above and agree with all of its relevant components. 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 Recheck in 1 week. 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 Recommend increase use of Systane Complete 1 gt both eyes four times a day and continue use of Pataday 0.1% 1 gt both eyes twice a day as prescribed by Dr. Mcpherson. Trial of Xiidra if symptoms persist. I have confirmed and edited as necessary the relevant ophthalmic history, ROS, and the neuro exam findings as obtained by others. I have seen and examined Yudith Morin. I have discussed the case and the management of this patient's care with the Resident/Fellow, if applicable. I also have reviewed and agree with the assessment and plan as stated above and agree with all of its relevant components. Shahbaz Marrero II, OD documented in this encounter [facility] 09-17-2022 Miscellaneous Notes Patient calling and seems confused about eyedrops. AVS states Patanol was for allergies which was relayed to patient. Patient wants to know if there was a general timeline for relief with Patanol. Patient is requesting recommendations for artifical tears. Looks like he tried Systane already. Pt can be reached at [phone] documented in this encounter [facility] 06-15-2022 Evaluation + Plan note Associated Problem(s): CAD (coronary artery disease) He continues to do well. He is active golfs regularly does a fair amount of walking activity and does not report any exertional chest pain or pressure symptoms. He has had no heart failure complaints. We did talk about his blood pressure today has had some tapering of his clonidine, his blood pressures tend to run low and he brought in a diary of recordings. It may be reasonable to try to wean him totally off his clonidine and continue his other therapies. 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 He will continue his statin treatment. I do not think he needs any other additional treatments at this point time. I did review laboratories he brought in with him and his last Cholesterol assessment look good. We will continue to follow with him regularly here in the office. [facility] 06-15-2022 Miscellaneous Notes Associated Problem(s): CAD (coronary artery disease) He continues to do well. He is active golfs regularly does a fair amount of walking activity and does not report any exertional chest pain or pressure symptoms. He has had no heart failure complaints. We did talk about his blood pressure today has had some tapering of his clonidine, his blood pressures tend to run low and he brought in a diary of recordings. It may be reasonable to try to wean him totally off his clonidine and continue his other therapies. 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 He will continue his statin treatment. I do not think he needs any other additional treatments at this point time. I did review laboratories he brought in with him and his last Cholesterol assessment look good. We will continue to follow with him regularly here in the office. documented in this encounter [facility] 06-15-2022 History of Present illness Narrative General Cardiology Clinic Follow-up Heart & Vascular [facility] 06/15/2022 Cam Suarez MD [address] [place] [phone] Patient: Yudith Morin Date of : 1935 (87 y.o.) PCP: Dante Gayle CNP Assessment & Plan CAD (coronary artery disease) He continues to do well. He is active golfs regularly does a fair amount of walking activity and does not report any exertional chest pain or pressure symptoms. He has had no heart failure complaints. We did talk about his blood pressure today has had some tapering of his clonidine, his blood pressures tend to run low and he brought in a diary of recordings. It may be reasonable to try to wean him totally off his clonidine and continue his other therapies. 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 He will continue his statin treatment. I do not think he needs any other additional treatments at this point time. I did review laboratories he brought in with him and his last Cholesterol assessment look good. We will continue to follow with him regularly here in the office. Follow-up: Return in about 6 months (around 12/16/2022). Subjective History of Present Illness: Yudith Morin is a 87 y.o. male This is an 87-year-old gentleman. I saw him in September 2021. He has a history of coronary disease having had bypass surgery in 2010. At that time he had left internal mammary artery graft placed to his left anterior descending, saphenous vein graft to the right coronary artery. He has normal systolic function. Additional medical problems include hypertension, hyperlipidemia, chronic kidney disease, anxiety disorder. In September he seemed to be doing well, he was active, reported that he had been doing a fair amount of yard and housework without any complaints. We updated an echo, ejection fraction looks good at 60% there may be mild proximal lateral hypokinesis. Moderate aortic valve sclerosis, mild mitral valve insufficiency. Objective Tobacco Use Smoking Status Never Smokeless Tobacco Never Echocardiogram complete Final Result by Wellington Belcher MD (10/27/2021 9189) HOME Medications: Patient's Medications New Prescriptions No medications on file Previous Medications AMLODIPINE (NORVASC) 10 MG TABLET Take 10 mg by mouth with evening meal . ASPIRIN 81 MG EC TABLET Take 81 mg by mouth daily BEE POLLEN ORAL Take 2 capsules by mouth daily . CLONIDINE HCL (CATAPRES) 0.1 MG TABLET Take 0.1 mg by mouth 2 (two) times a day . DOCUSATE SODIUM (COLACE) 250 MG CAPSULE Take 250 mg by mouth daily DORZOLAMIDE HCL/TIMOLOL MALEAT (COSOPT OPHT) Apply to eye 2 (two) times a day Right eye FAMOTIDINE (PEPCID) 20 MG TABLET Take 20 mg by mouth 2 (two) times a day . FERROUS SULFATE 325 (65 FE) MG TABLET Take 325 mg by mouth daily with breakfast. FINASTERIDE (PROSCAR) 5 MG TABLET Take 5 mg by mouth daily LABETALOL (NORMODYNE) 200 MG TABLET Take 100 mg by mouth 2 (two) times a day . LORAZEPAM (ATIVAN) 1 MG TABLET Take 1 mg by mouth as needed for anxiety LOSARTAN-HYDROCHLOROTHIAZIDE (HYZAAR) 100-25 MG PER TABLET Take 1 tablet by mouth daily with lunch . ONDANSETRON (ZOFRAN) 4 MG TABLET Take 4 mg by mouth every 8 (eight) hours as needed for nausea. POTASSIUM CHLORIDE (K-DUR) 10 MEQ CR TABLET Take 10 mEq by mouth daily. PSYLLIUM (METAMUCIL) 3.4 GRAM PACKET Take 1 packet by mouth daily as needed . SILDENAFIL CITRATE (SILDENAFIL ORAL) Take by mouth daily as needed for erectile dysfunction . SIMVASTATIN (ZOCOR) 20 MG TABLET Take 20 mg by mouth daily . TAMSULOSIN (FLOMAX) 0.4 MG CAPSULE Take 0.4 mg by mouth daily. Modified Medications No medications on file Discontinued Medications No medications on file Vital Signs: BP 96/61 (BP Location: Left arm, Patient Position: Sitting, BP Cuff Size: Adult) Pulse 67 Ht 6' 1 Wt 78.9 kg (173 lb 14.4 oz) SpO2 97% BMI 22.94 kg/m Physical Exam Vitals reviewed. Cardiovascular: Rate and Rhythm: Normal rate and regular rhythm. Heart sounds: Normal heart sounds. Pulmonary: Breath sounds: Normal breath sounds. Abdominal: Palpations: Abdomen is soft. Skin: General: Skin is warm. Neurological: General: No focal deficit present. Mental Status: He is alert and oriented to person, place, and time. Psychiatric: Mood and Affect: Mood normal. documented in this encounter [facility] 06-15-2022 Instructions Angelica Chapa MA - 06/15/2022 9:18 AM EDT You can reach Dr Suarez's nurse, Wellington Lee at [phone]. If unable to reach us please leave a detailed voicemail message. We regularly check our messages when we are in clinic and will return your call in 24 hours. REFILLS: When in need for refills please call the above number. Please relay your name, date and phone number. We request that you include medication name, dose, pharmacy name and location of pharmacy in your message. Be sure to specify 30-day or 90-day supply requested. Please check with your pharmacy within 24-48 hours of request for your refill. You must follow up as directed to continue current refills. FOLLOW UP VISIT: Regarding your follow up office visit: The return date listed below is an approximate date of when your next office visit will be. We will call you a month before that date to schedule your office visit. If you have not heard from us by the date listed below please call the office at [phone] and ask to speak to the schedulers to make an appointment. *If you made an -appointment prior to leaving the office today disregard this message. To cancel or reschedule your office visit or testing please call [phone]. If you need to cancel it must be 24 hours prior to that appt. Thank you. ....If you were seen in the [place] office today. If any testing was ordered a senior power scheduler from [facility] group will call you to schedule your testing. If you do not hear from a senior power scheduler after a couple of days please call the office at [phone] and ask to speak to a senior power scheduler. documented in this encounter [facility] 06-05-2022 History of Present illness Narrative Associated Order(s): MD Mccain Injection/Arthrocentesis: L radiocarpal Post-Procedure Diagnose(s): Left wrist pain MD Mccain Injection/Arthrocentesis: L radiocarpal Date/Time: 06/05/2022 5:02 PM Performed by: Soheila Diaz CNP Authorized by: Soheila Diaz CNP CPT 52505 - Medium Joint Arthrocentesis: Consent given by: Patient Time out: Immediately prior to the procedure a time out was called Physician or proceduralist has discussed critical or nonroutine steps, procedure duration and anticipated blood loss: Yes Supporting Documentation: Indications: Pain and diagnostic evaluation Procedure Details: Location: Wrist Site: L radiocarpal Prep: patient was prepped and draped in usual sterile fashion Needle size: 22 G Approach: Dorsal Medications: 40 mg triamcinolone acetonide 40 mg/mL Anesthetic used:: Lidocaine 1% Anesthetic amount (mL): 1 Patient tolerance: Patient tolerated the procedure well with no immediate complications [facility] [address] [facility] [address] [facility] [id number] Chief Complaint Patient presents with Left Wrist - Follow-up Yudith Morin returns to the office today for follow-up on his left wrist. I had seen him in the office on 05/16/2022 for left wrist pain. He has continued with conservative treatment measures, icing OTC pain medications in addition to wearing an Kevin wrap to the left wrist for additional support. He does report that it is feeling better. He is actually been able to golf without much pain. His concern is that he would like to continue golfing and as he continues to golf more, since he has not played near as often as he usually does, that the left wrist will then start to hurt again. He is here for follow-up and to discuss a possible cortisone injection into the left wrist. We did discuss possible injections in the future at his last visit. The patient's past medical history, surgical history, social history, family history, medications and allergies were reviewed with the patient today and are available in the chart for further review. No Known Allergies Current Outpatient Medications: amLODIPine (NORVASC) 10 MG tablet, Take 10 mg by mouth with evening meal ., Disp: , Rfl: aspirin 81 MG EC tablet, Take 81 mg by mouth daily, Disp: , Rfl: BEE POLLEN ORAL, Take 2 capsules by mouth daily ., Disp: , Rfl: cloNIDine HCl (CATAPRES) 0.1 MG tablet, Take 0.1 mg by mouth 2 (two) times a day 0.1 mg in am 0.2 MG at bedtime. ., Disp: , Rfl: docusate sodium (COLACE) 250 MG capsule, Take 250 mg by mouth daily, Disp: , Rfl: DORZOLAMIDE HCL/TIMOLOL MALEAT (COSOPT OPHT), Apply to eye 2 (two) times a day Right eye, Disp: , Rfl: famotidine (PEPCID) 20 MG tablet, Take 20 mg by mouth 2 (two) times a day ., Disp: , Rfl: ferrous sulfate 325 (65 FE) MG tablet, Take 325 mg by mouth daily with breakfast., Disp: , Rfl: finasteride (PROSCAR) 5 mg tablet, Take 5 mg by mouth daily, Disp: , Rfl: labetalol (NORMODYNE) 200 MG tablet, Take 200 mg by mouth 2 (two) times a day, Disp: , Rfl: LORazepam (ATIVAN) 1 MG tablet, Take 1 mg by mouth as needed for anxiety, Disp: , Rfl: losartan-hydrochlorothiazide (HYZAAR) 100-25 mg per tablet, Take 1 tablet by mouth daily with lunch ., Disp: , Rfl: ondansetron (ZOFRAN) 4 MG tablet, Take 4 mg by mouth every 8 (eight) hours as needed for nausea., Disp: , Rfl: potassium chloride (K-DUR) 10 MEQ CR tablet, Take 10 mEq by mouth daily., Disp: , Rfl: psyllium (METAMUCIL) 3.4 gram packet, Take 1 packet by mouth daily as needed ., Disp: , Rfl: sildenafil citrate (SILDENAFIL ORAL), Take by mouth daily as needed for erectile dysfunction ., Disp: , Rfl: simvastatin (ZOCOR) 20 MG tablet, Take 20 mg by mouth daily ., Disp: , Rfl: tamsulosin (FLOMAX) 0.4 mg capsule, Take 0.4 mg by mouth daily., Disp: , Rfl: 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 BPH (benign prostatic hypertrophy) CAD (coronary artery disease) 2 vessel cabg; neri to lad and svg to the rca Hemorrhoids Hiatal hernia 08/19/2018 Hill grade III, type-I History of skin cancer Hyperlipidemia Labile hypertension Stomach ulcer Urinary bleeding Viral hepatitis Past Surgical History: Procedure Laterality Date CABG 2010 CARDIAC CATHETERIZATION 2010 2 vessel cad CARDIAC CATHETERIZATION 1998 mod stenosis of the prox lad CATARACT EXT/ECCE Bilateral CHOLECYSTECTOMY 1987 COLONOSCOPY 07/19/2015 [place] CORONARY ARTERY BYPASS GRAFT 2010 neri to lad/svg to rca EGD N/A 04/27/2021 Procedure: ESOPHAGOGASTRODUODENOSCOPY WITH BIOPSY; Surgeon: Mickey Fortune MD; Location: [facility]; Service: General Surgery ESOPHAGOGASTRODUODENOSCOPY 07/19/2015 Sharma's...[facility] in [place] ESOPHAGOGASTRODUODENOSCOPY 08/19/2018 gastritis....Dr. Fortune SKIN LESION EXCISION TONSILLECTOMY 194 Social History Socioeconomic History Marital status: Tobacco Use Smoking status: Never Smokeless tobacco: Never Vaping Use Vaping Use: Never used Substance and Sexual Activity Alcohol use: No Drug use: No ROS: Review of Systems Musculoskeletal: Positive for arthralgias and joint swelling. ORTHO: Left Hand Exam Tenderness The patient is experiencing tenderness in the radial area. Range of Motion The patient has normal left wrist ROM. Muscle Strength The patient has normal left wrist strength. Other Erythema: absent Scars: absent Sensation: normal Pulse: present Imaging: No new imaging, reviewed from prior visit. Assessment/Plan: Exam and discussion I did offer him a cortisone injection to the left wrist which she gladly excepted. I did this without complications and he tolerated this well. He is to continue with bracing for documented in this encounter [facility] 05-16-2022 History of Present illness Narrative [facility] [address] [facility] [address] [facility] [id number] Chief Complaint Patient presents with Left Wrist - Pain Yudith Morin, 86-year-old male, presents to the office today for left wrist pain. Patient reports this started approximately 2 months ago without any known injury. He states it is along the inside portion of his wrist and can actually extend up into the arm and down into the thumb. He is left-handed. He reports he is still able to do everything that he wants and needs to do. He says every once in a while he will get a twinge in the wrist and then his pain will subside. He is not had to use any type of OTC pain medications. He is still able to golf. He does report that if he is sitting and having to write for any extensive period of time he notices that when his pain starts to increase. Denies any numbness or tingling into the hand or the fingers. The patient's past medical history, surgical history, social history, family history, medications and allergies were reviewed with the patient today and are available in the chart for further review. No Known Allergies Current Outpatient Medications: amLODIPine (NORVASC) 10 MG tablet, Take 10 mg by mouth with evening meal ., Disp: , Rfl: aspirin 81 MG EC tablet, Take 81 mg by mouth daily, Disp: , Rfl: BEE POLLEN ORAL, Take 2 capsules by mouth daily ., Disp: , Rfl: cloNIDine HCl (CATAPRES) 0.1 MG tablet, Take 0.1 mg by mouth 2 (two) times a day 0.1 mg in am 0.2 MG at bedtime. ., Disp: , Rfl: docusate sodium (COLACE) 250 MG capsule, Take 250 mg by mouth daily, Disp: , Rfl: DORZOLAMIDE HCL/TIMOLOL MALEAT (COSOPT OPHT), Apply to eye 2 (two) times a day Right eye, Disp: , Rfl: famotidine (PEPCID) 20 MG tablet, Take 20 mg by mouth 2 (two) times a day ., Disp: , Rfl: ferrous sulfate 325 (65 FE) MG tablet, Take 325 mg by mouth daily with breakfast., Disp: , Rfl: finasteride (PROSCAR) 5 mg tablet, Take 5 mg by mouth daily, Disp: , Rfl: labetalol (NORMODYNE) 200 MG tablet, Take 200 mg by mouth 2 (two) times a day, Disp: , Rfl: LORazepam (ATIVAN) 1 MG tablet, Take 1 mg by mouth as needed for anxiety, Disp: , Rfl: losartan-hydrochlorothiazide (HYZAAR) 100-25 mg per tablet, Take 1 tablet by mouth daily with lunch ., Disp: , Rfl: ondansetron (ZOFRAN) 4 MG tablet, Take 4 mg by mouth every 8 (eight) hours as needed for nausea., Disp: , Rfl: potassium chloride (K-DUR) 10 MEQ CR tablet, Take 10 mEq by mouth daily., Disp: , Rfl: psyllium (METAMUCIL) 3.4 gram packet, Take 1 packet by mouth daily as needed ., Disp: , Rfl: sildenafil citrate (SILDENAFIL ORAL), Take by mouth daily as needed for erectile dysfunction ., Disp: , Rfl: simvastatin (ZOCOR) 20 MG tablet, Take 20 mg by mouth daily ., Disp: , Rfl: tamsulosin (FLOMAX) 0.4 mg capsule, Take 0.4 mg by mouth daily., Disp: , Rfl: 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 BPH (benign prostatic hypertrophy) CAD (coronary artery disease) 2 vessel cabg; neri to lad and svg to the rca Hemorrhoids Hiatal hernia 08/19/2018 Hill grade III, type-I History of skin cancer Hyperlipidemia Labile hypertension Stomach ulcer Urinary bleeding Viral hepatitis Past Surgical History: Procedure Laterality Date CABG 2010 CARDIAC CATHETERIZATION 2010 2 vessel cad CARDIAC CATHETERIZATION 1998 mod stenosis of the prox lad CATARACT EXT/ECCE Bilateral CHOLECYSTECTOMY 1988 COLONOSCOPY 07/19/2015 [place] CORONARY ARTERY BYPASS GRAFT 2010 neri to lad/svg to rca EGD N/A 04/27/2021 Procedure: ESOPHAGOGASTRODUODENOSCOPY WITH BIOPSY; Surgeon: Mickey Fortune MD; Location: [facility]; Service: General Surgery ESOPHAGOGASTRODUODENOSCOPY 07/19/2015 Sharma's...[facility] in [place] ESOPHAGOGASTRODUODENOSCOPY 08/19/2018 gastritis....Dr. Fortune SKIN LESION EXCISION TONSILLECTOMY 1942 Social History Socioeconomic History Marital status: Tobacco Use Smoking status: Never Smokeless tobacco: Never Vaping Use Vaping Use: Never used Substance and Sexual Activity Alcohol use: No Drug use: No ROS: Review of Systems Constitutional: Negative for activity change and fatigue. HENT: Negative for congestion, hearing loss and trouble swallowing. Eyes: Negative for visual disturbance. Respiratory: Negative for chest tightness and shortness of breath. Cardiovascular: Negative for chest pain and palpitations. Gastrointestinal: Negative for abdominal pain, diarrhea, nausea and vomiting. Endocrine: Negative for polydipsia, polyphagia and polyuria. Genitourinary: Negative for decreased urine volume, difficulty urinating and hematuria. Musculoskeletal: Positive for arthralgias. Negative for joint swelling and myalgias. Skin: Negative for color change, rash and wound. Allergic/Immunologic: Negative for immunocompromised state. Neurological: Negative for dizziness, weakness, light-headedness and numbness. Hematological: Does not bruise/bleed easily. Psychiatric/Behavioral: Negative for confusion and sleep disturbance. The patient is not nervous/anxious. PE: Physical Exam Constitutional: Appearance: He is well-developed. HENT: Head: Normocephalic. Eyes: Pupils: Pupils are equal, round, and reactive to light. Cardiovascular: Rate and Rhythm: Normal rate and regular rhythm. Pulmonary: Effort: Pulmonary effort is normal. Breath sounds: Normal breath sounds. Abdominal: General: Bowel sounds are normal. Palpations: Abdomen is soft. Musculoskeletal: General: Tenderness present. Normal range of motion. Cervical back: Normal range of motion and neck supple. Skin: General: Skin is warm and dry. Neurological: Mental Status: He is alert and oriented to person, place, and time. ORTHO: Left Hand Exam Tenderness The patient is experiencing tenderness in the radial area. Range of Motion The patient has normal left wrist ROM. Hand MP Thumb: abnormal DIP Thumb: 40 Muscle Strength Wrist extension: 5/5 Wrist flexion: 5/5 Nurse Rn Bsn: 3/5 Tests Phalen s Sign: negative Tinel's sign (median nerve): negative Nya's test: positive Other Erythema: absent Scars: absent Sensation: normal Pulse: present Imaging: Left wrist: Significant degenerative changes in the CMC joint as well as the first MCP and DIP joint spaces. Mild degenerative changes throughout the hand. Formal radiology read to follow. Assessment/Plan: After examination and reviewing of the patient x-ray images we discussed treatment options for the left wrist. I did encourage him to try some OTC anti-inflammatories for when the wrist is painful. We also discussed using ice after activity as well as warm moist heat. I also encouraged him to use some type of a compression supportive brace on the left wrist especially with activity. I like him to try these conservative treatment measures for the next couple of weeks and if he still having his twinges that I am more than happy to see him back in the office and provide him with a shot of cortisone. He does verbalize understanding is in agreement with the treatment plan. documented in this encounter [facility] 10-04-2021 Miscellaneous Notes Associated Problem(s): CAD (coronary artery disease) He is active, golfs regularly, does a fair amount a yard and housework, is not reporting any exertional chest pain or pressure complaints. He does not describe having a significant amount of symptoms prior to his bypass procedure, sounds like he had chronic coronary artery disease being managed medically but a stress test showed additional changes. I talked him about updating a stress study, he is not sure he can do a treadmill and is a little hesitant. I told him I would like to do an echo to make sure his LV function remains normal. He obviously is on a fairly aggressive regimen and should continue that, I do not think we need to make any additional changes. Laboratories reviewed from last March, cholesterol 171, LDL 91, HDL 59, creatinine 1.4. Associated Problem(s): Hypertension He has had ongoing problems with low blood pressure measurements at home, occasional dizziness and lightheadedness particularly when he gets up in the morning. I went over all of his antihypertensives with him. Apparently has had a difficult time getting blood pressure under control but it seems to be under control now for several years. We arranged his schedule: He takes his amlodipine 10 mg in the evening Clonidine point 1 in the morning, he will take 0.2 at bedtime, stop the evening dose of 0.2 Losartan hydrochlorothiazide take at noon Continue labetalol twice a day I told him I would not anticipate his pressure to rebound to any significant extent but he will contact us if his numbers particularly in the morning seem higher. documented in this encounter [facility] 10-04-2021 History of Present illness Narrative General Cardiology Clinic Follow-up Heart & Vascular [facility] 10/04/2021 Cam Suarez MD [address] [place] [id number] Patient: Yudith Morin Date of : 1935 (86 y.o.) PCP: Dante Gayle CNP Assessment & Plan Hypertension He has had ongoing problems with low blood pressure measurements at home, occasional dizziness and lightheadedness particularly when he gets up in the morning. I went over all of his antihypertensives with him. Apparently has had a difficult time getting blood pressure under control but it seems to be under control now for several years. We arranged his schedule: He takes his amlodipine 10 mg in the evening Clonidine point 1 in the morning, he will take 0.2 at bedtime, stop the evening dose of 0.2 Losartan hydrochlorothiazide take at noon Continue labetalol twice a day I told him I would not anticipate his pressure to rebound to any significant extent but he will contact us if his numbers particularly in the morning seem higher. CAD (coronary artery disease) He is active, golfs regularly, does a fair amount a yard and housework, is not reporting any exertional chest pain or pressure complaints. He does not describe having a significant amount of symptoms prior to his bypass procedure, sounds like he had chronic coronary artery disease being managed medically but a stress test showed additional changes. I talked him about updating a stress study, he is not sure he can do a treadmill and is a little hesitant. I told him I would like to do an echo to make sure his LV function remains normal. He obviously is on a fairly aggressive regimen and should continue that, I do not think we need to make any additional changes. Laboratories reviewed from last March, cholesterol 171, LDL 91, HDL 59, creatinine 1.4. Follow-up: Return in about 6 months (around 04/03/2022). Chief Complaint: Follow-up (6 mo no complaints today) Subjective History of Present Illness: Yudith Morin is a 86 y.o. male This is an 86-year-old gentleman. He has been following with Dr. Agarwal with history of coronary disease having had bypass grafting in 2010. At the time of his surgery a double vessel bypass completed, left internal mammary artery graft placed to his left anterior descending and a vein graft to the right coronary artery. He has normal systolic function, medical problems include hypertension, hyperlipidemia, chronic kidney disease, and anxiety disorder. He was seen in March this year seem to be doing well. He was concerned about low blood pressures. Noting he might be having some orthostatic symptoms, discussion however was more focused on the fact that he has had very difficult to control blood pressure in the past and his more recent numbers seem to be good. Objective Tobacco Use Smoking Status Never Smoker Smokeless Tobacco Never Used HOME Medications: Patient's Medications New Prescriptions No medications on file Previous Medications AMLODIPINE (NORVASC) 10 MG TABLET Take 10 mg by mouth with evening meal . ASPIRIN 81 MG EC TABLET Take 81 mg by mouth daily BEE POLLEN ORAL Take 2 capsules by mouth daily . CLONIDINE HCL (CATAPRES) 0.1 MG TABLET Take 0.1 mg by mouth 2 (two) times a day 0.1 mg in am 0.2 MG in evening . DOCUSATE SODIUM (COLACE) 250 MG CAPSULE Take 250 mg by mouth daily DORZOLAMIDE HCL/TIMOLOL MALEAT (COSOPT OPHT) Apply to eye 2 (two) times a day Right eye FAMOTIDINE (PEPCID) 20 MG TABLET Take 20 mg by mouth 2 (two) times a day . FERROUS SULFATE 325 (65 FE) MG TABLET Take 325 mg by mouth daily with breakfast. FINASTERIDE (PROSCAR) 5 MG TABLET Take 5 mg by mouth daily LABETALOL (NORMODYNE) 200 MG TABLET Take 200 mg by mouth 2 (two) times a day LORAZEPAM (ATIVAN) 1 MG TABLET Take 1 mg by mouth as needed for anxiety LOSARTAN-HYDROCHLOROTHIAZIDE (HYZAAR) 100-25 MG PER TABLET Take 1 tablet by mouth daily with lunch . ONDANSETRON (ZOFRAN) 4 MG TABLET Take 4 mg by mouth every 8 (eight) hours as needed for nausea. POTASSIUM CHLORIDE (K-DUR) 10 MEQ CR TABLET Take 10 mEq by mouth daily. PSYLLIUM (METAMUCIL) 3.4 GRAM PACKET Take 1 packet by mouth daily as needed . SILDENAFIL CITRATE (SILDENAFIL ORAL) Take by mouth daily as needed for erectile dysfunction . SIMVASTATIN (ZOCOR) 20 MG TABLET Take 20 mg by mouth daily . TAMSULOSIN (FLOMAX) 0.4 MG CAPSULE Take 0.4 mg by mouth daily. Modified Medications No medications on file Discontinued Medications No medications on file Vital Signs: BP (!) 92/56 (BP Location: Right arm, Patient Position: Sitting, BP Cuff Size: Adult) Pulse 64 Ht 6' 1 Wt 76.2 kg (168 lb) SpO2 94% BMI 22.16 kg/m Physical Exam Vitals reviewed. Constitutional: Comments: Appears fit, younger than stated age HENT: Head: Normocephalic. Eyes: General: No scleral icterus. Cardiovascular: Rate and Rhythm: Normal rate and regular rhythm. Pulses: Normal pulses. Heart sounds: Normal heart sounds. Pulmonary: Breath sounds: Normal breath sounds. Abdominal: Palpations: Abdomen is soft. Musculoskeletal: Right lower leg: No edema. Left lower leg: No edema. Skin: General: Skin is warm and dry. Neurological: General: No focal deficit present. Mental Status: He is alert and oriented to person, place, and time. Psychiatric: Mood and Affect: Mood normal. Labs: I personally reviewed and interpreted the labs documented below. See above note regarding review of blood work. documented in this encounter [facility] 10-04-2021 Instructions Ayana Gutierrez MA - 10/04/2021 10:06 AM EST You can reach Dr Suarez's nurses, April Hdez RN and Alina Moffett RN, at [phone]. If unable to reach us please leave a voicemail. We regularly check our messages when we are in clinic and will return your call with in a 24 hours. You were seen in the [place] office today. REFILL: When in need for refills please call us at [phone]. Please relay your name, date and phone number. We request that you include the medication name, dose, pharmacy name and location of pharmacy. Be sure to specify if you prefer a 30-day or 90-day supply. Please check with your pharmacy within 24-48 hours of request for your refill. You must follow up as directed to continue current refills. FOLLOW UP: Regarding your follow up office visit: The return date listed below is an approximate date of when your next office visit will be. We will call you a month before that date to schedule your office visit. If you have not heard from us by the date listed below please call the office at [phone] and ask to speak to a senior power scheduler to make an appointment. *If you made an -appointment prior to leaving the office today disregard this message. Should you need to cancel or reschedule your office visit please call [phone]. If you need to cancel it must be 24 hours prior to that appt. Thank you. documented in this encounter [facility] 09-25-2021 History of Present illness Narrative Patient is here for yearly f/u. Most recent PSA was 1.34 on 10/16. Prior PSA was 0.82 on 09/2021. Prior PSA was 0.78 on 09/2020. Prior PSA was 0.87 on 09/2019. Chronic BPH sx are mild and stable. Denies urgency and frequency. Denies dysuria. Denies hematuria. Nocturia x1. He is taking Proscar and Flomax. Doesn't really know if they work. Patient has chronic hx of microhematuria. Negative workup in the past. 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 Sildenafil PRN. NP-[id number] Work Phone: 04-06-2021 History of Present illness Narrative [facility] [address] [facility] [address] [facility] [id number] Yudith Morin is a 85 y.o. 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 I discussed with the patient that while we practice appropriate precautions consistent with prevailing medical standards, any contact with any person in any setting at this time presents a risk of transmission and contraction of COVID-19. The patient was also informed that COVID-19 testing within 72 hours of the procedure will be required. The patient wishes to proceed. The patient presents today to schedule a surveillance EGD. 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 His last EGD was performed on 08/19/2018. 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 He denies significant heartburn, regurgitation, or dysphagia. He has occasional belching that he says occurs if he eats too much chocolate. His weight has been relatively stable. Overall he says he feels pretty good. 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 BPH (benign prostatic hypertrophy) CAD (coronary artery disease) 2 vessel cabg; neri to lad and svg to the rca Hemorrhoids Hiatal hernia 08/19/2018 Hill grade III, type-I History of skin cancer Hyperlipidemia Labile hypertension Stomach ulcer Urinary bleeding Viral hepatitis Past Surgical History: Procedure Laterality Date CABG 2010 CARDIAC CATHETERIZATION 2010 2 vessel cad CARDIAC CATHETERIZATION 1998 mod stenosis of the prox lad CATARACT EXT/ECCE Bilateral CHOLECYSTECTOMY 1988 COLONOSCOPY 07/19/2015 [place] CORONARY ARTERY BYPASS GRAFT 2010 neri to lad/svg to rca EGD W/PEG PLACEMENT 03/03/2013 Sharma's ...[facility] in [place] ESOPHAGOGASTRODUODENOSCOPY 07/19/2015 Sharma's...[facility] in [place] ESOPHAGOGASTRODUODENOSCOPY 08/19/2018 gastritis....Dr. Fortune SKIN LESION EXCISION TONSILLECTOMY 1942 No Known Allergies Current Outpatient Medications Medication Sig Dispense Refill amLODIPine (NORVASC) 10 MG tablet Take 10 mg by mouth daily aspirin 81 MG EC tablet Take 81 mg by mouth daily BEE POLLEN ORAL Take 2 capsules by mouth daily . cloNIDine HCl (CATAPRES) 0.1 MG tablet Take 0.1 mg by mouth 0.1 mg QAM 0.2 MG QPM 0.2 MG QHS docusate sodium (COLACE) 250 MG capsule Take 250 mg by mouth daily DORZOLAMIDE HCL/TIMOLOL MALEAT (COSOPT OPHT) Apply to eye 2 (two) times a day Right eye famotidine (PEPCID) 20 MG tablet Take 20 mg by mouth 2 (two) times a day . ferrous sulfate 325 (65 FE) MG tablet Take 325 mg by mouth daily with breakfast. finasteride (PROSCAR) 5 mg tablet Take 5 mg by mouth daily labetalol (NORMODYNE) 200 MG tablet Take 200 mg by mouth 2 (two) times a day LORazepam (ATIVAN) 1 MG tablet Take 1 mg by mouth as needed for anxiety losartan-hydrochlorothiazide (HYZAAR) 100-25 mg per tablet Take 1 tablet by mouth daily ondansetron (ZOFRAN) 4 MG tablet Take 4 mg by mouth every 8 (eight) hours as needed for nausea. potassium chloride (K-DUR) 10 MEQ CR tablet Take 10 mEq by mouth daily. sildenafil citrate (SILDENAFIL ORAL) Take by mouth daily as needed for erectile dysfunction . simvastatin (ZOCOR) 20 MG tablet Take 20 mg by mouth daily . tamsulosin (FLOMAX) 0.4 mg capsule Take 0.4 mg by mouth daily. No current facility-administered medications for this visit. Social History Tobacco Use Smoking status: Never Smoker Smokeless tobacco: Never Used Substance Use Topics Alcohol use: No Drug use: No Family History Problem Relation Age of Onset Heart attack Father Breast cancer Mother REVIEW OF SYSTEMS Pertinent positives are listed in HPI, PMSH, SH, ALL, otherwise all systems reviewed below are negative. The following systems were reviewed: [x] Const (fevers, chills, wt. loss, fatigue) [x] CV (HTN, CP, PERSAUD, edema, DVT) [x] Resp (SOB, pleurisy, asthma, apnea) [x] GI (N, V, D, C, M, abd pain, appetite) [x] Musc (back pain, joint stiffness, gout) [x] Neuro (seizures, syncope, paralysis) [x] Psych (depression, anxiety) [x] Endo (hot/cold intol, polyuria[DM]) [x] Hem/Lymph (Anemia, LA, bleeding) [x] Allerg/Immun (seasonal, immuniz) [x] Eyes (diplopia, cataracts) [x] ENT/mouth (dysphagia, epistaxis) [x] (dysuria, hematuria) [x] Skin/Breast (moles, rash, lumps, nipple changes) Pertinent Positives: See HPI Pertinent Negatives: See HPI Physical Exam: BP 114/70 Pulse 62 Ht 6' 1 Wt 75.9 kg (167 lb 4.8 oz) SpO2 98% BMI 22.07 kg/m Body mass index is 22.07 kg/m . Constitutional: Well nourished, well developed person in no acute distress. Ambulates without difficulty. Head: Atraumatic and normocephalic. Face: Within normal limits. Eyes: Pupils equal, round, reactive to light. Sclera white. Mouth: Moist mucous membranes, normal dentation. Neck: supple, trachea midline,no masses, no incisions. Lymphatic: No cervical or inguinal lymphadenopathy. Heart: Regular rate and rhythm. Lungs: Clear to auscultation. Abdomen: Soft, non-distended, non-tender, no heptasplenomegaly, no umbilica, incisional, femoral, or inguinal hernias. Pelvis: Stable, non-tender. Skin: Warm, moist, normal skin turgor. Peripheral Vascular: Palapable carotid, radial, and femoral pulses, no peripheral edema. Neuropsych: Alert and oriented, judgement and insight intact. Normal Gait. Assessment: 1. 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 Plan: EGD with Biopsy Mickey Fortune MD documented in this encounter [facility] 04-06-2021 History of Present illness Narrative [facility] [address] (11) [facility] [address] [facility] [id number] Yudith Morin is a 85 y.o. 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 I discussed with the patient that while we practice appropriate precautions consistent with prevailing medical standards, any contact with any person in any setting at this time presents a risk of transmission and contraction of COVID-19. The patient was also informed that COVID-19 testing within 72 hours of the procedure will be required. The patient wishes to proceed. The patient presents today to schedule a surveillance EGD. 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 His last EGD was performed on 08/19/2018. 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 He denies significant heartburn, regurgitation, or dysphagia. He has occasional belching that he says occurs if he eats too much chocolate. His weight has been relatively stable. Overall he says he feels pretty good. 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 BPH (benign prostatic hypertrophy) CAD (coronary artery disease) 2 vessel cabg; neri to lad and svg to the rca Hemorrhoids Hiatal hernia 08/19/2018 [place] grade III, type-I History of skin cancer Hyperlipidemia Labile hypertension Stomach ulcer Urinary bleeding Viral hepatitis Past Surgical History: Procedure Laterality Date CABG 2010 CARDIAC CATHETERIZATION 2010 2 vessel cad CARDIAC CATHETERIZATION 1998 mod stenosis of the prox lad CATARACT EXT/ECCE Bilateral CHOLECYSTECTOMY 1987 COLONOSCOPY 07/19/2015 [facility] CORONARY ARTERY BYPASS GRAFT 2010 neri to lad/svg to rca EGD W/PEG PLACEMENT 03/03/2013 [facility] ...[facility] in [place] ESOPHAGOGASTRODUODENOSCOPY 07/19/2015 [facility]...[facility] in [place] ESOPHAGOGASTRODUODENOSCOPY 08/19/2018 gastritis....Dr. Fortune SKIN LESION EXCISION TONSILLECTOMY 1942 No Known Allergies Current Outpatient Medications Medication Sig Dispense Refill amLODIPine (NORVASC) 10 MG tablet Take 10 mg by mouth daily aspirin 81 MG EC tablet Take 81 mg by mouth daily BEE POLLEN ORAL Take 2 capsules by mouth daily . cloNIDine HCl (CATAPRES) 0.1 MG tablet Take 0.1 mg by mouth 0.1 mg QAM 0.2 MG QPM 0.2 MG QHS docusate sodium (COLACE) 250 MG capsule Take 250 mg by mouth daily DORZOLAMIDE HCL/TIMOLOL MALEAT (COSOPT OPHT) Apply to eye 2 (two) times a day Right eye famotidine (PEPCID) 20 MG tablet Take 20 mg by mouth 2 (two) times a day . ferrous sulfate 325 (65 FE) MG tablet Take 325 mg by mouth daily with breakfast. finasteride (PROSCAR) 5 mg tablet Take 5 mg by mouth daily labetalol (NORMODYNE) 200 MG tablet Take 200 mg by mouth 2 (two) times a day LORazepam (ATIVAN) 1 MG tablet Take 1 mg by mouth as needed for anxiety losartan-hydrochlorothiazide (HYZAAR) 100-25 mg per tablet Take 1 tablet by mouth daily ondansetron (ZOFRAN) 4 MG tablet Take 4 mg by mouth every 8 (eight) hours as needed for nausea. potassium chloride (K-DUR) 10 MEQ CR tablet Take 10 mEq by mouth daily. sildenafil citrate (SILDENAFIL ORAL) Take by mouth daily as needed for erectile dysfunction . simvastatin (ZOCOR) 20 MG tablet Take 20 mg by mouth daily . tamsulosin (FLOMAX) 0.4 mg capsule Take 0.4 mg by mouth daily. No current facility-administered medications for this visit. Social History Tobacco Use Smoking status: Never Smoker Smokeless tobacco: Never Used Substance Use Topics Alcohol use: No Drug use: No Family History Problem Relation Age of Onset Heart attack Father Breast cancer Mother REVIEW OF SYSTEMS Pertinent positives are listed in HPI, PMSH, SH, ALL, otherwise all systems reviewed below are negative. The following systems were reviewed: [x] Const (fevers, chills, wt. loss, fatigue) [x] CV (HTN, CP, PERSAUD, edema, DVT) [x] Resp (SOB, pleurisy, asthma, apnea) [x] GI (N, V, D, C, M, abd pain, appetite) [x] Musc (back pain, joint stiffness, gout) [x] Neuro (seizures, syncope, paralysis) [x] Psych (depression, anxiety) [x] Endo (hot/cold intol, polyuria[DM]) [x] Hem/Lymph (Anemia, LA, bleeding) [x] Allerg/Immun (seasonal, immuniz) [x] Eyes (diplopia, cataracts) [x] ENT/mouth (dysphagia, epistaxis) [x] (dysuria, hematuria) [x] Skin/Breast (moles, rash, lumps, nipple changes) Pertinent Positives: See HPI Pertinent Negatives: See HPI Physical Exam: BP 114/70 Pulse 62 Ht 6' 1 Wt 75.9 kg (167 lb 4.8 oz) SpO2 98% BMI 22.07 kg/m Body mass index is 22.07 kg/m . Constitutional: Well nourished, well developed person in no acute distress. Ambulates without difficulty. Head: Atraumatic and normocephalic. Face: Within normal limits. Eyes: Pupils equal, round, reactive to light. Sclera white. Mouth: Moist mucous membranes, normal dentation. Neck: supple, trachea midline,no masses, no incisions. Lymphatic: No cervical or inguinal lymphadenopathy. Heart: Regular rate and rhythm. Lungs: Clear to auscultation. Abdomen: Soft, non-distended, non-tender, no heptasplenomegaly, no umbilica, incisional, femoral, or inguinal hernias. Pelvis: Stable, non-tender. Skin: Warm, moist, normal skin turgor. Peripheral Vascular: Palapable carotid, radial, and femoral pulses, no peripheral edema. Neuropsych: Alert and oriented, judgement and insight intact. Normal Gait. Assessment: 1. 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 Plan: EGD with Biopsy Mickey Fortune MD documented in this encounter 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 09/27/2014 03/13/2016 Lens replaced by other means - Both Eyes 014 03/13/2016 Xerosis 04/01/2011 09/21/2012 PRATT ANGIOMA///NEVUS, NON-NEOPLASTIC 10/26/200 8 09/21/2012 SEBORRHEIC KERATOSIS IRRITATED//INFLAMED 007 09/21/2012 Other seborrheic keratosis 08/20/200609/21 SOLAR LENTIGINES 08/20/2006 09/21/2012 ACTINIC DAMAGE///CHR SOLAR SKIN DAMAGE NOS 08/2009/21/2012 Sebaceous cyst 08/20/2006 09/21/2012 SEBACEOUS HYPERPLASIA 08/20/2006 09/21/2012 Viral warts, unspecified 08/20/2006 012 documented as of this encounter (statuses as of 08/28/2022) [facility] History of Past illness Narrative* Problem Noted Date Resolved Date 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 Vitreous floaters 09/14/2015 09/19/2016 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 09/27/2014 03/13/2016 Lens replaced by other means - Both Eyes 014 03/13/2016 Xerosis 04/01/2011 09/21/2012 PARTT ANGIOMA///NEVUS, NON-NEOPLASTIC 8 09/21/2012 SEBORRHEIC KERATOSIS IRRITATED//INFLAMED 007 09/21/2012 Other seborrheic keratosis 08/20/200609/21 SOLAR LENTIGINES 08/20/2006 09/21/2012 ACTINIC DAMAGE///CHR SOLAR SKIN DAMAGE NOS 08/2009/21/2012 Sebaceous cyst 08/20/2006 09/21/2012 SEBACEOUS HYPERPLASIA 08/20/2006 09/21/2012 Viral warts, unspecified 08/20/2006 012 documented as of this encounter (statuses as of 09/17/2022) [facility] History of Past illness Narrative* Problem Noted Date Resolved Date 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 Vitreous floaters 09/14/2015 09/19/2016 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 09/27/2014 03/13/2016 Lens replaced by other means - Both Eyes 014 03/13/2016 Xerosis 04/01/2011 09/21/2012 PRATT ANGIOMA///NEVUS, NON-NEOPLASTIC 200 8 09/21/2012 SEBORRHEIC KERATOSIS IRRITATED//INFLAMED 007 09/21/2012 Other seborrheic keratosis 08/20/200609/21 SOLAR LENTIGINES 08/20/2006 09/21/2012 ACTINIC DAMAGE///CHR SOLAR SKIN DAMAGE NOS 08/2009/21/2012 Sebaceous cyst 08/20/2006 09/21/2012 SEBACEOUS HYPERPLASIA 08/20/2006 09/21/2012 Viral warts, unspecified 08/20/2006 012 documented as of this encounter (statuses as of 10/11/2022) [facility] History of Past illness Narrative* Problem Noted Date Resolved Date 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 Vitreous floaters 09/14/2015 09/19/2016 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 09/27/2014 03/13/2016 Lens replaced by other means - Both Eyes 014 03/13/2016 Xerosis 04/01/2011 09/21/2012 PRATT ANGIOMA///NEVUS, NON-NEOPLASTIC 8 09/21/2012 SEBORRHEIC KERATOSIS IRRITATED//INFLAMED 007 09/21/2012 Other seborrheic keratosis 08/20/200609/21 SOLAR LENTIGINES 08/20/2006 09/21/2012 ACTINIC DAMAGE///CHR SOLAR SKIN DAMAGE NOS 08/2009/21/2012 Sebaceous cyst 08/20/2006 09/21/2012 SEBACEOUS HYPERPLASIA 08/20/2006 09/21/2012 Viral warts, unspecified 08/20/2006 012 documented as of this encounter (statuses as of 10/16/2022) [facility] History of Past illness Narrative* Problem Noted Date Resolved Date 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 Vitreous floaters 09/14/2015 09/19/2016 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 09/27/2014 03/13/2016 Lens replaced by other means - Both Eyes 014 03/13/2016 Xerosis 04/01/2011 09/21/2012 PRATT ANGIOMA///NEVUS, NON-NEOPLASTIC 8 09/21/2012 SEBORRHEIC KERATOSIS IRRITATED//INFLAMED 007 09/21/2012 Other seborrheic keratosis 08/20/200609/21 SOLAR LENTIGINES 08/20/2006 09/21/2012 ACTINIC DAMAGE///CHR SOLAR SKIN DAMAGE NOS 08/2009/21/2012 Sebaceous cyst 08/20/2006 09/21/2012 SEBACEOUS HYPERPLASIA 08/20/2006 09/21/2012 Viral warts, unspecified 08/20/2006 012 documented as of this encounter (statuses as of 01/04/2023) [facility] History of Past illness Narrative* Problem Noted Date Resolved Date 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 Vitreous floaters 09/14/2015 09/19/2016 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 09/27/2014 03/13/2016 Lens replaced by other means - Both Eyes 014 03/13/2016 Xerosis 04/01/2011 09/21/2012 PRATT ANGIOMA///NEVUS, NON-NEOPLASTIC 8 09/21/2012 SEBORRHEIC KERATOSIS IRRITATED//INFLAMED 007 09/21/2012 Other seborrheic keratosis 08/20/200609/21 SOLAR LENTIGINES 08/20/2006 09/21/2012 ACTINIC DAMAGE///CHR SOLAR SKIN DAMAGE NOS 08/2009/21/2012 Sebaceous cyst 08/20/2006 09/21/2012 SEBACEOUS HYPERPLASIA 08/20/2006 09/21/2012 Viral warts, unspecified 08/20/2006 012 documented as of this encounter (statuses as of 01/15/2023) [facility] History of Past illness Narrative* Problem Noted Date Resolved Date 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 Vitreous floaters 09/14/2015 09/19/2016 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 09/27/2014 03/13/2016 Lens replaced by other means - Both Eyes 014 03/13/2016 Xerosis 04/01/2011 09/21/2012 PRATT ANGIOMA///NEVUS, NON-NEOPLASTIC 8 09/21/2012 SEBORRHEIC KERATOSIS IRRITATED//INFLAMED 007 09/21/2012 Other seborrheic keratosis 08/20/200609/21 SOLAR LENTIGINES 08/20/2006 09/21/2012 ACTINIC DAMAGE///CHR SOLAR SKIN DAMAGE NOS 08/2009/21/2012 Sebaceous cyst 08/20/2006 09/21/2012 SEBACEOUS HYPERPLASIA 08/20/2006 09/21/2012 Viral warts, unspecified 08/20/2006 012 documented as of this encounter (statuses as of 01/17/2023) [facility] History of Past illness Narrative* Problem Noted Date Resolved Date 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 Vitreous floaters 09/14/2015 09/19/2016 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 09/27/2014 03/13/2016 Lens replaced by other means - Both Eyes 014 03/13/2016 Xerosis 04/01/2011 09/21/2012 PRATT ANGIOMA///NEVUS, NON-NEOPLASTIC 8 09/21/2012 SEBORRHEIC KERATOSIS IRRITATED//INFLAMED 007 09/21/2012 Other seborrheic keratosis 08/20/200609/21 SOLAR LENTIGINES 08/20/2006 09/21/2012 ACTINIC DAMAGE///CHR SOLAR SKIN DAMAGE NOS 08/2009/21/2012 Sebaceous cyst 08/20/2006 09/21/2012 SEBACEOUS HYPERPLASIA 08/20/2006 09/21/2012 Viral warts, unspecified 08/20/2006 012 documented as of this encounter (statuses as of 01/17/2023) [facility] History of Past illness Narrative* Problem Noted Date Resolved Date 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 Vitreous floaters 09/14/2015 09/19/2016 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 09/27/2014 03/13/2016 Lens replaced by other means - Both Eyes 014 03/13/2016 Xerosis 04/01/2011 09/21/2012 PRATT ANGIOMA///NEVUS, NON-NEOPLASTIC 8 09/21/2012 SEBORRHEIC KERATOSIS IRRITATED//INFLAMED 007 09/21/2012 Other seborrheic keratosis 08/20/200609/21 SOLAR LENTIGINES 08/20/2006 09/21/2012 ACTINIC DAMAGE///CHR SOLAR SKIN DAMAGE NOS 08/2009/21/2012 Sebaceous cyst 08/20/2006 09/21/2012 SEBACEOUS HYPERPLASIA 08/20/2006 09/21/2012 Viral warts, unspecified 08/20/2006 012 documented as of this encounter (statuses as of 01/21/2023) [facility] History of Past illness Narrative* Problem Noted Date Resolved Date 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 Vitreous floaters 09/14/2015 09/19/2016 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 09/27/2014 03/13/2016 Lens replaced by other means - Both Eyes 014 03/13/2016 Xerosis 04/01/2011 09/21/2012 PRATT ANGIOMA///NEVUS, NON-NEOPLASTIC 8 09/21/2012 SEBORRHEIC KERATOSIS IRRITATED//INFLAMED 007 09/21/2012 Other seborrheic keratosis 08/20/200609/21 SOLAR LENTIGINES 08/20/2006 09/21/2012 ACTINIC DAMAGE///CHR SOLAR SKIN DAMAGE NOS 08/2009/21/2012 Sebaceous cyst 08/20/2006 09/21/2012 SEBACEOUS HYPERPLASIA 08/20/2006 09/21/2012 Viral warts, unspecified 08/20/2006 012 documented as of this encounter (statuses as of 01/21/2023) [facility] History of Past illness Narrative* Problem Noted Date Resolved Date 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 Vitreous floaters 09/14/2015 09/19/2016 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 09/27/2014 03/13/2016 Lens replaced by other means - Both Eyes 014 03/13/2016 Xerosis 04/01/2011 09/21/2012 PRATT ANGIOMA///NEVUS, NON-NEOPLASTIC 8 09/21/2012 SEBORRHEIC KERATOSIS IRRITATED//INFLAMED 007 09/21/2012 Other seborrheic keratosis 08/20/200609/21 SOLAR LENTIGINES 08/20/2006 09/21/2012 ACTINIC DAMAGE///CHR SOLAR SKIN DAMAGE NOS 08/2009/21/2012 Sebaceous cyst 08/20/2006 09/21/2012 SEBACEOUS HYPERPLASIA 08/20/2006 09/21/2012 Viral warts, unspecified 08/20/2006 012 documented as of this encounter (statuses as of 01/24/2023) [facility] History of Past illness Narrative* Problem Noted Date Resolved Date 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 Vitreous floaters 09/14/2015 09/19/2016 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 09/27/2014 03/13/2016 Lens replaced by other means - Both Eyes 014 03/13/2016 Xerosis 04/01/2011 09/21/2012 PRATT ANGIOMA///NEVUS, NON-NEOPLASTIC 8 09/21/2012 SEBORRHEIC KERATOSIS IRRITATED//INFLAMED 007 09/21/2012 Other seborrheic keratosis 08/20/200609/21 SOLAR LENTIGINES 08/20/2006 09/21/2012 ACTINIC DAMAGE///CHR SOLAR SKIN DAMAGE NOS 08/2009/21/2012 Sebaceous cyst 08/20/2006 09/21/2012 SEBACEOUS HYPERPLASIA 08/20/2006 09/21/2012 Viral warts, unspecified 08/20/2006 012 documented as of this encounter (statuses as of 01/24/2023) [facility] History of Past illness Narrative* Problem Noted Date Resolved Date 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 Vitreous floaters 09/14/2015 09/19/2016 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 09/27/2014 03/13/2016 Lens replaced by other means - Both Eyes 014 03/13/2016 Xerosis 04/01/2011 09/21/2012 PRATT ANGIOMA///NEVUS, NON-NEOPLASTIC 8 09/21/2012 SEBORRHEIC KERATOSIS IRRITATED//INFLAMED 007 09/21/2012 Other seborrheic keratosis 08/20/200609/21 SOLAR LENTIGINES 08/20/2006 09/21/2012 ACTINIC DAMAGE///CHR SOLAR SKIN DAMAGE NOS 08/2009/21/2012 Sebaceous cyst 08/20/2006 09/21/2012 SEBACEOUS HYPERPLASIA 08/20/2006 09/21/2012 Viral warts, unspecified 08/20/2006 012 documented as of this encounter (statuses as of 03/19/2023) [facility] History of Past illness Narrative* Problem Noted Date Resolved Date 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 Vitreous floaters 09/14/2015 09/19/2016 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 09/27/2014 03/13/2016 Lens replaced by other means - Both Eyes 014 03/13/2016 Xerosis 04/01/2011 09/21/2012 PRATT ANGIOMA///NEVUS, NON-NEOPLASTIC 8 09/21/2012 SEBORRHEIC KERATOSIS IRRITATED//INFLAMED 007 09/21/2012 Other seborrheic keratosis 08/20/200609/21 SOLAR LENTIGINES 08/20/2006 09/21/2012 ACTINIC DAMAGE///CHR SOLAR SKIN DAMAGE NOS 08/2009/21/2012 Sebaceous cyst 08/20/2006 09/21/2012 SEBACEOUS HYPERPLASIA 08/20/2006 09/21/2012 Viral warts, unspecified 08/20/2006 012 documented as of this encounter (statuses as of 05/01/2023) [facility] 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 Diagnosis Left wrist pain- Primary Pain in joint, forearm [facility] Diagnosis Left wrist pain- Primary Pain in joint, forearm [facility] Diagnosis Coronary 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 [place] heart without angina pectoris- Primary Carotid artery disease, unspecified laterality, unspecified type (HCC) Stenosis of right carotid artery Occlusion and stenosis of carotid artery without mention of cerebral infarction [facility] Diagnosis Primary open angle glaucoma of both eyes, mild stage- Primary Epiphora due to excess lacrimation of both sides Epiphora due to excess lacrimation documented in this encounter [facility] note* Diagnosis Ocular hypertension, bilateral- Primary Borderline glaucoma with ocular hypertension Epiphora due to excess lacrimation of both sides Epiphora due to excess lacrimation documented in this encounter [facility] note* Diagnosis Coronary 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 [place] heart without angina pectoris- Primary Primary hypertension Unspecified essential hypertension [facility] Diagnosis 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 Diagnosis Peripheral sensory neuropathy- Primary 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 Borderline glaucoma with ocular hypertension Nonexudative age-related macular degeneration, bilateral, intermediate dry stage Epiphora due to insufficient drainage, bilateral Essential hypertension Unspecified essential hypertension [facility] noteNo assessment information availableWTr[facility] Work Phone: Evaluation note* Diagnosis Epiphora due to insufficient drainage, bilateral- Primary Primary open angle glaucoma (POAG) of both eyes, 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 [facility] Diagnosis 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- Primary 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 documented in this encounter [facility] note* Diagnosis Primary open angle glaucoma (POAG) of both eyes, mild stage- Primary 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, bilateral, 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), 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 Pseudophakia of both eyes Lens replaced by other means Essential hypertension Unspecified essential hypertension documented in this encounter [facility] note* Diagnosis Anxiety- Primary Anxiety state, unspecified Insomnia, unspecified type Primary hypertension Unspecified essential hypertension 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 Leg weakness, bilateral Muscle weakness (generalized) documented in this encounter [facility] note* Diagnosis Nonexudative age-related macular degeneration, bilateral, intermediate dry stage- Primary RPE mottling of macula Other retinal disorders Primary open angle glaucoma (POAG) of both eyes, mild stage Pseudophakia of both eyes Lens replaced by other means documented in this encounter [facility] note* Diagnosis 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 Essential hypertension Unspecified essential hypertension Hyperlipidemia Other and unspecified hyperlipidemia Coronary 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 [place] heart without angina pectoris- Primary Essential hypertension with goal blood pressure less than 140/90 Pure hypercholesterolemia Coronary 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 [place] heart without angina pectoris Pure hypercholesterolemia Essential hypertension Unspecified essential hypertension Coronary artery disease due to lipid rich plaque Hyperlipidemia, unspecified hyperlipidemia type Essential hypertension Unspecified essential hypertension Essential hypertension Unspecified essential hypertension Hyperlipidemia, unspecified hyperlipidemia type Coronary artery disease due to lipid rich plaque Chronic renal failure, unspecified CKD stage Coronary artery disease due to lipid rich plaque Hyperlipidemia, unspecified hyperlipidemia type Essential hypertension Unspecified essential hypertension Chronic renal failure, unspecified CKD stage Hyperlipidemia, unspecified hyperlipidemia type Essential hypertension Unspecified essential hypertension Coronary artery disease due to lipid rich plaque Hyperlipidemia, unspecified hyperlipidemia type Essential hypertension Unspecified essential hypertension Coronary artery disease due to lipid rich plaque Hyperlipidemia, unspecified hyperlipidemia type Essential hypertension Unspecified essential hypertension Coronary artery disease due to lipid rich plaque Chronic renal failure, unspecified CKD stage Hyperlipidemia, unspecified hyperlipidemia type Essential hypertension Unspecified essential hypertension 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 Hyperlipidemia, unspecified hyperlipidemia type Essential hypertension Unspecified essential hypertension Primary hypertension- Primary Unspecified essential hypertension 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 pectoris- Primary Carotid artery disease, unspecified laterality, unspecified type (HCC) Stenosis of right carotid artery Occlusion and stenosis of carotid artery without mention of cerebral infarction Coronary 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 [place] heart without angina pectoris- Primary Primary hypertension Unspecified essential hypertension Coronary 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 [place] heart without angina pectoris- Primary Primary hypertension Unspecified essential hypertension Borderline diabetes Stage 3 chronic kidney disease, unspecified whether stage 3a or 3b CKD (HCC) Anxiety Anxiety state, unspecified Prostate cancer screening Special screening for malignant neoplasm of prostate Abnormal finding of blood chemistry, unspecified Encounter for therapeutic drug level monitoring 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 Primary hypertension Unspecified essential [facility] 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 Essential hypertension Unspecified essential hypertension Hyperlipidemia Other and unspecified hyperlipidemia Coronary 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 [place] heart without angina pectoris- Primary Essential hypertension with goal blood pressure less than 140/90 Pure hypercholesterolemia Coronary 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 [place] heart without angina pectoris Pure hypercholesterolemia Essential hypertension Unspecified essential hypertension Coronary artery disease due to lipid rich plaque Hyperlipidemia, unspecified hyperlipidemia type Essential hypertension Unspecified essential hypertension Essential hypertension Unspecified essential hypertension Hyperlipidemia, unspecified hyperlipidemia type Coronary artery disease due to lipid rich plaque Chronic renal failure, unspecified CKD stage Coronary artery disease due to lipid rich plaque Hyperlipidemia, unspecified hyperlipidemia type Essential hypertension Unspecified essential hypertension Chronic renal failure, unspecified CKD stage Hyperlipidemia, unspecified hyperlipidemia type Essential hypertension Unspecified essential hypertension Coronary artery disease due to lipid rich plaque Hyperlipidemia, unspecified hyperlipidemia type Essential hypertension Unspecified essential hypertension Coronary artery disease due to lipid rich plaque Hyperlipidemia, unspecified hyperlipidemia type Essential hypertension Unspecified essential hypertension Coronary artery disease due to lipid rich plaque Chronic renal failure, unspecified CKD stage Hyperlipidemia, unspecified hyperlipidemia type Essential hypertension Unspecified essential hypertension 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 Hyperlipidemia, unspecified hyperlipidemia type Essential hypertension Unspecified essential hypertension Primary hypertension- Primary Unspecified essential hypertension 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 pectoris- Primary Carotid artery disease, unspecified laterality, unspecified type (HCC) Stenosis of right carotid artery Occlusion and stenosis of carotid artery without mention of cerebral infarction Coronary 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 [place] heart without angina pectoris- Primary Primary hypertension Unspecified essential hypertension Coronary 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 [place] heart without angina pectoris- Primary Primary hypertension Unspecified essential hypertension Borderline diabetes Stage 3 chronic kidney disease, unspecified whether stage 3a or 3b CKD (HCC) Anxiety Anxiety state, unspecified Prostate cancer screening Special screening for malignant neoplasm of prostate Abnormal finding of blood chemistry, unspecified Encounter for therapeutic drug level monitoring 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 Essential hypertension Unspecified essential hypertension Hyperlipidemia Other and unspecified hyperlipidemia Coronary 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 [place] heart without angina pectoris- Primary Essential hypertension with goal blood pressure less than 140/90 Pure hypercholesterolemia Coronary 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 [place] heart without angina pectoris Pure hypercholesterolemia Essential hypertension Unspecified essential hypertension Coronary artery disease due to lipid rich plaque Hyperlipidemia, unspecified hyperlipidemia type Essential hypertension Unspecified essential hypertension Essential hypertension Unspecified essential hypertension Hyperlipidemia, unspecified hyperlipidemia type Coronary artery disease due to lipid rich plaque Chronic renal failure, unspecified CKD stage Coronary artery disease due to lipid rich plaque Hyperlipidemia, unspecified hyperlipidemia type Essential hypertension Unspecified essential hypertension Chronic renal failure, unspecified CKD stage Hyperlipidemia, unspecified hyperlipidemia type Essential hypertension Unspecified essential hypertension Coronary artery disease due to lipid rich plaque Hyperlipidemia, unspecified hyperlipidemia type Essential hypertension Unspecified essential hypertension Coronary artery disease due to lipid rich plaque Hyperlipidemia, unspecified hyperlipidemia type Essential hypertension Unspecified essential hypertension Coronary artery disease due to lipid rich plaque Chronic renal failure, unspecified CKD stage Hyperlipidemia, unspecified hyperlipidemia type Essential hypertension Unspecified essential hypertension 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 Hyperlipidemia, unspecified hyperlipidemia type Essential hypertension Unspecified essential hypertension Primary hypertension- Primary Unspecified essential hypertension 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 pectoris- Primary Carotid artery disease, unspecified laterality, unspecified type (HCC) Stenosis of right carotid artery Occlusion and stenosis of carotid artery without mention of cerebral infarction Coronary 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 [place] heart without angina pectoris- Primary Primary hypertension Unspecified essential hypertension Coronary 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 [place] heart without angina pectoris- Primary Primary hypertension Unspecified essential hypertension Borderline diabetes Stage 3 chronic kidney disease, unspecified whether stage 3a or 3b CKD (HCC) Anxiety Anxiety state, unspecified Prostate cancer screening Special screening for malignant neoplasm of prostate Abnormal finding of blood chemistry, unspecified Encounter for therapeutic drug level monitoring 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 Bilateral impacted cerumen- Primary Impacted cerumen Primary hypertension Unspecified essential hypertension [facility] Diagnosis 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 Essential hypertension Unspecified essential hypertension Hyperlipidemia Other and unspecified hyperlipidemia Coronary 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 [place] heart without angina pectoris- Primary Essential hypertension with goal blood pressure less than 140/90 Pure hypercholesterolemia Coronary 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 [place] heart without angina pectoris Pure hypercholesterolemia Essential hypertension Unspecified essential hypertension Coronary artery disease due to lipid rich plaque Hyperlipidemia, unspecified hyperlipidemia type Essential hypertension Unspecified essential hypertension Essential hypertension Unspecified essential hypertension Hyperlipidemia, unspecified hyperlipidemia type Coronary artery disease due to lipid rich plaque Chronic renal failure, unspecified CKD stage Coronary artery disease due to lipid rich plaque Hyperlipidemia, unspecified hyperlipidemia type Essential hypertension Unspecified essential hypertension Chronic renal failure, unspecified CKD stage Hyperlipidemia, unspecified hyperlipidemia type Essential hypertension Unspecified essential hypertension Coronary artery disease due to lipid rich plaque Hyperlipidemia, unspecified hyperlipidemia type Essential hypertension Unspecified essential hypertension Coronary artery disease due to lipid rich plaque Hyperlipidemia, unspecified hyperlipidemia type Essential hypertension Unspecified essential hypertension Coronary artery disease due to lipid rich plaque Chronic renal failure, unspecified CKD stage Hyperlipidemia, unspecified hyperlipidemia type Essential hypertension Unspecified essential hypertension 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 Hyperlipidemia, unspecified hyperlipidemia type Essential hypertension Unspecified essential hypertension Primary hypertension- Primary Unspecified essential hypertension 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 pectoris- Primary Carotid artery disease, unspecified laterality, unspecified type (HCC) Stenosis of right carotid artery Occlusion and stenosis of carotid artery without mention of cerebral infarction Coronary 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 [place] heart without angina pectoris- Primary Primary hypertension Unspecified essential hypertension Coronary 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 [place] heart without angina pectoris- Primary Primary hypertension Unspecified essential hypertension Borderline diabetes Stage 3 chronic kidney disease, unspecified whether stage 3a or 3b CKD (HCC) Anxiety Anxiety state, unspecified Prostate cancer screening Special screening for malignant neoplasm of prostate Abnormal finding of blood chemistry, unspecified Encounter for therapeutic drug level monitoring 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 Lens replaced by other means Pupillary miosis Miosis (persistent), 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 [facility] Diagnosis 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, right eye, intermediate dry stage [facility] Diagnosis 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 Essential hypertension Unspecified essential hypertension Hyperlipidemia Other and unspecified hyperlipidemia Coronary 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 [place] heart without angina pectoris- Primary Essential hypertension with goal blood pressure less than 140/90 Pure hypercholesterolemia Coronary 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 [place] heart without angina pectoris Pure hypercholesterolemia Essential hypertension Unspecified essential hypertension Coronary artery disease due to lipid rich plaque Hyperlipidemia, unspecified hyperlipidemia type Essential hypertension Unspecified essential hypertension Essential hypertension Unspecified essential hypertension Hyperlipidemia, unspecified hyperlipidemia type Coronary artery disease due to lipid rich plaque Chronic renal failure, unspecified CKD stage Coronary artery disease due to lipid rich plaque Hyperlipidemia, unspecified hyperlipidemia type Essential hypertension Unspecified essential hypertension Chronic renal failure, unspecified CKD stage Hyperlipidemia, unspecified hyperlipidemia type Essential hypertension Unspecified essential hypertension Coronary artery disease due to lipid rich plaque Hyperlipidemia, unspecified hyperlipidemia type Essential hypertension Unspecified essential hypertension Coronary artery disease due to lipid rich plaque Hyperlipidemia, unspecified hyperlipidemia type Essential hypertension Unspecified essential hypertension Coronary artery disease due to lipid rich plaque Chronic renal failure, unspecified CKD stage Hyperlipidemia, unspecified hyperlipidemia type Essential hypertension Unspecified essential hypertension 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 Hyperlipidemia, unspecified hyperlipidemia type Essential hypertension Unspecified essential hypertension Primary hypertension- Primary Unspecified essential hypertension 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 pectoris- Primary Carotid artery disease, unspecified laterality, unspecified type (HCC) Stenosis of right carotid artery Occlusion and stenosis of carotid artery without mention of cerebral infarction Coronary 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 [place] heart without angina pectoris- Primary Primary hypertension Unspecified essential hypertension Coronary 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 [place] heart without angina pectoris- Primary Primary hypertension Unspecified essential hypertension Borderline diabetes Stage 3 chronic kidney disease, unspecified whether stage 3a or 3b CKD (HCC) Anxiety Anxiety state, unspecified Prostate cancer screening Special screening for malignant neoplasm of prostate Abnormal finding of blood chemistry, unspecified Encounter for therapeutic drug level monitoring 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 Chronic pain of right knee- Primary Insomnia, unspecified type Primary hypertension Unspecified essential hypertension Sedative dependence (HCC) Sedative, hypnotic or anxiolytic dependence, unspecified abuse Stage 3 chronic kidney disease, unspecified whether stage 3a or 3b CKD (HCC) Coronary 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 [place] heart without angina pectoris Abnormal finding of blood chemistry, unspecified Erectile dysfunction, unspecified erectile dysfunction type Encounter for therapeutic drug level monitoring Anxiety Anxiety state, unspecified [facility] Diagnosis 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 Essential hypertension Unspecified essential hypertension Hyperlipidemia Other and unspecified hyperlipidemia Coronary 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 [place] heart without angina pectoris- Primary Essential hypertension with goal blood pressure less than 140/90 Pure hypercholesterolemia Coronary 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 [place] heart without angina pectoris Pure hypercholesterolemia Essential hypertension Unspecified essential hypertension Coronary artery disease due to lipid rich plaque Hyperlipidemia, unspecified hyperlipidemia type Essential hypertension Unspecified essential hypertension Essential hypertension Unspecified essential hypertension Hyperlipidemia, unspecified hyperlipidemia type Coronary artery disease due to lipid rich plaque Chronic renal failure, unspecified CKD stage Coronary artery disease due to lipid rich plaque Hyperlipidemia, unspecified hyperlipidemia type Essential hypertension Unspecified essential hypertension Chronic renal failure, unspecified CKD stage Hyperlipidemia, unspecified hyperlipidemia type Essential hypertension Unspecified essential hypertension Coronary artery disease due to lipid rich plaque Hyperlipidemia, unspecified hyperlipidemia type Essential hypertension Unspecified essential hypertension Coronary artery disease due to lipid rich plaque Hyperlipidemia, unspecified hyperlipidemia type Essential hypertension Unspecified essential hypertension Coronary artery disease due to lipid rich plaque Chronic renal failure, unspecified CKD stage Hyperlipidemia, unspecified hyperlipidemia type Essential hypertension Unspecified essential hypertension 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 Hyperlipidemia, unspecified hyperlipidemia type Essential hypertension Unspecified essential hypertension Primary hypertension- Primary Unspecified essential hypertension 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 pectoris- Primary Carotid artery disease, unspecified laterality, unspecified type (HCC) Stenosis of right carotid artery Occlusion and stenosis of carotid artery without mention of cerebral infarction Coronary 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 [place] heart without angina pectoris- Primary Primary hypertension Unspecified essential hypertension Coronary 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 [place] heart without angina pectoris- Primary Primary hypertension Unspecified essential hypertension Borderline diabetes Stage 3 chronic kidney disease, unspecified whether stage 3a or 3b CKD (HCC) Anxiety Anxiety state, unspecified Prostate cancer screening Special screening for malignant neoplasm of prostate Abnormal finding of blood chemistry, unspecified Encounter for therapeutic drug level monitoring 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 Essential hypertension Unspecified essential hypertension Hyperlipidemia Other and unspecified hyperlipidemia Coronary 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 [place] heart without angina pectoris- Primary Essential hypertension with goal blood pressure less than 140/90 Pure hypercholesterolemia Coronary 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 [place] heart without angina pectoris Pure hypercholesterolemia Essential hypertension Unspecified essential hypertension Coronary artery disease due to lipid rich plaque Hyperlipidemia, unspecified hyperlipidemia type Essential hypertension Unspecified essential hypertension Essential hypertension Unspecified essential hypertension Hyperlipidemia, unspecified hyperlipidemia type Coronary artery disease due to lipid rich plaque Chronic renal failure, unspecified CKD stage Coronary artery disease due to lipid rich plaque Hyperlipidemia, unspecified hyperlipidemia type Essential hypertension Unspecified essential hypertension Chronic renal failure, unspecified CKD stage Hyperlipidemia, unspecified hyperlipidemia type Essential hypertension Unspecified essential hypertension Coronary artery disease due to lipid rich plaque Hyperlipidemia, unspecified hyperlipidemia type Essential hypertension Unspecified essential hypertension Coronary artery disease due to lipid rich plaque Hyperlipidemia, unspecified hyperlipidemia type Essential hypertension Unspecified essential hypertension Coronary artery disease due to lipid rich plaque Chronic renal failure, unspecified CKD stage Hyperlipidemia, unspecified hyperlipidemia type Essential hypertension Unspecified essential hypertension 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 Hyperlipidemia, unspecified hyperlipidemia type Essential hypertension Unspecified essential hypertension Primary hypertension- Primary Unspecified essential hypertension 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 pectoris- Primary Carotid artery disease, unspecified laterality, unspecified type (HCC) Stenosis of right carotid artery Occlusion and stenosis of carotid artery without mention of cerebral infarction Coronary 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 [place] heart without angina pectoris- Primary Primary hypertension Unspecified essential hypertension Coronary 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 [place] heart without angina pectoris- Primary Primary hypertension Unspecified essential hypertension Borderline diabetes Stage 3 chronic kidney disease, unspecified whether stage 3a or 3b CKD (HCC) Anxiety Anxiety state, unspecified Prostate cancer screening Special screening for malignant neoplasm of prostate Abnormal finding of blood chemistry, unspecified Encounter for therapeutic drug level monitoring 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 Essential hypertension Unspecified essential hypertension Hyperlipidemia Other and unspecified hyperlipidemia Coronary 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 [place] heart without angina pectoris- Primary Essential hypertension with goal blood pressure less than 140/90 Pure hypercholesterolemia Coronary 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 [place] heart without angina pectoris Pure hypercholesterolemia Essential hypertension Unspecified essential hypertension Coronary artery disease due to lipid rich plaque Hyperlipidemia, unspecified hyperlipidemia type Essential hypertension Unspecified essential hypertension Essential hypertension Unspecified essential hypertension Hyperlipidemia, unspecified hyperlipidemia type Coronary artery disease due to lipid rich plaque Chronic renal failure, unspecified CKD stage Coronary artery disease due to lipid rich plaque Hyperlipidemia, unspecified hyperlipidemia type Essential hypertension Unspecified essential hypertension Chronic renal failure, unspecified CKD stage Hyperlipidemia, unspecified hyperlipidemia type Essential hypertension Unspecified essential hypertension Coronary artery disease due to lipid rich plaque Hyperlipidemia, unspecified hyperlipidemia type Essential hypertension Unspecified essential hypertension Coronary artery disease due to lipid rich plaque Hyperlipidemia, unspecified hyperlipidemia type Essential hypertension Unspecified essential hypertension Coronary artery disease due to lipid rich plaque Chronic renal failure, unspecified CKD stage Hyperlipidemia, unspecified hyperlipidemia type Essential hypertension Unspecified essential hypertension 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 Hyperlipidemia, unspecified hyperlipidemia type Essential hypertension Unspecified essential hypertension Primary hypertension- Primary Unspecified essential hypertension 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 pectoris- Primary Carotid artery disease, unspecified laterality, unspecified type (HCC) Stenosis of right carotid artery Occlusion and stenosis of carotid artery without mention of cerebral infarction Coronary 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 [place] heart without angina pectoris- Primary Primary hypertension Unspecified essential hypertension Coronary 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 [place] heart without angina pectoris- Primary Primary hypertension Unspecified essential hypertension Borderline diabetes Stage 3 chronic kidney disease, unspecified whether stage 3a or 3b CKD (HCC) Anxiety Anxiety state, unspecified Prostate cancer screening Special screening for malignant neoplasm of prostate Abnormal finding of blood chemistry, unspecified Encounter for therapeutic drug level monitoring 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 At high risk for falls- Primary Insomnia, unspecified type Leg weakness, bilateral Muscle weakness (generalized) Medicare annual wellness visit, initial Primary hypertension Unspecified essential hypertension Coronary 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 [place] heart without angina pectoris [facility] 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 Essential hypertension Unspecified essential hypertension Hyperlipidemia Other and unspecified hyperlipidemia Coronary 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 [place] heart without angina pectoris- Primary Essential hypertension with goal blood pressure less than 140/90 Pure hypercholesterolemia Coronary 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 [place] heart without angina pectoris Pure hypercholesterolemia Essential hypertension Unspecified essential hypertension Coronary artery disease due to lipid rich plaque Hyperlipidemia, unspecified hyperlipidemia type Essential hypertension Unspecified essential hypertension Essential hypertension Unspecified essential hypertension Hyperlipidemia, unspecified hyperlipidemia type Coronary artery disease due to lipid rich plaque Chronic renal failure, unspecified CKD stage Coronary artery disease due to lipid rich plaque Hyperlipidemia, unspecified hyperlipidemia type Essential hypertension Unspecified essential hypertension Chronic renal failure, unspecified CKD stage Hyperlipidemia, unspecified hyperlipidemia type Essential hypertension Unspecified essential hypertension Coronary artery disease due to lipid rich plaque Hyperlipidemia, unspecified hyperlipidemia type Essential hypertension Unspecified essential hypertension Coronary artery disease due to lipid rich plaque Hyperlipidemia, unspecified hyperlipidemia type Essential hypertension Unspecified essential hypertension Coronary artery disease due to lipid rich plaque Chronic renal failure, unspecified CKD stage Hyperlipidemia, unspecified hyperlipidemia type Essential hypertension Unspecified essential hypertension 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 Hyperlipidemia, unspecified hyperlipidemia type Essential hypertension Unspecified essential hypertension Primary hypertension- Primary Unspecified essential hypertension 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 pectoris- Primary Carotid artery disease, unspecified laterality, unspecified type (HCC) Stenosis of right carotid artery Occlusion and stenosis of carotid artery without mention of cerebral infarction Coronary 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 [place] heart without angina pectoris- Primary Primary hypertension Unspecified essential hypertension Coronary 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 [place] heart without angina pectoris- Primary Primary hypertension Unspecified essential hypertension Borderline diabetes Stage 3 chronic kidney disease, unspecified whether stage 3a or 3b CKD (HCC) Anxiety Anxiety state, unspecified Prostate cancer screening Special screening for malignant neoplasm of prostate Abnormal finding of blood chemistry, unspecified Encounter for therapeutic drug level monitoring 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 At high risk for falls- Primary Insomnia, unspecified type Leg weakness, bilateral Muscle weakness (generalized) Medicare annual wellness visit, initial Primary hypertension Unspecified essential hypertension Coronary 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 [place] heart without angina pectoris Encounter for screening colonoscopy- Primary [facility] Diagnosis 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 Essential hypertension Unspecified essential hypertension Hyperlipidemia Other and unspecified hyperlipidemia Coronary 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 [place] heart without angina pectoris- Primary Essential hypertension with goal blood pressure less than 140/90 Pure hypercholesterolemia Coronary 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 [place] heart without angina pectoris Pure hypercholesterolemia Essential hypertension Unspecified essential hypertension Coronary artery disease due to lipid rich plaque Hyperlipidemia, unspecified hyperlipidemia type Essential hypertension Unspecified essential hypertension Essential hypertension Unspecified essential hypertension Hyperlipidemia, unspecified hyperlipidemia type Coronary artery disease due to lipid rich plaque Chronic renal failure, unspecified CKD stage Coronary artery disease due to lipid rich plaque Hyperlipidemia, unspecified hyperlipidemia type Essential hypertension Unspecified essential hypertension Chronic renal failure, unspecified CKD stage Hyperlipidemia, unspecified hyperlipidemia type Essential hypertension Unspecified essential hypertension Coronary artery disease due to lipid rich plaque Hyperlipidemia, unspecified hyperlipidemia type Essential hypertension Unspecified essential hypertension Coronary artery disease due to lipid rich plaque Hyperlipidemia, unspecified hyperlipidemia type Essential hypertension Unspecified essential hypertension Coronary artery disease due to lipid rich plaque Chronic renal failure, unspecified CKD stage Hyperlipidemia, unspecified hyperlipidemia type Essential hypertension Unspecified essential hypertension 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 Hyperlipidemia, unspecified hyperlipidemia type Essential hypertension Unspecified essential hypertension Primary hypertension- Primary Unspecified essential hypertension 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 pectoris- Primary Carotid artery disease, unspecified laterality, unspecified type (HCC) Stenosis of right carotid artery Occlusion and stenosis of carotid artery without mention of cerebral infarction Coronary 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 [place] heart without angina pectoris- Primary Primary hypertension Unspecified essential hypertension Coronary 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 [place] heart without angina pectoris- Primary Primary hypertension Unspecified essential hypertension Borderline diabetes Stage 3 chronic kidney disease, unspecified whether stage 3a or 3b CKD (HCC) Anxiety Anxiety state, unspecified Prostate cancer screening Special screening for malignant neoplasm of prostate Abnormal finding of blood chemistry, unspecified Encounter for therapeutic drug level monitoring 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 At high risk for falls- Primary Insomnia, unspecified type Leg weakness, bilateral Muscle weakness (generalized) Medicare annual wellness visit, initial Primary hypertension Unspecified essential hypertension Coronary 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 [place] heart without angina pectoris Encounter for screening colonoscopy- Primary Primary osteoarthritis of right knee- Primary Degeneration of intervertebral disc of lumbar region, unspecified whether pain present Encounter for screening [facility] Diagnosis 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 Essential hypertension Unspecified essential hypertension Hyperlipidemia Other and unspecified hyperlipidemia Coronary 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 [place] heart without angina pectoris- Primary Essential hypertension with goal blood pressure less than 140/90 Pure hypercholesterolemia Coronary 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 [place] heart without angina pectoris Pure hypercholesterolemia Essential hypertension Unspecified essential hypertension Coronary artery disease due to lipid rich plaque Hyperlipidemia, unspecified hyperlipidemia type Essential hypertension Unspecified essential hypertension Essential hypertension Unspecified essential hypertension Hyperlipidemia, unspecified hyperlipidemia type Coronary artery disease due to lipid rich plaque Chronic renal failure, unspecified CKD stage Coronary artery disease due to lipid rich plaque Hyperlipidemia, unspecified hyperlipidemia type Essential hypertension Unspecified essential hypertension Chronic renal failure, unspecified CKD stage Hyperlipidemia, unspecified hyperlipidemia type Essential hypertension Unspecified essential hypertension Coronary artery disease due to lipid rich plaque Hyperlipidemia, unspecified hyperlipidemia type Essential hypertension Unspecified essential hypertension Coronary artery disease due to lipid rich plaque Hyperlipidemia, unspecified hyperlipidemia type Essential hypertension Unspecified essential hypertension Coronary artery disease due to lipid rich plaque Chronic renal failure, unspecified CKD stage Hyperlipidemia, unspecified hyperlipidemia type Essential hypertension Unspecified essential hypertension 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 Hyperlipidemia, unspecified hyperlipidemia type Essential hypertension Unspecified essential hypertension Primary hypertension- Primary Unspecified essential hypertension 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 pectoris- Primary Carotid artery disease, unspecified laterality, unspecified type (HCC) Stenosis of right carotid artery Occlusion and stenosis of carotid artery without mention of cerebral infarction Coronary 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 [place] heart without angina pectoris- Primary Primary hypertension Unspecified essential hypertension Coronary 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 [place] heart without angina pectoris- Primary Primary hypertension Unspecified essential hypertension Borderline diabetes Stage 3 chronic kidney disease, unspecified whether stage 3a or 3b CKD (HCC) Anxiety Anxiety state, unspecified Prostate cancer screening Special screening for malignant neoplasm of prostate Abnormal finding of blood chemistry, unspecified Encounter for therapeutic drug level monitoring 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 At high risk for falls- Primary Insomnia, unspecified type Leg weakness, bilateral Muscle weakness (generalized) Medicare annual wellness visit, initial Primary hypertension Unspecified essential hypertension Coronary 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 [place] heart without angina pectoris Encounter for screening colonoscopy- Primary Primary osteoarthritis of right knee- Primary Degeneration of intervertebral disc of lumbar region, unspecified whether pain present Encounter for screening colon[facility] Diagnosis 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 Essential hypertension Unspecified essential hypertension Hyperlipidemia Other and unspecified hyperlipidemia Coronary 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 [place] heart without angina pectoris- Primary Essential hypertension with goal blood pressure less than 140/90 Pure hypercholesterolemia Coronary 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 [place] heart without angina pectoris Pure hypercholesterolemia Essential hypertension Unspecified essential hypertension Coronary artery disease due to lipid rich plaque Hyperlipidemia, unspecified hyperlipidemia type Essential hypertension Unspecified essential hypertension Essential hypertension Unspecified essential hypertension Hyperlipidemia, unspecified hyperlipidemia type Coronary artery disease due to lipid rich plaque Chronic renal failure, unspecified CKD stage Coronary artery disease due to lipid rich plaque Hyperlipidemia, unspecified hyperlipidemia type Essential hypertension Unspecified essential hypertension Chronic renal failure, unspecified CKD stage Hyperlipidemia, unspecified hyperlipidemia type Essential hypertension Unspecified essential hypertension Coronary artery disease due to lipid rich plaque Hyperlipidemia, unspecified hyperlipidemia type Essential hypertension Unspecified essential hypertension Coronary artery disease due to lipid rich plaque Hyperlipidemia, unspecified hyperlipidemia type Essential hypertension Unspecified essential hypertension Coronary artery disease due to lipid rich plaque Chronic renal failure, unspecified CKD stage Hyperlipidemia, unspecified hyperlipidemia type Essential hypertension Unspecified essential hypertension 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 Hyperlipidemia, unspecified hyperlipidemia type Essential hypertension Unspecified essential hypertension Primary hypertension- Primary Unspecified essential hypertension 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 pectoris- Primary Carotid artery disease, unspecified laterality, unspecified type (HCC) Stenosis of right carotid artery Occlusion and stenosis of carotid artery without mention of cerebral infarction Coronary 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 [place] heart without angina pectoris- Primary Primary hypertension Unspecified essential hypertension Coronary 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 [place] heart without angina pectoris- Primary Primary hypertension Unspecified essential hypertension Borderline diabetes Stage 3 chronic kidney disease, unspecified whether stage 3a or 3b CKD (HCC) Anxiety Anxiety state, unspecified Prostate cancer screening Special screening for malignant neoplasm of prostate Abnormal finding of blood chemistry, unspecified Encounter for therapeutic drug level monitoring 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 At high risk for falls- Primary Insomnia, unspecified type Leg weakness, bilateral Muscle weakness (generalized) Medicare annual wellness visit, initial Primary hypertension Unspecified essential hypertension Coronary 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 [place] heart without angina pectoris Encounter for screening colonoscopy- Primary Insomnia, unspecified type Encounter for screening [facility] Diagnosis 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 Essential hypertension Unspecified essential hypertension Hyperlipidemia Other and unspecified hyperlipidemia Coronary 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 [place] heart without angina pectoris- Primary Essential hypertension with goal blood pressure less than 140/90 Pure hypercholesterolemia Coronary 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 [place] heart without angina pectoris Pure hypercholesterolemia Essential hypertension Unspecified essential hypertension Coronary artery disease due to lipid rich plaque Hyperlipidemia, unspecified hyperlipidemia type Essential hypertension Unspecified essential hypertension Essential hypertension Unspecified essential hypertension Hyperlipidemia, unspecified hyperlipidemia type Coronary artery disease due to lipid rich plaque Chronic renal failure, unspecified CKD stage Coronary artery disease due to lipid rich plaque Hyperlipidemia, unspecified hyperlipidemia type Essential hypertension Unspecified essential hypertension Chronic renal failure, unspecified CKD stage Hyperlipidemia, unspecified hyperlipidemia type Essential hypertension Unspecified essential hypertension Coronary artery disease due to lipid rich plaque Hyperlipidemia, unspecified hyperlipidemia type Essential hypertension Unspecified essential hypertension Coronary artery disease due to lipid rich plaque Hyperlipidemia, unspecified hyperlipidemia type Essential hypertension Unspecified essential hypertension Coronary artery disease due to lipid rich plaque Chronic renal failure, unspecified CKD stage Hyperlipidemia, unspecified hyperlipidemia type Essential hypertension Unspecified essential hypertension 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 Hyperlipidemia, unspecified hyperlipidemia type Essential hypertension Unspecified essential hypertension Primary hypertension- Primary Unspecified essential hypertension 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 pectoris- Primary Carotid artery disease, unspecified laterality, unspecified type (HCC) Stenosis of right carotid artery Occlusion and stenosis of carotid artery without mention of cerebral infarction Coronary 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 [place] heart without angina pectoris- Primary Primary hypertension Unspecified essential hypertension Coronary 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 [place] heart without angina pectoris- Primary Primary hypertension Unspecified essential hypertension Borderline diabetes Stage 3 chronic kidney disease, unspecified whether stage 3a or 3b CKD (HCC) Anxiety Anxiety state, unspecified Prostate cancer screening Special screening for malignant neoplasm of prostate Abnormal finding of blood chemistry, unspecified Encounter for therapeutic drug level monitoring 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, mild stage Pseudophakia of both eyes Lens replaced by other means [facility] Diagnosis 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 Essential hypertension Unspecified essential hypertension Hyperlipidemia Other and unspecified hyperlipidemia Coronary 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 [place] heart without angina pectoris- Primary Essential hypertension with goal blood pressure less than 140/90 Pure hypercholesterolemia Coronary 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 [place] heart without angina pectoris Pure hypercholesterolemia Essential hypertension Unspecified essential hypertension Coronary artery disease due to lipid rich plaque Hyperlipidemia, unspecified hyperlipidemia type Essential hypertension Unspecified essential hypertension Essential hypertension Unspecified essential hypertension Hyperlipidemia, unspecified hyperlipidemia type Coronary artery disease due to lipid rich plaque Chronic renal failure, unspecified CKD stage Coronary artery disease due to lipid rich plaque Hyperlipidemia, unspecified hyperlipidemia type Essential hypertension Unspecified essential hypertension Chronic renal failure, unspecified CKD stage Hyperlipidemia, unspecified hyperlipidemia type Essential hypertension Unspecified essential hypertension Coronary artery disease due to lipid rich plaque Hyperlipidemia, unspecified hyperlipidemia type Essential hypertension Unspecified essential hypertension Coronary artery disease due to lipid rich plaque Hyperlipidemia, unspecified hyperlipidemia type Essential hypertension Unspecified essential hypertension Coronary artery disease due to lipid rich plaque Chronic renal failure, unspecified CKD stage Hyperlipidemia, unspecified hyperlipidemia type Essential hypertension Unspecified essential hypertension 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 Hyperlipidemia, unspecified hyperlipidemia type Essential hypertension Unspecified essential hypertension Primary hypertension- Primary Unspecified essential hypertension 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 pectoris- Primary Carotid artery disease, unspecified laterality, unspecified type (HCC) Stenosis of right carotid artery Occlusion and stenosis of carotid artery without mention of cerebral infarction Coronary 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 [place] heart without angina pectoris- Primary Primary hypertension Unspecified essential hypertension Coronary 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 [place] heart without angina pectoris- Primary Primary hypertension Unspecified essential hypertension Borderline diabetes Stage 3 chronic kidney disease, unspecified whether stage 3a or 3b CKD (HCC) Anxiety Anxiety state, unspecified Prostate cancer screening Special screening for malignant neoplasm of prostate Abnormal finding of blood chemistry, unspecified Encounter for therapeutic drug level monitoring 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 At high risk for falls- Primary Insomnia, unspecified type Leg weakness, bilateral Muscle weakness (generalized) Medicare annual wellness visit, initial Primary hypertension Unspecified essential hypertension Coronary 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 [place] heart without angina pectoris Anxiety- Primary Anxiety state, unspecified Insomnia, unspecified type Primary hypertension Unspecified essential hypertension Leg weakness, bilateral Muscle weakness (generalized) Mood disorder Unspecified episodic mood disorder EKG, abnormal Admission for therapeutic drug monitoring Encounter for therapeutic drug monitoring Borderline diabetes [facility] Diagnosis 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 Essential hypertension Unspecified essential hypertension Hyperlipidemia Other and unspecified hyperlipidemia Coronary 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 [place] heart without angina pectoris- Primary Essential hypertension with goal blood pressure less than 140/90 Pure hypercholesterolemia Coronary 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 [place] heart without angina pectoris Pure hypercholesterolemia Essential hypertension Unspecified essential hypertension Coronary artery disease due to lipid rich plaque Hyperlipidemia, unspecified hyperlipidemia type Essential hypertension Unspecified essential hypertension Essential hypertension Unspecified essential hypertension Hyperlipidemia, unspecified hyperlipidemia type Coronary artery disease due to lipid rich plaque Chronic renal failure, unspecified CKD stage Coronary artery disease due to lipid rich plaque Hyperlipidemia, unspecified hyperlipidemia type Essential hypertension Unspecified essential hypertension Chronic renal failure, unspecified CKD stage Hyperlipidemia, unspecified hyperlipidemia type Essential hypertension Unspecified essential hypertension Coronary artery disease due to lipid rich plaque Hyperlipidemia, unspecified hyperlipidemia type Essential hypertension Unspecified essential hypertension Coronary artery disease due to lipid rich plaque Hyperlipidemia, unspecified hyperlipidemia type Essential hypertension Unspecified essential hypertension Coronary artery disease due to lipid rich plaque Chronic renal failure, unspecified CKD stage Hyperlipidemia, unspecified hyperlipidemia type Essential hypertension Unspecified essential hypertension 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 Hyperlipidemia, unspecified hyperlipidemia type Essential hypertension Unspecified essential hypertension Primary hypertension- Primary Unspecified essential hypertension 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 pectoris- Primary Carotid artery disease, unspecified laterality, unspecified type (HCC) Stenosis of right carotid artery Occlusion and stenosis of carotid artery without mention of cerebral infarction Coronary 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 [place] heart without angina pectoris- Primary Primary hypertension Unspecified essential hypertension Coronary 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 [place] heart without angina pectoris- Primary Primary hypertension Unspecified essential hypertension Borderline diabetes Stage 3 chronic kidney disease, unspecified whether stage 3a or 3b CKD (HCC) Anxiety Anxiety state, unspecified Prostate cancer screening Special screening for malignant neoplasm of prostate Abnormal finding of blood chemistry, unspecified Encounter for therapeutic drug level monitoring 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 At high risk for falls- Primary Insomnia, unspecified type Leg weakness, bilateral Muscle weakness (generalized) Medicare annual wellness visit, initial Primary hypertension Unspecified essential hypertension Coronary 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 [place] heart without angina pectoris Insomnia, unspecified type [facility] 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 Essential hypertension Unspecified essential hypertension Hyperlipidemia Other and unspecified hyperlipidemia Coronary 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 [place] heart without angina pectoris- Primary Essential hypertension with goal blood pressure less than 140/90 Pure hypercholesterolemia Coronary 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 [place] heart without angina pectoris Pure hypercholesterolemia Essential hypertension Unspecified essential hypertension Coronary artery disease due to lipid rich plaque Hyperlipidemia, unspecified hyperlipidemia type Essential hypertension Unspecified essential hypertension Essential hypertension Unspecified essential hypertension Hyperlipidemia, unspecified hyperlipidemia type Coronary artery disease due to lipid rich plaque Chronic renal failure, unspecified CKD stage Coronary artery disease due to lipid rich plaque Hyperlipidemia, unspecified hyperlipidemia type Essential hypertension Unspecified essential hypertension Chronic renal failure, unspecified CKD stage Hyperlipidemia, unspecified hyperlipidemia type Essential hypertension Unspecified essential hypertension Coronary artery disease due to lipid rich plaque Hyperlipidemia, unspecified hyperlipidemia type Essential hypertension Unspecified essential hypertension Coronary artery disease due to lipid rich plaque Hyperlipidemia, unspecified hyperlipidemia type Essential hypertension Unspecified essential hypertension Coronary artery disease due to lipid rich plaque Chronic renal failure, unspecified CKD stage Hyperlipidemia, unspecified hyperlipidemia type Essential hypertension Unspecified essential hypertension 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 Hyperlipidemia, unspecified hyperlipidemia type Essential hypertension Unspecified essential hypertension Primary hypertension- Primary Unspecified essential hypertension 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 pectoris- Primary Carotid artery disease, unspecified laterality, unspecified type (HCC) Stenosis of right carotid artery Occlusion and stenosis of carotid artery without mention of cerebral infarction Coronary 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 [place] heart without angina pectoris- Primary Primary hypertension Unspecified essential hypertension Coronary 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 [place] heart without angina pectoris- Primary Primary hypertension Unspecified essential hypertension Borderline diabetes Stage 3 chronic kidney disease, unspecified whether stage 3a or 3b CKD (HCC) Anxiety Anxiety state, unspecified Prostate cancer screening Special screening for malignant neoplasm of prostate Abnormal finding of blood chemistry, unspecified Encounter for therapeutic drug level monitoring 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 At high risk for falls- Primary Insomnia, unspecified type Leg weakness, bilateral Muscle weakness (generalized) Medicare annual wellness visit, initial Primary hypertension Unspecified essential hypertension Coronary 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 [place] heart without angina pectoris Primary hypertension Unspecified essential hypertension documented in this encounter [facility] for referral (narrative)No reason for referral information [facility] Work Phone: Assessments Diagnosis Coronary artery disease due to lipid rich plaque Hyperlipidemia, unspecified hyperlipidemia type Essential hypertension Unspecified essential hypertension Diagnosis Essential hypertension Unspecified essential hypertension Hyperlipidemia, unspecified hyperlipidemia type Coronary artery disease due to lipid rich plaque Chronic renal failure, unspe cified CKD stage Diagnosis Pharyngoesophageal dysphagia - Primary Dysphagia, pharyngoesophageal phase Gaseous regurgitation Flatulence, eructation, and gas pain Burping 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 Diagnosis Hiatal hernia with GERD with out esophagitis - Primary 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 Diagnosis Chronic renal failure, unspecified CKD stage Hyperlipidemia, unspecified hyperlipidemia type Essential hypertension Unspecified essential hypertension Coronary artery disease due to lipid rich plaque Diagnosis Hyperlipidemia, unspecified hyperlipidemia type Essential hypertension Unspecified essential hypertension Coronary artery disease due to lipid rich plaque Diagnosis 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 Belching Flatulence, eructation, and gas pain Diagnosis Chronic renal failure, unspecified CKD stage Hyperlipidemia, unspecified hyperlipidemia type Essential hypertension Unspecified essential hypertension Coronary artery disease due to lipid rich plaque Summary Purpose Family History Unknown Family Member Name Dates Details Family history of acute myoc ardial infarction: Father(V17.3, Z82.49) Status:Active Family history of hypertensi on: Father(V17.49, Z82.49) Status:Active Family history of malignant neoplasm of breast: Mother(V16.3, Z80.3) Status:Active Unknown Family Member Name Dates Details Family history of acute myoc ardial infarction: Father(V17.3, Z82.49) Status:Active Family history of hypertensi on: Father(V17.49, Z82.49) Status:Active Family history of malignant neoplasm of breast: Mother(V16.3, Z80.3) Status:Active Unknown Family Member Name Dates Details Family history of acute myoc ardial infarction: Father(V17.3, Z82.49) Status:Active Family history of hypertensi on: Father(V17.49, Z82.49) Status:Active Family history of malignant neoplasm of breast: Mother(V16.3, Z80.3) Status:Active Advance Directives Documents on File Type Date Recorded Patient Sprinkler Inspector Expl anation Advance Directives and Living Will Documents on File Type Date Recorded Patient Sprinkler Inspector Expl anation Advance Directives and Livin g Will 04/27/2021 8:52 AM Instructions * Patient Instructions* Stephanie Montague RN - 03/03/2019 10:02 AM EDT .How to contact your Care Team: Provider: Jarek Agarwal MD [facility] Nurse: Stephanie Montague RN In case of an emergency please call 911. REFILLS: When in need for refills please call your care team or the office at [phone]. Please include medication name, pharmacy name, and specify 30-day or 90-day supply. Please check with your pharmacy within 24 hours of request for your refill. You must follow up as directed to continue current refills. Thank you! in this encounter* Patient Instructions* Stephanie Montague RN - 10/27/2019 9:31 AM EST .How to contact your Care Team: Provider: Jarek Agarwal MD [facility] Nurse: Stephanie Montague RN In case of an emergency please call 911. REFILLS: When in need for refills please call your care team or the office at [phone]. Please include medication name, pharmacy name, and specify 30-day or 90-day supply. Please check with your pharmacy within 24 hours of request for your refill. You must follow up as directed to continue current refills. Thank you! documented in this encounter* Patient Instructions* Stephanie Montague RN - 10/18/2020 8:21 AM EST .How to contact your Care Team: Provider: Jarek Agarwal MD [facility] Nurse: Stephanie Montague RN documented in this encounter History of Present Illness * Jarek Agarwal MD - 03/03/2019 10:16 AM EDT OFFICE CONSULTATION NOTE [facility] [address] [facility] [address] [facility] [address] Physicians: Jennifer Hauser, Subjective: Yudith Morin is a 83 y.o. male seen in the office today for Coronary Artery Disease . HPI: The patient is a very pleasant 83-year-old gentleman with a past medical history significant for coronary artery disease with bypass grafting in 2010. Surgery consisted of NERI to LAD and a vein graft to the right coronary artery. He had normal LV systolic function. He has a history of labile hypertension, hyperlipidemia, transient renal failure, and quite a bit of anxiety regarding his health. Yudith remains asymptomatic from a cardiovascular standpoint. His blood pressures have been under quite excellent control. He denies any anginal type chest discomfort, orthopnea, paroxysmal nocturnaldyspnea, syncope, or near syncope. He was able to golf almost daily in [place] before his 's health issues necessitated a return home. Assessment & Plan: Chronic renal failure His most recent lab work was acceptable. This is followed by primary care. Hyperlipidemia His last lipid profile was excellent. He is on simvastatin. Hypertension His blood pressure remains under excellent control. CAD (coronary artery disease) He denies any anginal type chest discomfort. He remains quite active and is able to exert himself without difficulty. I would recommend continuing current medical therapy. Follow Up Ordered: Return in about 6 months (around 09/02/2019). Histories: Past Medical History: Diagnosis Date Arthritis Arthritis Sharma's esophagus Borderline diabetes BPH (benign prostatic hypertrophy) CAD (coronary artery disease) 2 vessel cabg; neri to lad and svg to the rca Hemorrhoids Hiatal hernia 08/19/2018 [place] grade III, type-I Hyperlipidemia Labile hypertension Stomach ulcer Urinary bleeding Viral hepatitis Past Surgical History: Procedure Laterality Date CABG 2010 CARDIAC CATHETERIZATION 2010 2 vessel cad CARDIAC CATHETERIZATION 1998 mod stenosis of the prox lad CATARACT EXT/ECCE Bilateral CHOLECYSTECTOMY 1987 COLONOSCOPY 07/19/2015 [facility] CORONARY ARTERY BYPASS GRAFT 2010 neri to lad/svg to rca EGD W/PEG PLACEMENT 03/03/2013 [facility] ...[facility] in [place] ESOPHAGOGASTRODUODENOSCOPY 07/19/2015 [facility]...[facility] in [place] ESOPHAGOGASTRODUODENOSCOPY 08/19/2018 gastritis....Dr. Fortune TONSILLECTOMY 194 Family History Problem Relation Age of Onset Heart attack Father Breast cancer Mother Social History Tobacco Use Smoking status: Never Smoker Smokeless tobacco: Never Used Substance Use Topics Alcohol use: No Drug use: No Current Outpatient Medications Medication Sig Dispense Refill amLODIPine (NORVASC) 10 MG tablet Take 10 mg by mouth daily aspirin 81 MG EC tablet Take 81 mg by mouth daily cloNIDine HCl (CATAPRES) 0.1 MG tablet Take 0.1 mg by mouth 0.1 mg QAM 0.2 MG QPM 0.2 MG QHS docusate sodium (COLACE) 250 MG capsule Take 250 mg by mouth daily DORZOLAMIDE HCL/TIMOLOL MALEAT (COSOPT OPHT) Apply to eye 2 (two) times a day Right eye famotidine (PEPCID) 20 MG tablet Take 20 mg by mouth daily . ferrous sulfate 325 (65 FE) MG tablet Take 325 mg by mouth daily with breakfast. finasteride (PROSCAR) 5 mg tablet Take 5 mg by mouth daily labetalol (NORMODYNE) 200 MG tablet Take 200 mg by mouth 2 (two) times a day LORazepam (ATIVAN) 1 MG tablet Take 1 mg by mouth as needed for anxiety losartan-hydrochlorothiazide (HYZAAR) 100-25 mg per tablet Take 1 tablet by mouth daily ondansetron (ZOFRAN) 4 MG tablet Take 4 mg by mouth every 8 (eight) hours as needed for nausea. potassium chloride (K-DUR) 10 MEQ CR tablet Take 10 mEq by mouth daily. sildenafil (VIAGRA) 100 MG tablet Take 100 mg by mouth daily as needed for erectile dysfunction. simvastatin (ZOCOR) 40 MG tablet Take 40 mg by mouth daily tamsulosin (FLOMAX) 0.4 mg capsule Take 0.4 mg by mouth daily. No current facility-administered medications for this visit. No Known Allergies Review of Systems Constitution: Negative for diaphoresis, malaise/fatigue, weight gain and weight loss. HENT: Negative for hearing loss, nosebleeds and tinnitus. Eyes: Negative for blurred vision and visual disturbance. Cardiovascular: Negative for chest pain, claudication, cyanosis, dyspnea on exertion, irregular heartbeat, leg swelling, near-syncope, orthopnea, palpitations, paroxysmal nocturnal dyspnea and syncope. Respiratory: Negative for hemoptysis, shortness of breath and snoring. Endocrine: Negative for cold intolerance and heat intolerance. Hematologic/Lymphatic: Does not bruise/bleed easily. Skin: Negative for flushing, poor wound healing and rash. Musculoskeletal: Negative for back pain, muscle weakness and myalgias. Gastrointestinal: Negative for abdominal pain, change in bowel habit, melena, nausea and vomiting. Genitourinary: Negative for decreased libido and hematuria. Neurological: Negative for loss of balance and numbness. Psychiatric/Behavioral: Negative for memory loss. The patient is not nervous/anxious. Overview of Problems Addressed: Problem Cad (Coronary Artery Disease) Hypertension Hyperlipidemia Chronic Renal Failure Objective: Physical Exam Constitutional: He is oriented to person, place, and time. He appears well- developed and well-nourished. HENT: Head: Normocephalic. Eyes: Pupils are equal, round, and reactive to light. Conjunctivae and EOM are normal. No scleral icterus. Neck: Normal range of motion. Neck supple. No JVD present. No tracheal deviation present. No thyromegaly present. Cardiovascular: Normal rate, regular rhythm, S1 normal, S2 normal, normal heart sounds and intact distal pulses. Exam reveals no friction rub. No murmur heard. Pulmonary/Chest: Breath sounds normal. No respiratory distress. He has no wheezes. He has no rales. Abdominal: Soft. Bowel sounds are normal. He exhibits no distension and no mass. There is no hepatosplenomegaly. There is no tenderness. Musculoskeletal: Normal range of motion. He exhibits no edema. Lymphadenopathy: He has no cervical adenopathy. Neurological: He is alert and oriented to person, place, and time. Skin: Skin is warm and dry. Psychiatric: He has a normal mood and affect. His behavior is normal. Vitals: Vitals: 03/03/19 0944 BP: 124/65 Pulse: 62 SpO2: 97% Weight: 77.1 kg (170 lb) Height: 6' 1 No orders of the defined types were placed in this encounter. Thank you for allowing me to assist you in the cardiovascular care of this patient. Please don't hesitate to contact me if you have any questions regarding these thoughts. Jarek Agarwal MD in this encounter* Jarek Agarwal MD - 10/27/2019 10:40 AM EST OFFICE CONSULTATION NOTE [facility] [address] [facility] [address] [facility] [id number] Physicians: Jennifer Hauser DO Subjective: Yudith Morin is a 84 y.o. male seen in the office today for Follow-up (6 mo f/u. no complaints orconcerns for todays visit. Medications reviewed; no refills at this time ) . HPI: Yudith is a pleasant but nervous 84-year-old gentleman with a past medical history significant for coronary artery disease. In 2010, he had coronary artery bypass grafting receiving NERI to LAD and avein graft to the right coronary artery. He had normal LV systolic function. He has a history of labile hypertension, hyperlipidemia, transient renal failure, and quite a bit of anxiety regarding hishealth. Well denies any anginal type chest discomfort. His blood pressure has been under good control. He denies any orthopnea, paroxysmal dyspnea, syncope, or near syncope. 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 Assessment & Plan: Hyperlipidemia He is on simvastatin. His lipids are followed through primary care. Hypertension I reviewed a rather extensive log of his blood pressures. They are under reasonable control on current medical therapy. CAD (coronary artery disease) The patient denies any anginal type chest discomfort. He remains extremely active and is able to maintain course without difficulty. He is still golfing even in this weather. I would continue currentmedical therapy. Follow Up Ordered: Return in about 6 months (around 04/27/2020). Histories: Past Medical History: Diagnosis Date Arthritis Arthritis Sharma's esophagus Borderline diabetes BPH (benign prostatic hypertrophy) CAD (coronary artery disease) 2 vessel cabg; neri to lad and svg to the rca Hemorrhoids Hiatal hernia 08/19/2018 Hill grade III, type-I Hyperlipidemia Labile hypertension Stomach ulcer Urinary bleeding Viral hepatitis Past Surgical History: Procedure Laterality Date CABG 2010 CARDIAC CATHETERIZATION 2010 2 vessel cad CARDIAC CATHETERIZATION 1998 mod stenosis of the prox lad CATARACT EXT/ECCE Bilateral CHOLECYSTECTOMY 1987 COLONOSCOPY 07/19/2015 [facility] CORONARY ARTERY BYPASS GRAFT 2010 neri to lad/svg to rca EGD W/PEG PLACEMENT 03/03/2013 [facility] ...[facility] in [place] ESOPHAGOGASTRODUODENOSCOPY 07/19/2015 [facility]...[facility] in [place] ESOPHAGOGASTRODUODENOSCOPY 08/19/2018 gastritis....Dr. Fortune SKIN LESION EXCISION TONSILLECTOMY 194 Family History Problem Relation Age of Onset Heart attack Father Breast cancer Mother Social History Tobacco Use Smoking status: Never Smoker Smokeless tobacco: Never Used Substance Use Topics Alcohol use: No Drug use: No Current Outpatient Medications Medication Sig Dispense Refill amLODIPine (NORVASC) 10 MG tablet Take 10 mg by mouth daily aspirin 81 MG EC tablet Take 81 mg by mouth daily cloNIDine HCl (CATAPRES) 0.1 MG tablet Take 0.1 mg by mouth 0.1 mg QAM 0.2 MG QPM 0.2 MG QHS docusate sodium (COLACE) 250 MG capsule Take 250 mg by mouth daily DORZOLAMIDE HCL/TIMOLOL MALEAT (COSOPT OPHT) Apply to eye 2 (two) times a day Right eye famotidine (PEPCID) 20 MG tablet Take 20 mg by mouth daily . ferrous sulfate 325 (65 FE) MG tablet Take 325 mg by mouth daily with breakfast. finasteride (PROSCAR) 5 mg tablet Take 5 mg by mouth daily labetalol (NORMODYNE) 200 MG tablet Take 200 mg by mouth 2 (two) times a day LORazepam (ATIVAN) 1 MG tablet Take 1 mg by mouth as needed for anxiety losartan-hydrochlorothiazide (HYZAAR) 100-25 mg per tablet Take 1 tablet by mouth daily ondansetron (ZOFRAN) 4 MG tablet Take 4 mg by mouth every 8 (eight) hours as needed for nausea. potassium chloride (K-DUR) 10 MEQ CR tablet Take 10 mEq by mouth daily. sildenafil (VIAGRA) 100 MG tablet Take 100 mg by mouth daily as needed for erectile dysfunction. simvastatin (ZOCOR) 40 MG tablet Take 40 mg by mouth daily tamsulosin (FLOMAX) 0.4 mg capsule Take 0.4 mg by mouth daily. No current facility-administered medications for this visit. No Known Allergies Review of Systems Constitution: Negative for diaphoresis, malaise/fatigue, weight gain and weight loss. HENT: Negative for hearing loss, nosebleeds and tinnitus. Eyes: Negative for blurred vision and visual disturbance. Cardiovascular: Positive for palpitations. Negative for chest pain, claudication, cyanosis, dyspneaon exertion, irregular heartbeat, leg swelling, near-syncope, orthopnea, paroxysmal nocturnal dyspnea and syncope. Respiratory: Negative for hemoptysis, shortness of breath and snoring. Endocrine: Negative for cold intolerance and heat intolerance. Hematologic/Lymphatic: Does not bruise/bleed easily. Skin: Negative for flushing, poor wound healing and rash. Musculoskeletal: Negative for back pain, muscle weakness and myalgias. Gastrointestinal: Negative for abdominal pain, change in bowel habit, melena, nausea and vomiting. Genitourinary: Negative for decreased libido and hematuria. Neurological: Positive for dizziness (Postural). Negative for loss of balance and numbness. Psychiatric/Behavioral: Negative for memory loss. The patient is not nervous/anxious. Overview of Problems Addressed: Problem Cad (Coronary Artery Disease) Hypertension Hyperlipidemia Objective: Physical Exam Constitutional: He is oriented to person, place, and time. He appears well- developed and well-nourished. HENT: Head: Normocephalic. Eyes: Pupils are equal, round, and reactive to light. Conjunctivae and EOM are normal. No scleral icterus. Neck: Normal range of motion. Neck supple. No JVD present. No tracheal deviation present. No thyromegaly present. Cardiovascular: Regular rhythm, S1 normal, S2 normal, normal heart sounds and intact distal pulses.Exam reveals no friction rub. No murmur heard. Mildly bradycardic. Pulmonary/Chest: Breath sounds normal. No respiratory distress. He has no wheezes. He has no rales. Abdominal: Soft. Bowel sounds are normal. He exhibits no distension and no mass. There is no hepatosplenomegaly. There is no abdominal tenderness. Musculoskeletal: Normal range of motion. General: No edema. Lymphadenopathy: He has no cervical adenopathy. Neurological: He is alert and oriented to person, place, and time. Skin: Skin is warm and dry. Psychiatric: He has a normal mood and affect. His behavior is normal. Vitals: Vitals: 10/27/19 1006 BP: (!) 93/52 BP Location: Right arm Patient Position: Sitting Pulse: (!) 54 SpO2: 97% Weight: 76.6 kg (168 lb 14.4 oz) Height: 6' 1 No orders of the defined types were placed in this encounter. Thank you for allowing me to assist you in the cardiovascular care of this patient. Please don't hesitate to contact me if you have any questions regarding these thoughts. Jarek Agarwal MD documented in this encounter* Mickey Fortune MD - 04/07/2020 9:24 AM EDT [facility] PATIENT: Yudith Morin DATE / TIME: 04/07/20 9:24 AM POS: Office AGE: 84 y.o. : 1935 RACE: [1] SEX: male PCP: Jennifer Hauser DO REFERRAL: No ref. provider found TOS: SUBJECTIVE: Presents today due to excessive belching. He says the belching occurs when he eats chocolate, red sauce, or coffee. He was last seen in my office on 09/03/2018. He has a known history of a Hill grade3 type I sliding hiatal hernia. He had a reported history of Sharma's esophagus. 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 He has been taking Pepcid once daily. He denies any abdominal pain. He says that the belching is intermittent. He has no other complaints at this time. OBJECTIVE: BP 132/73 Pulse 64 Ht 6' 1 Wt 79.2 kg (174 lb 11.2 oz) SpO2 97% BMI 23.05 kg/m ASSESSMENT: Hiatal hernia, gastroesophageal reflux disease, Sharma's esophagus not dysplasia, excessive belching PLAN: 1. I have encouraged the patient to try to avoid trigger foods 2. The patient is instructed to resume Pepcid twice daily 3. The patient is already in recall for EGD in 2020 documented in this encounter* Jarek Agarwal MD - 10/18/2020 9:05 AM EST OFFICE CONSULTATION NOTE [facility] [address] [facility] [address] [facility] [id number] Physicians: Dante Gayle CNP Subjective: Yudith Morin is a 85 y.o. male seen in the office today for Follow-up (6 mo. denies chest pain/ SOB) . HPI: This very pleasant but extremely anxious 85-year-old gentleman with a history of coronary artery disease. He underwent bypass grafting in 2010 receiving NERI to LAD and a vein graft to the right coronary artery. He has known normal LV systolic function. He has a history of labile hypertension, hyperlipidemia, chronic kidney disease, and significant anxiety. Duran denies any anginal type chest discomfort. He does describe occasional episodes where he awakensfrom a nap in his chair feeling extremely anxious. He will then check his blood pressure and it will be quite high. He occasionally has to take alprazolam to calm down. He brings a log of his blood pressures that shows excellent control. He denies any orthopnea, paroxysm nocturnal dyspnea, syncope,or near syncope. He continues to golf without difficulty. He played 6 holes in fairly inclement weather yesterday. Assessment & Plan: Chronic renal failure His most recent blood work was reviewed. He had normal renal function. Hyperlipidemia He remains on moderate intensity statin therapy. His last lipid profile was at goal. This is followed by primary care. Hypertension His blood pressure is actually under excellent control. I would continue current medical therapy. Ihave asked him not to take his blood pressure when he wakes up feeling anxious. CAD (coronary artery disease) He denies any anginal type chest discomfort. He is actually quite active without limitations from aphysical standpoint. I would continue current medication. Despite his anxiety, Duran is actually doing remarkably well. I would continue current medical therapy. I tried to treat him with reassurance. Follow Up Ordered: Return in about 6 months (around 04/17/2021). Histories: Past Medical History: Diagnosis Date Arthritis Arthritis Sharma's esophagus Borderline diabetes BPH (benign prostatic hypertrophy) CAD (coronary artery disease) 2 vessel cabg; neri to lad and svg to the rca Hemorrhoids Hiatal hernia 08/19/2018 Hill grade III, type-I History of skin cancer Hyperlipidemia Labile hypertension Stomach ulcer Urinary bleeding Viral hepatitis Past Surgical History: Procedure Laterality Date CABG 2010 CARDIAC CATHETERIZATION 2010 2 vessel cad CARDIAC CATHETERIZATION 1998 mod stenosis of the prox lad CATARACT EXT/ECCE Bilateral CHOLECYSTECTOMY 1987 COLONOSCOPY 07/19/2015 [facility] CORONARY ARTERY BYPASS GRAFT 2010 neri to lad/svg to rca EGD W/PEG PLACEMENT 03/03/2013 [facility] ...[facility] in [place] ESOPHAGOGASTRODUODENOSCOPY 07/19/2015 [facility]...[facility] in [place] ESOPHAGOGASTRODUODENOSCOPY 08/19/2018 gastritis....Dr. Fortune SKIN LESION EXCISION TONSILLECTOMY 1942 Family History Problem Relation Age of Onset Heart attack Father Breast cancer Mother Social History Tobacco Use Smoking status: Never Smoker Smokeless tobacco: Never Used Substance Use Topics Alcohol use: No Drug use: No Current Outpatient Medications Medication Sig Dispense Refill amLODIPine (NORVASC) 10 MG tablet Take 10 mg by mouth daily aspirin 81 MG EC tablet Take 81 mg by mouth daily BEE POLLEN ORAL Take 2 capsules by mouth daily . cloNIDine HCl (CATAPRES) 0.1 MG tablet Take 0.1 mg by mouth 0.1 mg QAM 0.2 MG QPM 0.2 MG QHS docusate sodium (COLACE) 250 MG capsule Take 250 mg by mouth daily DORZOLAMIDE HCL/TIMOLOL MALEAT (COSOPT OPHT) Apply to eye 2 (two) times a day Right eye famotidine (PEPCID) 20 MG tablet Take 20 mg by mouth 2 (two) times a day . ferrous sulfate 325 (65 FE) MG tablet Take 325 mg by mouth daily with breakfast. finasteride (PROSCAR) 5 mg tablet Take 5 mg by mouth daily labetalol (NORMODYNE) 200 MG tablet Take 200 mg by mouth 2 (two) times a day LORazepam (ATIVAN) 1 MG tablet Take 1 mg by mouth as needed for anxiety losartan-hydrochlorothiazide (HYZAAR) 100-25 mg per tablet Take 1 tablet by mouth daily ondansetron (ZOFRAN) 4 MG tablet Take 4 mg by mouth every 8 (eight) hours as needed for nausea. potassium chloride (K-DUR) 10 MEQ CR tablet Take 10 mEq by mouth daily. sildenafil citrate (SILDENAFIL ORAL) Take by mouth daily as needed for erectile dysfunction . simvastatin (ZOCOR) 20 MG tablet Take 20 mg by mouth daily . tamsulosin (FLOMAX) 0.4 mg capsule Take 0.4 mg by mouth daily. No current facility-administered medications for this visit. No Known Allergies Review of Systems Constitution: Negative for diaphoresis, malaise/fatigue, weight gain and weight loss. HENT: Negative for hearing loss, nosebleeds and tinnitus. Eyes: Negative for blurred vision and visual disturbance. Cardiovascular: Negative for chest pain, claudication, cyanosis, dyspnea on exertion, irregular heartbeat, leg swelling, near-syncope, orthopnea, palpitations, paroxysmal nocturnal dyspnea and syncope. Respiratory: Negative for hemoptysis, shortness of breath and snoring. Endocrine: Negative for cold intolerance and heat intolerance. Hematologic/Lymphatic: Does not bruise/bleed easily. Skin: Negative for flushing, poor wound healing and rash. Musculoskeletal: Negative for back pain, muscle weakness and myalgias. Gastrointestinal: Negative for abdominal pain, change in bowel habit, melena, nausea and vomiting. Genitourinary: Negative for decreased libido and hematuria. Neurological: Negative for loss of balance and numbness. Psychiatric/Behavioral: Negative for memory loss. The patient is nervous/anxious. Overview of Problems Addressed: Problem Cad (Coronary Artery Disease) Hypertension Hyperlipidemia Chronic Renal Failure Objective: Physical Exam Constitutional: He is oriented to person, place, and time. He appears well- developed and well-nourished. HENT: Head: Normocephalic. Eyes: Pupils are equal, round, and reactive to light. Conjunctivae and EOM are normal. No scleral icterus. Neck: Normal range of motion. Neck supple. No JVD present. No tracheal deviation present. No thyromegaly present. Cardiovascular: Normal rate, regular rhythm, S1 normal, S2 normal, normal heart sounds and intact distal pulses. Exam reveals no friction rub. No murmur heard. Pulmonary/Chest: Breath sounds normal. No respiratory distress. He has no wheezes. He has no rales. Abdominal: Soft. Bowel sounds are normal. He exhibits no distension and no mass. There is no hepatosplenomegaly. There is no abdominal tenderness. Musculoskeletal: Normal range of motion. General: No edema. Lymphadenopathy: He has no cervical adenopathy. Neurological: He is alert and oriented to person, place, and time. Skin: Skin is warm and dry. Psychiatric: He has a normal mood and affect. His behavior is normal. Vitals: Vitals: 10/18/20 0822 BP: 110/62 BP Location: Left arm Patient Position: Sitting Pulse: 60 SpO2: 98% Weight: 76.2 kg (168 lb) Height: 6' 1 Orders Placed This Encounter famotidine (PEPCID) 20 MG tablet BEE POLLEN ORAL Thank you for allowing me to assist you in the cardiovascular care of this patient. Please don't hesitate to contact me if you have any questions regarding these thoughts. Jarek Agarwal MD documented in this encounter Reason for Referral Specialty Diagnoses / Procedures Referred By Roxana hill Referred To Contact Cardiology Diagnoses Coronary 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 [place] heart without angina pectoris Procedures Echocardiogram complete Cam Suarez MD [address] [place] [address] Referral ID Status Reason Start Date Expiration Date V isits Requested Visits Authorized [id number] New Request 10/04/2021 10/04/2022 1 1 Specialty Diagnoses / Procedures Referred By Roxana hill Referred To Contact Cardiology Diagnoses Coronary 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 [place] heart without angina pectoris Carotid artery disease, unspecified laterality, unspecified type (HCC) Stenosis of right carotid artery Procedures Carotid Duplex Cam Suarez MD [address] [place] [address] Referral ID Status Reason Start Date Expiration Date V isits Requested Visits Authorized [id number] Authorized 06/15/2022 06/15/2023 1 1 Specialty Diagnoses / Procedures Referred By Contac t Referred To Contact Neurology Diagnoses Peripheral sensory neuropathy Dante Gayle, [employer] [address] [place] [address] Harshal Mendoza MD [address] [place] [id number] Referral ID Status Reason Start Date Expiration Date V isits Requested Visits Authorized [id number] Authorized 03/13/2023 03/12/2024 1 1 Specialty Diagnoses / Procedures Referred By Contac t Referred To Contact Diagnoses Erectile dysfunction, unspecified erectile dysfunction type Norris Ortiz MD [address] [id number] Referral ID Status Reason Start Date Expiration Date V isits Requested Visits Authorized [id number] Pending Review 1 1 Specialty Diagnoses / Procedures Referred By Contac t Referred To Contact Neurology Diagnoses Leg weakness, bilateral Andrea, Deuce Mccarthy MD [address] [address] [facility] [address], [address] [place] [phone] Referral ID Status Reason Start Date Expiration Date V isits Requested Visits Authorized [id number] Authorized 06/08/2024 06/08/2025 1 1 Specialty Diagnoses / Procedures Referred By Contac t Referred To Contact Rehabilitation Diagnoses Leg weakness, bilateral Andrea, Deuce Mccarthy MD [address] [address] [facility] [address] [phone] Referral ID Status Reason Start Date Expiration Date V isits Requested Visits Authorized [id number] Pending Review 06/08/2024 06/08/2025 1 1 Medications Administered Section Active Administered Medications - up to 3 most recent administrations Medication Order MAR Action Action Date Dose Rate Site fluorescein-benoxinate 0.25-0.4 % 1 Drop (FLURESS) 1 Drop, BOTH EYES, DIRECTED, Starting on Sat10/11/22 at 1200, Until Sat10/11/22 at 2359, Administer for applanation tonometry. In the event of a Fluress shortage, administer [place]-Fluor 1 drop into both eyes as directed for applanation tonometry Given 10/11/2022 12:00 PM EST 1 Drop Active Administered Medications - up to 3 most recent administrations Medication Order MAR Action Action Date Dose Rate Site fluorescein-benoxinate 0.25-0.4 % 1 Drop (FLURESS) 1 Drop, BOTH EYES, DIRECTED, Starting on Sat10/16/22 at 1000, Until Sat10/16/22 at 2159, Administer for applanation tonometry. In the event of a Fluress shortage, administer Di-Fluor 1 drop into both eyes as directed for applanation tonometry Given 10/16/2022 10:00 AM EST 1 Drop Chief Complaint Yearly w/ PSA Chief Complaint and Reason for Visit Chief Complaint Other intervertebral disc degeneration, lumbar reg Chief Complaint Admit Date RIGHT KNEE OA April 05, 2025 7:09a m Additional Source Comments Assessment & Plan Note - Jarek Agarwal MD - 02/28/2018 3:18 PM EDTAssessment & Plan Note - Jarek Agarwal MD - 02/28/2018 3:18 PM EDT Miscellaneous Notes (unrecog nized section and content) Associated Problem(s): Hypertension His blood pressure is quite elevated in the office today. However, he brought a log of blood pressures from home. He checks his blood pressure almost 3 times a day. They are all quite excellent. He is extremely anxious in the office. I have asked him to continue to check his blood pressures but only once daily. Continue current therapy. Associated Problem(s): Hyperlipidemia He is on statin therapy. Associated Problem(s): CAD (coronary artery disease) Patient has no anginal discomfort. He exercises regularly and is able to exert himself without difficulty. Continue current therapy.in this encounter Associated Problem(s): Chronic renal failure His most recent blood work showed normal renal function. He is no longer following with nephrology. Associated Problem(s): CAD (coronary artery disease) He is extremely active. He has no anginal type chest discomfort. I would continue his current medical therapy. Associated Problem(s): Hyperlipidemia He is on low intensity statin therapy. Associated Problem(s): Hypertension While his blood pressure is mildly elevated in the office today, he brought a log of his blood pressures which are absolutely perfect from home.in this encounter Associated Problem(s): CAD (coronary artery disease) He denies any anginal type chest discomfort. He remains quite active and is able to exert himself without difficulty. I would recommend continuing current medical therapy. Associated Problem(s): Hypertension His blood pressure remains under excellent control. Associated Problem(s): Hyperlipidemia His last lipid profile was excellent. He is on simvastatin. Associated Problem(s): Chronic renal failure His most recent lab work was acceptable. This is followed by primary care. in this encounter Associated Problem(s): CAD (coronary artery disease) The patient denies any anginal type chest discomfort. He remains extremely active and is able to maintain course without difficulty. He is still golfing even in this weather. I would continue current medical therapy. Associated Problem(s): Hypertension I reviewed a rather extensive log of his blood pressures. They are under reasonable control on current medical therapy. Associated Problem(s): Hyperlipidemia He is on simvastatin. His lipids are followed through primary care. documented in this encounter Associated Problem(s): CAD (coronary artery disease) He denies any anginal type chest discomfort. He is actually quite active without limitations from a physical standpoint. I would continue current medication. Associated Problem(s): Hypertension His blood pressure is actually under excellent control. I would continue current medical therapy. I have asked him not to take his blood pressure when he wakes up feeling anxious. Associated Problem(s): Hyperlipidemia He remains on moderate intensity statin therapy. His last lipid profile was at goal. This is followed by primary care. Associated Problem(s): Chronic renal failure His most recent blood work was reviewed. He had normal renal function. documented in this encounter (unrecognized sect ion and content) No Status Records FoundNo Status Records FoundNo Status Records FoundNo Status Records FoundNo Status Records FoundNo Status Records FoundNo Status Records FoundNo Status Records FoundNo Status Records FoundNo Status Records FoundNo Status Records FoundNo Status Records FoundNo Status Records FoundNo Status Records Found INFORMATION SOURCE (unrecogn ized section and content) DATE CREATED AUTHOR 09/20/2018 [facility] DATE CREATED AUTHOR AUTHOR'S ORGANIZ ATION 05/15/2019 [facility] DATE CREATED AUTHOR AUTHOR'S ORGANIZ ATION 10/06/2020 [facility] DATE CREATED AUTHOR AUTHOR'S ORGANIZ ATION 10/13/2022 [facility] DATE CREATED AUTHOR AUTHOR'S ORGANIZ ATION 10/13/2022 [facility] DATE CREATED AUTHOR AUTHOR'S ORGANIZ ATION 10/27/2024 [facility] DATE CREATED AUTHOR AUTHOR'S ORGANIZ ATION 11/07/2024 [facility] DATE CREATED AUTHOR AUTHOR'S ORGANIZ ATION 04/06/2025 [facility] DATE CREATED AUTHOR AUTHOR'S ORGANIZ ATION 04/10/2025 [facility] DATE CREATED AUTHOR AUTHOR'S ORGANIZ ATION 05/10/2025 [facility] DATE CREATED AUTHOR AUTHOR'S ORGANIZ ATION 06/06/2025 [facility] DATE CREATED AUTHOR AUTHOR'S ORGANIZ ATION 06/19/2025 [facility] DATE CREATED AUTHOR AUTHOR'S ORGANIZ ATION 06/26/2025 [facility] DATE CREATED AUTHOR AUTHOR'S ORGANIZ ATION 07/11/2025 [facility] Reason for Visit (unrecogniz ed section and content) Reason Comments Coronary Artery Disease Reason Comments Follow-up 6 mo f/u. no complai nts or concerns for todays visit. Medications reviewed; no refills at this time Reason Comments Abdominal Pain Reason Comments Follow-up 6 mo. 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 Reason Comments Epiphora Tearing continues Glaucoma Follow Up Both eyes Reason Comments Follow-up NO cardiac symptoms Reason Comments yearly w/ psa Reason Comments Error (VOID this visit) Reason Comments Benign Prostatic Hypertrophy Reason Comments Follow-up Sharma's esophagus Reason Comments Establish Care No concerns Reason Onset Date Comments Medication Refill 04/10/2024 Reason Comments Follow-up EGD Reason Comments Primary Open Angle Glaucoma Follow Up Optic Cupping both eyes Reason Onset Date Comments Medication Refill 05/11/2024 Reason Onset Date Comments Medication Refill 05/25/2024 Reason Comments Follow-up 3 month f/u Reason Onset Date Comments Medication Refill 06/19/2024 Reason Onset Date Comments Medication Refill 06/29/2024 Reason Onset Date Comments Medication Refill 08/11/2024 Reason Onset Date Comments Medication Refill 10/02/2024 Reason Comments Follow-up Already got flu shot -3 month f/u Reason Comments Ear Fullness Reason Comments Follow-up Yearly Reason Comments 9 month with PSA Reason Onset Date Comments Medication Refill 11/09/2024 Reason Comments Primary Open Angle Glaucoma Follow Up Optic cupping both eyes follow up Reason Onset Date Comments Medication Refill 12/11/2024 Reason Comments Exudative Macular Degeneration evaluatio n Left eye Reason Onset Date Comments Medication Refill 01/01/2025 Reason Comments Follow-up 3 month f/u Reason Onset Date Comments Medication Refill 01/21/2025 Reason Onset Date Comments Medication Refill 02/19/2025 Reason Comments 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 Fall Risk Screening 04/09/2025 Reason Comments Colonoscopy Reason Onset Date Comments Medication Refill 05/10/2025 Reason Onset Date Comments Medication Refill 05/14/2025 Reason Onset Date Comments Medication Refill 05/18/2025 Reason Onset Date Comments Medication Refill 06/07/2025 Reason Onset Date Comments Medication Refill 06/14/2025 Reason Onset Date Comments Medication Refill 06/11/2025 Reason Comments Vitelliform Lesion Vs Exuative Macular Degeneration Left Eye Macular Degeneration Follow Up Nonexudat ganesh Right Eye Reason Onset Date Comments Refill Request 07/12/2025 Reason Onset Date Comments Medication Refill 07/16/2025 Reason Onset Date Comments Medication Refill 07/19/2025 Reason Onset Date Comments Refill Request 07/16/2025 Care Teams (unrecognized sec tion and content) 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 Specialty Start Date End Date Dante Gayle, SPRUE CUTTING PRESS OPERATOR [address] [id number] PCP - General Nurse Practitioner 10/18/20 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 Specialty Start Date End Date Dante Gayle [employer]UE CUTTING PRESS OPERATOR [address] [place] [address] PCP - General Nurse Practitioner 10/18/20 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 Specialty Start Date End Date Dante Gayle [employer]UE CUTTING PRESS OPERATOR [address] [place] [address] PCP - General Nurse Practitioner 10/18/20 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 Specialty Start Date End Date Dante Gayle SPRUE CUTTING PRESS OPERATOR [address] [place] [address] PCP - General Nurse Practitioner 10/18/20 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 Specialty Start Date End Date Dante Gayle SPRUE CUTTING PRESS OPERATOR [address] [place] [address] PCP - General Family Medicine 10/21/20 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 Specialty Start Date End Date LexidorotaDante SPRUE CUTTING PRESS OPERATOR [address] [place] [address] PCP - General Family Medicine 10/21/20 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 Specialty Start Date End Date LexidorotaDante SPRUE CUTTING PRESS OPERATOR [address] [place] [address] PCP - General Family Medicine 10/21/20 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 Specialty Start Date End Date LexishyDante abdi SPRUE CUTTING PRESS OPERATOR [address] [place] [address] PCP - General Family Medicine 10/21/20 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 Specialty Start Date End Date Dante Gayle SPRUE CUTTING PRESS OPERATOR [address] [place] [address] PCP - General Nurse Practitioner 10/18/20 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 Specialty Start Date End Date LexishyDante abdi SPRUE CUTTING PRESS OPERATOR [address] [place] [address] PCP - General Family Medicine 10/21/20 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 Specialty Start Date End Date Lexishyjin Dante Bernstein SPRUE CUTTING PRESS OPERATOR [address] [place] [address] PCP - General Family Medicine 10/21/20 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 Specialty Start Date End Date Dante Gayle SPRUE CUTTING PRESS OPERATOR [address] [place] [address] PCP - General Family Medicine 10/21/20 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 Specialty Start Date End Date Dante Gayle CNP [address] [place] [address] PCP - General Family Medicine 10/21/20 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 Specialty Start Date End Date Dante Gayle CNP [address] [place] [address] PCP - General Nurse Practitioner 10/18/20 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 Specialty Start Date End Date Dante Gayle SHERRIE [address] [place] [address] PCP - General Nurse Practitioner 10/18/20 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 Specialty Start Date End Date Светлана Gayle CNP [address] [place] [address] PCP - General Family Medicine 10/21/20 Team Status: Active Member Role Status Dates Dr. Jennifer Peterson MD Primary Care Provider Active Team Status: Inactive Member Role Status Dates Dr. Jennifer Peterson MD Primary Care Provider Active Dr. Cheli Hart MD Attending Provider, Referring Pr ovider Active 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 Specialty Start Date End Date Jennifer Peterson [address] [place] [address] PCP - General Family Medicine 05/01/23 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 Specialty Start Date End Date Dante GayleSHERRIE [address] [place] [address] PCP - General Nurse Practitioner 10/18/20 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 Specialty Start Date End Date Jennifer Hauser DO [address] [facility] [place] [address] PCP - General 10/21/19 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 Specialty Start Date End Date Jennifer Hauser DO [address] [facility] [place] [address] PCP - General 10/21/19 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 Specialty Start Date End Date Jennifer Hauser DO [address] [facility] [place] [address] PCP - General 10/21/19 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 Specialty Start Date End Date Deuce Mendez MD [address] [address] PCP - General Family Medicine 03/09/24 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 Specialty Start Date End Date Deuce Mendez MD [address] [address] PCP - General Family Medicine 03/09/24 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 Specialty Start Date End Date Deuce Mendez MD [address] [address] PCP - General Family Medicine 03/09/24 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 Specialty Start Date End Date Deuce Mendez MD [address] [address] PCP - General Family Medicine 03/09/24 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 Specialty Start Date End Date Deuce Mendez MD [address] [address] PCP - General Family Medicine 03/09/24 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 Specialty Start Date End Date Deuce Mendez MD [employer] [id number] PCP - General Primary Care 05/06/24 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 Specialty Start Date End Date Deuce Mendez MD [employer] [place] [id number] PCP - General Family Medicine 03/09/24 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 Specialty Start Date End Date Deuce Mendez MD [employer] [place] [phone] PCP - General Family Medicine 03/09/24 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 Specialty Start Date End Date Deuce Mendez MD [address] [place], [place] [id number] PCP - General Family Medicine 03/09/24 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 Specialty Start Date End Date Deuce Mendez MD [employer] [place] [phone] PCP - General Family Medicine 03/09/24 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 Specialty Start Date End Date Deuce Mendez MD [employer] [place] [id number] PCP - General Family Medicine 03/09/24 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 Specialty Start Date End Date Deuce Mendez MD [employer] [place] [id number] PCP - General Family Medicine 03/09/24 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 Specialty Start Date End Date Deuce Mendez MD [employer] [place] [id number] PCP - General Family Medicine 03/09/24 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 Specialty Start Date End Date Deuce Mendez MD [address] [place], [place] [id number] PCP - General Primary Care 05/06/24 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 Specialty Start Date End Date Deuce Mendez MD [address] [place], [place] [phone] PCP - General Family Medicine 03/09/24 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 Specialty Start Date End Date Deuce Mendez MD [address] [place], [place] [phone] PCP - General Family Medicine 03/09/24 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 Specialty Start Date End Date Deuce Mendez MD [address] [place], [place] [phone] PCP - General Family Medicine 03/09/24 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 Specialty Start Date End Date Deuce Mendez MD [employer] [place] [phone] PCP - General Family Medicine 03/09/24 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 Specialty Start Date End Date Deuce Mendez MD [address] [place], [place] [id number] PCP - General Primary Care 05/06/24 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 Specialty Start Date End Date Deuce Mendez MD [employer] [place] [phone] PCP - General Family Medicine 03/09/24 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 Specialty Start Date End Date Deuce Mendez MD [employer] [place] [id number] PCP - General Primary Care 05/06/24 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 Specialty Start Date End Date Deuce Mendez MD [address] [place], [place] [phone] PCP - General Family Medicine 03/09/24 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 Specialty Start Date End Date Deuce Mendez MD [employer] [place] [phone] PCP - General Family Medicine 03/09/24 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 Specialty Start Date End Date Deuce Mendez MD [address] [place], [place] [phone] PCP - General Family Medicine 03/09/24 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 Specialty Start Date End Date Deuce Mendez MD [employer] [place] [phone] PCP - General Family Medicine 03/09/24 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 Specialty Start Date End Date Deuce Mendez MD [address] [address] PCP - General Primary Care 05/06/24 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 Specialty Start Date End Date Deuce Mendez MD [address] [address] PCP - General Family Medicine 03/09/24 Team Status: Active Member Role Status Dates DEUCE MENDEZ MD Primary Care Provider Active Team Status: Inactive Member Role Status Dates DEUCE MENDEZ MD Primary Care Provider Active Start: April 05, 2025 End: April 05, 2025 Dr. Cheli Hart MD Attending Provider Active Start: April 05, 2025 End: April 05, 2025 Dr. Cheli Hart MD Referring Provider Active Start: April 05, 2025 End: April 05, 2025 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 Specialty Start Date End Date Deuce Mendez MD [employer] [address] PCP - General Family Medicine 03/09/24 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 Specialty Start Date End Date Deuce Mendez MD [employer] [address] PCP - General Family Medicine 03/09/24 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 Specialty Start Date End Date Deuce Mendez MD [employer] [address] PCP - General Family Medicine 03/09/24 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 Specialty Start Date End Date Deuce Mendez MD [employer] [address] PCP - General Family Medicine 03/09/24 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 Specialty Start Date End Date Deuce Mendez MD [address] [phone] PCP - General Family Medicine 03/09/24 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 Specialty Start Date End Date Deuce Mendez MD [address] [place] [id number] PCP - General Primary Care 05/06/24 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 Specialty Start Date End Date Deuce Mendez MD [address] [phone] PCP - General Family Medicine 03/09/24 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 Specialty [place] [address] [place], [place] [phone] PCP - General Primary Care 05/06/24 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 Specialty Start Date End Date Deuce Mendez MD [address] [phone] PCP - General Family Medicine 03/09/24 Source Comments (unrecognize d section and content) In the event this informatio n is protected by the Federal Confidentiality of Alcohol and Drug Abuse Patient Records regulations: The Federal rules restrict any use of the information to criminally investigate or prosecute any alcohol or drug abuse patient.[facility] the event this information is protected by the Federal Confidentiality of Alcohol and Drug Abuse Patient Records regulations: The Federal rules restrict any use of the information to criminally investigate or prosecute any alcohol or drug abuse patient.[facility] the event this information is protected by the Federal Confidentiality of Alcohol and Drug Abuse Patient Records regulations: The Federal rules restrict any use of the information to criminally investigate or prosecute any alcohol or drug abuse patient.[facility] the event this information is protected by the Federal Confidentiality of Alcohol and Drug Abuse Patient Records regulations: The Federal rules restrict any use of the information to criminally investigate or prosecute any alcohol or drug abuse patient.[facility] the event this information is protected by the Federal Confidentiality of Alcohol and Drug Abuse Patient Records regulations: The Federal rules restrict any use of the information to criminally investigate or prosecute any alcohol or drug abuse patient.[facility] the event this information is protected by the Federal Confidentiality of Alcohol and Drug Abuse Patient Records regulations: The Federal rules restrict any use of the information to criminally investigate or prosecute any alcohol or drug abuse patient.[facility] the event this information is protected by the Federal Confidentiality of Alcohol and Drug Abuse Patient Records regulations: The Federal rules restrict any use of the information to criminally investigate or prosecute any alcohol or drug abuse patient.[facility] the event this information is protected by the Federal Confidentiality of Alcohol and Drug Abuse Patient Records regulations: The Federal rules restrict any use of the information to criminally investigate or prosecute any alcohol or drug abuse patient.[facility] the event this information is protected by the Federal Confidentiality of Alcohol and Drug Abuse Patient Records regulations: The Federal rules restrict any use of the information to criminally investigate or prosecute any alcohol or drug abuse patient.[facility] the event this information is protected by the Federal Confidentiality of Alcohol and Drug Abuse Patient Records regulations: The Federal rules restrict any use of the information to criminally investigate or prosecute any alcohol or drug abuse patient.[facility] the event this information is protected by the Federal Confidentiality of Alcohol and Drug Abuse Patient Records regulations: The Federal rules restrict any use of the information to criminally investigate or prosecute any alcohol or drug abuse patient.[facility] the event this information is protected by the Federal Confidentiality of Alcohol and Drug Abuse Patient Records regulations: The Federal rules restrict any use of the information to criminally investigate or prosecute any alcohol or drug abuse patient.[facility] the event this information is protected by the Federal Confidentiality of Alcohol and Drug Abuse Patient Records regulations: The Federal rules restrict any use of the information to criminally investigate or prosecute any alcohol or drug abuse patient.[facility] HospitalIn the event this information is protected by the Federal Confidentiality of Alcohol and Drug Abuse Patient Records regulations: The Federal rules restrict any use of the information to criminally investigate or prosecute any alcohol or drug abuse patient.[facility] HospitalIn the event this information is protected by the Federal Confidentiality of Alcohol and Drug Abuse Patient Records regulations: The Federal rules restrict any use of the information to criminally investigate or prosecute any alcohol or drug abuse patient.[facility] HospitalIn the event this information is protected by the Federal Confidentiality of Alcohol and Drug Abuse Patient Records regulations: The Federal rules restrict any use of the information to criminally investigate or prosecute any alcohol or drug abuse patient.[facility] HospitalIn the event this information is protected by the Federal Confidentiality of Alcohol and Drug Abuse Patient Records regulations: The Federal rules restrict any use of the information to criminally investigate or prosecute any alcohol or drug abuse patient.[facility] Hospital[facility] the event this information is protected by the Federal Confidentiality of Alcohol and Drug Abuse Patient Records regulations: The Federal rules restrict any use of the information to criminally investigate or prosecute any alcohol or drug abuse patient.[facility] HospitalIn the event this information is protected by the Federal Confidentiality of Alcohol and Drug Abuse Patient Records regulations: The Federal rules restrict any use of the information to criminally investigate or prosecute any alcohol or drug abuse patient.[facility] HospitalIn the event this information is protected by the Federal Confidentiality of Alcohol and Drug Abuse Patient Records regulations: The Federal rules restrict any use of the information to criminally investigate or prosecute any alcohol or drug abuse patient.[facility] HospitalIn the event this information is protected by the Federal Confidentiality of Alcohol and Drug Abuse Patient Records regulations: The Federal rules restrict any use of the information to criminally investigate or prosecute any alcohol or drug abuse patient.[facility] HospitalIn the event this information is protected by the Federal Confidentiality of Alcohol and Drug Abuse Patient Records regulations: The Federal rules restrict any use of the information to criminally investigate or prosecute any alcohol or drug abuse patient.[facility] Goals (unrecognized section and content) Goals may be documented in a n alternate sectionGoals may be documented in an alternate section FOR RECORDS PERTAINING TO PATIENTS WHO ARE OR HAVE BEEN ENROLLED IN A CHEMICAL DEPENDENCY/SUBSTANCEABUSE PROGRAM, SOME INFORMATION MAY BE OMITTED. This clinical summary was aggregated from multiple sources. Caution should be exercised in using it in the provision of clinical care. This summary normalizes information from multiple sources, and as a consequence, information in this document may materially change the coding, format and clinical context of patient data. In addition, data may be omitted in some cases. CLINICAL DECISIONS SHOULD BE BASED ON THE PRIMARY CLINICAL RECORDS. [facility]. provides no warranty or guarantee of the accuracy or completeness of information in this document.
--- NOTE | 2025-07-31 13:29 | EDS_ITS ---
HPI History of Present Illness Chief Complaint: Lower Extremity Injury Narrative Narrative: Patient is a 89-year-old male past medical history of hypertension, hypercholesteremia who presents to the emergency department chief complaint of right foot pain/ankle pain. Patient states that about 10 days ago he was getting off a mower when he notes that he kicked a piece of the mower. He states that he has persistent pain since then and he was talking with a friend who advised to bring him here to be further evaluated. He states that he has been walking on this. States that it is pretty painful for him to do so. [facility] Medical History Bypass graft mechanical complication Anxiety High cholesterol HTN (hypertension) Allergy/AdvReac Type Severity Reaction Status Date / Time No Known Allergies Allergy Verified 07/31/25 12:29 Social History Smoking Status: Never smoker ROS ROS ED ROS Narrative Neurological: Denies any numbness, weakness, tingling Musculoskeletal: Complains of right ankle pain as noted above Skin: Complains of bruising to his toes EXAM Physical Exam Narrative Exam Narrative: General: Patient was lying in bed rest comfortably did not appear to be in acute distress Head: Atraumatic, normocephalic Eyes: PERRL bilaterally, EOMI bilateral, no conjunctival injection noted Neck: Soft, supple, trachea midline Musculoskeletal: Patient has tenderness palpation over the lateral malleolus, minimal tenderness palpation of the dorsal aspect of the foot, compartments are soft and compressible in the right lower extremity Extremities: DP pulses +2/4 in the right lower extremity, +5/5 strength noted in the bilateral upper and lower extremities Neurological: Patient following commands knew that he was at [facility] year is 2024 sensation grossly intact Skin: Patient has a ecchymosis noted to the dorsal aspect of his 2nd, 3rd and 4th toe on the right foot with some mild swelling noted around the right ankle Const Vital Signs: 07/31/25 12:27 Temperature 98.0 F Temperature Source Oral Pulse Rate 81 Respiratory Rate 16 Blood Pressure 160/82 H Blood Pressure Mean 108 Pulse Ox 99 Oxygen Delivery Method Room Air MDM MDM MDM Narrative Medical decision making narrative: Patient is 89-year-old male who presents to the emergency department chief complaint of right ankle pain after injury about 10 days ago. On the differential diagnose includes but limited to ankle sprain, fibula fracture, posterior malleolus fracture, medial malleolus fracture, Ankle sprain. Once workup is obtained reviewed he will be reevaluated. 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 X-ray ankle also showed no acute fractures but soft tissue swelling. Discussed results with patient given that his right lower extremity is more swollen than his left with the injury about 10 days ago we will order outpatient duplex of the right lower extremity as we do not have this available here in the emergency department today. He has no history of blood clots. He is advised to return for this and return with worsening symptoms or concerns. He is vies rotate Tylenol and ibuprofen [id number] for mild to moderate pain as well as ice, elevate. He is agreeable to plan all course concerns answered is discharged home in stable condition. Radiography Diagnostic Testing: Clinical Impression(s) from Imaging Studies Ankle X-Ray 07/31/25 12:48 IMPRESSION: 1. Soft tissue swelling without acute fracture. 2. If symptoms persist, further evaluation with CT is recommended. Reading Location: [facility] Foot X-Ray 07/31/25 13:00 IMPRESSION: 1. Soft tissue swelling. 2. 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 Reading Location: [facility] Discharge Plan Triage Chief Complaint: Lower Extremity Injury ED Provider: Ronen Gary Dx/Rx/DC Orders Clinical Impression: Acute right ankle pain, Hypertension, Hx of hypercholesterolemia Other Ambulatory Orders: Venous Duplex US, Unilateral (Stat) Facility: [facility] - Location: [facility] Ordered By: Dr. Ronen Gary Primary Care Provider: DEUCE MENDEZ Referrals: DEUCE MENDEZ MD [Primary Care Provider] - Activity Restrictions/Additional Instructions: Your x-rays did not show any acute findings. You need to return for the ultrasound of your leg to ensure that you do not have a blood clot. Return with any other concerns or worsening symptoms. Rotate Tylenol and ibuprofen [id number] for pain control when you do this you can take something every 3 hours for pain max dose of Tylenol in 24 hours 4000 mg max dose of ibuprofen in 24 hours 3200 mg. Print Language: Maldivian Disposition Disposition: Home, Self Care
== END 2025-07-31 15:06 | disposition home or self-care (01) ==
PROVIDERS: Emergency Provider Emergency Medicine; PCP Family Medicine; Visit Provider Emergency Medicine
DX: M25.571 Pain in right ankle and joints of right foot (principal); W22.8XXA Striking against or struck by other objects, initial encounter; R60.0 Localized edema; I10 Essential (primary) hypertension; E78.00 Pure hypercholesterolemia, unspecified
CPT/HCPCS: 73610; 73630; 99282

== ENCOUNTER → 2025-08-02 | Outpatient (CLI) | payer MEDICARE, SELFPAY ==
--- NOTE | 2025-08-02 10:15 | VDLE_ITS ---
Reason For Study Reason For Study: Right leg pain RIGHT LEFT GSV is normal. CFV is compressible, spontaneous, phasic, competent, CFV is compressible, spontaneous, phasic, competent and demonstrates normal augmentation. and demonstrates normal augmentation. FV is compressible, spontaneous, phasic, competent and demonstrates normal augmentation. POP V is compressible, spontaneous, phasic, competent and demonstrates normal augmentation. T/P Trunk is compressible. PTV is compressible. RT PerV is compressible. Procedure This is a venous duplex using B-mode, color flow and spectral Doppler. Exam performed in department. A preliminary report was called and/or faxed to PCP: Dr. Bull. VL/Venous Duplex US, Unilateral Interpretation Summary Deep veins of the right lower extremity are patent and compressible segmentally . There is no evidence of right lower extremity deep vein thrombosis. The right great saphenous vein appears patent a nd compressible segmentally. Ordering Physician: Ronen Gray Referring Physician: Loida Bull Performed By: Charlene Gallagher RVT
== END | disposition home or self-care (01) ==
LOC: CVS 10:11
PROVIDERS: PCP Family Medicine; Referring Provider Emergency Medicine; Visit Provider Emergency Medicine
DX: M79.604 Pain in right leg (principal)
CPT/HCPCS: 93971